=== PATIENT | male | born 1940 | race Caucasian/White ===

== ENCOUNTER 2018-08-04 00:14 | Outpatient (CLI) | payer BC, MEDICARE, SELFPAY ==
[2018-08-04 11:25] LABS: Anion Gap 9.5 mmol/L (3-11); BUN 26 mg/dL (7-18); CO2 31.5 mmol/L (21.0-32.0); CREATININE 1.09 mg/dL (0.70-1.30); Calcium 8.6 mg/dL (8.5-10.1); Chloride 103 mmol/L (98-107); Glucose 148 mg/dL (70-100); Sodium 144 mmol/L (136-145)
[2018-08-06 09:16] LABS: PSA, Screening <0.1 ng/ml (0-6.5)
== END 2018-08-04 00:34 ==
PROVIDERS: PCP Family Medicine; Visit Provider Family Medicine
DX: I27.20 Pulmonary hypertension, unspecified (principal); Z12.5 Encounter for screening for malignant neoplasm of prostate
CPT/HCPCS: 36415; 80048; 84153

== ENCOUNTER 2018-12-03 08:25 | Outpatient (CLI) | payer BC, MEDICARE, SELFPAY | END 2018-12-03 08:45 | PROVIDERS: PCP Family Medicine; Visit Provider Internal Medicine Interventional Cardiology | DX: I48.91 Unspecified atrial fibrillation (principal); I25.10 Atherosclerotic heart disease of native coronary artery without angina pectoris; I27.20 Pulmonary hypertension, unspecified; R06.02 Shortness of breath | CPT/HCPCS: 93005; 93010 ==

== ENCOUNTER 2019-05-01 00:55 | Outpatient (CLI) | payer MEDICARE, BC, SELFPAY ==
--- NOTE | 2019-05-01 10:30 | MERGE_ITS ---
*[facility]* *[facility]* [address] [place] [address] Date of study: 05/01/2019 Transthoracic Echocardiography M-mode, complete 2D, complete spectral Doppler, and color Doppler *STUDY CONCLUSIONS* Impressions: The patient was in atrial fibrillation throughout study. This rhythm can interfere with accurate global and segmental wall motion analysis. Summary: 1. Left ventricle: The cavity size was normal. Wall thickness was increased increased in a pattern of mild to moderate LVH. Systolic function was normal. The estimated ejection fraction was 60-65%. Wall motion was normal; there were no regional wall motion abnormalities. 2. Aortic valve: Trileaflet; severely calcified leaflets. There was moderate to severe stenosis. There was mild regurgitation. Peak velocity (S): 3m/sec. Mean gradient (S): 23.5mm Hg. Valve area (VTI): 1.1cm^2. Peak velocity ratio of LVOT to aortic valve: 0.26. 3. Aortic root: The aortic root was mildly dilated. 3.8 cm. 4. Ascending aorta: The ascending aorta was mildly to moderately dilated. 4.2 cm. 5. Left atrium: The atrium was moderately dilated. 6. Right ventricle: The cavity size was dilated. Wall thickness was normal. Systolic function was normal. 7. Right atrium: The atrium was moderately dilated. 8. Pulmonary arteries: Pulmonary systolic pressure was severely increased, in the range of 60mm Hg to 70mm Hg. *PATIENT PRESENTATION* Height: 175.3cm (69in ) S/D Pressure: 126 / 77 Weight: 104.3kg (229.5lb ) BSA: 2.29m^2 Test start time: 10:40 AM. Test stop time: 11:40 AM. CONSULTING Refugio Ward MD ORDERING Refugio Ward MD REFERRING Refugio Ward MD PERFORMING Unknown PERFORMING [facility] RT Tiffani Panchal)(CT), [facility] *PROCEDURE DATA* Procedure information: This study was interpreted by [facility]. Pertinent images and digital data are archived for permanent storage and are available for subsequent review. Comparison was made to the study of 08/07/2017. Study status: Routine. Transthoracic echocardiography. M-mode, complete 2D, complete spectral Doppler, and color Doppler. A Transthoracic Echocardiogram was performed. Scanning was performed from the parasternal, apical, subcostal, and suprasternal notch acoustic windows. Images were obtained using an [id number] cardiac ultrasound machine. Image quality was good. Study completion: The patient tolerated the procedure well. There were no complications. History: PMH: SOb, , Pulmonary HTN i35.0, i27.20, r06.02. *CARDIAC ANATOMY* Left ventricle: The cavity size was normal. Wall thickness was increased increased in a pattern of mild to moderate LVH. Systolic function was normal. The estimated ejection fraction was 60-65%. Wall motion was normal; there were no regional wall motion abnormalities. The study was not technically sufficient to allow evaluation of LV diastolic dysfunction due to atrial fibrillation. Aortic valve: Trileaflet; severely calcified leaflets. Valve mobility was restricted. Doppler: There was moderate to severe stenosis. There was mild regurgitation. VTI ratio of LVOT to aortic valve: 0.24. Valve area (VTI): 1.1cm^2. Indexed valve area (VTI): 0.5cm^2/m^2. Peak velocity ratio of LVOT to aortic valve: 0.26. Valve area (Vmax): 1.2cm^2. Indexed valve area (Vmax): 0.5cm^2/m^2. Mean velocity ratio of LVOT to aortic valve: 0.26. Valve area (Vmean): 1.2cm^2. Indexed valve area (Vmean): 0.5cm^2/m^2. Mean gradient (S): 23.5mm Hg. Peak gradient (S): 36.5mm Hg. Aorta: Aortic root: The aortic root was mildly dilated. 3.8 cm. Ascending aorta: The ascending aorta was mildly to moderately dilated. 4.2 cm. Mitral valve: Structurally normal valve. Mobility was not restricted. Doppler: Transvalvular velocity was within the normal range. There was no evidence for stenosis. There was trivial regurgitation. Valve area by pressure half-time: 5.5cm^2. Indexed valve area by pressure half-time: 2.4cm^2/m^2. Peak gradient (D): 7.6mm Hg. Left atrium: The atrium was moderately dilated. Right ventricle: The cavity size was dilated. Wall thickness was normal. Systolic function was normal. Pulmonic valve: Structurally normal valve. Doppler: Transvalvular velocity was within the normal range. There was no evidence for stenosis. There was trivial regurgitation. Peak gradient (S): 20.7mm Hg. Tricuspid valve: Structurally normal valve. Doppler: Transvalvular velocity was within the normal range. There was no evidence for stenosis. There was mild regurgitation. Pulmonary artery: The main pulmonary artery was mildly dilated. Pulmonary systolic pressure was severely increased, in the range of 60mm Hg to 70mm Hg. Right atrium: The atrium was moderately dilated. Pericardium: There was no pericardial effusion. Systemic veins: Inferior vena cava: Well visualized. The vessel was patent and normal in size. The respirophasic diameter changes were blunted (less than 50%). Baseline ECG: Atrial fibrillation. Measurements Left ventricle Value 08/07/2017 Reference LV ID, ED, PLAX 5.2 cm 5.3 3.5 - 6.0 LV ID, ES, PLAX 3.4 cm 3.7 2.1 - 4.0 LV PW thickness, ED, PLAX 1.3 cm 1.4 LV end-diastolic volume, 109 ml 82 1-p A2C LV ejection fraction, 1-p 59 % 42 A2C LV end-diastolic volume, 114 ml 112 1-p A4C LV ejection fraction, 1-p 67 % 45 A4C LV e', lateral 0.086 m/sec LV E/e', lateral 16 LV e', medial 0.076 m/sec LV E/e', medial 18 LV e', average 0.081 m/sec LV E/e', average 17 Ventricular septum Value 08/07/2017 Reference IVS thickness, ED, PLAX 1.4 cm 1.3 LVOT Value 08/07/2017 Reference LVOT ID, A-P 2.4 cm 2.4 LVOT area 4.6 cm^2 4.4 LVOT peak velocity, S 0.79 m/sec 0.91 LVOT mean velocity, S 0.61 m/sec LVOT VTI, S 16.6 cm 21.8 LVOT peak gradient, S 2.5 mm Hg LVOT mean gradient, S 1.6 mm Hg 1.9 Stroke volume (SV), LVOT 77 ml DP Stroke index (SV/bsa), 34 ml/m^2 LVOT DP Aortic valve Value 08/07/2017 Reference Aortic valve peak 3 m/sec 3.2 velocity, S Aortic valve mean 2.3 m/sec 0 velocity, S Aortic valve VTI, S 68.0 cm Aortic mean gradient, S 23.5 mm Hg 24.1 Aortic peak gradient, S 36.5 mm Hg 41 VTI ratio, LVOT/AV 0.24 0.3 Aortic valve area, VTI 1.1 cm^2 1.4 Velocity ratio, peak, 0.26 0.28 LVOT/AV Aortic valve area, peak 1.2 cm^2 1.2 velocity Velocity ratio, mean, 0.26 LVOT/AV Aortic valve area, mean 1.2 cm^2 velocity Aortic valve area/bsa, 0.5 cm^2/m^2 mean velocity Aorta Value 08/07/2017 Reference Aortic root ID, ED 3.8 cm 3.8 Ascending aorta ID, A-P, S 4.2 cm 4.2 RVOT Value 08/07/2017 Reference RVOT VTI, S 16.8 cm 19.4 Left atrium Value 08/07/2017 Reference LA ID, A-P, ES 5.4 cm LA ID/bsa, A-P (H) 2.4 cm/m^2 <=2.2 LA volume/bsa, ES, 1-p A4C 34 ml/m^2 56 LA volume, ES, 2-p 93 ml LA volume/bsa, ES, 2-p 41 ml/m^2 LA/aortic root ratio 1.41 Mitral valve Value 08/07/2017 Reference Mitral E-wave peak 1.38 m/sec 1.35 velocity Mitral A-wave peak 0.24 m/sec velocity Mitral deceleration time (L) 137 ms 185 150 - 230 Mitral pressure half-time 40 ms 54 Mitral peak gradient, D 7.6 mm Hg 7.3 Mitral E/A ratio, peak 5.72 Mitral valve area, PHT, DP 5.5 cm^2 4.1 Tricuspid valve Value 08/07/2017 Reference Tricuspid regurg peak 3.9 m/sec 4.1 velocity Tricuspid peak RV-RA 60 mm Hg 68.5 gradient Right atrium Value 08/07/2017 Reference RA area, ES, A4C (H) 29.7 cm^2 26.5 8.3 - 19.5 Pulmonic valve Value 08/07/2017 Reference Pulmonic peak gradient, S 20.7 mm Hg 22.5 Pulmonic regurg velocity, 2.27 m/sec 2.37 ED Pulmonic regurg gradient, 21 mm Hg 23 ED Legend: (L) and (H) sameera values outside specified reference range. I have personally reviewed the images and have reviewed and edited the reported findings. Electronically signed by Rich Vickers 05/01/2019 12:57
== END 2019-05-01 01:15 ==
PROVIDERS: PCP Nurse Practitioner; Visit Provider Internal Medicine Interventional Cardiology
DX: R06.02 Shortness of breath (principal); I48.91 Unspecified atrial fibrillation; I35.2 Nonrheumatic aortic (valve) stenosis with insufficiency; I27.20 Pulmonary hypertension, unspecified; I51.7 Cardiomegaly
CPT/HCPCS: 93306

== ENCOUNTER 2019-05-07 08:44 | Outpatient (CLI) | payer MEDICARE, BC, SELFPAY ==
[2019-05-07 09:12] LABS: Abs Immature Grans 0.03 k/cumm (0.0-0.09); Absolute Basophil Count 0.01 k/cumm (0.0-0.2); Absolute Eosinophil Count 0.16 k/cumm (0.0-0.7); Absolute Lymphocyte Count 1.21 k/cumm (1.2-3.4); Absolute Monocyte Count 1.25 k/cumm (0.11-0.7); Absolute Neutrophil Count 7.09 k/cumm (1.2-6.7); Basophils % 0.1; Eosinophils % 1.6; HCT 41.3 % (40.0-50.0); HGB 13.1 g/dL (13.5-17.5); Immature Grans % 0.3; Lymphocytes % 12.4; Mean Corp. HGB Concentration 31.7 g/dL (32.0-36.0); Mean Corpuscular Hemoglobin 30.8 pg (27.0-33.0); Mean Corpuscular Volume 97.2 fL (80-95); Mean Platelet Volume 9.8 fL (8.0-11.0); Monocytes % 12.8; Neutrophils % 72.8; Platelet Count 126 x1000/uL (130-400); RBC 4.25 m/cumm (4.50-6.00); White Blood Cell Count 9.75 k/cumm (4.4-10.8)
[2019-05-07 10:50] LABS: ALT 45 U/L (12-78); AST 27 U/L (15-37); Albumin 3.5 g/dL (3.4-5.0); Alkaline Phosphatase 79 U/L (46-116); Anion Gap 5.7 mmol/L (3-11); BUN 17 mg/dL (7-18); Bilirubin, Total 1.4 mg/dL (0.2-1.0); CO2 34.3 mmol/L (21.0-32.0); CREATININE 0.95 mg/dL (0.70-1.30); Calculated LDL 56 mg/dL; Chloride 101 mmol/L (98-107); Cholesterol 116 mg/dL (50-200); HDL Cholesterol 45 mg/dL (40-60); Potassium 3.8 mmol/L (3.5-5.1); Sodium 141 mmol/L (136-145); Triglyceride 76 mg/dL (30-150)
[2019-05-07 11:10] LABS: Bilirubin, Direct 0.34 mg/dL (0.00-0.20); NT-proBNP 1899 pg/mL
== END 2019-05-07 09:04 ==
PROVIDERS: PCP Nurse Practitioner; Visit Provider Internal Medicine Interventional Cardiology
DX: I27.20 Pulmonary hypertension, unspecified (principal); I35.0 Nonrheumatic aortic (valve) stenosis; R06.02 Shortness of breath; I48.91 Unspecified atrial fibrillation; I25.10 Atherosclerotic heart disease of native coronary artery without angina pectoris; D69.6 Thrombocytopenia, unspecified
CPT/HCPCS: 36415; 80051; 80061; 80076; 83721; 84520; 85027; 82565; 83880; 85025

== ENCOUNTER → 2019-05-13 12:52 | Outpatient (BNVA) | payer MEDICARE, BC, SELFPAY | PROVIDERS: PCP Nurse Practitioner; Visit Provider Internal Medicine Interventional Cardiology | DX: I27.20 Pulmonary hypertension, unspecified (principal); J44.9 Chronic obstructive pulmonary disease, unspecified; Z87.891 Personal history of nicotine dependence; G47.33 Obstructive sleep apnea (adult) (pediatric); Z99.89 Dependence on other enabling machines and devices; I50.810 Right heart failure, unspecified; I51.9 Heart disease, unspecified | CPT/HCPCS: 99213 ==

== ENCOUNTER 2019-05-13 13:30 | Outpatient (CLI) | payer MEDICARE, BC, SELFPAY | END 2019-05-13 13:50 | PROVIDERS: PCP Nurse Practitioner; Visit Provider Internal Medicine Interventional Cardiology | DX: I48.91 Unspecified atrial fibrillation (principal); I27.20 Pulmonary hypertension, unspecified; R60.0 Localized edema; J44.9 Chronic obstructive pulmonary disease, unspecified; Z87.891 Personal history of nicotine dependence; G47.33 Obstructive sleep apnea (adult) (pediatric); Z99.89 Dependence on other enabling machines and devices; I50.810 Right heart failure, unspecified; I51.9 Heart disease, unspecified | CPT/HCPCS: 93005; 93010; 99213 ==

== ENCOUNTER 2019-05-15 01:33 | Outpatient (RCR) | payer MEDICARE, BC, SELFPAY ==
[2019-05-02] MEDS: Adalimumab 40 MG/0.8 ML SYRINGE SC (11:30)
[2019-05-15] MEDS: Adalimumab 40 MG/0.8 ML SYRINGE SC (11:37)
== END 2019-05-25 23:59 | disposition home or self-care (01) ==
LOC: INF 01:33
PROVIDERS: PCP Nurse Practitioner; Visit Provider Internal Medicine
DX: M06.9 Rheumatoid arthritis, unspecified (principal)
CPT/HCPCS: 96372

== ENCOUNTER 2019-07-10 16:59 | Outpatient (REF) | payer MEDICARE, BC, SELFPAY ==
[2019-07-12 09:39] LABS: PSA, Screening <0.1 ng/ml (0-6.5)
== END 2019-07-10 17:19 ==
LOC: LBO 16:59
PROVIDERS: PCP Nurse Practitioner; Referring Provider Nurse Practitioner; Visit Provider Nurse Practitioner
DX: Z85.46 Personal history of malignant neoplasm of prostate (principal)
CPT/HCPCS: 84153

== ENCOUNTER 2020-04-13 07:19 | Outpatient (CLI) | payer MEDICARE, BC, SELFPAY ==
[2020-04-15 17:28] LABS: COVID-19 RT-PCR Result NEGATIVE (Negative)
== END 2020-04-13 07:39 ==
PROVIDERS: PCP Nurse Practitioner; Visit Provider Family Medicine
DX: R06.00 Dyspnea, unspecified (principal); R06.89 Other abnormalities of breathing
CPT/HCPCS: U0003

== ENCOUNTER 2020-04-16 02:16 | Outpatient (CLI) | payer MEDICARE, BC, SELFPAY ==
[2020-04-16] MEDS: Inhaler, Assist Device 1 EACH MC (14:26)
[2020-04-16] MEDS: Albuterol HFA 18 GM 200 PUFF INH IH (14:26)
--- NOTE | 2020-04-20 15:33 | W.PFT ---
Date of service: 04/16/20 Time of Service: 01:15 Pulmonary Function Test Result Interpretation Spirometry: Spirometry shows severe obstructive airways disease with some but not significant bronchodilator response Lung Volumes: Lung volumes show severe restriction Diffusion Capacity: Diffusion capacity very severely reduced which is normal when corrected to alveolar volume Airway Pressure: Airways resistance normal Impression Combination of severe obstructive airways disease with some but not significant bronchodilator response and severe restrictive pattern. This results in very severe diffusion defect clinical correlation recommended when the study was compared to previous ones from 08/30/2005 and 04/04/2017 the patient had an initial decline in FVC but has been fairly stable from 2017, FEV1 has had similar pattern. Total lung capacity initially improved but then had a substantial decline of 1710 cc from 2017 most of that decline was due to decline in residual volume and measures air trapping. clinical correlation recommended Clinical Correlation therefore is recommended.
== END 2020-04-16 02:36 ==
PROVIDERS: PCP Nurse Practitioner; Visit Provider Internal Medicine Interventional Cardiology
DX: R06.00 Dyspnea, unspecified (principal)
CPT/HCPCS: 94060; 94726; 94729

== ENCOUNTER 2020-04-30 01:19 | Outpatient (CLI) | payer MEDICARE, BC, SELFPAY ==
--- NOTE | 2020-04-30 | DI.US_ITS ---
APPROVED REPORT EXAM: Comprehensive 2D, Doppler, and color-flow Echocardiogram Patient Location: Out-Patient Event Services Manager: Suzy Hall RDCS (AE) Indications: Dyspnea Other Information Study Quality: Good Conclusion Left Ventricle : The left ventricle is normal size. The left ventricular systolic function is normal. The left ventricular ejection fraction is within the normal range. Mild concentric left ventricular hypertrophy. There are regional wall motion abnormalities as described below. The diastolic function is abnormal. LVEF is 48%. Right Ventricle : Right ventricle is mildly dilated. Right ventricular systolic function is mildly re duced. The RVSP is 78.2 mmHg. Atria : Left atrium is borderline dilated. Right atrium is borderline dilated. Aortic Valve : Aortic valve is calcified. Aortic valve is probably trileaflet. Severe aortic valve sc lerosis. Moderate aortic stenosis. Peak aortic valve gradient is 35.2mmHg. Highest mean aortic valve gradient is 20.6mmHg. Calculated KAMILA by the continuity equation is 1.35cm2. Mild aortic regurgitation . Mitral Valve : The mitral valve is normal in structure. No evidence of mitral valve stenosis. Mild mi tral regurgitation. Great Vessels : The aortic root is normal in size. Ascending aorta is not well visualized. Aortic arc h is not well visualized. The IVC collapses <50% with inspiration. Compared to study from 05/01/2019, aortic valve function is about the same but ejection fraction is now mildly reduced with regional wall motion abnormalities. Wall motion Left Ventricle The left ventricle is normal size. The left ventricular systolic function is normal. The left ventric ular ejection fraction is within the normal range. Mild concentric left ventricular hypertrophy. Ther e are regional wall motion abnormalities as described below. The diastolic function is abnormal. Ther e is no ventricular septal defect visualized. LVEF is 48%. Right Ventricle Right ventricle is mildly dilated. Right ventricular systolic function is mildly reduced. The RVSP is 78.2 mmHg. Atria Left atrium is borderline dilated. Right atrium is borderline dilated. The interatrial septum is inta ct with no evidence for an atrial septal defect. Aortic Valve Aortic valve is calcified. Aortic valve is probably trileaflet. Severe aortic valve sclerosis. Modera te aortic stenosis. Peak aortic valve gradient is 35.2mmHg. Highest mean aortic valve gradient is 20. 6mmHg. Calculated KAMILA by the continuity equation is 1.35cm2. Mild aortic regurgitation. Mitral Valve The mitral valve is normal in structure. No evidence of mitral valve stenosis. Mild mitral regurgitat ion. Tricuspid Valve The tricuspid valve is normal in structure. There is no tricuspid valve stenosis. Mild tricuspid regu rgitation. Pulmonic Valve The pulmonary valve is normal in structure. There is no pulmonic valvular stenosis. Mild pulmonic reg urgitation. Great Vessels The aortic root is normal in size. Ascending aorta is not well visualized. Aortic arch is not well vi sualized. The IVC collapses <50% with inspiration. Pericardium There is no pericardial effusion. 2D Dimensions IVSD d PLAX 1.20 cm M: 0.6-1.2 LV Vol A2C d MOD 125.9 mL LVPW d PLAX 1.22 cm M: 0.6 - 1.2 LV Vol A4C d MOD 95.3 mL LVID d PLAX 5.24 cm M: 4.2 - 5.8 LA vol/ BSA A2C s A-L 30.9 mL/m2 LVDs 3.65 cm M: 2.5 - 4.0 LA vol/ BSA A4C s A-L 30.1 mL/m2 Ao Root d 3.49 cm M: 3.1 - 3.7 LA Vol/ BSA Biplane s A-L 31.2 mL/m2 RA Area A4C 21.82 cm2 LA Area A4C s MOD 22.64 cm2 RA Vol/ BSA A4C s A-L 28.4 mL/m2 LA Area A2C s MOD 22.39 cm2 LV EF Teichholz 56.7 % LV EF A4C MOD 47.8 % LVEF (Akbar's) 49.07 % M: 52 - 72 LV EF A2C MOD 48.0 % LV Volume 82.58 mL M: 62 - 150 LV EF Biplane MOD 49.1 % LV Volume Index 37.03 mL/m2 M: 34 - 74 SV 55.97 mL LV Vol Biplane MOD 114.1 mL SV Index 25.07 mL/m2 FS 29.90 % M-Mode TAPSE 1.36 cm (M/F) >1.7 LV Diastology MV E' medial 0.071 (>0.07 m/s) MV E Vmax 1.39 (0.4-1.3 m/s) LV E/e MED 19.65 (<14) MV E' lateral 0.084 (>0.1 m/s) LV E/e LAT 16.60 (<14) MV E/E' medial 19.66 MV E/E' lateral 16.60 Aortic Valve LVOT Area 4.36 cm2 AoV Area Vmax 1.35 cm2 LVOT Vmax 0.92 m/s AoV Area/ BSA (Vmax) 0.61 cm2/m2 LVOT Mean Deandre. 0.62 m/s KAMILA Mean Deandre. 1.24 cm2 LVOT Peak Grad 3.4 mmHg KAMILA Mean Deandre. Index 0.55 cm2/m2 LVOT Mean Grad 1.8 mmHg AR DT 2047 msec LVOT VTI 0.218 m AR PHT 594 msec LVOT Diam s 2.35 cm AoV Vmax 2.97 m/s Velocity Ratio 0.30 AoV Mean Deandre. 2.17 m/s AoV Peak Grad 35.2 mmHg LVOT SV 94.81 mL AoV Mean Grad 20.6 mmHg AoV VTI 0.645 m AoV Area VTI 1.47 cm2 AoV Area/ BSA (VTI) 0.66 cm/m2 Mitral Valve MV DT 167 (160-240 msec) MV PHT 48 msec MV Area PHT 4.54 cm2 Pulmonary Valve PV Vmax 1.11 (0.5-1.5 m/s) RVOT Peak Gr. 2.76 mmHg PV Peak Grad 4.9 mmHg RVOT Mean Gr. 1.25 mmHg PV Mean Grad 2.3 mmHg RVOT VTI 0.151 m PV VTI 0.224 m RVOT Vmax 0.83 m/s Tricuspid Valve TR Peak Grad 70.1 mmHg TR Vmax 4.19 m/s RA Pressure 8.00 mmHg RVSP (TR) 78.2 mmHg
== END 2020-04-30 01:39 ==
PROVIDERS: PCP Nurse Practitioner; Visit Provider Internal Medicine Cardiovascular Disease
DX: R06.00 Dyspnea, unspecified (principal); I08.3 Combined rheumatic disorders of mitral, aortic and tricuspid valves
CPT/HCPCS: 93306

== ENCOUNTER 2020-05-28 01:21 | Outpatient (CLI) | payer MEDICARE, BC, SELFPAY ==
--- NOTE | 2020-05-28 14:58 | DI.CT_ITS ---
EXAM: CT CHEST WO CLINICAL HISTORY: CHRONIC OBSTRUCTIVE LUNG DISEASE, J44.9. TECHNIQUE: Imaging protocol: Axial computed tomography images were obtained and coronal and sagittal reformatted images were created and reviewed. COMPARISON: CT CHEST FOR PULMONARY EMBOLUS from 02/17/2017 FINDINGS: The study is limited by patient motion artifact. Tracheobronchial tree: Patent where visualized. Mediastinum and Denia: Mildly enlarged lymph nodes are seen in the mediastinum. No significant adenop athy is appreciated. Pulmonary parenchyma: There are areas of air trapping in the lungs. Linear areas of consolidation ar e seen in the right middle and right lower lobes. No pulmonary nodules are appreciated. Pleura: No effusion or pneumothorax. Stable pleural calcifications are seen in the right hemithorax. This may reflect prior asbestos exposure, infection or inflammation. Heart: The heart is enlarged. Coronary artery calcifications are present. No pericardial effusion. Aorta: Thoracic aorta non-dilated. Atherosclerosis. Upper abdomen: Unremarkable. Lymph nodes: Within normal limits. Bones:Degenerative changes. Sternotomy. Soft tissues: Unremarkable. IMPRESSION: 1. Study limited by significant patient motion artifact. 2. Linear areas of consolidation in the right middle and right lower lobes. This may represent atele ctasis, scarring or pneumonia. 3. Stable pleural calcifications in the right hemithorax. RADIATION DOSE DELIVERED: Total DLP Total DLP DATA REPOSITORY: All CT scans at this facility are submitted to the National Radiology Data Registry (NRDR) Dose Index Registry (DIR) with the [employer] (A[employer]). RADIATION OPTIMIZATION: All CT scans at this facility use at least one of these dose optimization te chniques: automated exposure control; mA and/or kV adjustment per patient size (includes targeted exa ms where dose is matched to clinical indication); or iterative reconstruction.
== END 2020-05-28 01:41 ==
PROVIDERS: PCP Nurse Practitioner; Visit Provider Internal Medicine
DX: J44.9 Chronic obstructive pulmonary disease, unspecified (principal)
CPT/HCPCS: 71250

== ENCOUNTER 2020-07-02 01:28 | Outpatient (CLI) | payer MEDICARE, BC, SELFPAY ==
[2020-07-02 07:40] LABS: Abs Immature Grans 0.02 10^3/uL (0.0-0.06); Absolute Basophil Count 0.02 10^3/uL (0.0-0.2); Absolute Lymphocyte Count 1.23 10^3/uL (1.2-3.4); Absolute Monocyte Count 1.01 10^3/uL (0.1-0.8); Absolute Neutrophil Count 4.39 10^3/uL (1.2-6.7); Basophils % 0.3; Eosinophils % 2.9; HGB 12.6 g/dL (13.5-17.5); Immature Grans % 0.3; Lymphocytes % 17.9; MCH 31.4 pg (27.0-33.0); MCHC 31.5 % (32.0-36.0); MCV 99.8 fL (80-95); MPV 10.2 fL (8.0-11.0); Monocytes % 14.7; Neutrophils % 63.9; Nucleated RBC 0 %; Platelet Count 115 10^3/uL (130-400); RBC 4.01 10^6/uL (4.36-5.78); RDW 13.7 % (11.8-14.1); RDW-SD 50.1 fL; WBC 6.87 10^3/uL (4.4-10.8)
[2020-07-02 08:36] LABS: Anion Gap 5.3 mmol/L (3-11); BUN 19 mg/dL (7-18); CO2 37.7 mmol/L (21.0-32.0); Calcium 8.9 mg/dL (8.5-10.1); Chloride 101 mmol/L (98-107); Glucose 165 mg/dL (74-106); NT-proBNP 2391 pg/mL (<300); Potassium 3.7 mmol/L (3.5-5.1); Sodium 144 mmol/L (136-145)
== END 2020-07-02 01:48 ==
PROVIDERS: PCP Nurse Practitioner; Visit Provider Internal Medicine Interventional Cardiology
DX: R06.00 Dyspnea, unspecified (principal)
CPT/HCPCS: 36415; 80048; 83880; 85025

== ENCOUNTER 2020-08-26 22:16 | Outpatient (REF) | payer MEDICARE, BC, SELFPAY ==
[2020-08-26 20:47] LABS: ALT 30 U/L (16-63); AST 38 U/L (15-37); Albumin 3.5 g/dL (3.4-5.0); Alkaline Phosphatase 105 U/L (46-116); Anion Gap 4.2 mmol/L (3-11); BUN 23 mg/dL (7-18); CO2 34.8 mmol/L (21.0-32.0); CREATININE 1.17 mg/dL (0.70-1.30); Calcium 8.8 mg/dL (8.5-10.1); Chloride 104 mmol/L (98-107); Estimated GFR 59.83 (mL/min/1.73m2); Glucose 236 mg/dL (74-106); Potassium 4.1 mmol/L (3.5-5.1); Sodium 143 mmol/L (136-145); Total Protein 7.5 g/dL (6.4-8.2)
[2020-08-26 20:54] LABS: Bilirubin, Total 1.3 mg/dL (0.2-1.0)
== END 2020-08-26 22:36 ==
LOC: LBN 22:16
PROVIDERS: PCP Nurse Practitioner; Visit Provider Nurse Practitioner
DX: I87.312 Chronic venous hypertension (idiopathic) with ulcer of left lower extremity (principal); I27.20 Pulmonary hypertension, unspecified; G47.33 Obstructive sleep apnea (adult) (pediatric); L97.929 Non-pressure chronic ulcer of unspecified part of left lower leg with unspecified severity; M06.9 Rheumatoid arthritis, unspecified
CPT/HCPCS: 80053

== ENCOUNTER 2021-07-27 02:22 | Outpatient (CLI) | payer OTHER, SELFPAY ==
[2021-07-27 12:56] LABS: Hemoglobin A1C 8.1 % (<5.7)
[2021-07-27 13:21] LABS: ALT 32 U/L (16-63); AST 23 U/L (15-37); Albumin 3.5 g/dL (3.4-5.0); Alkaline Phosphatase 118 U/L (46-116); Anion Gap 3.4 mmol/L (3-11); BUN 40 mg/dL (7-18); Bilirubin, Total 1.4 mg/dL (0.2-1.0); CO2 37.6 mmol/L (21.0-32.0); CREATININE 1.4 mg/dL (0.70-1.30); Calcium 8.7 mg/dL (8.5-10.1); Calculated LDL 54 mg/dL (<100); Chloride 100 mmol/L (98-107); Cholesterol 112 mg/dL (<200); Estimated GFR 48.52 (mL/min/1.73m2); Glucose 269 mg/dL (74-106); HDL Cholesterol 44 mg/dL (40-60); Potassium 4.1 mmol/L (3.5-5.1); Sodium 141 mmol/L (136-145); Total Protein 7.4 g/dL (6.4-8.2); Triglyceride 71 mg/dL (<150)
[2021-07-27 22:00] LABS: PSA, Screening <0.1 ng/mL (0.0-6.5)
== END 2021-07-27 02:23 | disposition home or self-care (01) ==
PROVIDERS: PCP Nurse Practitioner; Visit Provider Nurse Practitioner
DX: E78.5 Hyperlipidemia, unspecified; I10 Essential (primary) hypertension; E66.9 Obesity, unspecified; E11.9 Type 2 diabetes mellitus without complications; Z12.5 Encounter for screening for malignant neoplasm of prostate
CPT/HCPCS: 36415; 80053; 80061; 84153; 83036

== ENCOUNTER 2021-10-30 14:19 | Emergency (ER) | payer OTHER, SELFPAY ==
[2021-10-30 14:27] VITALS: BP 122/69; PULSE 86; RESP 22; TEMP 36.6; O2SAT 92
--- NOTE | 2021-10-30 15:04 | ED.GENADUL_ITS ---
Discharge Plan Disposition Patient Disposition: HOME Condition: Stable Discharge Details Clinical Impression: Acute anterior epistaxis, History of renal insufficiency Primary Care Provider: Khushi Payne ED Provider: Cristina Ventura Home Meds and New Rx's Prescriptions: Continued cholecalciferol (vitamin D3) 1,000 unit capsule 1,000 unit PO DAILY RF: 0 levalbuterol tartrate [Xopenex HFA] 45 mcg/actuation HFA aerosol inhaler 2 inh IH Q6H PRN (Reason: shortness of breath) Qty: 15 RF: 12 Anoro Ellipta 1 EACH blister with device 1 ea Inhalation DAILY RF: 0 acetaminophen [Tylenol Extra Strength] 500 MG tablet 500 mg PO BID RF: 0 Humira Pen 40 mg/0.8 mL pen injector kit 40 mg subcut every 2 weeks Qty: 2 RF: 1 (DME) Oxygen Tank See Rx Instructions .ROUTE .MEDSUPPLY Qty: 1 RF: 0 pantoprazole 40 mg tablet,delayed release (DR/EC) 40 mg PO DAILY Qty: 90 RF: 2 atorvastatin 40 mg tablet 40 mg PO DAILY 90 Days Qty: 90 RF: 3 potassium chloride 10 mEq capsule, extended release 20 meq PO as directed Qty: 270 RF: 3 torsemide 20 mg tablet 40 mg PO BID Qty: 180 RF: 3 prednisone 5 mg tablet 5 mg PO DAILY PRN (Reason: RA) Qty: 60 RF: 3 lisinopril 20 mg tablet 20 mg PO BID Qty: 180 RF: 3 metoprolol succinate 100 mg tablet extended release 24 hr 100 mg PO BID Qty: 180 RF: 3 nitroglycerin [Nitrostat] 0.4 mg tablet, sublingual 0.4 mg Sublingual ONCE PRN (Reason: chest pain) Qty: 25 RF: 6 Eliquis 5 mg tablet 5 mg PO BID Qty: 60 RF: 12 doxazosin [Cardura] 2 mg tablet 2 mg PO DAILY Qty: 90 RF: 3 ascorbic acid (vitamin C) 1,000 MG tablet 1,000 mg PO DAILY RF: 0 vitamin B complex [B Complete] 1 EACH tablet 1 tab PO DAILY RF: 0 Fish Oil 1 EACH capsule 1 ea PO QAM RF: 0 Discharge Instructions Additional Instructions: Please follow-up with ear nose and throat doctor Return to the emergency room tomorrow evening to have this packing removed, if you feel comfortable you may try pulling the packing on your own, all the packing very slowly If your nose starts to bleed again you may spray 2 sprays of phenylephrine and placed a nasal clamp, if it starts within 20 minutes you do not need to return to the emergency room, I do recommend close outpatient follow-up with your primary care physician Do not place anything in your nostril for the next 48 hours You may use the nasal mask for oxygen Talk to your doctor about humidified oxygen for home Call your nostril twice daily with Vaselines sleep with Humidifier in the room Please follow-up with ear nose and throat doctor in the outpatient setting for evaluation of your recurrent nosebleeds Referrals: Addison Hogan MD [ [facility]YSICIAN] - Khushi Payne NP [Primary Care Provider] - Discharge Data Discharge Date/Time-TO BE ENTERED AT DEPARTURE: 10/30/21 16:30 Medical Decision Making Patient tolerated rated the procedure without incident He will need to return tomorrow to have this packing removed He may return to the emergency room or they are able to remove the packing at home as they feel comfortable As he will only have this in place for 24 hours I feel comfortable sending patient home without antibiotics at this time He is hemodynamically stable, his platelets are not grossly changed from prior Hemoglobin and hematocrit are markedly decreased but still do not indicate need for transfusion As I do not have prior labs aside from CBC from 2019, I will recheck CBC tomorrow when patient presents for removal of packing Patient discharged home in stable condition, hemodynamically stable in the care of his daughter in stable condition Medical Records Medical records reviewed: Yes I reviewed the patient's medical records. Lab Data Lab results reviewed: Yes I reviewed the patient's lab results. HPI General Mode of arrival: wheelchair . Date/Time Provider Initiated Documentation: 10/30/21 14:20 . Limitations to Documentation: physical limitation . Information obtained by: patient . HPI Narrative: This 81-year-old gentleman with history of hypercapnia, hematuria, thrombocytopenia, coronary artery disease, chronically anticoagulated on Eliquis with recurrent epistaxis presents with epistaxis since 6:00 this morning. Denies any weakness or dizziness. States he has had more frequent nosebleeds this week. Denies any fever or chills. Denies any chest pain or shortness of breath. Denies any trauma to the affected area. States normally with pressure they resolve. States this episode was more persistent, which is why he presents. Chronically oxygen dependent, 4 L. Related Data Home Medications Medication Instructions Recorded Confirmed ascorbic acid (vitamin C) 1,000 mg PO DAILY 09/21/13 10/31/21 vitamin B complex [B Complete] 1 tab PO DAILY 09/21/13 10/31/21 Fish Oil 1 ea PO QAM 04/11/14 10/31/21 Anoro Ellipta 1 ea INHALATION DAILY 04/11/17 10/31/21 acetaminophen [Tylenol Extra 500 mg PO BID tab 06/09/17 10/31/21 Strength] cholecalciferol (vitamin D3) 25 1,000 unit PO DAILY 01/07/19 10/31/21 mcg (1,000 unit) capsule adalimumab 40 mg/0.8 mL 40 mg SUBCUT every 2 weeks #2 03/16/20 10/31/21 subcutaneous pen kit device levalbuterol tartrate 45 2 inh IH Q6H PRN #15 g 04/28/21 10/31/21 mcg/actuation aerosol inhaler Oxygen #1 ea 04/29/21 10/31/21 pantoprazole 40 mg tablet,delayed 40 mg PO DAILY #90 tab 05/11/21 10/31/21 release atorvastatin 40 mg tablet 40 mg PO DAILY 90 Days #90 tab 07/08/21 10/31/21 potassium chloride 10 mEq 20 meq PO as directed #270 tab-cap 08/17/21 10/31/21 capsule,extended release torsemide 20 mg tablet 40 mg PO BID #180 tab 08/17/21 10/31/21 prednisone 5 mg tablet 5 mg PO DAILY PRN #60 tab 09/01/21 10/31/21 apixaban 5 mg tablet 5 mg PO BID #60 tab 10/14/21 10/31/21 doxazosin 2 mg tablet 2 mg PO DAILY #90 tab 10/14/21 10/31/21 lisinopril 20 mg tablet 20 mg PO BID #180 tab 10/14/21 10/31/21 metoprolol succinate 100 mg 100 mg PO BID #180 tab 10/14/21 10/31/21 tablet,extended release 24 hr nitroglycerin 0.4 mg sublingual 0.4 mg SUBLINGUAL ONCE PRN #25 tab 10/14/21 10/31/21 tablet Previous Rx's Medication Instructions Recorded adalimumab 40 mg/0.8 mL 40 mg SUBCUT every 2 weeks #2 03/16/20 subcutaneous pen kit device levalbuterol tartrate 45 2 inh IH Q6H PRN #15 g 04/28/21 mcg/actuation aerosol inhaler pantoprazole 40 mg tablet,delayed 40 mg PO DAILY #90 tab 05/11/21 release atorvastatin 40 mg tablet 40 mg PO DAILY 90 Days #90 tab 07/08/21 potassium chloride 10 mEq 20 meq PO as directed #270 tab-cap 08/17/21 capsule,extended release torsemide 20 mg tablet 40 mg PO BID #180 tab 08/17/21 prednisone 5 mg tablet 5 mg PO DAILY PRN #60 tab 09/01/21 apixaban 5 mg tablet 5 mg PO BID #60 tab 10/14/21 doxazosin 2 mg tablet 2 mg PO DAILY #90 tab 10/14/21 lisinopril 20 mg tablet 20 mg PO BID #180 tab 10/14/21 metoprolol succinate 100 mg 100 mg PO BID #180 tab 10/14/21 tablet,extended release 24 hr nitroglycerin 0.4 mg sublingual 0.4 mg SUBLINGUAL ONCE PRN #25 tab 10/14/21 tablet Allergies Allergy/AdvReac Type Severity Reaction Status Date / Time methotrexate [Methotrexate] Allergy Intermediate Verified 10/31/21 16:09 metolazone Allergy Mild Verified 10/31/21 16:09 propoxyphene Allergy Mild Verified 10/31/21 16:09 General Stated Complaint: Epistaxis MARISSA: 3 Review of Systems All systems reviewed & are unremarkable except as noted in HPI and below PFSH All Active Problems (Updated 10/31/21 @ 17:43 by YUSEF Vigil) Acute anterior epistaxis (Acute) History of renal insufficiency (Acute) Epistaxis (Acute) Anemia (Chronic) Neoplasm of prostate (Acute) Abdominal pain (Acute) Stasis edema with ulcer of left lower extremity (Acute) Aortic stenosis, moderate (Chronic 2014) Dr. Ward probably kajta Mod[facility] Hypercapnia (Acute) Hematuria (Acute) x2 02/2020 .. Asymptomatic, no repeat .. Monitoring for now, ik. Encounter for Medicare annual wellness exam (Acute) Abdominal pain (Acute 09/24/13) Occult blood in stools (Acute 09/23/13) Venous stasis (Acute 10/04/11) Severe obstructive sleep apnea (Chronic 04/11/17) with very significant hypoxemia. Uncler whether it is a pulmonary or cardiac etiology.(sleep study f/u note 04/11/17). Bipap w/ 3 L 02 Rheumatoid arthritis (Chronic 09/25/1968) S/P R WRIST FUSION 69; enbrel 02/27, Humira 2017 Barbie Fowler MD Pulmonary hypertension (Chronic) incr PA pressure on ECHO 08/2016; SEVERE by cath 09/04/17: 77/24. 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 goal 215 Hypoxemia (Chronic 02/10/17) with new dyspnea! Hypertension (Chronic) Hyperlipidemia (Chronic 10/04/11) low HDL, LDL goal 70 Heart valve insufficiency (Chronic 07/28/15) Moderate AI, mild MR on ECHO 07/27/15; murmurs; Cardiology [facility] 08/2015, check yrly; Mod ; Mod AI & MR 08/2016; NO EVIDENCE OF SIGNIFICANT ON CATH 08/2017 Edema leg (Chronic 02/24/17) Dysmetabolic syndrome X (Chronic 10/04/11) Chronic ischemic heart disease, unspecified (Chronic 12/24/89) S/P CABG ; 99; angina; Stress ECHO neg ischemia 2007 but insufficient rate; small inf hypokinesis, EF 65% [facility] [place] [place]; EF still 65% 08/2016 Chronic anticoagulation (Chronic 10/14/16) Apixaban begun 08/2016 for new A Fib Celiac disease (Chronic 04/11/14) Pos bx on EGD, pos TTG IgA Ab ([facility]); Rx gluten free diet Atrial fibrillation, new onset (Chronic 08/30/16) Noted at colonoscopy 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) 10/31/17 Dr Fowler ([facility]) Medical History (Updated 10/31/21 @ 17:43 by YUSEF Vigil) Acute rheumatoid arthritis COPD (chronic obstructive pulmonary disease) Obstructive sleep apnea syndrome in adult Repeated falls Thrombocytopathia Surgical History excision, metatarsal (06/19/15) Dr Reynolds, 4th metatarsal head S/P CABG (coronary artery bypass graft) (10/14/04) S/P CABG x 2 (~1998) S/P CABG x 3 (~1989) S/P hernia surgery (09/24/92) S/P prostatectomy (06/24/97) S/P total hip arthroplasty (06/27/08) Iron def anemia following surg 07/16/08 Status post fusion of wrist (05/25/1969) right Family History (Updated 04/29/21 @ 08:47 by Luna Amin) Father , heart issues at age 75. Heart disease Brother FHx: lung cancer Alcohol abuse 2 brothers at age 55 and 65 d/t alcohol abuse. Emphysema, unspecified Sister Diabetes Social History (Updated 04/29/21 @ 08:55 by Luna Amin) Smoking/Tobacco Use Status: Former Tobacco Use tobacco type: cigarettes Quit Date: 09/25/55 Smoking risk assessment performed?: Yes Alcohol Intake: never Drug use: Never Substance use type: does not use Household members: spouse Housing: house Communication Needs: None current occupation: Retired Pets and animals: Yes (1 dog) Pets and animals: dog(s) Current gender identity: male What type of physical activity do you participate in: walking Duration: < 15 minutes/day Frequency: daily Seatbelt use: always Drive intox or ride w/intox distribution driver: No Working smoke detector in home: Yes Fire extinguisher in home: Yes Carbon monox detector in home: Yes Do you feel safe at home: Yes Do you feel safe in your relationship?: Yes Exam Const General: cooperative, comfortable and no acute distress Other: Chronically ill-appearing HENMT Other: Macerated nasal septum, oozing noted, clot Eyes Pupils: PERRL Chest Chest: normal inspection of the chest Resp Effort & Inspection: normal respiratory effort Auscultation: clear to auscultation bilaterally Cardio Rate: regular rate Rhythm: regular rhythm Neuro General: patient alert and patient oriented x3 Other: no pallor Course Vital Signs Vital signs: Vital Signs Temperature 36.6 C 10/30/21 14:27 Pulse 86 10/30/21 14:27 Respiratory Rate 22 10/30/21 14:27 Blood Pressure 122/69 10/30/21 14:27 Pulse Oximetry 92 10/30/21 14:27 Temperature 36.6 C 10/30/21 14:27 Temperature Source Skin 10/30/21 14:27 Pulse 86 10/30/21 14:27 Respiratory Rate 22 10/30/21 14:27 Respiratory Effort Non-Labored 10/30/21 14:38 Blood Pressure 122/69 10/30/21 14:27 Blood Pressure Position Supine 10/30/21 14:27 Pulse Oximetry 92 10/30/21 14:27 Oxygen Delivery Method Nasal Cannula 10/30/21 14:27 Oxygen Flow Rate 4 10/30/21 14:27 Pain Level 0 10/30/21 14:27 Procedures Epistaxis Control Time Out Performed: Yes Nostril: left Nose Prepped With: phenylephrine and other Direct Inspection: yes Clots Removed by: suction Device Inserted: nasal tampon and other Patient Tolerated Procedure: well
[2021-10-30] MEDS: Phenylephrine SPRAY 1% 15 ML BTL NS (15:15)
[2021-10-30] MEDS: Tranexamic Acid 1,000 MG/10 ML VIAL 500 MG NS (15:15)
[2021-10-30 15:20] LABS: Abs Immature Grans 0.01 10^3/uL (0.0-0.06); Absolute Basophil Count 0.02 10^3/uL (0.0-0.2); Absolute Eosinophil Count 0.09 10^3/uL (0.0-0.7); Absolute Lymphocyte Count 1.16 10^3/uL (1.2-3.4); Absolute Monocyte Count 0.76 10^3/uL (0.1-0.8); Absolute Neutrophil Count 4.45 10^3/uL (1.2-6.7); Basophils % 0.3; Eosinophils % 1.4; HCT 29.6 % (40.0-50.0); HGB 8.4 g/dL (13.5-17.5); Immature Grans % 0.2; Lymphocytes % 17.9; MCH 27.2 pg (27.0-33.0); MCHC 28.4 % (32.0-36.0); MCV 95.8 fL (80-95); MPV 10.6 fL (8.0-11.0); Monocytes % 11.7; Neutrophils % 68.5; Nucleated RBC 0 %; Platelet Count 128 10^3/uL (130-400); RBC 3.09 10^6/uL (4.36-5.78); RDW 17.5 % (11.8-14.1); RDW-SD 60.1 fL; WBC 6.49 10^3/uL (4.4-10.8)
[2021-10-30 15:28] LABS: Anion Gap 6.4 mmol/L (3-11); BUN 27 mg/dL (7-18); CO2 33.6 mmol/L (21.0-32.0); CREATININE 1.7 mg/dL (0.70-1.30); Chloride 100 mmol/L (98-107); Estimated GFR 38.78 (mL/min/1.73m2); Glucose 250 mg/dL (74-106); Potassium 4.2 mmol/L (3.5-5.1); Sodium 140 mmol/L (136-145)
[2021-10-30 15:36] LABS: Diff Comment RBC Morph Reviewed
[2021-10-30 15:39] LABS: RBC Morphology Normal
== END 2021-10-30 16:30 | disposition home or self-care (01) ==
PROVIDERS: Emergency Provider Physician Assistant; PCP Nurse Practitioner
DX: R04.0 Epistaxis (principal); N28.9 Disorder of kidney and ureter, unspecified
CPT/HCPCS: 30901; 36415; 80048; 99283; 85025

== ENCOUNTER 2021-10-31 15:55 | Emergency (ER) | payer OTHER, SELFPAY ==
[2021-10-31 16:03] VITALS: BP 150/78; PULSE 65; RESP 18; TEMP 36.6; O2SAT 100
[2021-10-31 16:37] LABS: Abs Immature Grans 0.01 10^3/uL (0.0-0.06); Absolute Basophil Count 0.02 10^3/uL (0.0-0.2); Absolute Eosinophil Count 0.08 10^3/uL (0.0-0.7); Absolute Lymphocyte Count 1.13 10^3/uL (1.2-3.4); Absolute Monocyte Count 0.71 10^3/uL (0.1-0.8); Absolute Neutrophil Count 4.39 10^3/uL (1.2-6.7); Basophils % 0.3; Eosinophils % 1.3; HGB 7.8 g/dL (13.5-17.5); Immature Grans % 0.2; Lymphocytes % 17.8; MCH 27.7 pg (27.0-33.0); MCHC 28.9 % (32.0-36.0); MCV 95.7 fL (80-95); MPV 9.9 fL (8.0-11.0); Monocytes % 11.2; Neutrophils % 69.2; Nucleated RBC 0 %; Platelet Count 128 10^3/uL (130-400); RBC 2.82 10^6/uL (4.36-5.78); RDW 17.4 % (11.8-14.1); RDW-SD 60.8 fL; WBC 6.34 10^3/uL (4.4-10.8)
[2021-10-31] MEDS: Cellulose,Oxidized 2X3 PKT 1 EACH MC (16:40)
[2021-10-31 17:13] LABS: Diff Comment RBC Morph Reviewed
--- NOTE | 2021-10-31 17:39 | NUR.NOTE ---
Referral faxed to [facility] for follow up Mon or of this week for anemia. Lag requisition for 11/02/21 given to patient, and copy to lab for CBC w/diff, ferritin, and iron &TIBC. This was also noted on the referral. Justa Segura Nursing Note:
--- NOTE | 2021-10-31 17:50 | W.ED.GENAD ---
Discharge Plan Disposition Patient Disposition: HOME Condition: Stable Discharge Details Clinical Impression: Epistaxis, Anemia Primary Care Provider: Khushi Payne ED Provider: Cristina Ventura Home Meds and New Rx's Prescriptions: Continued cholecalciferol (vitamin D3) 1,000 unit capsule 1,000 unit PO DAILY RF: 0 levalbuterol tartrate [Xopenex HFA] 45 mcg/actuation HFA aerosol inhaler 2 inh IH Q6H PRN (Reason: shortness of breath) Qty: 15 RF: 12 Anoro Ellipta 1 EACH blister with device 1 ea Inhalation DAILY RF: 0 acetaminophen [Tylenol Extra Strength] 500 MG tablet 500 mg PO BID RF: 0 Humira Pen 40 mg/0.8 mL pen injector kit 40 mg subcut every 2 weeks Qty: 2 RF: 1 (DME) Oxygen Tank See Rx Instructions .ROUTE .MEDSUPPLY Qty: 1 RF: 0 pantoprazole 40 mg tablet,delayed release (DR/EC) 40 mg PO DAILY Qty: 90 RF: 2 atorvastatin 40 mg tablet 40 mg PO DAILY 90 Days Qty: 90 RF: 3 potassium chloride 10 mEq capsule, extended release 20 meq PO as directed Qty: 270 RF: 3 torsemide 20 mg tablet 40 mg PO BID Qty: 180 RF: 3 prednisone 5 mg tablet 5 mg PO DAILY PRN (Reason: RA) Qty: 60 RF: 3 lisinopril 20 mg tablet 20 mg PO BID Qty: 180 RF: 3 metoprolol succinate 100 mg tablet extended release 24 hr 100 mg PO BID Qty: 180 RF: 3 nitroglycerin [Nitrostat] 0.4 mg tablet, sublingual 0.4 mg Sublingual ONCE PRN (Reason: chest pain) Qty: 25 RF: 6 Eliquis 5 mg tablet 5 mg PO BID Qty: 60 RF: 12 doxazosin [Cardura] 2 mg tablet 2 mg PO DAILY Qty: 90 RF: 3 ascorbic acid (vitamin C) 1,000 MG tablet 1,000 mg PO DAILY RF: 0 vitamin B complex [B Complete] 1 EACH tablet 1 tab PO DAILY RF: 0 Fish Oil 1 EACH capsule 1 ea PO QAM RF: 0 Discharge Instructions Instructions: Nosebleed (ED), Anemia (ED) Additional Instructions: return for cbc to lab in 48 hours (blood work) recheck with pcp on monday do not attempt to remove surgicel in place humidified oxygen and humidifier in room coast nostrils with vaseline twice daily call ent tomorrow * dr hogan return earlier with bleeding uncontrolled with clamp for 20 minutes, weakness, dizziness, or with any new or worsening complaints Referrals: Addison Hogan MD [ [facility] STAFF PHYSICIAN] - Khushi Payne NP [Primary Care Provider] - Discharge Data Discharge Date/Time-TO BE ENTERED AT DEPARTURE: 10/31/21 17:59 Medical Decision Making Patient appears chronically ill but at baseline, his vitals are stable, he is overall hemodynamically stable, given the persistent oozing, I did place Surgicel to the septum, he has no active bleeding at time of reassessment, he was evaluated on 3 occasions throughout this encounter with no active bleeding Guaiac performed to exclude GI bleed, this was negative Ordered repeat CBC in 48 hours with TIBC, ferritin, and iron, will have follow-up arranged for PCP recheck within the next 48 hours and ENT recheck Patient discharged home ambulatory with steady gait Discussed with daughter who feels comfortable with discharge and will manage patient outpatient Patient stable for discharge home at this time, he will have close outpatient reassessment Return precautions discussed and patient and daughter expressed understanding Medical Records Medical records reviewed: Yes I reviewed the patient's medical records. Lab Data Lab results reviewed: Yes I reviewed the patient's lab results. HPI General Mode of arrival: ambulatory. Date/Time Provider Initiated Documentation: 10/31/21 16:02. Limitations to Documentation: no limitations. Information obtained by: patient. HPI Narrative: This 81-year-old gentleman presents for repeat CBC and anterior packing removal. Patient denies any complaints. He states he has not had bleeding since last evening and has been able to use his oxygen at home. He denies any weakness or dizziness. He denies any blood in stool. He did not take his Eliquis last evening but did take his dose this morning. He otherwise feels well. Denies any additional complaints at this time. Related Data Home Medications Medication Instructions Recorded Confirmed ascorbic acid (vitamin C) 1,000 mg PO DAILY 09/21/13 10/31/21 vitamin B complex [B Complete] 1 tab PO DAILY 09/21/13 10/31/21 Fish Oil 1 ea PO QAM 04/11/14 10/31/21 Anoro Ellipta 1 ea INHALATION DAILY 04/11/17 10/31/21 acetaminophen [Tylenol Extra 500 mg PO BID tab 06/09/17 10/31/21 Strength] cholecalciferol (vitamin D3) 25 1,000 unit PO DAILY 01/07/19 10/31/21 mcg (1,000 unit) capsule adalimumab 40 mg/0.8 mL 40 mg SUBCUT every 2 weeks #2 03/16/20 10/31/21 subcutaneous pen kit device levalbuterol tartrate 45 2 inh IH Q6H PRN #15 g 04/28/21 10/31/21 mcg/actuation aerosol inhaler Oxygen #1 ea 04/29/21 10/31/21 pantoprazole 40 mg tablet,delayed 40 mg PO DAILY #90 tab 05/11/21 10/31/21 release atorvastatin 40 mg tablet 40 mg PO DAILY 90 Days #90 tab 07/08/21 10/31/21 potassium chloride 10 mEq 20 meq PO as directed #270 tab-cap 08/17/21 10/31/21 capsule,extended release torsemide 20 mg tablet 40 mg PO BID #180 tab 08/17/21 10/31/21 prednisone 5 mg tablet 5 mg PO DAILY PRN #60 tab 09/01/21 10/31/21 apixaban 5 mg tablet 5 mg PO BID #60 tab 10/14/21 10/31/21 doxazosin 2 mg tablet 2 mg PO DAILY #90 tab 10/14/21 10/31/21 lisinopril 20 mg tablet 20 mg PO BID #180 tab 10/14/21 10/31/21 metoprolol succinate 100 mg 100 mg PO BID #180 tab 10/14/21 10/31/21 tablet,extended release 24 hr nitroglycerin 0.4 mg sublingual 0.4 mg SUBLINGUAL ONCE PRN #25 tab 10/14/21 10/31/21 tablet Previous Rx's Medication Instructions Recorded adalimumab 40 mg/0.8 mL 40 mg SUBCUT every 2 weeks #2 03/16/20 subcutaneous pen kit device levalbuterol tartrate 45 2 inh IH Q6H PRN #15 g 04/28/21 mcg/actuation aerosol inhaler pantoprazole 40 mg tablet,delayed 40 mg PO DAILY #90 tab 05/11/21 release atorvastatin 40 mg tablet 40 mg PO DAILY 90 Days #90 tab 07/08/21 potassium chloride 10 mEq 20 meq PO as directed #270 tab-cap 08/17/21 capsule,extended release torsemide 20 mg tablet 40 mg PO BID #180 tab 08/17/21 prednisone 5 mg tablet 5 mg PO DAILY PRN #60 tab 09/01/21 apixaban 5 mg tablet 5 mg PO BID #60 tab 10/14/21 doxazosin 2 mg tablet 2 mg PO DAILY #90 tab 10/14/21 lisinopril 20 mg tablet 20 mg PO BID #180 tab 10/14/21 metoprolol succinate 100 mg 100 mg PO BID #180 tab 10/14/21 tablet,extended release 24 hr nitroglycerin 0.4 mg sublingual 0.4 mg SUBLINGUAL ONCE PRN #25 tab 10/14/21 tablet Allergies Allergy/AdvReac Type Severity Reaction Status Date / Time methotrexate [Methotrexate] Allergy Intermediate Verified 10/31/21 16:09 metolazone Allergy Mild Verified 10/31/21 16:09 propoxyphene Allergy Mild Verified 10/31/21 16:09 General Stated Complaint: Recheck MARISSA: 4 Review of Systems All systems reviewed & are unremarkable except as noted in HPI and below PFSH All Active Problems (Updated 10/31/21 @ 17:43 by YUSEF Vigil) Acute anterior epistaxis (Acute) History of renal insufficiency (Acute) Epistaxis (Acute) Anemia (Chronic) Neoplasm of prostate (Acute) Abdominal pain (Acute) Stasis edema with ulcer of left lower extremity (Acute) Aortic stenosis, moderate (Chronic 2014) [facility]. Hypercapnia (Acute) Hematuria (Acute) x2 02/2020 .. Asymptomatic, no repeat .. Monitoring for now, ik. Encounter for Medicare annual wellness exam (Acute) Abdominal pain (Acute 09/24/13) Occult blood in stools (Acute 09/23/13) Venous stasis (Acute 10/04/11) Severe obstructive sleep apnea (Chronic 04/11/17) with very significant hypoxemia. Uncler whether it is a pulmonary or cardiac etiology.(sleep study f/u note 04/11/17). Bipap w/ 3 L 02 Rheumatoid arthritis (Chronic 09/25/1968) S/P R WRIST FUSION 69; enbrel 02/27, Humira 2018 Barbie Fowler MD Pulmonary hypertension (Chronic) incr PA pressure on ECHO 08/2016; SEVERE by cath 09/04/17: 77/24. 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 goal 215 Hypoxemia (Chronic 02/10/17) with new dyspnea! Hypertension (Chronic) Hyperlipidemia (Chronic 10/04/11) low HDL, LDL goal 70 Heart valve insufficiency (Chronic 07/28/15) Moderate AI, mild MR on ECHO 07/27/15; murmurs; Cardiology [facility] 08/2015, check yrly; Mod ; Mod AI & MR 08/2016; NO EVIDENCE OF SIGNIFICANT ON CATH 08/2017 Edema leg (Chronic 02/24/17) Dysmetabolic syndrome X (Chronic 10/04/11) Chronic ischemic heart disease, unspecified (Chronic 12/24/89) S/P CABG ; 99; angina; Stress ECHO neg ischemia 2007 but insufficient rate; small inf hypokinesis, EF 65% [facility] EF still 65% 08/2016 Chronic anticoagulation (Chronic 10/14/16) Apixaban begun 08/2016 for new A Fib Celiac disease (Chronic 04/11/14) Pos bx on EGD, pos TTG IgA Ab [place] Rx gluten free diet Atrial fibrillation, new onset (Chronic 08/30/16) Noted at colonoscopy 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) 10/31/17 Dr Fowler ([facility]) Medical History (Updated 10/31/21 @ 17:43 by YUSEF Vigil) Acute rheumatoid arthritis COPD (chronic obstructive pulmonary disease) Obstructive sleep apnea syndrome in adult Repeated falls Thrombocytopathia Surgical History excision, metatarsal (06/19/15) Dr Reynolds, 4th metatarsal head S/P CABG (coronary artery bypass graft) (10/14/04) S/P CABG x 2 (~1998) S/P CABG x 3 (~1989) S/P hernia surgery (09/24/92) S/P prostatectomy (06/24/97) S/P total hip arthroplasty (06/27/08) Iron def anemia following surg 07/16/08 Status post fusion of wrist (05/25/1969) right Family History (Updated 04/29/21 @ 08:47 by Luna Amin) Father , heart issues at age 75. Heart disease Brother FHx: lung cancer Alcohol abuse 2 brothers at age 55 and 65 d/t alcohol abuse. Emphysema, unspecified Sister Diabetes Social History (Updated 04/29/21 @ 08:55 by Luna Amin) Smoking/Tobacco Use Status: Former Tobacco Use tobacco type: cigarettes Quit Date: 09/25/55 Smoking risk assessment performed?: Yes Alcohol Intake: never Drug use: Never Substance use type: does not use Household members: spouse Housing: house Communication Needs: None current occupation: Retired Pets and animals: Yes (1 dog) Pets and animals: dog(s) Current gender identity: male What type of physical activity do you participate in: walking Duration: < 15 minutes/day Frequency: daily Seatbelt use: always Drive intox or ride w/intox 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: No Working smoke detector in home: Yes Fire extinguisher in home: Yes Carbon monox detector in home: Yes Do you feel safe at home: Yes Do you feel safe in your relationship?: Yes Exam Const Other: Chronically ill-appearing, oxygen dependent, alert and oriented [facility] Other: Left nare with anterior packing in place, when removed, scant oozing noted, septal source on left suspected Eyes Pupils: PERRL Resp Effort & Inspection: normal respiratory effort Auscultation: clear to auscultation bilaterally Cardio Rate: regular rate GI Other: Nontender abdominal exam Other: Hemoccult negative brown stool Skin General skin exam: no rashes or lesions noted Neuro General: patient alert and patient oriented x3 Course Vital Signs Vital signs: Vital Signs Temperature 36.6 C 10/31/21 16:03 Pulse 65 10/31/21 16:03 Respiratory Rate 18 10/31/21 16:03 Blood Pressure 150/78 H 10/31/21 16:03 Pulse Oximetry 100 10/31/21 16:03 Temperature 36.6 C 10/31/21 16:03 Temperature Source Temporal Artery Scan 10/31/21 16:03 Pulse 65 10/31/21 16:03 Respiratory Rate 18 10/31/21 16:03 Respiratory Effort Non-Labored 10/31/21 16:07 Blood Pressure 150/78 H 10/31/21 16:03 Blood Pressure Position Sitting 10/31/21 16:03 Pulse Oximetry 100 10/31/21 16:03 Oxygen Delivery Method Room Air 10/31/21 16:03 Oxygen Flow Rate 0 10/31/21 16:03 Pain Level 0 10/31/21 16:03 Lab/Test Results Lab/Test Results: Laboratory Tests Range/Units 10/31/21 16:25 WBC (4.4-10.8) 10^3/uL 6.34 RBC (4.36-5.78) 10^6/uL 2.82 L Hgb (13.5-17.5) g/dL 7.8 L Hct (40.0-50.0) % 27.0 L MCV (80-95) fL 95.7 H MCH (27.0-33.0) pg 27.7 MCHC (32.0-36.0) % 28.9 L RDW (11.8-14.1) % 17.4 H Plt Count (130-400) 10^3/uL 128 L MPV (8.0-11.0) fL 9.9 Immature Gran % 0.2 Neutrophils % 69.2 Lymphocytes % 17.8 Monocytes % 11.2 Eosinophils % 1.3 Basophils % 0.3 Nucleated RBC % % 0 Absolute Neutrophils (1.2-6.7) 10^3/uL 4.39 Absolute Lymphocytes (1.2-3.4) 10^3/uL 1.13 L Absolute Monocytes (0.1-0.8) 10^3/uL 0.71 Absolute Eosinophils (0.0-0.7) 10^3/uL 0.08 Absolute Basophils (0.0-0.2) 10^3/uL 0.02
[2021-10-31 17:57] VITALS: BP 116/74; PULSE 85; RESP 16; TEMP 36.8; O2SAT 92
== END 2021-10-31 17:59 | disposition home or self-care (01) ==
PROVIDERS: Emergency Provider Physician Assistant; PCP Nurse Practitioner
DX: R04.0 Epistaxis (principal); D64.9 Anemia, unspecified
CPT/HCPCS: 36415; 99283; 85025

== ENCOUNTER 2021-11-02 01:55 | Outpatient (CLI) | payer OTHER, SELFPAY ==
[2021-11-02 11:23] LABS: Abs Immature Grans 0.01 10^3/uL (0.0-0.06); Absolute Basophil Count 0.01 10^3/uL (0.0-0.2); Absolute Eosinophil Count 0.09 10^3/uL (0.0-0.7); Absolute Lymphocyte Count 1.14 10^3/uL (1.2-3.4); Absolute Monocyte Count 0.64 10^3/uL (0.1-0.8); Absolute Neutrophil Count 3.54 10^3/uL (1.2-6.7); Basophils % 0.2; Eosinophils % 1.7; HCT 26.9 % (40.0-50.0); HGB 7.6 g/dL (13.5-17.5); Immature Grans % 0.2; MCH 26.8 pg (27.0-33.0); MCHC 28.3 % (32.0-36.0); MCV 94.7 fL (80-95); MPV 9.7 fL (8.0-11.0); Monocytes % 11.8; Neutrophils % 65.1; Nucleated RBC 0 %; Platelet Count 125 10^3/uL (130-400); RBC 2.84 10^6/uL (4.36-5.78); RDW 18.1 % (11.8-14.1); RDW-SD 62.7 fL; WBC 5.43 10^3/uL (4.4-10.8)
[2021-11-02 11:28] LABS: ESR 33 mm/hr (0-20)
[2021-11-02 11:46] LABS: Ferritin 93 ng/mL (26-388)
[2021-11-02 12:20] LABS: Iron 75 ug/dL (65-175); Total Iron Binding Capacity 313 ug/dL (250-450)
[2021-11-02 12:22] LABS: ALT 20 U/L (16-63); AST 21 U/L (15-37); Albumin 3.5 g/dL (3.4-5.0); Alkaline Phosphatase 82 U/L (46-116); Anion Gap 3.4 mmol/L (3-11); BUN 29 mg/dL (7-18); Bilirubin, Total 0.9 mg/dL (0.2-1.0); C-Reactive Protein 0.89 mg/dL (0.0-0.3); CO2 35.6 mmol/L (21.0-32.0); CREATININE 1.7 mg/dL (0.70-1.30); Calcium 9.1 mg/dL (8.5-10.1); Chloride 101 mmol/L (98-107); Estimated GFR 38.78 (mL/min/1.73m2); Glucose 199 mg/dL (74-106); Potassium 4.4 mmol/L (3.5-5.1); Sodium 140 mmol/L (136-145); Total Protein 7.2 g/dL (6.4-8.2)
[2021-11-02 14:57] LABS: Reticulocyte 2.5 % (0.5-2.4)
== END 2021-11-02 01:56 | disposition home or self-care (01) ==
LOC: LBO 01:56
PROVIDERS: Internal Medicine; PCP Nurse Practitioner; Visit Provider Physician Assistant
DX: D64.9 Anemia, unspecified (principal); Z51.81 Encounter for therapeutic drug level monitoring
CPT/HCPCS: 36415; 80053; 85652; 82728; 83540; 83550; 85025; 85045; 86140

== ENCOUNTER 2021-11-04 12:10 | Outpatient (REF) | payer OTHER, SELFPAY ==
[2021-11-04 14:56] LABS: HCT 27.7 % (40.0-50.0); MCH 27.4 pg (27.0-33.0); MCHC 28.9 % (32.0-36.0); MCV 94.9 fL (80-95); MPV 10.6 fL (8.0-11.0); Platelet Count 143 10^3/uL (130-400); RBC 2.92 10^6/uL (4.36-5.78); RDW-SD 61.9 fL; WBC 6.08 10^3/uL (4.4-10.8)
== END 2021-11-04 12:11 | disposition home or self-care (01) ==
LOC: LBN 12:10
PROVIDERS: PCP Nurse Practitioner; Visit Provider Nurse Practitioner
DX: D64.9 Anemia, unspecified (principal)
CPT/HCPCS: 85027

== ENCOUNTER 2021-11-11 13:40 | Outpatient (REF) | payer OTHER, SELFPAY ==
[2021-11-11 14:53] LABS: HCT 25.8 % (40.0-50.0); HGB 7.5 g/dL (13.5-17.5); MCH 27.7 pg (27.0-33.0); MCHC 29.1 % (32.0-36.0); MCV 95.2 fL (80-95); MPV 10.3 fL (8.0-11.0); Platelet Count 129 10^3/uL (130-400); RBC 2.71 10^6/uL (4.36-5.78); RDW 17.2 % (11.8-14.1); RDW-SD 59.3 fL; WBC 5.03 10^3/uL (4.4-10.8)
== END 2021-11-11 13:41 | disposition home or self-care (01) ==
LOC: LBN 13:40
PROVIDERS: PCP Nurse Practitioner; Visit Provider Nurse Practitioner
DX: D64.9 Anemia, unspecified (principal)
CPT/HCPCS: 85027

== ENCOUNTER 2021-11-18 01:28 | Outpatient (CLI) | payer OTHER, SELFPAY ==
[2021-11-18 13:24] LABS: Abs Immature Grans 0.02 10^3/uL (0.0-0.06); Absolute Basophil Count 0.02 10^3/uL (0.0-0.2); Absolute Eosinophil Count 0.12 10^3/uL (0.0-0.7); Absolute Lymphocyte Count 0.86 10^3/uL (1.2-3.4); Absolute Neutrophil Count 4.41 10^3/uL (1.2-6.7); Basophils % 0.3; Eosinophils % 1.9; HCT 27.8 % (40.0-50.0); Immature Grans % 0.3; Lymphocytes % 13.8; MCH 27.5 pg (27.0-33.0); MCHC 28.8 % (32.0-36.0); MCV 95.5 fL (80-95); MPV 9.6 fL (8.0-11.0); Monocytes % 12.8; Neutrophils % 70.9; Nucleated RBC 0 %; Platelet Count 138 10^3/uL (130-400); RBC 2.91 10^6/uL (4.36-5.78); RDW 17.1 % (11.8-14.1); RDW-SD 59.4 fL; WBC 6.23 10^3/uL (4.4-10.8)
== END 2021-11-18 01:29 | disposition home or self-care (01) ==
LOC: LBO 01:28
PROVIDERS: PCP Nurse Practitioner; Visit Provider Nurse Practitioner
DX: D64.9 Anemia, unspecified (principal)
CPT/HCPCS: 36415; 85025

== ENCOUNTER 2021-12-03 04:09 | Outpatient (CLI) | payer OTHER, SELFPAY ==
[2021-12-03 14:27] LABS: Abs Immature Grans 0.02 10^3/uL (0.0-0.06); Absolute Basophil Count 0.02 10^3/uL (0.0-0.2); Absolute Lymphocyte Count 0.99 10^3/uL (1.2-3.4); Absolute Monocyte Count 0.77 10^3/uL (0.1-0.8); Absolute Neutrophil Count 3.97 10^3/uL (1.2-6.7); Basophils % 0.3; Eosinophils % 3.4; HCT 28.5 % (40.0-50.0); HGB 8.3 g/dL (13.5-17.5); Immature Grans % 0.3; Lymphocytes % 16.6; MCH 28.5 pg (27.0-33.0); MCHC 29.1 % (32.0-36.0); MCV 97.9 fL (80-95); MPV 9.5 fL (8.0-11.0); Monocytes % 12.9; Neutrophils % 66.5; Nucleated RBC 0 %; Platelet Count 126 10^3/uL (130-400); RBC 2.91 10^6/uL (4.36-5.78); RDW 18.4 % (11.8-14.1); RDW-SD 65.7 fL; WBC 5.97 10^3/uL (4.4-10.8)
== END 2021-12-03 04:10 | disposition home or self-care (01) ==
LOC: LBO 04:09
PROVIDERS: PCP Nurse Practitioner; Visit Provider Nurse Practitioner
DX: D64.9 Anemia, unspecified (principal)
CPT/HCPCS: 36415; 85025

== ENCOUNTER 2021-12-15 15:04 | Outpatient (REF) | payer OTHER, SELFPAY | END 2021-12-15 15:05 | disposition home or self-care (01) | LOC: LBN 15:04 | PROVIDERS: PCP Nurse Practitioner; Visit Provider Nurse Practitioner | DX: R31.9 Hematuria, unspecified (principal) | CPT/HCPCS: 87086 ==

== ENCOUNTER 2022-01-24 02:02 | Outpatient (CLI) | payer OTHER, SELFPAY ==
[2022-01-24 15:24] LABS: Abs Immature Grans 0.02 10^3/uL (0.0-0.06); Absolute Basophil Count 0.02 10^3/uL (0.0-0.2); Absolute Eosinophil Count 0.11 10^3/uL (0.0-0.7); Absolute Lymphocyte Count 0.83 10^3/uL (1.2-3.4); Basophils % 0.4; Eosinophils % 2.1; HCT 31.3 % (40.0-50.0); HGB 9.2 g/dL (13.5-17.5); Immature Grans % 0.4; MCH 29.4 pg (27.0-33.0); MCHC 29.4 % (32.0-36.0); MCV 100 fL (80-95); MPV 9.8 fL (8.0-11.0); Monocytes % 9.7; Neutrophils % 71.4; Platelet Count 108 10^3/uL (130-400); RBC 3.13 10^6/uL (4.36-5.78); WBC 5.18 10^3/uL (4.4-10.8)
[2022-01-24 17:24] LABS: Total Iron Binding Capacity 308 ug/dL (250-450)
[2022-01-24 18:12] LABS: ALT 21 U/L (16-63); AST 19 U/L (15-37); Albumin 3.5 g/dL (3.4-5.0); Alkaline Phosphatase 102 U/L (46-116); BUN 29 mg/dL (7-18); Bilirubin, Total 1.1 mg/dL (0.2-1.0); CO2 35.4 mmol/L (21.0-32.0); CREATININE 1.4 mg/dL (0.70-1.30); Chloride 97 mmol/L (98-107); Estimated GFR 48.52 (mL/min/1.73m2); Ferritin 114 ng/mL (26-388); Glucose 207 mg/dL (74-106); Total Protein 7.3 g/dL (6.4-8.2); Vitamin B12 650 pg/mL (193-986)
[2022-01-24 18:18] LABS: Anion Gap 9.6 mmol/L (3-11); Potassium 4.2 mmol/L (3.5-5.1); Sodium 142 mmol/L (136-145)
== END 2022-01-24 02:03 | disposition home or self-care (01) ==
LOC: LBO 02:03
PROVIDERS: PCP Nurse Practitioner; Visit Provider Nurse Practitioner
DX: D64.9 Anemia, unspecified (principal); N18.32 Chronic kidney disease, stage 3b; J45.909 Unspecified asthma, uncomplicated; K90.0 Celiac disease
CPT/HCPCS: 36415; 80053; 82607; 82728; 83550; 85025

== ENCOUNTER 2022-03-18 09:40 | Emergency (ER) | payer OTHER, SELFPAY ==
[2022-03-18 09:45] VITALS: BP 122/77; PULSE 85; RESP 18; TEMP 36.7; O2SAT 97
--- NOTE | 2022-03-18 09:45 | DI.RAD_ITS ---
Exam(s) XR KNEE LT 3V AP,LAT,ESTELITA EXAM: XR KNEE LT 3V AP,LAT,ESTELITA CLINICAL HISTORY: swelling/pain. TECHNIQUE: 2D digital imaging was performed of the left knee. Three images were obtained. AP, late ral and PA tunnel views were obtained. COMPARISON: No previous for comparison. FINDINGS: BONES: No acute fracture is present. No bony destructive lesion is seen. JOINTS: The knee is normally aligned. No joint effusion is seen. SOFT TISSUE: Surgical clips are seen in the soft tissues of the leg. IMPRESSION: No acute abnormality. DATA REPOSITORY: RADIATION DOSE DELIVERED:
--- NOTE | 2022-03-18 09:45 | DI.US_ITS ---
Exam(s) US LOWER EXTREMITY VENOUS LT EXAM: US LOWER EXTREMITY VENOUS LT CLINICAL HISTORY: knee pain and swelling TECHNIQUE: Left lower extremity venous ultrasound performed using grayscale, color-flow, and spectra l Doppler analysis. COMPARISON: No exams were available for comparison FINDINGS: The left common femoral, femoral and popliteal veins demonstrate normal compressibility, augmentation , and color Doppler. The posterior tibial veins are patent. The contralateral common femoral vein is patent. IMPRESSION: 1. No DVT. 2. Results of this exam have been verbally communicated with provider. DATA REPOSITORY:
--- OUTSIDE RECORDS SUMMARY | 2022-03-18 09:48 | XMS_ITS | Clinical Summary ---
:1940 Author Organization [facility] [place] [address] Care Team Providers Name Role Phone Khushi Payne APRN Primary Care Provider Allergies Active Allergy Reactions Severity Noted Date Comments Methotrexate 03/21/2014 Lung impairment Metolazone High CIS - kidney fa ilure, CIS - kidney failure Medications Medication Sig Dispensed Refills Start Date End Date Status metoprolol succinate 0 06/02/2010 Active (TOPROL XL) 100 mg XL tablet lisinopril 0 06/02/2010 Active (PRINIVIL) 20 mg tablet furosemide (LASIX) 20mg, PO, Twice 0 06/02/2010 Active 40 mg tablet daily nitroGLYcerin 0 06/02/2010 Activ e (NITROSTAT) 0.4 mg SL tablet b complex vitamins 0 06/02/2010 Active tablet doxazosin (CARDURA) 0 06/02/2010 Active 2 mg tablet atorvastatin Take 40 mg by mouth 0 Active (LIPITOR) 40 mg daily. tablet DOCOSAHEXANOIC Take 1,000 mg by 0 Active ACID/EPA (FISH OIL mouth daily. ORAL) ascorbate calcium Take 500 mg by mouth 0 Active (VITAMIN C ORAL) daily. ergocalciferol, Take 1,000 Units by 0 Active vitamin D2, (VITAMIN mouth daily. D ORAL) ANORO ELLIPTA INHALE ONE PUFF BY 4 01/29/2018 Active 62.5-25 MOUTH EVERY DAY mcg/actuation Disk with Device potassium chloride 2 times daily. 0 02/13/2018 Active (MICRO-K) 10 mEq Capsule, Sustained Release adalimumab Inject 40 mg 3 kit 11 08/11/2021 Activ e (Humira,CF, Pen) 40 subcutaneously every mg/0.4 mL Pen 14 days. Injector Kit Eliquis 2.5 mg Take 2.5 mg by mouth 0 12/15/2021 Active Tablet 2 times daily. predniSONE TAKE 1 TABLET BY 0 01/20/2022 A ctive (Deltasone) 5 mg MOUTH DAILY Tablet NEEDED FOR RA Active Problems Problem Noted Date Atrial fibrillation 04/18/2017 Pulmonary hyperinflation 04/18/2017 CAD (coronary artery disease) 04/18/2017 Overview: CABG in 1989 and 1998. Aortic stenosis 04/18/2017 Sleep apnea 04/18/2017 Medication monitoring encounter 04/21/2015 Celiac disease 04/08/2014 Abdominal pain 03/21/2014 Rheumatoid arthritis(714.0) 04/16/2013 Osteoarthritis 04/16/2013 CIS - osteoarthritis CIS - rheumatoid arthritis Encounters Date Type Specialty Care Team Description 02/08/2022 TH Visit Rheumatology Lori Cannon, Medicatio n monitoring encounter; (TeleHealth) Rheumatoid arth ritis with rheumatoid factor, unspecified 02/08/2022 Specialty Pharmacy Pharm[facility] (Adalimu mab (Humira) Pen 40mg/0.4mL) from Last 3 Months Immunizations Name Administration Dates Next Due Influenza Vaccine w/Preservative, Split 06/25/2014 Pneumococcal Polyvalent 23 06/25/2014 Social History Tobacco Use Types Packs/Day Years Used Date Never Smoker Smokeless Tobacco: Never Used Alcohol Use Standard Drinks/Week Comments No 0 (1 standard drink = 0.6 oz pure alcoho l) Sex Assigned at Date Recorded Not on file Last Filed Vital Signs Vital Sign Reading Time Taken Comments Blood Pressure 137/51 04/25/2018 1:24 PM EDT Pulse 74 04/25/2018 1:24 PM EDT Temperature 36.9 ??C (98.5 ??F) 01/12/2018 9:22 AM EDT Respiratory Rate 18 02/20/2018 12:40 PM EDT Oxygen Saturation 98% 04/25/2018 1:24 PM on 2L of O2 via NC EDT Inhaled Oxygen - - Concentration Weight 104.3 kg (230 lb) 04/25/2018 1:24 PM EDT Height 175.3 cm (5' 9) 04/25/2018 1:24 PM EDT Body Mass Index 33.97 04/25/2018 1:24 PM EDT Plan of Treatment Health Maintenance Due Date Last Done Comments Covid-19 Vaccine (#1) 02/27/1945 Tdap adult 1959 Tetanus vaccine 1959 Zoster vaccine (1 of 2) 1989 Advance Directive 1994 Pneumoccocal Vaccine: 65+ (2 - PCV) 06/25/2015 06/25/2014 Colonoscopy 05/16/2016 05/16/2013 (Outside per patient (enter details in comments)) Influenza (Flu) vaccine (1 of 1 - 05/26/2021 06/25/2014 Influenza standard series) Goals Goal Patient Goal Associated Recent Patient-Stated? Author Type Problems Progress DH Home Medication Patient No Mendez blunt, Compliance and Facing Luciano A, Understanding Action Plan [facility] Note: Formatting of this note might be d ifferent from the original. Reduce progression of OA and reduce RA s ymptoms/hand pain Insurance Payer Benefit Plan / Subscriber ID Effective Dates Phone Addre ss Type Group [employer] [id number] 2021-Elodia [phone] [address] MANAG[address] MANAGED [address] [place], [place] MED[place]ICARE O [id number] Advance Directives Latest Code Status on File Code Status Date Activated Date Inactivated Comments Full Code 09/04/2017 2:48 PM 09/04/2017 9:00 PM Does patient have capacity to make decision: Yes Care Teams Radio Journalist Relationship Specialty Start Date End Date Khushi Payne APRN PCP - General Internal Medicine 05/22/19 [address] [place], [place] [id number]
--- OUTSIDE RECORDS SUMMARY | 2022-03-18 09:48 | XMS_ITS | Encounter Summary ---
:1940 Author Organization [facility] [place] [address] Care Team Providers Name Role Phone KerrySholae Jay YOUNG Primary Care Provider Reason for Visit Reason Comments Specialty Pharmacy Review Adalimumab (Humira) Pen 40mg /0.4mL Encounter Details Date Type Department Care Team Description 02/08/2022 Specialty Pharmacy Pharmacy [facility] A Review (A dalimumab Drive (Humira) Pen [place], [place] 40mg/0.4mL) [id number] Social History Tobacco Use Types Packs/Day Years Used Date Never Smoker Smokeless Tobacco: Never Used Alcohol Use Standard Drinks/Week Comments No 0 (1 standard drink = 0.6 oz pure alcoho l) Sex Assigned at Date Recorded Not on file documented as of this encounter Progress Notes Analy Cassidy - 02/08/2022 11:59 PM EDT The - Specialty Pharmacy has completed a benefits investigation for Jose Yadav to review theireligibility to fill at [facility]. Per patient's medication list they are prescribed Adalimumab (Humira) and the medication is not able to be filled at the - Specialty Pharmacy. 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 documented in this encounter Plan of Treatment Not on filedocumented as of this encounter Goals Goal Patient Goal Associated Recent Patient-Stated? Author Type Problems Progress DH Home Medication Patient No Mendez blunt, Compliance and Facing Luciano A, Understanding Action Plan [facility] Note: Formatting of this note might be d ifferent from the original. Reduce progression of OA and reduce RA s ymptoms/hand pain documented as of this encounter Visit Diagnoses Not on filedocumented in this encounter Care Teams Mental Health Unit Lead Psychologist Relationship Specialty Start Date End Date Khushi Payne, HAND WELT BUTTER PCP - General Internal Medicine 05/22/[address] [place] [address] documented as of this encounter
--- OUTSIDE RECORDS SUMMARY | 2022-03-18 09:48 | XMS_ITS | Encounter Summary ---
:1940 Author Organization [facility] [place] [address] Care Team Providers Name Role Phone Wilner Lemus DO Primary Care Provider Encounter Details Date Type Department Care Team Description 03/06/2019 Notes Only Care Management [place] [address] Social History Tobacco Use Types Packs/Day Years Used Date Never Smoker Smokeless Tobacco: Never Used Alcohol Use Standard Drinks/Week Comments No 0 (1 standard drink = 0.6 oz pure alcoho l) Sex Assigned at Date Recorded Not on file documented as of this encounter Progress Notes [place] - 03/06/2019 3:19 PM EDT I sent the application for [employer] to the patient for him to complete, sign, and return to me with proof of income. I will follow through with the application once everything is returned to me. documented in this encounter Plan of Treatment Not on filedocumented as of this encounter Goals Goal Patient Goal Associated Recent Patient-Stated? Author Type Problems Progress DH Home Medication Patient No Mendez blunt, Compliance and Facing Luciano A, Understanding Action Plan [facility] Note: Formatting of this note might be d ifferent from the original. Reduce progression of OA and reduce RA s ymptoms/hand pain documented as of this encounter Visit Diagnoses Not on filedocumented in this encounter Care Teams Fit Model Relationship Specialty Start Date End Date Wilner Lemus DO PCP - General Family Medicine 02/20/18 05/21/[address] [place] [address] documented as of this encounter
--- OUTSIDE RECORDS SUMMARY | 2022-03-18 09:48 | XMS_ITS | Encounter Summary ---
:1940 Author Organization [facility] Address [address] [place] [address] Care Team Providers Name Role Phone Unknown, Provider Primary Care Provider Encounter Details Date Type Department Care Team Description 04/13/2020 Lab Requisition [facility] Outr Resulting Lab, Pathology & Laboratory Provider [facility] [address] [place] [address] Social History Tobacco Use Types Packs/Day Years Used Date Never Assessed Sex Assigned at Date Recorded Not on file documented as of this encounter Plan of Treatment Not on filedocumented as of this encounter Procedures Procedure Name Priority Date/Time Associated Comments Diagnosis DO NOT ORDER Today 04/13/2020 9:08 EDT Results for this STANDALONE - BROAD procedure are in COVID TEST the results section. COVID-19 TESTING Routine 04/13/2020 9:08 EDT Resu lts for this procedure are i n the results section. documented in this encounter Results DO NOT ORDER STANDALONE - BROAD COVID TEST (04/13/2020 9:08 EDT) COVID-19 rt-PCR NEGATIVE Negative [facility] Result Comment: LABORATORY 2019-novel Coronavirus (2019 -nCoV) not detected by the qRT-PCR assay. Consider testing for other respiratory viruses or re-collecting for 2019-nCoV testing. Note: Optimum timing for peak viral levels du ring infections caused by -nCoV have not been determined. Collection of multiple specimens from the same patient may be necessary to detect the virus. Limitations Positive results are indicat sergio of active infection with SARS-CoV-2 but do not rule out bacterial infection or co-infection with other viruses. The agent detected may not be the definite cause of diseas e. In addition, detection of viral RNA may not indicate the presence of infectious virus or that SARS-CoV-2 is the causative agent for clinical symptoms. Negative results do not prec lude SARS-CoV-2 infection and should not be used as the sole basis for patient management decisions. Negative results must be combined with clinical observations, patient his tory, and epidemiological in formation. False negative results may also occur if amplification inhibitors are present in the specimen or if inadequate numbers of organisms are present in the specimen. Op timum specimen types and leola ing for peak viral levels during infections caused by SARS-CoV-2 have not been fully determined. Collection of multiple specimens (types and time points) from the same patient may be necessary to detect the virus. The test was validated for u se with upper respiratory specimens obtained via nasopharyngeal or oropharyngeal swabs in VTM, UTM, M4, M5, M6, saline, and MTM media. The performance of this test has not be en established for other spe cimens. Specimens collected using other FDA recommended Specimen Collection Materials listed in the FDA COVID-19 [employer] communication (December 19, 2019) are pr ocessed with the caveat that they were not all validated for use with this test and the result must be interpreted in this context. Furthermore, a false negative results may occur if a specimen is improperly collected, transported or handled. If the virus mutates in the RT-PCR target region, SARS-CoV-2 may not be detected or may be detected less predictably. Inhibitors or other types of interference may produce a false negative result. An interference study evaluating the effect of common cold medications was not performed. This test is not FDA-cleared but its performance characteristics were established by our CLIA-certified, CAP-accredited, high complexity laboratory in accordance with CLIA regulations, College of [employer] an [employer]ologists (CAP) guidel benson (Dec 12, 2019), and FDA guidance (Nov 23, 2019). This test is only for use un nataly the Food and Drug Administration's Emergency Use Authorization. Specimen Swab - Entire nasopharynx (body structur e) Performing Organization Address City/State/ZIP Code Phon e Number [facility] [place], [place] COVID-19 TESTING (04/13/2020 9:08 EDT) COVID-19 rt-PCR NEGATIVE Negative [facility] Result Comment: LABORATORY 2019-novel Coronavirus (2019 -nCoV) not detected by the qRT-PCR assay. Consider testing for other respiratory viruses or re-collecting for 2019-nCoV testing. Note: Optimum timing for peak viral levels du ring infections caused by 20 19-nCoV have not been determined. Collection of multiple specimens from the same patient may be necessary to detect the virus. Limitations Positive results are indicat sergio of active infection with SARS-CoV-2 but do not rule out bacterial infection or co-infection with other viruses. The agent detected may not be the definite cause of diseas e. In addition, detection of viral RNA may not indicate the presence of infectious virus or that SARS-CoV-2 is the causative agent for clinical symptoms. Negative results do not prec lude SARS-CoV-2 infection and should not be used as the sole basis for patient management decisions. Negative results must be combined with clinical observations, patient his tory, and epidemiological in formation. False negative results may also occur if amplification inhibitors are present in the specimen or if inadequate numbers of organisms are present in the specimen. Op timum specimen types and leola ing for peak viral levels during infections caused by SARS-CoV-2 have not been fully determined. Collection of multiple specimens (types and time points) from the same patient may be necessary to detect the virus. The test was validated for u se with upper respiratory specimens obtained via nasopharyngeal or oropharyngeal swabs in VTM, UTM, M4, M5, M6, saline, and MTM media. The performance of this test has not be en established for other spe cimens. Specimens collected using other FDA recommended Specimen Collection Materials listed in the FDA COVID-19 [employer] communication (December 19, 2019) are pr ocessed with the caveat that they were not all validated for use with this test and the result must be interpreted in this context. Furthermore, a false negative results may occur if a specimen is improperly collected, transported or handled. If the virus mutates in the RT-PCR target region, SARS-CoV-2 may not be detected or may be detected less predictably. Inhibitors or other types of interference may produce a false negative result. An interference study evaluating the effect of common cold medications was not performed. This test is not FDA-cleared but its performance characteristics were established by our CLIA-certified, CAP-accredited, high complexity laboratory in accordance with CLIA regulations, College of [employer] an Pathologists (CAP) guidel benson (Dec 12, 2019), and FDA guidance (Nov 23, 2019). This test is only for use un nataly the Food and Drug Administration's Emergency Use Authorization. Performing Lab [facility] LABORATORY SERVICES Specimen Swab Performing Organization Address City/State/[facility] Code Phon e Number [facility] [address] [place] [address] SERVICES [facility] [place], [place] documented in this encounter Visit Diagnoses Not on filedocumented in this encounter Care Teams Social Media Content Specialist Relationship Specialty Start Date End Date Unknown, Provider, PCP - General 11/23/09 documented as of this encounter
--- OUTSIDE RECORDS SUMMARY | 2022-03-18 09:48 | XMS_ITS | Encounter Summary ---
:1940 Author Organization [facility] [place] [address] Care Team Providers Name Role Phone Wilner Lemus DO Primary Care Provider Reason for Visit Reason Onset Date Comments Follow-up 03/18/2019 Encounter Details Date Type Department Care Team Description 03/18/2019 Telephone Rheumatology at [facility] [place] [phone] Social History Tobacco Use Types Packs/Day Years Used Date Never Smoker Smokeless Tobacco: Never Used Alcohol Use Standard Drinks/Week Comments No 0 (1 standard drink = 0.6 oz pure alcoho l) Sex Assigned at Date Recorded Not on file documented as of this encounter Miscellaneous Notes Telephone Encounter - Andrae Krishna RN - 03/18/2019 2:16 PM EDT Spoke with Daughter Karlie in regards to Humira paperwork. She is completing and will bring in on this week. documented in this encounter Plan of Treatment Not on filedocumented as of this encounter Goals Goal Patient Goal Associated Recent Patient-Stated? Author Type Problems Progress DH Home Medication Patient No Mendez blunt, Compliance and Facing Luciano A, Understanding Action Plan [facility] Note: Formatting of this note might be d ifferent from the original. Reduce progression of OA and reduce RA s ymptoms/hand pain documented as of this encounter Visit Diagnoses Not on filedocumented in this encounter Care Teams Accounting Assistant Relationship Specialty Start Date End Date Wilner Lemus DO PCP - General Family Medicine 02/20/18 05/21/[address] [place] [address] documented as of this encounter
--- OUTSIDE RECORDS SUMMARY | 2022-03-18 09:48 | XMS_ITS | Encounter Summary ---
:1940 Author Organization [facility] [place] [address] Care Team Providers Name Role Phone Wilner Lemus DO Primary Care Provider Reason for Visit Reason Comments Medication Refill Encounter Details Date Type Department Care Team Description 03/06/2019 Refill Rheumatology at [facility] Zulema Trevizo MD [facility] [place] [address] Rheumatology Dept [phone] [place], [place] [address] (Wo rk) Social History Tobacco Use Types Packs/Day Years [...] and Facing Luciano A, Understanding Action Plan [facility] Note: Formatting of this note might be d ifferent from the original. Reduce progression of OA and reduce RA s ymptoms/hand pain documented as of this encounter Visit Diagnoses Not on filedocumented in this encounter Care Teams System Engineer Relationship Specialty Start Date End Date Wilner Lemus DO PCP - General Family Medicine 02/20/18 05/21/19 [address] [place], [place] [id number] documented as of this encounter
--- OUTSIDE RECORDS SUMMARY | 2022-03-18 09:48 | XMS_ITS | Encounter Summary ---
:1940 Author Organization [place] [address] Care Team Providers Name Role Phone Wilner Lemus DO Primary Care Provider Reason for Visit Reason Onset Date Comments Medication Refill 03/08/2019 Encounter Details Date Type Department Care Team Description 03/08/[address] [facility] Andrae Krishna, [place] [address] Social History Tobacco Use Types Packs/Day Years Used Date Never Smoker Smokeless Tobacco: Never Used Alcohol Use Standard Drinks/Week Comments No 0 (1 standard drink = 0.6 oz pure alcoho l) Sex Assigned at Date Recorded Not on file documented as of this encounter Miscellaneous Notes Telephone Encounter - Andrae Krishna RN - 03/12/2019 10:55 AM EDT I spoke with Misty today and she reports that they will lose Insurance at the end of the month and new insurance will not cover Humira. I have offered to put in Rx for 3 month supply and to send her an application to fill out for [facility]. Misty would like Justus to receive the Citrate Free version of Humira. Will cue up for Dr. Cannon. Telephone Encounter - Andrae Krishna RN - 03/08/2019 1:12 PM EDT Spouse Misty calls to jenny some questions about Humira. RTC and left message asking her to RTC to nurse. documented in this encounter Plan of Treatment Not on filedocumented as of this encounter Goals Goal Patient Goal Associated Recent Patient-Stated? Author Type Problems Progress DH Home Medication Patient No Mendez n, Compliance and Facing Luciano A, Understanding Action Plan [facility] Note: Formatting of this note might be d ifferent from the original. Reduce progression of OA and reduce RA s ymptoms/hand pain documented as of this encounter Visit Diagnoses Not on filedocumented in this encounter Care Teams Truck Car And Bus Cleaner Relationship Specialty Start Date End Date Wilner Lemus, PCP - General Family Medicine 02/20/18 05/21/[address] [place] [address] documented as of this encounter
--- OUTSIDE RECORDS SUMMARY | 2022-03-18 09:48 | XMS_ITS | Encounter Summary ---
:1940 Author Organization [facility] [address] Care Team Providers Name Role Phone Khushi Payne Jay YOUNG Primary Care Provider Reason for Visit Reason Comments Medication Management Encounter Details Date Type Department Care Team Description 10/05/2021 Specialty Pharmacy Pharmacy at [facility] Bartolome Bass [facility] [place] [phone] Social History Tobacco Use Types Packs/Day Years Used Date Never Smoker Smokeless Tobacco: Never Used Alcohol Use Standard Drinks/Week Comments No 0 (1 standard drink = 0.6 oz pure alcoho l) Sex Assigned at Date Recorded Not on file documented as of this encounter Progress Notes Selin Bass RPH - 10/05/2021 12:13 PM EST [facility], Room Service Supervisor Assistance Approval Approval Dates: 09/25/2021 to 09/24/2022 Medication: Humira Room Service Supervisor: [employer] Patient Notified of Approval: Yes-company sends out approval letters to patient Additional Notes: approval letter in media For any questions relating to this appeal please reach out directly to your section's specialty pharmacist. Selin Bass RPH 10/05/21 12:13 PM documented in this encounter Plan of Treatment Not on filedocumented as of this encounter Goals Goal Patient Goal Associated Recent Patient-Stated? Author Type Problems Progress DH Home Medication Patient No Mendez blunt, Compliance and Facing Luciano A, Understanding Action Plan [facility] Note: Formatting of this note might be d ifferent from the original. Reduce progression of OA and reduce RA s ymptoms/hand pain documented as of this encounter Visit Diagnoses Not on filedocumented in this encounter Care Teams Employment Instructional Associate Relationship Specialty Start Date End Date Khushi Payne, TRIPLE DRUM OPERATOR PCP - General Internal Medicine 05/22/[address] [place] [address] documented as of this encounter
--- OUTSIDE RECORDS SUMMARY | 2022-03-18 09:48 | XMS_ITS | Encounter Summary ---
:1940 Author Organization [facility] [place] [address] Care Team Providers Name Role Phone Wilner Lemus DO Primary Care Provider Reason for Visit Reason Onset Date Comments Prior Authorization 03/20/2019 Humira CF Encounter Details Date Type Department Care Team Description 03/20/2019 Telephone Pharmacy at [facility] Henrik Lagos Prior Authorization [facility] (Humira C [place]) [place] [address] Social History Tobacco Use Types Packs/Day Years Used Date Never Smoker Smokeless Tobacco: Never Used Alcohol Use Standard Drinks/Week Comments No 0 (1 standard drink = 0.6 oz pure alcoho l) Sex Assigned at Date Recorded Not on file documented as of this encounter Miscellaneous Notes Telephone Encounter - Henrik Lagos CPHT - 03/20/2019 9:25 AM EDT [facility], Prior Authorization Approval Medication Name: Humira CF FILLABLE AT [facility]? yes APPROVAL DATES: 04/07/2018-05/07/2019 SPECIFIC INS REQUIREMENT: Max 30 Day Supply CASE/REFERENCE # [id number] APPROVAL NOTIFICATION RECEIVED VIA: Telephone COPAY: COPAY ASSISTANCE NEEDED?: NOTES: May Fill At [facility] documented in this encounter Plan of Treatment Not on filedocumented as of this encounter Goals Goal Patient Goal Associated Recent Patient-Stated? Author Type Problems Progress DH Home Medication Patient No Mendez blunt, Compliance and Facing Luciano A, Understanding Action Plan [facility] Note: Formatting of this note might be d ifferent from the original. Reduce progression of OA and reduce RA s ymptoms/hand pain documented as of this encounter Visit Diagnoses Not on filedocumented in this encounter Care Teams Infant Teacher Relationship Specialty Start Date End Date Wilner Lemus, PCP - General Family Medicine 02/20/18 05/21/[address] [place] [address] documented as of this encounter
--- OUTSIDE RECORDS SUMMARY | 2022-03-18 09:48 | XMS_ITS | Encounter Summary ---
:1940 Author Organization [facility] Address [facility] [place] [address] Care Team Providers Name Role Phone KerrySholae Jay YOUNG Primary Care Provider Reason for Visit Reason Comments Specialty Pharmacy Review adalimumab (Humira) Encounter Details Date Type Department Care Team Description 08/11/2021 Specialty Pharmacy Pharmacy at [facility] Analy [facility] Review (a [address]imumab Drive (Humira)) [place] [id number] Social History Tobacco Use Types Packs/Day Years Used Date Never Smoker Smokeless Tobacco: Never Used Alcohol Use Standard Drinks/Week Comments No 0 (1 standard drink = 0.6 oz pure alcoho l) Sex Assigned at Date Recorded Not on file documented as of this encounter Progress Notes Analy Cassidy - 08/11/2021 11:59 PM EST The - Specialty Pharmacy has completed a benefits investigation for Jose Yadav to review theireligibility to fill at [facility]. Per patient's medication list they are prescribed adalimumab (Humira) and the medication is able to be filled at the [facility]; however, due to the high co-pay at retail the patient is applying for production honing machine operator's assistance. documented in this encounter Plan of Treatment Not on filedocumented as of this encounter Goals Goal Patient Goal Associated Recent Patient-Stated? Author Type Problems Progress DH Home Medication Patient No Mendez blunt, Compliance and Facing Luciano A, Understanding Action Plan [facility] Note: Formatting of this note might be d ifferent from the original. Reduce progression of OA and reduce RA s ymptoms/hand pain documented as of this encounter Visit Diagnoses Not on filedocumented in this encounter Care Teams Station Helper Relationship Specialty Start Date End Date Khushi Payne, BRAKE DRUM LATHE OPERATOR PCP - General Internal Medicine 05/22/[address] [place] [address] documented as of this encounter
--- OUTSIDE RECORDS SUMMARY | 2022-03-18 09:48 | XMS_ITS | Encounter Summary ---
:1940 Author Organization [facility] Address [address] [place] [address] Care Team Providers Name Role Phone KerrySholae Jay YOUNG Primary Care Provider Encounter Details Date Type Department Care Team Description 05/22/2019 Office Visit [place]ology [place] [facility] [place] Lori Cannon Rheumatoid arthritis involvi ng multiple sites, unspecified rheumatoid factor presence; [facility] MD Hoang Medication monitoring encounter; Drive [facility] Osteoarthritis of multiple j [place]ints, [place] [address] CENTER [phone] [place] [address] Social History Tobacco Use Types Packs/Day Years Used Date Never Smoker Smokeless Tobacco: Never Used Alcohol Use Standard Drinks/Week Comments No 0 (1 standard drink = 0.6 oz pure alcoho l) Sex Assigned at Date Recorded Not on file documented as of this encounter Progress Notes Lori Cannon MD - 05/22/2019 10:30 AM EDT Jose Yadav is a 79 year old man who returns to the rheumatology clinic for evaluation of RA andOA. Doing well. He has transient morning stiffness. Humira CF is working great. He has a sore on his right leg. Back pain got better. He has a sore on his leg. Takes prednisone once in ahle. He stopped HCQa while ago whnehe developed cataracts. No other rashes. Bowels are doing ok and he is avoiding gluten. He has blsters and it looks like one burst. No fevers. Thickened skin. Past: Woke up with severe back pain one week ago. No injury or change in activity. Upper lumbar-lower thoracic and worse when standing and walking, but relatively constant. At his last visit in 12/2017 he was switched off of Enbrel and started on Humira. Got more relief from prednisone. He is using lidoderm patches topically and two of those helps. This improves the pain, but has not resolved it. Has not been using much heat. Otherwise joint pain is under control and < 30 minutes of morning stiffness. Continues on gluten free diet. Weight has been stable. No fevers. No urinary or fecal incontinence or retention. On O2 for chronic lung disease. Past: Has 15-20 minutes of morning stiffness. No rashes, annual eye exams. Callous on L forefoot covered with mole skin. No signs of infection or other breakdown. No infections, SOB, CP, urinary complaints or oral ulcers or [place]. Last year he was diagnosed with celiac disease. Now on a gluten free. Presented with severe pain, weight loss, was very ill. Now doing well. Dx;d by Kisha Perrin.. Feels very fortunate to being doing well and the medications are keeping him in remission. Past: No new problems. Some pain and stiffness in the am lasting about 1/2 hour. Very active during the day. No infections. No difficulty tolerating the enbrel or plaquenil. L wrist is helped by splinting. He has no swollen joints. No problems with energy or sleep. Is planning for eye exam. Up to dateon vaccines, received shingles vaccine last winter at PCP's office. SOCIAL HISTORY/HABITS No tobacco or etoh. 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 Lives in [facility], with his Misty of > 55 years Daughter and Son also live locally 7 grand children FAMILY HISTORY Sister has RA- worse disease course PMH: [place] and CABG x 2 THR Prostate cancer surgery 1996 Severe lung reaction from MTX Physical Examination: There were no vitals taken for this visit. General-Alert and pleasant, NAD, walks slowly, but able to walk, on o2 HEENT-No conjunctivitis, or mucosal ulcers. 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 Fusedright wrist. No active synovitis. LE not examined Skin-1cm scab on right lower levy with surrounding erythema, but not swollen or warm--looks more chronic change than cellulitis myD-H RAPID-3 Responses 01/12/2018 RAPID-3 Function 5.66 RAPID-3 Pain 9 RADIP-3 Global 2.5 RAPID-3 Total Scores 17.16 (High) myD-H RAPID-3 Responses 03/21/2016 01/12/2018 05/22/2019 RAPID-3 Function 1.33 5.66 1 RAPID-3 Pain 5 9 7 RADIP-3 Global 6.5 2.5 8 RAPID-3 Total Scores 12.83 (High) 17.16 (High) 16 (High) Impression: Rheumatoid arthritis with chronic deformity well controlled. RAPID 3 is driven by breathing. He deals with chronic pain issues but they overall do not affect his function. Recommendations: #Continue Humira #Continue to apply bacitracin or Neosporin to scab to keep it soft while it is healing watch for signs of infection and told him or if needed documented in this encounter Plan of Treatment Not on filedocumented as of this encounter Goals Goal Patient Goal Associated Recent Patient-Stated? Author Type Problems Progress DH Home Medication Patient No Mendez blunt, Compliance and Facing Luciano A, Understanding Action Plan [facility] Note: Formatting of this note might be d ifferent from the original. Reduce progression of OA and reduce RA s ymptoms/hand pain documented as of this encounter Visit Diagnoses Diagnosis Rheumatoid arthritis involving multiple sites, unspecified rheumatoid factor presence Medication monitoring encounter Encounter for therapeutic drug monitorin g Osteoarthritis of multiple joints, unspe cified osteoarthritis type documented in this encounter Care Teams Dropper Tank Storage Relationship Specialty Start Date End Date Khushi Payne APRN PCP - General Internal Medicine 05/22/[address] [place] [address] documented as of this encounter
--- OUTSIDE RECORDS SUMMARY | 2022-03-18 09:48 | XMS_ITS | Clinical Summary ---
:[address] [facility] Address [address] [place] [address] Care Team Providers Name Role Phone Unknown, Provider Primary Care Provider Social History Tobacco Use Types Packs/Day Years Used Date Never Assessed Sex Assigned at Date Recorded Not on file Plan of Treatment Health Maintenance Due Date Last Done Comments COVID-19 Vaccine (1) 1952 Fall Risk Screening 02/27/2004 Care Teams Warehouse Assistant Relationship Specialty Start Date End Date Unknown, Provider, PCP - General 11/23/09
--- OUTSIDE RECORDS SUMMARY | 2022-03-18 09:48 | XMS_ITS | Encounter Summary ---
:1940 Author Organization [facility] Address [facility] [place] [address] Care Team Providers Name Role Phone Khushi Payne APRN Primary Care Provider Encounter Details Date Type Department Care Team Description 06/08/2021 Refill Rheumatology at [facility] Lori Cannon MD [facility] [place] [address] RHEUMATOLOGY DEPT. [phone] [place], [place] [address] (Wo rk) Social History Tobacco Use Types [...] Associated Recent Patient-Stated? Author Type Problems Progress Home Medication Patient No Mendez blunt, Compliance and Facing Luciano A, Understanding Action Plan [facility] Note: Formatting of this note might be d ifferent from the original. Reduce progression of OA and reduce RA s ymptoms/hand pain documented as of this encounter Visit Diagnoses Not on filedocumented in this encounter Care Teams Signal Apprentice Relationship Specialty Start Date End Date Khushi Payne APRN PCP - General Internal Medicine 05/22/19 [address] [place] [address] documented as of this encounter
--- OUTSIDE RECORDS SUMMARY | 2022-03-18 09:48 | XMS_ITS | Encounter Summary ---
:1940 Author Organization [facility] Address [address] [place] [address] Care Team Providers Name Role Phone Unknown, Provider Primary Care Provider Encounter Details Date Type Department Care Team Description 08/19/2020 Lab Requisition [facility] Outr Resulting Lab, Pathology & Laboratory Provider [facility] [address], [place] [id number] Social History Tobacco Use Types Packs/Day Years Used Date Never Assessed Sex Assigned at Date Recorded Not on file documented as of this encounter Plan of Treatment Not on filedocumented as of this encounter Procedures Procedure Name Priority Date/Time Associated Comments Diagnosis PSA TOTAL, After X-Ray 08/03/2020 8:46 Results for this DIAGNOSTIC EST procedure are i n the results section. documented in this encounter Results PSA TOTAL, DIAGNOSTIC (08/03/2020 8:46 EST) Pathologist Sig nature PSA <0.1 0.0 - 6.5 ng/mL [facility] Specimen Blood - Venous blood (substance) Narrative [facility] - 09/08/2020 10:55 EST NOTE: Serum PSA concentration should not be in terpreted as absolute evidence for the presence or absence of malignant disease. Assayed on Siemens ADVIA Centaur XPT usi ng chemiluminescent technology.??Values obtained by using different assay methods cannot be used interchangeably. Performing Organization Address City/State/ZIP Code Phon e Number [facility] [address] [place] [address] SERVICES documented in this encounter Visit Diagnoses Not on filedocumented in this encounter Care Teams Slunk Skin Curer Relationship Specialty Start Date End Date Unknown, Provider, PCP - General 11/23/09 documented as of this encounter
--- OUTSIDE RECORDS SUMMARY | 2022-03-18 09:48 | XMS_ITS | Encounter Summary ---
:1940 Author Organization [facility] [place] [place] [address] Care Team Providers Name Role Phone Wilner Lemus DO Primary Care Provider Reason for Visit Reason Onset Date Comments Other 05/07/2019 Encounter Details Date Type Department Care Team Description 05/07/2019 Telephone Rheumatology at [facility] Donato Choe, [place] [address] Social History Tobacco Use Types Packs/Day Years Used Date Never Smoker Smokeless Tobacco: Never Used Alcohol Use Standard Drinks/Week Comments No 0 (1 standard drink = 0.6 oz pure alcoho l) Sex Assigned at Date Recorded Not on file documented as of this encounter Miscellaneous Notes Telephone Encounter - Donato Choe, RN - 05/07/2019 2:51 PM EDT Misty calls. Asks about appointment. Updated on when fuv time. Also asks about Humira. States need providers signature. Assistance program requires signature. [phone]. . Called [employer], was routed to voice mail box. Left with call back number provided. documented in this encounter Plan of Treatment Not on filedocumented as of this encounter Goals Goal Patient Goal Associated Recent Patient-Stated? Author Type Problems Progress Home Medication Patient No Mendez blunt, Compliance and Facing Luciano A, Understanding Action Plan [facility] Note: Formatting of this note might be d ifferent from the original. Reduce progression of OA and reduce RA s ymptoms/hand pain documented as of this encounter Visit Diagnoses Not on filedocumented in this encounter Care Teams Furnace Operator And Tender Relationship Specialty Start Date End Date Wilner Lemus DO PCP - General Family Medicine 02/20/18 05/21/[address] [place] [address] documented as of this encounter
--- OUTSIDE RECORDS SUMMARY | 2022-03-18 09:48 | XMS_ITS | Encounter Summary ---
:1940 Author Organization [facility] [place] [address] Care Team Providers Name Role Phone Khushi Payne APRN Primary Care Provider Reason for Referral Physical Therapy (Routine) - Closed Specialty Diagnoses / Procedures Referred By Contact Refer red To Contact Diagnoses Medication monitoring encounter Rheumatoid arthritis with rheumatoid factor, unspecified Repeated falls Lori Cannon MD Unknown [facility] D R [place] [address] Referral ID Status Reason Start Date Expiration Date Visits V isits Requested Authorized [id number] Closed Evaluate and 08/11/2021 02/07/2022 1 1 Treat Non PCP Encounter Details Date Type Department Care Team Description 08/11/2021 TH Visit [place] [facility] [place]ori Cannon Medication monitoring encoun ter; (TeleHealth) [facility] MD Hoang Rheumatoid arthritis with rheumatoid fac tor, unspecified; [address] [place] [address] CENTER [phone] RHEUMATOLOGY DEPT. [place], [place] [address] Social History Tobacco Use Types Packs/Day Years Used Date Never Smoker Smokeless Tobacco: Never Used Alcohol Use Standard Drinks/Week Comments No 0 (1 standard drink = 0.6 oz pure alcoho l) Sex Assigned at Date Recorded Not on file documented as of this encounter Progress Notes Lori Cannon MD - 08/11/2021 10:30 AM EST Jose Yadav is a 79 year old man who returns to the rheumatology clinic by video for evaluation of RA and OA. Cc: falls HPI: He has some aching--particularly in the morning, in arms. He also has some LE pain, and he hasbeen having a lot of falls. Unclear reasons. No dizziness. Last fall going up to the stairs--fallen 5-6 times. He falls forward. He has 4 stairs to get on the porch and then another to get into the house. He uses a cane in the house. PT has not evaluated his gait. His ankle is swollen--he has had operations. He can make full fist first thing in the morning. Shoulders and elbows ache and he needs to get out Of chair. He only goes out rarely--sometimes (seldom for groceries). They do not go out with COVID. He has been vaccinated. His biggest concern is running out of Humira as he gets it to the company and making sure that the co-pay is covered as it $7000 a month and this would not be reasonable has been doing quite well and Humira CF. No injection site reactions no infections he is on oxygen for COPD. Doing well. He has transient morning stiffness. Humira CF is working great. He has a sore on his right leg. Back pain got better. He has a sore on his leg. Takes prednisone [facility] in [facility]. He stopped HCQa while ago whnehe developed [...] SOCIAL HISTORY/HABITS No tobacco or etoh. 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 General-Alert and pleasant, NAD, he is using oxygen by nasal cannula is alert and pleasant and some of the history is also given from his today myD-H RAPID-3 Responses 05/22/2019 RAPID-3 Function 1 RAPID-3 Pain 7 RADIP-3 Global 8 RAPID-3 Total Scores 16 (High) myD-H RAPID-3 Responses 03/21/2016 01/12/2018 05/22/2019 RAPID-3 Function 1.33 5.66 1 RAPID-3 Pain 5 9 7 RADIP-3 Global 6.5 2.5 8 RAPID-3 Total Scores 12.83 (High) 17.16 (High) 16 (High) Impression: Rheumatoid arthritis with chronic deformity well controlled. RAPID 3 is driven by breathing. He deals with chronic pain issues but they overall do not affect his function. He does well on Humira SC at 40 mg every 2 weeks, but is having some difficulty with falls--which is a new problem. Since that his legs are heavy and is having some difficulty with tripping tripping upstairs and then falling forward he is not exactly sure why he is falling he also has difficulty rising from a chair as his legs feel weak. Recommendations: # Continue Humira CF 40mg every two weeks #Falls F please send order for physical therapy visit and is a little unclear to me whether he is can be able to do this outside his home, and I would have to ask his PCP to help with VNA and hopefullythe physical therapist will at least be able to do a home safety eval they do not report any loose area rugs that could be causing trip hazards and this evaluation is by video so pretty limited in terms of what we can accomplish for further evaluation of falls. # follow up in 6 months Orders Placed This Encounter Procedures ??? CBC (with Diff) ??? Comprehensive metabolic panel (non-fasting) ??? Sedimentation rate ??? CRP, acute inflammation ??? Referral to Physical Therapy documented in this encounter Plan of Treatment Scheduled Orders Name Type Priority Associated Diagnoses Order S chedule CBC (with Diff) Lab Routine Medication monitoring Exp ected: 08/11/2021 encounter (Approximate), Expires: 2021 Comprehensive metabolic Lab Routine Medication monito ring Expected: 08/11/2021, panel (non-fasting) encounter Expires: 08/12/2022 Sedimentation rate Lab Routine Medication monitoring Expected: 08/11/2021, encounter Expires: 2021 CRP, acute inflammation Lab Routine Medication monito ring Expected: 08/11/2021, encounter Expires: 2021 Scheduled Referrals Name Type Priority Associated Diagnoses Order S chedule Referral to Outpatient Referral Routine Medication Ordered: Physical Therapy monitoring enco unter 08/11/2021 Rheumatoid arthritis with rheumatoid factor, unspecif ied Repeated falls documented as of this encounter Goals Goal Patient Goal Associated Recent Patient-Stated? Author Type Problems Progress DH Home Medication Patient No Mendez blunt, Compliance and Facing Luciano A, Understanding Action Plan [facility] Note: Formatting of this note might be d ifferent from the original. Reduce progression of OA and reduce RA s ymptoms/hand pain documented as of this encounter Visit Diagnoses Diagnosis Medication monitoring encounter Encounter for therapeutic drug monitorin g Rheumatoid arthritis with rheumatoid fac tor, unspecified Repeated falls Other symptoms involving nervous and mus culoskeletal systems documented in this encounter Care Teams Ground Worker Relationship Specialty Start Date End Date Khushi Payne APRN PCP - General Internal Medicine 05/22/[address] [place] [address] documented as of this encounter
--- OUTSIDE RECORDS SUMMARY | 2022-03-18 09:48 | XMS_ITS | Encounter Summary ---
:1940 Author Organization [facility] [address] Care Team Providers Name Role Phone Wilner Lemus DO Primary Care Provider Encounter Details Date Type Department Care Team Description 04/23/2019 Telephone [place] [facility] [place] Andrae Krishna, [place] [address] Social History Tobacco Use Types Packs/Day Years Used Date Never Smoker Smokeless Tobacco: Never Used Alcohol Use Standard Drinks/Week Comments No 0 (1 standard drink = 0.6 oz pure alcoho l) Sex Assigned at Date Recorded Not on file documented as of this encounter Miscellaneous Notes Telephone Encounter - Andrae Krishna RN - 04/23/2019 3:21 PM EDT Misty calls multiple times in regards to form for Humira. RTC and left message earlier today and I left another message letting them know that the Form was faxed earlier today at their request. documented in this encounter Plan of Treatment Not on filedocumented as of this encounter Goals Goal Patient Goal Associated Recent Patient-Stated? Author Type Problems Progress DH Home Medication Patient No Mendez blunt, Compliance and Facing Luciano A, Understanding Action Plan [facility] Note: Formatting of this note might be d ifferent from the original. Reduce progression of OA and reduce RA s ymptoms/hand pain documented as of this encounter Visit Diagnoses Not on filedocumented in this encounter Care Teams Produce Shipper Relationship Specialty Start Date End Date Wilner Lemus DO PCP - General Family Medicine 02/20/18 05/21/[address] [place] [address] documented as of this encounter
--- OUTSIDE RECORDS SUMMARY | 2022-03-18 09:48 | XMS_ITS | Encounter Summary ---
:1940 Author Organization [facility] [address] Care Team Providers Name Role Phone KerryKhushi APRN Primary Care Provider Reason for Visit Reason Onset Date Comments Medication Refill 05/25/2021 Encounter Details Date Type Department Care Team Description 05/25/2021 Refill Rheumatology at [facility] Lori Cannon [place] [facility] [address] RHEUMATOLOGY DEPT. [phone] [place], [place] [address] (Wo rk) Social History Tobacco Use Types Packs/Day Years Used Date Never Smoker Smokeless Tobacco: Never Used Alcohol Use Standard Drinks/Week Comments No 0 (1 standard drink = 0.6 oz pure alcoho l) Sex Assigned at Date Recorded Not on file documented as of this encounter Miscellaneous Notes Telephone Encounter - Zenobia Keating LPN - 05/25/2021 9:30 AM EDT Requested Prescriptions Pending Prescriptions Disp Refills ??? adalimumab (Humira,CF, Pen) 40 mg/0.4 mL Pen Injector Kit 3 kit 3 Sig: Inject 40 mg subcutaneously every 14 days. Last office visit: 05/22/2019, no future appt's scheduled Last refill: 03/19/2016 documented in this encounter Plan of Treatment [...] on filedocumented in this encounter Care Teams Napkin Band Wrapper Relationship Specialty Start Date End Date Khushi Payne, HANNAH PCP - General Internal Medicine 05/22/[address] [place] [address] documented as of this encounter
--- OUTSIDE RECORDS SUMMARY | 2022-03-18 09:48 | XMS_ITS | Encounter Summary ---
:1940 Author Organization [facility] [place] [address] Care Team Providers Name Role Phone Wilner Lemus DO Primary Care Provider Reason for Visit Reason Onset Date Comments Medication Refill 03/21/2019 Encounter Details Date Type Department Care Team Description 03/21/2019 Refill [place] [facility] Andrae Krishna, [place] [address] Social History Tobacco Use Types Packs/Day [...] and Facing Luciano A, Understanding Action Plan [facility] Note: Formatting of this note might be d ifferent from the original. Reduce progression of OA and reduce RA s ymptoms/hand pain documented as of this encounter Visit Diagnoses Not on filedocumented in this encounter Care Teams Coal Loader Relationship Specialty Start Date End Date Wilner Lemus DO PCP - General Family Medicine 02/20/18 05/21/19 [address] [place] [address] documented as of this encounter
--- OUTSIDE RECORDS SUMMARY | 2022-03-18 09:48 | XMS_ITS | Encounter Summary ---
:1940 Author Organization [facility] [place] [address] Care Team Providers Name Role Phone KerryKhushi APRN Primary Care Provider Encounter Details Date Type Department Care Team Description 05/27/2021 Notes Only Care Management [place] [address] Social History Tobacco Use Types Packs/Day Years Used Date Never Smoker Smokeless Tobacco: Never Used Alcohol Use Standard Drinks/Week Comments No 0 (1 standard drink = 0.6 oz pure alcoho l) Sex Assigned at Date Recorded Not on file documented as of this encounter Progress Notes Alistair Espinosa - 05/27/2021 10:51 AM EDT Monika from [facility] called on behalf of the patient, requesting a [facility] patient assistance application be emailed to her [email or web address] documented in this encounter Plan of Treatment Not on filedocumented as of this encounter Goals Goal Patient Goal Associated Recent Patient-Stated? Author Type Problems Progress DH Home Medication Patient No Mendez lbunt, Compliance and Facing Luciano A, Understanding Action Plan [facility] Note: Formatting of this note might be d ifferent from the original. Reduce progression of OA and reduce RA s ymptoms/hand pain documented as of this encounter Visit Diagnoses Not on filedocumented in this encounter Care Teams High School Industrial Arts Teacher Relationship Specialty Start Date End Date Khushi Payne APRN PCP - General Internal Medicine 05/22/[email or web address] [place] [address] documented as of this encounter
--- OUTSIDE RECORDS SUMMARY | 2022-03-18 09:48 | XMS_ITS | Encounter Summary ---
:1940 Author Organization [facility] Address [facility] [place] [address] Care Team Providers Name Role Phone Wilner Lemus DO Primary Care Provider Encounter Details Date Type Department Care Team Description 03/19/2019 Refill Rheumatology at [facility] Lori Cannon MD [facility] ([facility] [address] [place] [address] RHEUMATOLOGY DEPT. [phone] [place], [place] [address] (Wo rk) Social History Tobacco [...] and Facing Luciano A, Understanding Action Plan [facility] Note: Formatting of this note might be d ifferent from the original. Reduce progression of OA and reduce RA s ymptoms/hand pain documented as of this encounter Visit Diagnoses Not on filedocumented in this encounter Care Teams Organic Lab Worker Relationship Specialty Start Date End Date Wilner Lemus DO PCP - General Family Medicine 02/20/18 05/21/[address] [place] [address] documented as of this encounter
--- OUTSIDE RECORDS SUMMARY | 2022-03-18 09:48 | XMS_ITS | Encounter Summary ---
:1940 Author Organization [facility] Address [address] [place] [address] Care Team Providers Name Role Phone Unavailable Primary Care Provider Unavailable Encounter Details Date Type Department Care Team Description 11/19/2009 Results Only [facility] Samson Alarcon MD Laboratory Services - [address] [place] [address] [place] [address] [place] [address] [phone] Social History Tobacco Use Types Packs/Day Years Used Date Never Assessed Sex Assigned at Date Recorded Not on file documented as of this encounter Plan of Treatment Not on filedocumented as of this encounter Procedures Procedure Name Priority Date/Time Associated Diagnosis Comme [facility] SURGICAL PATHOLOGY Routine 11/19/2009 0:00 EST Re sults for this procedure are i n the results section. documented in this encounter Results SURGICAL PATHOLOGY (11/19/2009 0:00 EST) Pathology Report: SURGICAL PATHOLOGY REPORT ? DAVID GLORIA Reports generated via HouseFix interface contain original data; ? LAB however they are lacking the format of the original report. ? Caution should be taken when reading/interpreting unformatted reports. ? Name: ? VANNESSA YADAV E ? Accession #: ? [id number] ? : ? 1940 (Age: 69) ??M ? Collec t Date: ? 11/19/2009 ? Location: ? [facility] ? R eceive Date: ? 11/20/2009 ? Provider: LUCHO ALARCON MD ? Copy to: KEITH Ortega D ? Final Pathologic Diagnosis: ? A. ?Colon, righ t, biopsies: ? 1. ?Fragments o f tubular adenoma(s). ? B. ?Colon, ernandez sverse, 90 cm, biopsies: ? 1. ?Fragments o f tubular adenoma(s). ? Document reviewed and electr onically signed by: ? Davidson Cosby MD ? Report ??Date: 11/23/2009 12 :16 ? By the signature above, the attending physician certifies that he/she has ? personally conducted a gross and/or microscopic examination of the described ? specimens and rendered or co nfirmed the above diagnosis. ? Specimen(s) Received: ? A. ?Rt colon ? B. ? Transverse colon (9 0 cm) ? Clinical History: ? Hx polyps ? Gross Description: ? Received in [facility] solution labelled Vannessa Yadav and biopsy right colon are eleven pink-hill i rregular fragments of tissue that range from 0.1 x ?? 0.1 x 0.1 cm to 0.6 x 0.3 x 0.2 cm. ??Submitted in toto as (A1) through (A4). ? Received in [facility] solut ion labelled Vannessa Yadav and transverse colon ?? 90 cm biopsy are two pink-t an, polypoid soft tissues, each 0.6 x 0.3 x 0.3 cm, and four pink-hill irregular tissue fragments that range from 0.2 x 0.2 x 0.1 cm to 0.3 x 0.3 x 0.2 cm. ??The resection margin of all of the polypoid tissues is ?? inked black and both of thes e tissues are bisected. ??One bisected polypoid ? tissue is submitted as (B1), the second as (B2), and the remaining tissue ? fragments are submitted as ( B3) and (B4). ??(Bridgett Kevin)/ida ? End of Report ? Specimen Performing Organization Address City/State/ZIP Code Phon e Number [facility] [address] [place] [address] SERVICES [facility] [address] [place] [address] documented in this encounter Visit Diagnoses Not on filedocumented in this encounter
--- OUTSIDE RECORDS SUMMARY | 2022-03-18 09:48 | XMS_ITS | Encounter Summary ---
:1940 Author Organization [facility] Address [address] [place] [address] Care Team Providers Name Role Phone Unknown, Provider Primary Care Provider Encounter Details Date Type Department Care Team Description 09/10/2002 Results Only [facility] - Joaquim Alarcon MD [employer] [address] [facility] [address] [place], [place] [address] [place] [address] [phone] Social History Tobacco Use Types Packs/Day Years Used Date Never Assessed Sex Assigned at Date Recorded Not on file documented as of this encounter Plan of Treatment Not on filedocumented as of this encounter Procedures Procedure Name Priority Date/Time Associated Diagnosis Comme [facility] SURGICAL PATHOLOGY Routine 09/10/2002 0:00 EST Re sults for this procedure are i n the results section. documented in this encounter Results SURGICAL PATHOLOGY (09/10/2002 0:00 EST) Pathology Report: SURGICAL PATHOLOGY REPORT DAVID DICKEY Reports generated via electronic interface contain sujata ginal data; LAB however they are lacking the format of the original re port. Caution should be taken when reading/interpreting unfo rmatted reports. Name: ? VANNESSA YADAV ? Accession #: ? [id number] ? : ? 1940 (Age: 62) ??M ? Collect Date: ? 09/10/2002 ? Location: ? [facility] ? Receive Date: ? 002 ? Provider: JOAQUIM ALARCON MD Copy to: KEITH BAUM MD ? Final Pathologic Diagnosis: A. ?Colon, hepatic flexure, polyp, colono scopic biopsy: 1. ?Fragments of benign colonic mucosa. 2. ?No adenomatous or hyperplastic epithe lium seen. B. ?Colon, ascending, polyp, colonoscopic biopsy: 1. ?Fragments of tubular adenoma, no high grade dysplasia. 2. ?One fragment of hyperplastic polyp. C. ?Colon, transverse, polyp, colonoscopi c biopsy: 1. ?Tubular adenoma. 2. ?No high grade dysplasia. Document reviewed and electronically signed by: JACKI BURKS MD Report ??Date: 09/13/2002 14:41 By the signature above, the attending physician certif ies that he/she has personally conducted a gross and/or microscopic examin ation of the described specimens and rendered or confirmed the above diagnosi s. Specimen(s) Received: A. ?Polyp hepatic flex (#1) B. ?Ascending colon polyp (#2) C. ?Transverse colon polyp (#3) Clinical History: ? Colon polyps Gross Description: ? Received in [facility] fixative labelled Aike n and polyp hepatic flexure are three hill-pink friable soft tissue fragments ranging from 0.2 x 0.2 x 0.2 cm to 0.3 x 0.3 x 0.2 cm. ??The specimen is enti rely submitted as (A). Received in [facility] fixative labelled [place] and ascending colon polyp are six hill-pink irregular s oft tissue fragments ranging from 0.2 x 0.2 x 0.2 cm to 0.5 x 0.2 x 0.2 cm. ??The specimen is entirel y submitted as (B1) and (B2). Received in [facility] fixative linnea d [place] and transverse colon polyp is a hill-pink 0.5 x 0.4 x 0. 3 cm soft tissue fragment. ??The specimen is entirely submitted as (C). ??(Anne Park)/ida End of Report Specimen Performing Organization Address City/State/ZIP Code Phon e Number [facility] [address] [place] [address] SERVICES [facility] [address] [place] [address] documented in this encounter Visit Diagnoses Not on filedocumented in this encounter Care Teams Physician Relationship Specialty Start Date End Date Unknown, Provider, PCP - General 11/23/09 documented as of this encounter
--- OUTSIDE RECORDS SUMMARY | 2022-03-18 09:48 | XMS_ITS | Encounter Summary ---
:1940 Author Organization [facility] Address [address] [place] [address] Care Team Providers Name Role Phone Unknown, Provider Primary Care Provider Encounter Details Date Type Department Care Team Description 07/27/2021 Lab Requisition [facility] Outr Resulting Lab, Pathology & Laboratory Provider [facility] [address] [place] [address] Social History Tobacco Use Types Packs/Day Years Used Date Never Assessed Sex Assigned at Date Recorded Not on file documented as of this encounter Plan of Treatment Not on filedocumented as of this encounter Procedures Procedure Name Priority Date/Time Associated Comments Diagnosis PSA TOTAL, Routine 07/27/2021 12:29 Results for this DIAGNOSTIC EDT procedure are i n the results section. documented in this encounter Results PSA TOTAL, DIAGNOSTIC (07/27/2021 12:29 EDT) Pathologist Sig nature PSA <0.1 0.0 - 6.5 ng/mL [facility] Specimen Blood - Venous blood (substance) Narrative [facility] - 07/27/2021 21:55 EDT NOTE: Serum PSA concentration should not be in terpreted as absolute evidence for the presence or absence of malignant disease. Assayed on Siemens ADVIA Centaur XPT usi ng chemiluminescent technology.??Values obtained by using different assay methods cannot be used interchangeably. Performing Organization Address City/State/ZIP Code Phon e Number [facility] [address] [place] [address] SERVICES documented in this encounter Visit Diagnoses Not on filedocumented in this encounter Care Teams Pre K Special Education Teacher Relationship Specialty Start Date End Date Unknown, Provider, PCP - General 11/23/09 documented as of this encounter
--- OUTSIDE RECORDS SUMMARY | 2022-03-18 09:48 | XMS_ITS | Encounter Summary ---
:1940 Author Organization [place] [address] Care Team Providers Name Role Phone KerrySholae Jay YOUNG Primary Care Provider Reason for Visit Reason Onset Date Comments Follow-up 12/08/2021 Encounter Details Date Type Department Care Team Description 12/08/2021 Telephone Rheumatology at [facility] [place] [address] Social History Tobacco Use Types Packs/Day Years Used Date Never Smoker Smokeless Tobacco: Never Used Alcohol Use Standard Drinks/Week Comments No 0 (1 standard drink = 0.6 oz pure alcoho l) Sex Assigned at Date Recorded Not on file documented as of this encounter Miscellaneous Notes Telephone Encounter - Andrae Krishna RN - 12/14/2021 4:44 PM EDT Lori Cannon MD sent to Andrae Krishna RN Caller: Unspecified (6 days ago, ??9:34 AM) Message cut and pasted into letter and sent ?? Telephone Encounter - Andrae Krishna RN - 12/14/2021 12:54 PM EDT This patient has not called back after 6 days and has not read [facility] message. May need a letter sent. Will notify provider. Telephone Encounter - Andrae Krishna RN - 12/08/2021 9:34 AM EDT Can you please check in with him? Thank you. ----- Message ----- From: Lori Cannon MD Sent: 11/13/2021 To: Jose Yadav Subject: Unread Message Notification ? Hi Mr. Yadav, I got some labs that were ordered by your outside provider, and I just wanted to review them. You are significantly anemic with a hemoglobin of 7.6 and your iron levels are normal. Your other cell counts are within normal limits except for your platelets which are also slightly low. Your kidney function is a little bit decreased as well your liver is fine and you have some inflammation on here we increased. If you are not already discussing the kidney and the anemia with your primary care, I would recommend that you follow-up with them promptly regarding that. Started have information about whether that is happening or not and so I wanted to contact you directly. Please let me know and we can make sure we caddo back with your other providers if needed. All my best, Lori Called and LM for Jose to RTC to nurse. documented in this encounter Plan of Treatment Not on filedocumented as of this encounter Goals Goal Patient Goal Associated Recent Patient-Stated? Author Type Problems Progress DH Home Medication Patient No Mendez blutn, Compliance and Facing Luciano A, Understanding Action Plan [facility] Note: Formatting of this note might be d ifferent from the original. Reduce progression of OA and reduce RA s ymptoms/hand pain documented as of this encounter Visit Diagnoses Not on filedocumented in this encounter Care Teams School Custodian Relationship Specialty Start Date End Date Khushi Payne APRN PCP - General Internal Medicine 05/22/19 [address] [place] [address] documented as of this encounter
--- OUTSIDE RECORDS SUMMARY | 2022-03-18 09:48 | XMS_ITS | Encounter Summary ---
:1940 Author Organization [facility] [place] [address] [place] [address] Care Team Providers Name Role Phone Alexsandra Payneyce Jay YOUNG Primary Care Provider Reason for Visit Reason Onset Date Comments Other 05/18/2021 Encounter Details Date Type Department Care Team Description 05/18/2021 Telephone Rheumatology at [facility] William Briones, [place] [address] Social History Tobacco Use Types Packs/Day Years Used Date Never Smoker Smokeless Tobacco: Never Used Alcohol Use Standard Drinks/Week Comments No 0 (1 standard drink = 0.6 oz pure alcoho l) Sex Assigned at Date Recorded Not on file documented as of this encounter Miscellaneous Notes Telephone Encounter - William Briones RN - 05/18/2021 3:06 PM EDT RTC to Cate Diaz at Jose's PCP office. She was asking about FU appointments here at [facility], and refilling the Humira. I let her know that he has not been seen here in 2 years, and would need to schedule an appointment for any provider here to refill the Humira. His reports to the PCP's office that they don't want to make the long drive down to , but her office can't fill the Humira, she states they will have to change medications if they don't want to continue being seen here at [facility]. documented in this encounter Plan of Treatment [...] on filedocumented in this encounter Care Teams Vaccinator Relationship Specialty Start Date End Date Khushi Payne APRN PCP - General Internal Medicine 05/22/[address] [place] [address] documented as of this encounter
--- OUTSIDE RECORDS SUMMARY | 2022-03-18 09:48 | XMS_ITS | Encounter Summary ---
:1940 Author Organization [facility] [place] [address] [place] [address] Care Team Providers Name Role Phone Wilner Lemus DO Primary Care Provider Reason for Visit Reason Onset Date Comments Other 03/14/2019 Encounter Details Date Type Department Care Team Description 03/14/2019 Telephone Rheumatology at [facility] [place] [address] Social History Tobacco Use Types Packs/Day Years Used Date Never Smoker Smokeless Tobacco: Never Used Alcohol Use Standard Drinks/Week Comments No 0 (1 standard drink = 0.6 oz pure alcoho l) Sex Assigned at Date Recorded Not on file documented as of this encounter Miscellaneous Notes Telephone Encounter - Donato Choe RN - 03/15/2019 11:06 AM EDT Spoke with Misty CF patient. Amenable to CF version Humira. Pharmacy updated. Telephone Encounter - Donato Choe RN - 03/14/2019 1:00 PM EDT Judith glez [facility] in [place] calls. States insurance ends at end of February. Request for 12 week supply (3 pack). Request for Non-CF version. Called patient to clarify request as previous request was for CF version. Patient unavailable, message left with call back number provided. documented in this encounter Plan of Treatment Not on filedocumented as of this encounter Goals Goal Patient Goal Associated Recent Patient-Stated? Author Type Problems Progress DH Home Medication Patient No Mendez blunt, Compliance and Facing Luciano A, Understanding Action Plan [facility] Note: Formatting of this note might be d ifferent from the original. Reduce progression of OA and reduce RA s ymptoms/hand pain documented as of this encounter Visit Diagnoses Not on filedocumented in this encounter Care Teams Change Release Manager Relationship Specialty Start Date End Date Wilner Lemus DO PCP - General Family Medicine 02/20/18 05/21/[address] [place] [address] documented as of this encounter
--- OUTSIDE RECORDS SUMMARY | 2022-03-18 09:49 | XMS_ITS | Encounter Summary ---
:1940 Author Organization [facility] [place] [address] Care Team Providers Name Role Phone Wilner Chamberlain MD Primary Care Provider [phone] Reason for Visit Reason Onset Date Comments Prior Authorization 05/26/2017 Encounter Details Date Type Department Care Team Description 05/26/2017 Telephone Rheumatology at [facility] Mari [place] [address] Social History Tobacco Use Types Packs/Day Years Used Date Never Smoker Smokeless Tobacco: Never Used Alcohol Use Standard Drinks/Week Comments No 0 (1 standard drink = 0.6 oz pure alcoho l) Sex Assigned at Date Recorded Not on file documented as of this encounter Miscellaneous Notes Telephone Encounter - Mari Nicole - 06/06/2017 11:04 AM EDT LEFT VM ABOUT APPROVAL Telephone Encounter - Mari Nicole - 05/26/2017 4:09 PM EDT Medication Prior Authorization JOYCE Medication name/dose/directions: ENBREL SURECLICK 50MG - ONCE WEEKLY Rationale for request: RA Health plan: [employer] (CMM) Authorizing commercial sales representative name: BLANE Faxed to health plan on: 05/26/17 Health plan decision: APPROVED Quantity approved: Authorization number: [id number] Start date: 04/26/17 End date:05/26/18 documented in this encounter Plan of Treatment Not on filedocumented as of this encounter Visit Diagnoses Not on filedocumented in this encounter Care Teams Aircraft Engineer Relationship Specialty Start Date End Date Wilner Chamberlain MD PCP - General 08/17/10 01/10/[address] [place] [address] documented as of this encounter
--- OUTSIDE RECORDS SUMMARY | 2022-03-18 09:49 | XMS_ITS | Encounter Summary ---
:1940 Author Organization [facility] [place] [address] Care Team Providers Name Role Phone Wilner Lemus DO Primary Care Provider Reason for Visit Reason Comments Medication Management Encounter Details Date Type Department Care Team Description 02/20/2018 Specialty Pharmacy Pharmacy at [facility] [place] [id number] Social History Tobacco Use Types Packs/Day Years Used Date Never Smoker Smokeless Tobacco: Never Used Alcohol Use Standard Drinks/Week Comments No 0 (1 standard drink = 0.6 oz pure alcoho l) Sex Assigned at Date Recorded Not on file documented as of this encounter Progress Notes Luciano Guido RPH - 02/20/2018 9:54 AM EDT Clinical Management Plan: Discontinuation from Specialty Pharmacy Services Specialty Pharmacy Consultation; Luciano Guido [facility] (CMM) Jose Yadav [address] [facility] [address] [address] Telephone Information: Work Phone Not on file. Mobile Not on file. Which medication: Enbrel Reason for discontinuation: Transferred prescription due to patient preference Luciano Guido RPH 02/20/18 9:54 AM documented in this encounter Plan of Treatment Not on filedocumented as of this encounter Goals Goal Patient Goal Associated Recent Patient-Stated? Author Type Problems Progress DH Home Medication Patient No eMndez blunt, Compliance and Facing Luciano A, Understanding Action Plan [facility] Note: Formatting of this note might be d ifferent from the original. Reduce progression of OA and reduce RA s ymptoms/hand pain documented as of this encounter Visit Diagnoses Not on filedocumented in this encounter Care Teams Dining Room Captain Relationship Specialty Start Date End Date Wilner Lemus DO PCP - General Family Medicine 02/20/18 05/21/[address] [place] [address] documented as of this encounter
--- OUTSIDE RECORDS SUMMARY | 2022-03-18 09:49 | XMS_ITS | Encounter Summary ---
:1940 Author Organization [facility] [place] [address] Care Team Providers Name Role Phone Wilner Chamberlain MD Primary Care Provider [phone] Reason for Visit Reason Onset Date Comments Prior Authorization 06/02/2015 ENBREL-APPROVED Encounter Details Date Type Department Care Team Description 06/02/2015 Telephone Rheumatology at [facility] Jono Yanes Prior Authorization [facility] (ENBREL-A PPROVED) [place] [address] Social History Tobacco Use Types Packs/Day Years Used Date Never Smoker Smokeless Tobacco: Never Used Alcohol Use Standard Drinks/Week Comments No 0 (1 standard drink = 0.6 oz pure alcoho l) Sex Assigned at Date Recorded Not on file documented as of this encounter Miscellaneous Notes Telephone Encounter - Jono Grimaldo - 06/02/2015 10:17 AM EDT Medication Prior Authorization Rheumatology Medication name/dose/directions: ENBREL 50 MG INJECT SQ Q ONCE WEEKLY Rationale for request: RA Health plan: [employer] ID#[id number] Authorizing traffic workforce representative name: CYN Faxed to health plan on: CALLED ON 06/02/15 Health plan decision: Approved Quantity approved: 01/20 Authorization number: [id number] Start date: 06/02/15 End date: 06/01/16 Patient notified? NO Pharmacy notified? NO documented in this encounter Plan of Treatment Not on filedocumented as of this encounter Visit Diagnoses Not on filedocumented in this encounter Care Teams Loom Starter Relationship Specialty Start Date End Date Wilner Chamberlain MD PCP - General 08/17/10 01/10/[address] [place] [address] documented as of this encounter
--- OUTSIDE RECORDS SUMMARY | 2022-03-18 09:49 | XMS_ITS | Encounter Summary ---
:1940 Author Organization [facility] [place] [address] Care Team Providers Name Role Phone Wilner Lemus DO Primary Care Provider Reason for Visit Reason Onset Date Comments Financial Concerns 03/06/2019 Encounter Details Date Type Department Care Team Description 03/06/2019 Telephone Rheumatology at [facility] Anay [place] [address] Social History Tobacco Use Types Packs/Day Years Used Date Never Smoker Smokeless Tobacco: Never Used Alcohol Use Standard Drinks/Week Comments No 0 (1 standard drink = 0.6 oz pure alcoho l) Sex Assigned at Date Recorded Not on file documented as of this encounter Miscellaneous Notes Telephone Encounter - Anay De Anda RN - 03/08/2019 9:42 AM EDT Progress Notes [place] (Charge Account Clerk) ? Care Management ? 03/06/2019 ??3:19 PM ? Signed I sent the application for Clarice to the patient for him to complete, sign, and return to me with proof of income. I will follow through with the application once everything is returned to me Telephone Encounter - Anay De Anda RN - 03/06/2019 12:16 PM EDT Pamela (patient's emergency contact) reached out to ask about a co-pay card for Opal Oneil. She asks if other financial assistance is available as well. I will send this to our specialty pharmacy as well as [facility] and ask for input. I will be available to call Pamela back as well if needed. documented in this encounter Plan of Treatment Not on filedocumented as of this encounter Goals Goal Patient Goal Associated Recent Patient-Stated? Author Type Problems Progress DH Home Medication Patient No Mendez n, Compliance and Facing Luciano A, Understanding Action Plan [facility] Note: Formatting of this note might be d ifferent from the original. Reduce progression of OA and reduce RA s ymptoms/hand pain documented as of this encounter Visit Diagnoses Not on filedocumented in this encounter Care Teams Facilities Maintenance Manager Relationship Specialty Start Date End Date Wilner Lemus DO PCP - General Family Medicine 02/20/18 05/21/[address] [place] [address] documented as of this encounter
--- OUTSIDE RECORDS SUMMARY | 2022-03-18 09:49 | XMS_ITS | Encounter Summary ---
:1940 Author Organization [facility] [place] [address] Care Team Providers Name Role Phone Wilner Chamberlain MD Primary Care Provider [phone] Reason for Visit Reason Onset Date Comments Cassius 07/11/2017 Encounter Details Date Type Department Care Team Description 07/11/2017 Telephone [place] [facility] [place] [address] Social History Tobacco Use Types Packs/Day Years Used Date Never Smoker Smokeless Tobacco: Never Used Alcohol Use Standard Drinks/Week Comments No 0 (1 standard drink = 0.6 oz pure alcoho l) Sex Assigned at Date Recorded Not on file documented as of this encounter Miscellaneous Notes Telephone Encounter - Andrae Krishna RN - 07/14/2017 11:15 AM EDT Mirian Duque, HANNAH sent to Anrdae Krishna RN ? Caller: Unspecified (3 days ago, ??3:27 PM) ? He can restart the Enbrel now. ??He can take 5 mg of pred daily for a few days to see if that helps. I sent it to his local pharmacy. Neena I spoke with Misty and she will have Jose restart Enbrel and will try the Prednisone for a few days. She will let me know how Jose is doing next week. Telephone Encounter - Andrae Krishna RN - 07/14/2017 10:22 AM EDT I spoke with Misty and she reports both Shoulders are bothering Jose now. He has been off Enbrel for 3 weeks due to Shingles that are now crusted over, but have a red background. Misty states Jose recently saw PCP and states no signs of infection. Misty is wondering if Jsoe could have a steroid for pain in his shoulders. Denies any swelling or redness, Denies any fevers. How long does he need to wait to restart Enbrel? Telephone Encounter - Andrae Krishna RN - 07/11/2017 4:10 PM EDT Call received from Spouse Misty wanting to let us know that Jose has Shingles and he stopped Enbrel, but now he is having severe pain in his shoulder and arm. RTC and left message for Misty or Jose to call back to discuss further. documented in this encounter Plan of Treatment Not on filedocumented as of this encounter Visit Diagnoses Not on filedocumented in this encounter Care Teams Valve Lapper Relationship Specialty Start Date End Date Wilner Chamberlain MD PCP - General 08/17/10 01/10/[address] [place] [address] documented as of this encounter
--- OUTSIDE RECORDS SUMMARY | 2022-03-18 09:49 | XMS_ITS | Encounter Summary ---
:1940 Author Organization [facility] [place] [address] Care Team Providers Name Role Phone None Primary Care Provider Unavailable Encounter Details Date Type Department Care Team Description 01/19/2018 Tele[place] [facility] [place]que, [facility] [place] [address] [facility] [phone] [place], [place] [address] (Wo rk) Social History Tobacco Use Types Packs/Day Years Used Date Never Smoker Smokeless Tobacco: Never Used Alcohol Use Standard Drinks/Week Comments No 0 (1 standard drink = 0.6 oz pure alcoho l) Sex Assigned at Date Recorded Not on file documented as of this encounter Miscellaneous Notes Telephone Encounter - Mirian Duque APRN - 01/19/2018 9:20 AM EDT Discussed options with . She will go over them with Jose and let me know how he wants to proceed. He is responding to prednisone. MIRIAN DUQUE APRN Telephone Encounter - Mirian Duque APRN - 01/19/2018 9:16 AM EDT ----- Message from Lori Cannon MD sent at 01/17/2018 7:44 AM EDT ----- Only if you think I need to. Your plan sounds reasonable to me. Thanks for taking care of him. ----- Message ----- From: Mirian Duque APRN Sent: 01/17/2018 7:36 AM To: Lori Cannon MD Do you want to see him? Neena ----- Message ----- From: Lori Cannon MD Sent: 01/17/2018 7:32 AM To: HANNAH Arriaga, I have not seen him in almost 3 years, if having cardiac issues I would opt for Xeljanz. Lori ----- Message ----- From: Mirian Duque APRN Sent: 01/15/2018 9:17 AM To: MD Lori Reece, He is no longer responding to Enbrel. He has significant cardio-pulmonary issues most significant isPAH. His EF is preserved. Do you have a preference between Humira vs Xeljanz (as long as no diverticulitis) as his next biologic? Thanks. Neena documented in this encounter Plan of Treatment Not on filedocumented as of this encounter Visit Diagnoses Not on filedocumented in this encounter Care Teams Adult School Counselor Relationship Specialty Start Date End Date None PCP - General 01/11/18 02/19/18 None documented as of this encounter
--- OUTSIDE RECORDS SUMMARY | 2022-03-18 09:49 | XMS_ITS | Encounter Summary ---
:1940 Author Organization [facility] [place] [address] Care Team Providers Name Role Phone Wilner Lemus DO Primary Care Provider Reason for Visit Reason Onset Date Comments Labs Only 04/30/2018 Encounter Details Date Type Department Care Team Description 04/30/2018 Telephone Rheumatology at [facility] [place] Donato [place] [address] Social History Tobacco Use Types Packs/Day Years Used Date Never Smoker Smokeless Tobacco: Never Used Alcohol Use Standard Drinks/Week Comments No 0 (1 standard drink = 0.6 oz pure alcoho l) Sex Assigned at Date Recorded Not on file documented as of this encounter Miscellaneous Notes Telephone Encounter - Donato Choe RN - 05/01/2018 8:07 AM EDT Images from the original note were not included. Lori Cannon MD Gavalakis, Rory A, RN ? Caller: Unspecified (Yesterday, ??1:54 PM) ? I sent them a message on 04/26 and ok to relay message attached to the imaging. Hope he is doing ok? ??Is his pain control any better? Call placed to patent. Message left via . Call back number provided if any questions. Telephone Encounter - Donato Choe, RN - 04/30/2018 4:13 PM EDT Misty calls on behalf of patient, request results for labs/xrays. documented in this encounter Plan of Treatment Not on filedocumented as of this encounter Goals Goal Patient Goal Associated Recent Patient-Stated? Author Type Problems Progress DH Home Medication Patient No Mendez blunt, Compliance and Facing Luciano A, Understanding Action Plan [facility] Note: Formatting of this note might be d ifferent from the original. Reduce progression of OA and reduce RA s ymptoms/hand pain documented as of this encounter Visit Diagnoses Not on filedocumented in this encounter Care Teams Software Program Manager Relationship Specialty Start Date End Date Wilner Lemus DO PCP - General Family Medicine 02/20/18 05/21/[address] [place] [address] documented as of this encounter
--- OUTSIDE RECORDS SUMMARY | 2022-03-18 09:49 | XMS_ITS | Encounter Summary ---
:1940 Author Organization [facility] [address] Care Team Providers Name Role Phone Wilner Chamberlain MD Primary Care Provider [phone] Encounter Details Date Type Department Care Team Description 07/20/2016 Telephone [place]ology [place] [facility] [place] [facility] [place] [address] Social History Tobacco Use Types Packs/Day Years Used Date Never Smoker Smokeless Tobacco: Never Used Alcohol Use Standard Drinks/Week Comments No 0 (1 standard drink = 0.6 oz pure alcoho l) Sex Assigned at Date Recorded Not on file documented as of this encounter Miscellaneous Notes Telephone Encounter - Kaylyn Hurt - 07/20/2016 9:35 AM EDT Called patient to see if they are interested in any further follow up in Gastroenterology. No answer; message left with our number to call back ([phone]). According to our records we have attempted to reach them to schedule follow up, but have not received a call back yet. Will notify PCP. Kaylyn Hurt Sr. Clinical Clay Worker Gastroenterology and Hepatology CC: Wilner Chamberlain MD documented in this encounter Plan of Treatment Not on filedocumented as of this encounter Visit Diagnoses Not on filedocumented in this encounter Care Teams Cryogenics Engineer Relationship Specialty Start Date End Date Wilner Chamberlain MD PCP - General 08/17/10 01/10/[address] [place] [address] documented as of this encounter
--- OUTSIDE RECORDS SUMMARY | 2022-03-18 09:49 | XMS_ITS | Encounter Summary ---
:1940 Author Organization [facility] [place] [address] Care Team Providers Name Role Phone Wilner Lemus DO Primary Care Provider Encounter Details Date Type Department Care Team Description 04/25/2018 Hospital Encounter XRay at [facility] [place] Lori Cannon Back pain, unspecified back location, unspecified back pain laterality, unspecified chronicity; [address] [facility] [address] Hoang MD Rheumatoid arthritis involving both hand s with positive rheumatoid factor [facility] [id number] CENTER [phone] [place] [address] Social History Tobacco Use Types Packs/Day Years Used Date Never Smoker Smokeless Tobacco: Never Used Alcohol Use Standard Drinks/Week Comments No 0 (1 standard drink = 0.6 oz pure alcoho l) Sex Assigned at Date Recorded Not on file documented as of this encounter Medications at Time of Discharge Medication Sig Dispensed Refills Start Date End Date potassium chloride 2 times daily. 0 02/13/2018 (MICRO-K) 10 mEq Capsule, Sustained Release ANORO ELLIPTA 62.5-25 INHALE ONE PUFF BY 4 2017 mcg/actuation Disk with MOUTH EVERY DAY Device ascorbate calcium Take 500 mg by mouth 0 (VITAMIN C ORAL) daily. ergocalciferol, vitamin Take 1,000 Units by 0 D2, (VITAMIN D ORAL) mouth daily. DOCOSAHEXANOIC ACID/EPA Take 1,000 mg by 0 (FISH OIL ORAL) mouth daily. atorvastatin (LIPITOR) 40 Take 40 mg by mouth 0 mg tablet daily. metoprolol succinate 0 06/02/2010 (TOPROL XL) 100 mg XL tablet lisinopril (PRINIVIL) 20 0 06/02/2010 mg tablet furosemide (LASIX) 40 mg 20mg, PO, Twice daily 0 06/02/2010 tablet nitroGLYcerin (NITROSTAT) 0 06/02/2010 0.4 mg SL tablet b complex vitamins tablet 0 06/02/2010 doxazosin (CARDURA) 2 mg 0 06/02/2010 tablet Adalimumab 40 mg/0.8 mL Inject 0.8 mLs 1 kit 6 01/13/20 18 05/02/2018 Pen Injector Kit subcutaneously every 14 days. predniSONE (DELTASONE) 5 One tab daily in the 30 tablet 3 0 01/12/2018 05/22/2019 mg Tablet am with food PRN for joint pain and swelling. hydroxychloroquine Take 1 tablet by 60 tablet 5 12/18/2017 05/22/2019 (PLAQUENIL) 200 mg Tablet mouth daily. ELIQUIS 5 mg Tablet take 1 tablet by 0 04/05/2017 02/08/2022 mouth twice a day TO PREVENT CLOTS WITH ATRIAL FIBRILLATION polyethylene glycol Take 17 g by mouth 14 each 11 07/20/20 15 05/22/2019 (MIRALAX) 17 gram Powder daily. in Packet FERROUS FUMARATE (IRON Take 65 mg by mouth 0 05/22/2019 ORAL) daily. documented as of this encounter Plan of Treatment Not on filedocumented as of this encounter Goals Goal Patient Goal Associated Recent Patient-Stated? Author Type Problems Progress DH Home Medication Patient No Mendez blunt, Compliance and Facing Luciano A, Understanding Action Plan [facility] Note: Formatting of this note might be d ifferent from the original. Reduce progression of OA and reduce RA s ymptoms/hand pain documented as of this encounter Procedures Procedure Name Priority Date/Time Associated Diagnosis Comme nts XR LUMBAR SPINE 2 Routine 04/25/2018 3:09 PM Back pain, Resu lts for this OR 3 VIEWS EDT unspecified back procedure a re in location, the results unspecified back section. 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 No spondylolisthesis. Multilevel degenerative disc disease at L2/L3, L3/L4, and L5/S1, worse at the concave side of the spinal curvature. De generative facet arthropathy at L4/L5 and L5/S1. Subjectively decreased minera lization of the bones. Narrative 04/25/2018 3:18 PM EDT EXAMINATION: XR LUMBAR SPINE 2 OR 3 VIEWS (GENERIC) CLINICAL HISTORY: Upper lumbar back pain of sudden onset with point tenderness TECHNIQUE: Frontal and lateral radiographs of the l umbar spine were obtained COMPARISON: None FINDINGS: A marker was placed by the technologist to denote the site of focal concern, at the L4/L5 level of the spine. There is dextroscoliosis of the lumbar s pine with its apex at L2. Scoliosis somewhat limits assessment of the L1 and L2 vertebral body heights, but no gross loss of vertebral body height is seen. N o spondylolisthesis is identified. There is degenerative disc disease characteriz ed by decreased intervertebral disc space height at L2/L3, L3/L4, and L5/S1, worse at the concave side of the spinal curvature. There is degenerative facet a rthropathy at L4/L5 and L5/S1. Subjectively, there is diffuse demineral ization of the bones. Partly imaged is a right total hip arthr oplasty. There are bilateral pelvic surgical clips. Atherosclerotic arterial wall calcification is seen. Procedure Note Roxanna Morrell MD - 04/25/2018Formatting o f this note might be different from the original. EXAMINATION: XR LUMBAR SPINE 2 OR 3 VIEW S (GENERIC) CLINICAL HISTORY: Upper lumbar back pain of sudden onset with point tenderness TECHNIQUE: Frontal and lateral radiographs of the l umbar spine were obtained COMPARISON: None FINDINGS: A marker was placed by the technologist to denote the site of focal concern, at the L4/L5 level of the spine. There is dextroscoliosis of the lumbar s pine with its apex at L2. Scoliosis somewhat limits assessment of the L1 and L2 vertebral body heights, but no gross loss of vertebral body height is seen. N o spondylolisthesis is identified. There is degenerative disc disease characteriz ed by decreased intervertebral disc space height at L2/L3, L3/L4, and L5/S1, worse at the concave side of the spinal curvature. There is degenerative facet a rthropathy at L4/L5 and L5/S1. Subjectively, there is diffuse demineral ization of the bones. Partly imaged is a right total hip arthr oplasty. There are bilateral pelvic surgical clips. Atherosclerotic arterial wall calcification is seen. IMPRESSION Scoliosis somewhat limits assessment of the L1 and L2 vertebral body heights, but no gross loss of vertebral body heig ht is seen. No spondylolisthesis. Multilevel degenerative disc disease at L2/L3, L3/L4, and L5/S1, worse at the concave side of the spinal curvature. De generative facet arthropathy at L4/L5 and L5/S1. Subjectively decreased minera lization of the bones. Lori Cannon MD IMG DX ORDERABLES documented in this encounter Visit Diagnoses Diagnosis Back pain, unspecified back location, un specified back pain laterality, unspecified chronicity Rheumatoid arthritis involving both hand s with positive rheumatoid factor documented in this encounter Care Teams Radiology Manager Relationship Specialty Start Date End Date Wilner Lemus DO PCP - General Family Medicine 02/20/18 05/21/[address] [address] documented as of this encounter
--- OUTSIDE RECORDS SUMMARY | 2022-03-18 09:49 | XMS_ITS | Encounter Summary ---
:1940 Author Organization [facility] [place] [address] Care Team Providers Name Role Phone Wilner Lemus DO Primary Care Provider Reason for Visit Reason Comments Referral Consultation (Routine) - Closed Specialty Diagnoses / Procedures Referred By Contact Refer red To Contact Pulmonology Diagnoses Pulmonary Hypertension Refugio Ward MD [facility] Procedures Evaluate and Treat [address] [place], [place] [id number] [place] [phone] Fax: Referral ID Status Reason Start Date Expiration Date Visits V isits Requested Authorized [id number] Closed Consult, 12/07/2017 12/07/2018 1 1 [facility] Encounter Details Date Type Department Care Team Description 02/20/2018 Office Visit Pulmonology at [facility] Gurdeep Barragan MD [facility] [place] [address] Pulmonary hypertension [facility] Willard Hernandez MD [facility] [place] [address] [place] [phone] Social History Tobacco Use Types Packs/Day Years Used Date Never Smoker Smokeless Tobacco: Never Used Alcohol Use Standard Drinks/Week Comments No 0 (1 standard drink = 0.6 oz pure alcoho l) Sex Assigned at Date Recorded Not on file documented as of this encounter Last Filed Vital Signs Vital Sign Reading Time Taken Comments Blood Pressure 127/64 02/20/2018 12:40 PM EDT Pulse 77 02/20/2018 12:40 PM EDT Temperature - - Respiratory Rate 18 02/20/2018 12:40 PM EDT Oxygen Saturation 94% 02/20/2018 12:40 PM EDT Inhaled Oxygen Concentration - - Weight 112 kg (247 lb) 02/20/2018 12:40 PM EDT Height 175.3 cm (5' 9) 02/20/2018 12:40 PM EDT Body Mass Index 36.48 02/20/2018 12:40 PM EDT documented in this encounter Progress Notes Willard Hernandez MD - 02/20/2018 1:00 PM EDT Images from the original note were not included. INITIAL OUTPATIENT CONSULTATION NOTE SECTION OF PULMONARY/CRITICAL CARE MEDICINE PATIENT NAME: Jose Yadav : 1940 MEDICAL RECORD: [id number] DATE OF SERVICE: 02/19/2018 REFERRING PHYSICIAN: None PRIMARY CARE PHYSICIAN: None Reason for Consultation: Pulmonary hypertension History of Present Illness: Mr. Jose Yadav is a 77 y.o. 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 Mr. Yadav was at his baseline until one year ago when worsening dyspnea prompted referral to Dr. Jackson, a home economist consumer service in [facility] whom he had seen 12 years previously for MTX-related ILD. Dr. Lazar noted that the patient had developed worsening respiratory symptoms in the setting of a new diagnosis of atrial fibrillation last November while prepping for colonoscopy. He was referred for sleep evaluation and found to have severe CHARLIE with severe and prolonged nocturnal hypoxemiarequiring increased pressure support on his BiPAP and 2 L of oxygen bled in. He was also noted to have exertional hypoxemia and was started on home oxygen. Further evaluation with CT chest was negativefor PE and despite some mosaic attenuation his interstitial lung disease was felt to be in remission. He was noted to have obstruction on pulmonary function testing and was started on anoro. Concurrently, his user experience researcher Dr. Wadr was evaluating him for increased right heart pressures and worsening aortic stenosis. This prompted a right heart catheterization this past August 2017 which demonstrated severe pulmonary hypertension. The patient has been referred to [facility] for further evaluation of his severe pulmonary hypertension. Mr. Yadav has been using his BiPAP regularly. He was diagnosed with CHARLIE 13 years ago and had been using CPAP until last summer when he was changed to BiPAP with oxygen bled in. He denies syncope, chestpain, cough, wheezing, fevers, chills, nausea, vomiting. His notes that he was able to mow the lawn prior to the onset of his dyspnea roughly one year ago. Both Mr. Yadav and his feel that after he was started on oxygen and his symptoms improved significantly. They note that his main limiting symptom has been joint pain secondary to rheumatoid arthritis in that breathing has not significantly limited his functionality. The patient himself feels that he could go back to activities such as vacuuming the floors and mowing the lawn however he has not tried since being started on oxygen. He denies significant leg swelling, PND, orthopnea. He was recently switched from Enbrel to Humira for better control for his rheumatoid arthritis. She has had some mild benefit after being started on Anoro. Review of Systems: A 12 point ROS was negative aside from as listed in the HPI. Past Medical/Surgical History: Past Medical History: Diagnosis Date ??? CAD (coronary artery disease) ??? Celiac disease ??? Dysmetabolic syndrome ??? H/O prostate cancer Treated with RT and s/p prostatectomy. ??? Rheumatoid arthritis ??? Sleep apnea uses CPAP Past Surgical History: Procedure Laterality Date ??? CORONARY ARTERY BYPASS GRAFT ??? PRO UPPER GI ENDOSCOPY, BIOPSY 04/02/2014 UPPER GASTROINTESTINAL ENDOSCOPY,WITH BIOPSY SINGLE OR MULTIPLE performed by Maldonado Dowling MD at [facility] ENDOSCOPY ??? PRO UPPER GI ENDOSCOPY, BIOPSY N/A 04/07/2015 EGD WITH BIOPSY performed by Maldonado Dowling MD at [facility] ENDOSCOPY ??? PROSTATECTOMY ??? TOTAL HIP ARTHROPLASTY Right ??? WRIST FUSION Right Medications: Prior to Admission medications Medication Sig Start Date End Date Taking? Authorizing Provider potassium chloride (K-DUR/KLOR-CON) 10 mEq Tablet Sustained Release 20 mg by mouth every morning, 10mg by mouth every evening. PROVIDER, HISTORICAL ascorbate calcium (VITAMIN C ORAL) Take 500 mg by mouth daily. PROVIDER, HISTORICAL ergocalciferol, vitamin D2, (VITAMIN D ORAL) Take 1,000 Units by mouth daily. PROVIDER, HISTORICAL Adalimumab 40 mg/0.8 mL Pen Injector Kit Inject 0.8 mLs subcutaneously every 14 days. 01/12/18 Mirian Duque APRN predniSONE (DELTASONE) 5 mg Tablet One tab daily in the am with food PRN for joint pain and swelling. 01/12/18 Mirian Duque APRN hydroxychloroquine (PLAQUENIL) 200 mg Tablet Take 1 tablet by mouth daily. 12/18/17 Mirian Duque APRN ELIQUIS 5 mg Tablet take 1 tablet by mouth twice a day TO PREVENT CLOTS WITH ATRIAL FIBRILLATION 04/05/17 PROVIDER, HISTORICAL polyethylene glycol (MIRALAX) 17 gram Powder in Packet Take 17 g by mouth daily. 07/20/15 Kisha Perrin APRN DOCOSAHEXANOIC ACID/EPA (FISH OIL ORAL) Take 1,000 mg by mouth daily. PROVIDER, HISTORICAL atorvastatin (LIPITOR) 40 mg tablet Take 40 mg by mouth daily. PROVIDER, HISTORICAL FERROUS FUMARATE (IRON ORAL) Take 65 mg by mouth daily. PROVIDER, HISTORICAL metoprolol succinate (TOPROL XL) 100 mg XL tablet 06/02/10 lisinopril (PRINIVIL) 20 mg tablet 06/02/10 furosemide (LASIX) 40 mg tablet 20mg, PO, Twice daily Patient taking differently: 80 mg by mouth every morning, 40 mg by mouth every evening. 06/02/10 nitroGLYcerin (NITROSTAT) 0.4 mg SL tablet 06/02/10 b complex vitamins tablet 06/02/10 doxazosin (CARDURA) 2 mg tablet 06/02/10 Allergies: Allergies Allergen Reactions ??? Metolazone CIS - kidney failure, CIS - kidney failure ??? Methotrexate Lung impairment Family History: Two brothers with emphysema, both smokers Parents were in good health Children in good health No family history of pulmonary HTN Social History: Social History Substance Use Topics ??? Smoking status: Never Smoker ??? Smokeless tobacco: Never Used ??? Alcohol use No Smoked for 2 years roughly 4-5 cigarettes per day Has a P[place]ese at home, no birds, no exposures to hay or farming equipment. 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 Denies asbestos exposure. His job involved grinding metal however he was not exposed to silicates or sandblasting. Denies drug use Objective: BP 127/64 Pulse 77 Resp 18 Ht 175.3 cm (5' 9) Wt 112 kg (247 lb) SpO2 94% BMI 36.48 kg/m2 General: This is a 77 y.o. male, NAD, AOx3. HEENT: Moist mm Neck: Supple, trachea midline. JVD present several centimeters above clavicle. Lymphatics: No lymphadenopathy. Cardiovascular: Irregularly irregular rhythm, normal rate, 3/6 systolic ejection murmer best heard over the R parasternal border, second intercostal space Respiratory: Mild rales heard at bases, otherwise no adventitious LS GI: soft, nt, nd, +bs Musculoskeletal: Normal bulk and tone, 5/5. Extremities: There is trace to 1+ pitting edema in bilateral lower extremities with skin changes consistent with chronic venous stasis. Integument: No rash. Neurologic: Sensory and motor function appear normal. Psychologic: Normal mood and affect. Labs: Lab Results Component Value Date WBC 6.8 04/17/2017 RBC 4.15 (L) 04/17/2017 HGB 13.2 (L) 04/17/2017 HCT 36.0 (L) 09/04/2017 HCT 41.1 04/17/2017 MCV 99.0 (H) 04/17/2017 MCH 31.8 04/17/2017 MCHC 32.1 04/17/2017 PLATELET 109 (L) 04/17/2017 RDWCV 13.2 04/17/2017 PFTS: Date FVC FEV1 FEV1/FVC DLCO TLC RV BD Response? 04/04/17 52% 48% 0.67 46% 79% 135% Yes 02/20/18 56% 51% 0.65 61% Not done Imaging: (Images personally reviewed) LHC/RHC 09/04/17: PA mean 48 PCWP: 27 CO: 5.84 CI: 2.67 SVR: 1,288 PVR: 288 Conclusions: * Three vessel coronary artery disease (LAD, LCX and RCA) * Patent left internal mammary artery graft to the LAD * Patent radial artery graft to the OM1 * Obstructive disease of the saphenous vein graft to the RPDA * No evidence of significant aortic stenosis * Severe pulmonary hypertension * Elevated pulmonary capillary wedge pressure TTE 05/02/17: -moderate LVH with EF of 50%, no regional WMA -Intraventricular septal flattening -moderate to severe ao stenosis -mild MR -LA severely dilated -RV cavity size and wall thickness normal, systolic function reduced -RA is severely dilated -mild-moderate TR -PASP severely increased CTA 02/17/17: -No PE -bilateral mosaic attenuation pattern -linear atelectasis Assessment: Jose Yadav is a 77 y.o. 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 His right heart catheterization demonstrated severe pulmonary hypertension with an elevated wedge pressure and a slightly elevated pulmonary vascular resistance. I think his pulmonary hypertension is multifactorial both pre- and post-capillary secondary to heart disease including atrial fibrillation, aortic stenosis and ischemic cardiomyopathy given the severe dilatation of his left atrium, reduced ejection fraction and elevated pulmonary capillary wedge pressure on right heart catheterization. In addition, and perhaps the greater contributor to his pulmonary hypertension is his severe nocturnal hypoxemia and severe obstructive sleep apnea which was recently optimized this past summer by increasing his BiPAP settings and bleeding in oxygen at night. I agree with Dr. Cash's assessment that the patient's history of interstitial lung disease does not appear to be a major contributor at this moment. His CT scan was negative for PEs thereby ruling out CTEPH and demonstrated what I feel suzanne mosaic attenuation which is a nonspecific finding and can be seen in severe pulmonary hypertension. As per as the patient's pulmonary function testing, he demonstrates a borderline obstructive ventilatory defect however it corrects significantly with bronchodilators and his flow volume loop demonstrates a mild obstructive pattern. While his FEV1 and FVC are similarly reduced his TLC was essentially normal. His DLCO is reduced which can be seen in pulmonary hypertension however or corrects when accounting for alveolar volume. Given his significant reversibility I agree with Dr. Jackson that anoro is a reasonable inhaler selection particularly since it is giving him some symptomatic relief. I believe the mainstays in the management of his pulmonary hypertension from a pulmonary perspective her to optimize the treatment of his sleep apnea and hypoxemia as well as optimizing his volume status with diuretics. I will defer to cardiology as to the treatment of his cardiac issues which I believe are also playing a role in his pulmonary hypertension. Recommendations: Severe pre- and post-capillary pulmonary hypertension: ?? Recommend optimization of patient's outpatient diuretic regimen ?? Recommend referral to pulmonary hypertension clinic in the cardiology department if there are further questions particularly from the cardiology perspective about his pulmonary hypertension ?? Recommend continuing anoro and continued follow up with Dr. Jackson, the patient's Asbestos Siding Mechanic ?? Recommend continued optimization of the patient's severe sleep apnea and nocturnal hypoxemia ?? Defer to cardiology for the treatment of the patient's atrial fibrillation aortic stenosis and cardiomyopathy This case and above stated plan will be discussed with Dr. Mcmullen. Further addendums to follow. Willard Hernandez MD. PGY4 Pulmonary/Critical Care Fellow Pager: [phone] Mendez Mcmullen MD - 02/20/2018 1:00 PM EDT Patient interviewed and examined; data and radiographic studies reviewed. My findings agree with those outlined by Dr. Hernandez, whose note reflects our jointly formulated plan of care. Mr. Yadav has severe pulmonary hypertension, but only a mildly increased pulmonary vascular resistance. His most recent echocardiogram shows significant valvular disease along with a severely dilated left atrium. I think most of his pulmonary hypertension can be attributed to his left-sided heart disease. 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 I think the focus should be on treating his underlying conditions, as is currently being done. I don't think he's an a ppropriate candidate for specific therapy (e.g. endothelin receptor antagonist, phosphodiesterase inhibitor, etc.) for pulmonary hypertension. documented in this encounter Plan of Treatment Not on filedocumented as of this encounter Goals Goal Patient Goal Associated Recent Patient-Stated? Author Type Problems Progress DH Home Medication Patient No Mendez blunt, Compliance and Facing Luciano A, Understanding Action Plan [facility] Note: Formatting of this note might be d ifferent from the original. Reduce progression of OA and reduce RA s ymptoms/hand pain documented as of this encounter Visit Diagnoses Diagnosis Pulmonary hypertension Other chronic pulmonary heart diseases documented in this encounter Care Teams Industrial Machine System Technician Relationship Specialty Start Date End Date Wilner Lemus DO PCP - General Family Medicine 02/20/18 05/21/[address] [place] [address] documented as of this encounter
--- OUTSIDE RECORDS SUMMARY | 2022-03-18 09:49 | XMS_ITS | Encounter Summary ---
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; [facility] [place] [address] CENTER [phone] [place], [place] [address] Social History Tobacco Use Types [...] Pulse 74 04/25/2018 1:24 PM EDT Temperature - - Respiratory Rate - - Oxygen Saturation 98% 04/25/2018 1:24 PM on 2L of O2 via NC EDT Inhaled Oxygen Concentration - - Weight 104.3 kg (230 lb) 04/25/2018 1:24 PM EDT Height 175.3 cm (5' 9) 04/25/2018 1:24 PM EDT Body Mass Index 33.97 04/25/2018 1:24 PM EDT documented in this encounter Progress Notes Lori Cannon MD - 04/25/2018 1:30 PM EDT Jose Yadav is a 78 year old man who returns to the rheumatology clinic for evaluation of RA andOA. The most recent visit to the clinic was 4 months ago and he was being followed by Neena Duque. He is seen with his today. Cc: sudden onset of back pain HPI: Woke up with severe back pain one week ago. No injury or change in activity. Upper lumbar-lowerthoracic and worse when standing and walking, but [...] SOCIAL HISTORY/HABITS No tobacco or etoh. 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 Lives in [facility], with his Misty of > 48 years Daughter and Son also live locally 7 grand children FAMILY HISTORY Sister has RA- worse disease course PMH: UT and CABG x 2 THR Prostate cancer surgery 1996 Severe lung reaction from MTX Physical Examination: BP 137/51 Pulse 74 Ht 175.3 cm (5' 9) Wt 104.3 kg (230 lb) SpO2 98% Comment: on 2L of O2 via NC BMI 33.97 kg/m2 General-Alert and pleasant, NAD, some discomfort with movement and positioning, able to climb onto exam table, on O2 HEENT-No conjunctivitis, or mucosal ulcers. Neck-no LAD, nontender Lungs CTAB Heart: RRR 3/6 systeolic murmur Abd: active bs Spine: slight kyphosis and flat lordosis with midline tenderness at upper lumbar spine. No paraspinus tenderness and no sciatic tenderness. No radiation over pelvic brim. 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 Fusedright wrist. Hips with decreased ROM Crepitant knees. Bunions. No active synovitis. Skin-No rash. myD-H RAPID-3 Responses 01/12/2018 RAPID-3 Function 5.66 RAPID-3 Pain 9 RADIP-3 Global 2.5 RAPID-3 Total Scores 17.16 (High) Impression: Rheumatoid arthritis with chronic deformity well controlled. Feels Enbrel is helping (RAPID 3 above is from prior to start of Humira), acute back today without red flag features but still concern for vertebral compression fractures and will check xray. Recommendations: #Continue Humira and Plaquenil # annual eye exam # x ray of lumbar spine to look for compression fractures # safety monitoring labs--eval for infection and blood counts. SPEP for new onset localized back pain Orders Placed This Encounter Procedures ??? XR Lumbar Spine 2 Or 3 Views (Generic) ??? CRP, acute inflammation ??? CBC (with Diff) ??? Sedimentation rate ??? Comprehensive metabolic panel (non-fasting) ??? Hemogram ??? Differential, Automated ??? Scan, Peripheral Blood documented in this encounter Plan of Treatment Not on filedocumented as of this encounter Goals Goal Patient Goal Associated Recent Patient-Stated? Author Type Problems Progress DH Home Medication Patient No Mendez blunt, Compliance and Facing Luciano A, Understanding Action Plan [facility] Note: Formatting of this note might be d ifferent from the original. Reduce progression of OA and reduce RA s ymptoms/hand pain documented as of this encounter Procedures Procedure Name Priority Date/Time Associated Comments Diagnosis CRP, ACUTE Routine 04/25/2018 2:42 PM Rheumatoid Results f or this INFLAMMATION EDT arthritis involving procedur e are in both hands with the results positive rheumatoid section. factor Medication monitoring encounter SCAN, PERIPHERAL BLOOD Routine 04/25/2018 2:42 PM Results for this EDT procedure are i n the results section. HEMOGRAM Routine 04/25/2018 2:42 PM Rheumatoid Results f or this EDT arthritis involving procedur e are in both hands with the results positive rheumatoid section. factor Medication monitoring encounter DIFFERENTIAL, Routine 04/25/2018 2:42 PM Rheumatoid Results for this AUTOMATED EDT arthritis involving procedur e are in both hands with the results positive rheumatoid section. factor Medication monitoring encounter SEDIMENTATION RATE Routine 04/25/2018 2:42 PM Rheumatoid Res ults for this EDT arthritis involving procedur e are in both hands with the results positive rheumatoid section. factor Medication monitoring encounter CBC (WITH DIFF) Routine 04/25/2018 2:42 PM Rheumatoid EDT arthritis involving both hands with positive rheumatoid factor Medication monitoring encounter COMPREHENSIVE Routine 04/25/2018 2:42 PM Rheumatoid Results for this METABOLIC PANEL EDT arthritis involving senia varela are in (NON-FASTING) both hands with the results positive rheumatoid section. factor Medication monitoring encounter documented in this encounter Results XR Lumbar [...] bones. Lori Cannon MD IMG DX ORDERABLES Scan, Peripheral Blood (04/25/2018 2:42 PM EDT) [facility] Method Time Signature Plat Estimate Decreased [facility] RBC Morphology Abnormal [facility] Ovalocytes 1-5 /HPF [facility] Specimen Anatomical Collection Method Collection Time Receive d Time (Source) Location / / Volume Laterality Blood specimen 04/25/2018 2:42 PM 018 3:11 (specimen) EDT PM EDT Resulting Agency Comment Spec In Lab Lori Cannon MD HEMATOLOGY ORDERABLES Performing Organization Address City/State/ZIP Code Phon e Number [place] [id number] (ABNORMAL) Differential, Automated (04/25/2018 2:42 PM EDT) [facility] Method Time Signature Neutrophils % 69.0 % [facility] Neutr Abs (ANC) 6.23 (H) 1.70 - [facility] 6.10 [facility] x10(3)/[facility] LABORATORY Lymphocytes % 17.5 % [facility] Lymphocytes Abs 1.6 0.9 - 3.2 [facility] x10(3)/[facility] LABORATORY Monocytes % 11.7 % [facility] Monocyte Abs 1.1 (H) 0.3 - 0.9 [facility] x10(3)/[facility] LABORATORY Eosinophils % 0.9 % [facility] Eosinophils Abs 0.1 0.0 - 0.4 [facility] x10(3)/[facility] LABORATORY Basophils % 0.3 % [facility] Basophils Abs 0.0 0.0 - 0.1 [facility] LAB[facility]ATORY Immature Gran % 0.60 % [facility] Comment: Immature granulocytes(IG's)percentage an d absolute count will include metamyelocytes, myelocytes, and promyelo cytes. Blood smears from CBCs yielding IG's will be scanned manually for concor daniram. If this scan disagrees with the automated IG or if promyelocytes are not ed, a manual differential will be performed. [place] Gran Abs 0.05 (H) 0.00 - 0.04 x10(3)/[facility] LABORATORY Specimen Anatomical Collection Method Collection Time Receive d Time (Source) Location / / Volume Laterality Blood specimen 04/25/2018 2:42 PM 018 3:11 (specimen) EDT PM EDT Resulting Agency Comment Spec In Lab Lori Cannon MD HEMATOLOGY ORDERABLES Performing Organization Address City/State/[place] [address] (ABNORMAL) Hemogram (04/25/2018 2:42 PM EDT) Analysis Performed At Patho logist Time Signature WBC 9.0 4.0 - 9.5 [facility] x10(3)/[facility] LABORATORY RBC 4.49 (L) 4.58 - [facility] 5.54 [facility] x10(6)/[facility] LABORATORY Hemoglobin 14.5 13.7 - [facility] 16[facility] gm/dL [facility] Hematocrit 43.2 40.5 - [facility] 48.5 % [facility] MCV 96.2 (H) 82.9 - [facility] 93.1 [facility] LABORATORY MCH 32.3 (H) 27.5 - [facility] 32.1 pg [facility] MCHC 33.6 32.0 - [facility] 35.7 gm/dL [facility] Platelets 123 (L) 145 - 357 [facility] x10(3)/[facility] LABORATORY RDWSD 45.2 (H) 36.0 - [facility] 45.0 [facility] LABORATORY RDWCV 12.8 11.4 - [facility] 13.8 % [facility] MPV 9.8 7.6 - 12.9 [facility] LABORATORY nRBC % Auto 0.0 % [facility] nRBC Abs Auto 0.000 0.000 - [facility] 0.000 [facility] x10(3)/[facility] LABORATORY Specimen Anatomical Collection Method Collection Time Receive d Time (Source) Location / / Volume Laterality Blood specimen 04/25/2018 2:42 PM 018 3:11 (specimen) EDT PM EDT Resulting Agency Comment Spec In Lab Lori Cannon MD HEMATOLOGY ORDERABLES Performing Organization Address City/State/[place] [address] (ABNORMAL) Comprehensive metabolic panel (non-fasting) (04/25/2018 2:42 PM EDT) P athologist Signature Glucose Lvl 108 65 - 199 [facility] mg/dL [facility] Comment: Diabetes: >=200 mg/dL plus symp toms BUN 21 (H) 10 - 20 mg/dL [facility] Creatinine 0.80 0.80 - 1.50 mg/dL [facility] Sodium 141 135 - 145 mmol/L [facility] Potassium 4.1 3.5 - 5.0 mmol/L [facility] Comment: Please note: ??Patients with WBC >100,00 0 may have falsely elevated Potassium levels. ??For accurate Potassium quantif ication in these patients send serum separator tube (gold top) for subsequent determinations. ??Contact the Clinical Chemistry Laboratory if there are any qu estions. Chloride 98 98 - 107 mmol/L [facility] CO2 32 (H) 22 - 31 mmol/L [facility] Anion Gap 11 5 - 15 mmol/L [facility] Calcium 10.1 8.5 - 10.5 mg/dL [facility] Total Protein 7.3 6.1 - 8.0 gm/dL [facility] Albumin 4.4 3.2 - 5.2 gm/dL [facility] AST 19 0 - 39 unit/L [facility] ALT 31 0 - 55 unit/L [facility] Alk Phos 72 40 - 120 unit/L [facility] Total Bilirubin 1.2 0.2 - 1.3 mg/dL [facility] Estimated GFR 85 >=60 mL/min/1.73 m?? [facility] Comment: The eGFR was calculated using the CKD-EP I equation. As with all creatinine based estimates of kidney function, eGFR values calculated with the CKD-EPI equation are not accurate in patients wi th acute kidney failure, extremes of body mass or the acutely ill. [email or web address] eGFR 98 >=60 mL/min/1.73 m?? [facility] Comment: The eGFR was calculated using the CKD-EP I equation. As with all creatinine based estimates of kidney function, eGFR values calculated with the CKD-EPI equation are not accurate in patients wi th acute kidney failure, extremes of body mass or the acutely ill. [email or web address] Specimen Anatomical Collection Method Collection Time Receive d Time (Source) Location / / Volume Laterality Blood specimen 04/25/2018 2:42 PM 018 3:11 (specimen) EDT PM EDT Resulting Agency Comment Spec In Lab Lori Cannon MD CHEMISTRY ORDERABLES Performing Organization Address City/[facility]/[place] [address] Sedimentation rate (04/25/2018 2:42 PM EDT) P athologist Signature Sed Rate 10 0 - 15 [facility] mm/hr [facility] Specimen Anatomical Collection Method Collection Time Receive d Time (Source) Location / / Volume Laterality Blood specimen 04/25/2018 2:42 PM 018 3:11 (specimen) EDT PM EDT Resulting Agency Comment Spec In Lab Lori Cannon MD HEMATOLOGY ORDERABLES Performing Organization Address City/[facility] [place] [address] CRP, acute inflammation (04/25/2018 2:42 PM EDT) P athologist Signature CRP 0.9 <=4.9 mg/L [facility] Specimen Anatomical Collection Method Collection Time Receive d Time (Source) Location / / Volume Laterality Blood specimen 04/25/2018 2:42 PM 018 3:11 (specimen) EDT PM EDT Resulting Agency Comment Spec In Lab Lori Cannon MD CHEMISTRY ORDERABLES Performing Organization Address City/State/[place] [address] documented in this encounter Visit Diagnoses Diagnosis Back pain, unspecified back location, un specified back pain laterality, unspecified chronicity Rheumatoid arthritis involving both hand s with positive rheumatoid factor Medication monitoring encounter Encounter for therapeutic drug monitorin g Back pain, unspecified back location, un specified back pain laterality, unspecified chronicity Rheumatoid arthritis involving both hand s with positive rheumatoid factor documented in this encounter Care Teams Associate Professor Of Biostatistics Relationship Specialty Start Date End Date Wilner Lemus DO PCP - General Family Medicine 02/20/18 05/21/[address] [place] [address] documented as of this encounter
--- OUTSIDE RECORDS SUMMARY | 2022-03-18 09:49 | XMS_ITS | Encounter Summary ---
:1940 Author Organization [facility] [place] [address] Care Team Providers Name Role Phone Wilner Chamberlain MD Primary Care Provider [phone] Reason for Visit Reason Onset Date Comments Other 05/26/2017 Encounter Details Date Type Department Care Team Description 05/26/2017 Telephone Rheumatology at [facility] Andrae Krish[place], [place] [address] Social History Tobacco Use Types Packs/Day Years Used Date Never Smoker Smokeless Tobacco: Never Used Alcohol Use Standard Drinks/Week Comments No 0 (1 standard drink = 0.6 oz pure alcoho l) Sex Assigned at Date Recorded Not on file documented as of this encounter Miscellaneous Notes Telephone Encounter - Andrae Krishna RN - 05/30/2017 8:36 AM EDT See if he has tried tylenol, if not have him try this and let us know how it goes. Thanks. Neena Left above message for Jose, asked him to call back if he has tried Tylenol. Telephone Encounter - Andrea Krishna RN - 05/26/2017 9:10 AM EDT Call received from Spouse Misty stating that Jose is having increased Hip pain with the decrease in Plaquenil. RTC and left message for Misty or Jose to RTC to nurse. I spoke with Misty this afternoon and she states that Right Hip has been bothering him since yesterday. She thinks this is related to Plaquenil being stopped. She states that Jose stopped due to potential heart problem. I have advised local ice/heat to Hip and I will consult with Neena but will likely not be able to getback to her until Monday. She is ok with this. documented in this encounter Plan of Treatment Not on filedocumented as of this encounter Visit Diagnoses Not on filedocumented in this encounter Care Teams Deputy Sheriff Bailiff Relationship Specialty Start Date End Date Wilner Chamberlain MD PCP - General 08/17/10 01/10/18 [address] [place] [address] documented as of this encounter
--- OUTSIDE RECORDS SUMMARY | 2022-03-18 09:49 | XMS_ITS | Encounter Summary ---
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 [phone] [place], [place] [address] (Wo rk) Social History Tobacco Use Types Packs/Day Years Used Date Never Smoker Smokeless Tobacco: Never Used Alcohol Use Standard Drinks/Week Comments No 0 (1 standard drink = 0.6 oz pure alcoho l) Sex Assigned at Date Recorded Not on file documented as of this encounter Discharge Instructions Discharge InstructionsKisha Brambila RN - 09/04/2017 5:55 PM EST Activity If you are discharged the same day as your procedure, do not drive yourself home. Arrange to have another person drive. You may walk around when you get home, but keep your activity at a minimum until the morning. Do not bend over, strain, or lift heavy objects for 24 hours after the procedure. Do not participatein active sports for 48 hours. You may engage in sexual activity after 48 hours. These restrictions will not apply if the catheter was placed in a blood vessel in your arm. Catheter Insertion Area Care Take the band-aid off the catheter insertion area the morning following the procedure. You may take a shower if you wish. Wash the area with soap and water. Look for signs of infection over the next several days. A little spot of blood at the catheter insertion area is not unusual. A bruise or small lump under the skin is normal; they generally disappear in 3-4 days. For the first several days at home if you cough or sneeze, hold your groin to help prevent bleeding. Expect some mild tenderness over the area where the catheter was inserted. You will notice this after the local anesthetic (numbing medicine) wears off. This should improve during the 24-48 hours afterthe procedure. Take tylenol if needed. Contact your doctor if the discomfort worsens. Problems to Watch For If there is bright red blood flowing from the catheter insertion area: *stop what you are doing and lie down *Hold pressure steadily on the area for 15 minutes *Call for Help *If the bleeding does not stop in 15 minutes call 911 for an ambulance. If there is swelling with black and blue color at the catheter insertion area, there may be bleeding inside. Contact the doctor if there is any increase in size. Look at the insertion site for the first few days at home. Signs of infection are: *redness *Swelling *Yellow, white, green or brown foul smelling drainage. *increased soreness If you think there is an infection, take your temperature. Then call your doctor. The limb on the side where you had your catheterization should look and feel normal in its color, sensation, and temperature. If your leg becomes cool, pale, blue or changing color with numbness and tingling, contact your doctor. If you feel faint or dizzy, lie down with your feet elevated. Have someone call the doctor. If you are alert, drink fluids. How to Deal with Chest pain If you had only the cardiac catheterization, treat any angina or chest discomfort as instructed. Stop what you are doing, and sit or lie down. If prescribed, take nitroglycerin under your tongue. If the angina isn't relieved, take another nitroglycerine in 5 minutes. After another 5 minutes, a third ni troglycerine may be taken. If the angina isn't improved you should call for an ambulance to bring you to the nearest hospital emergency room. If your angina is more frequent or more sever than before, contact your doctor. We usually would not expect to have angina after an angioplasty. If you do get angina, treat it as you did before but also contact your doctor. Return to Work The doctor will usually have told you when to return to work. If you do not perform heavy physical labor, most people can return to work in a few days. Diet Follow your previous diet unless otherwise instructed. Cardiac Risk Factors If you have coronary artery disease, it is important that you help control it by reducing your cardiac risk factors. If you smoke, we urge you to stop now. If you think this is going to be a problem, let us know so that we may help you. We have dieticians who can help you learn about low fat, low cholesterol diet. Cardiac rehabilitation programs can help you set up a regular exercise program. Work with your doctor if you have high blood pressure or sugar diabetes to keep these under control. Medications ____Take your usual medications ____Medication changes: If you are taking medicines prescribed by your doctor, do not take any rcoz-mxx-hdzthwy medicines orherbal preparations without first discussing this with your doctor or pharmacist. There is the possibility of side effect and interactions when these are combined. Follow up Care Who to Call with Questions or Problems If there are any questions or problems that you think might be related to your cardiac cath or angioplasty, contact the transfer and pumphouse operator content director by calling [facility] at . POST ANESTHESIA INSTRUCTIONS Go home, rest, use caution on stairs. Change positions slowly. Do not smoke if you are alone. Diet light to regular as tolerated today. If nausea occurs start with clear liquids and progress slowly. No driving, operating machinery, alcoholic beverages and no important decisions for 24 hours. Monitor IV site for signs and symptoms of infection: increasing redness, swelling, foul drainage, ifoccurs contact M.D. Patients who have had endotrachial tubes (this tube, used by anesthesia department, is passed down your throat after you are asleep, to ensure safe air passage during your operation). A sore throat is normal due to the tube. Cold liquids or soothing lozenges will help ease the discomfort. The generalized muscle aches are due to the medication given to you just before the tube is inserted. As the medication wears off, you may develop muscle soreness, which usually goes away in 12-24 hours. documented in this encounter Medications at Time of Discharge Medication Sig Dispensed Refills Start Date End Date DOCOSAHEXANOIC ACID/EPA Take 1,000 mg by 0 (FISH OIL ORAL) mouth daily. atorvastatin (LIPITOR) 40 Take 40 mg by mouth 0 mg tablet daily. metoprolol succinate 0 06/02/2010 (TOPROL XL) 100 mg XL tablet lisinopril (PRINIVIL) 20 0 06/02/2010 mg tablet furosemide (LASIX) 40 mg 20mg, PO, Twice 0 2009 tablet daily nitroGLYcerin (NITROSTAT) 0 06/02/2010 0.4 mg SL tablet b complex vitamins tablet 0 06/02/2010 doxazosin (CARDURA) 2 mg 0 06/02/2010 tablet hydroxychloroquine Take 1 tablet by 60 tablet 11 05/10/2017 12/18/2017 (PLAQUENIL) 200 mg Tablet mouth daily. etanercept (ENBREL Inject 50 mg 12 Syringe 3 04/20/201710/26 SURECLICK) Pen Injector subcutaneously once a week. ELIQUIS 5 mg Tablet take 1 tablet by 0 04/05/2017 02/08/2022 mouth twice a day TO PREVENT CLOTS WITH ATRIAL FIBRILLATION polyethylene glycol Take 17 g by mouth 14 each 11 07/20/20 15 05/22/2019 (MIRALAX) 17 gram Powder daily. in Packet lubiprostone (AMITIZA) 24 Take 1 capsule by 60 capsule 11 01/12/2018 mcg CapsuleIndications: mouth 2 times daily Constipation (with meals). FERROUS FUMARATE (IRON Take 65 mg by mouth 0 05/22/2019 ORAL) daily. Cholecalciferol, Vitamin Take by mouth. 0 01/12/2018 D3, (VITAMIN D-3) 2,000 unit Cap ascorbic acid (VITAMIN C) 0 06/02/2010 01/12/2018 1,000 mg tablet potassium chloride SA 20meq, PO, Once 0 0 01/12/2018 (K-DUR;KLOR-CON) 20 mEq daily tablet documented as of this encounter Progress Notes Kisha Brambila RN - 09/04/2017 6:56 PM EST Patient discharge to home. IV removed, site benign. My assessment remains unchanged from my previousassessment. RN Discussed pain management with patient, pain tolerable. Patient ambulated prior to discharge. patient with no s/s of bleeding/hematoma at discharge. Patient has all belongings and supplies needed. Patient received After Visit Summary. This was reviewed with patient and family, patient verbalizes understanding of AVS. All questions answered. Patient encouraged to call with questions or concerns. Patient discharged to home with family. 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 Preliminary findings: Patent GOVEA to LAD Patent radial to OM Occluded SVG to RCA Occluded [place] RCA 55% distal LAD lesion beyond GOVEA touchdown 50% distal LCx lesion No intervention performed. RHC shows severe pulmonary HTN The patient tolerated the procedures smoothly and was transferred from the cardiac catheterization lab to the next level of care in condition. No evident early complications. Full report to follow. Real Lees MD documented in this encounter H&P Notes Zita Mcnamara Crystal - 09/04/2017 7:43 AM EST Images from the original note were not included. Patient Name: Jose Yadav Patient Age: 77 y.o. Birthdate: 1940 Admit date: 09/04/2017 Attending Physician: Real Lees MD Complete Adult Pre-Procedural H&P MR#: [id number] HPI: Jose Yadav is a 77 y.o. male with past medical history significant for atrial fibrillation (on apixaban), pHTN (thought to be 2/2 restrictive lung disease/rheumatoid arthritis pulmonary RV mildly dilated and hypokinetic PA Systolic pressure 80-907), moderate (DOI 0.3, valve area 1.4, gradient 24, 2+ AI, CAD (s/p inferior CT 1988 s/p tPA, CABG x 3 1989 OGVEA to LAD, SVG to RCA, SVG to D1 with redo CABG 1998 radial artery-OM, SVG to PDA), CHARLIE and thromobocytopenia of unclear etiology. He is referred for coronary angiography and right and left heart cath. His last TTE was 04/2017 as above and showed EF 60-65%. He last took his apixaban on Monday. He has otherwise been in his normal state of health. He does complain of shortness of breath but doesn't feel it's been worse lately. No recent chest pain. Physical Exam: Most Recent Vitals: 09/04/17 1240 BP: 131/66 Pulse: 117 Resp: 14 Temp: 36.5 ??C (97.7 ??F) SpO2: 97% NAD CV: RRR, S1 S2 physiologic, crescendo-decrescendo murmur heard best at RUSB, JVP elevated to jawline Pulm: CTAB, no w/r/r Abd: soft, NT, ND, +BS Vasc: 2+ bilat femoral pulses w/o bruits, 1+ bilat DP pulses Extr: wwp, mild pitting edema Labs 08/29/2017 Platelets 119 Hemoglobin 13.1 Wbc 7.4 Creatinine 0.87 Potassium 4.2 ASA: 3: Patient with severe systemic disease Mallampati: III: only the base of the uvula can be seen Assessment and Plan: 77 y.o. male is here for cardiac catheterization. - proceed as planned - consent signed - FULL code Sedation Plan: moderate (conscious sedation) documented in this encounter Plan of Treatment Not on filedocumented as of this encounter Procedures Procedure Name Priority Date/Time Associated Diagnosis Comme nts CARDIAC CATHETERIZATION Routine 09/04/2017 4:34 R esults for this PM EST procedure are i n the results section. POINT OF CARE BLOOD GAS Routine 09/04/2017 3:28 R esults for this HISTORICAL PM EST procedure are i n the results section. EKG 12-LEAD Routine 09/04/2017 12:46 Pulmonary Results for this PM EST hypertension procedure are i n the results section. documented in this encounter Results CARDIAC CATHETERIZATION (09/04/2017 4:34 PM EST) Specimen (Source) Anatomical Location Collection Method / Collectio n Time Received Time / Laterality Volume Narrative CARDIOMAC SYSTEM - 09/04/2017 5:18 PM ES T ?[facility] ? Cardiac Cathete rization/Intervention Report ? Patient Name: Jose Yadav. ? Procedure Date: 09/04/2017 ? A #: [id number] ? Primary Physician: Nabeel, Real T ? Case #: [id number] ? File Name: [id number] ? Catheterization Order Number: [id number] ? [facility] ? Final Report [place], [place] ? Patient Name: ? Jose blunt ?ID#: ?[id number] ? : ?1940 ? Procedure Date: ? Nick 11, 20 17 ?Case #: ? [id number] ? Room: ? 6 ? Case Physician: ? Real Lees M.D. ?Start: ?15:18 ?Fellow: ? Zita pierre, D.O. ?Admission: ??09/04/2017 ? Referring ? Refugio richter M.D. ? Physicians: ?Wilner Chamberlain M.D. ? Procedures: ?* Coronary Angiography ?* Left Heart Catheterization ?* Bypass Graft Study ?* Right Heart Catheterization ?* Oximetry ?* Arterial Blood Gases ? History ?Jose Yadav is a 77 year ol d man. He has a prior history of coronary ?artery disease. The patient is status post a remote myocardial ?infarction. He had a total of t wo prior coronary bypass operations. The ?patient has a history of dyspne a with NYHA functional class III and ?congestive heart failure during this admission. He has a history of ?atrial fibrillation/atrial flut ter. The patient has aortic stenosis. He ?has a history of chronic obstru ctive pulmonary disease. The patient also ?has a history of an abnormal EK G and an abnormal echocardiogram. Prior to ?the initiation of this procedur e, the patient was designated as ASA Class ?III. ? Patient Status at Catheterization: ?The patient presented with: sta ble angina (w/i 42 days). [place] ?Cardiovascular Society angina c lass was I. This patient was on beta ?blockers prior to the procedure . No stress or imaging studies were ?performed prior to this procedu re ? Technique: ?A 6Fr sheath was inserted in th e right femoral artery utilizing the ?Seldinger technique. A 6Fr quinn th was inserted in the right median ?antecubital vein utilizing the Seldinger technique. The left coronary ?artery was injected utilizing a 6Fr JL 4 catheter. A 6Fr JR 4 catheter ?was used to inject the right co ronary artery. The bypass graft was ?injected utilizing a 6Fr RCB ca theter. Left ventricle was performed with ?a 6Fr Double lumen pigtail cath eter. A 6Fr HORACIO catheter was used to ?inject the left internal mammar y. 2,000 units of heparin were ?administered. A total of 150cc of Omnipaque were opened, 115cc of ?Omnipaque were administered and 35cc of Omnipaque were wasted. Radiation: ?Fluoro time was 17.2 minutes, d ose area product was 140,683 mGYcm2 and ?air kerma was 1,346 mGY. ?The patient received the follow ing medications prior to and during the ?procedure: Unfractionated Hepar in (any). ? Hemodynamics: ?Right Heart Pressures ? Hemodynamics: ? Syst D iast ? EDP ?a ?v ? m ?RA ? 7 ? 10 ? 8 ?RV 79 ?7 ?PA 77 ?24 ?48 ?PCW ?32 ?40 ?27 ? Hemodynamic Profile: ?Profile 1 ?CO ? 5.84 ?CI ? 2.67 ?TSR ? 1,397 ?SVR ? 1,288 ?TPR ?658 ?PVR ?288 ?Techniq ue ?Estimated Vandana ?Left Heart Pressures ? Resting: ? Syst D iast ? EDP ?a ?v ? m ?Ao 145 ?? 72 ?102 ?LV 157 ? 11 ? Stenotic Valve Data: ?Aortic Valve ?Peak Gradient - 11 ?Mean Gradient - 29 ?Area - 1.67 sq. cm ? Oximetry: ?Location ? % Sat ?Location ?%Sat ?Main Pulmonary Artery ??63.0 ?RFA ? 91.0 ? Coronary Angiography: ?Dominance: Right ?Left Main ? There was mild diffuse d isease of the entire vessel segment of the ? left main artery. ?Left Anterior Descending ? There was mild diffuse d isease of the entire vessel segment of the ? left anterior descending artery (LAD). ??The proximal segment of the ? LAD had a single discret e total occlusion. ??Distal flow was via a ? bypass graft. ??There al so was a 55% long segmental stenosis of the ? distal segment of the LA D. ?Left Circumflex ? There was mild diffuse d isease of the entire vessel segment of the ? left circumflex artery ( LCX). ??The proximal segment of the LCX had a ? single discrete 50% sten osis. ??There also was a 55% single discrete ? stenosis of the distal s egment of the LCX. ? There was a single discr ete total occlusion of the proximal segment ? of the first obtuse dre inal branch (OM1) of the LCX. ??Distal flow ? was via a bypass graft. ?Right Coronary Artery ? There was mild diffuse d isease of the entire vessel segment of the ? right coronary artery (R CA). ??The proximal segment of the RCA had a ? single discrete total oc clusion. ??Distal flow was via collaterals ? from the LAD. ? Bypass Grafts: ?There was a total of three bypa ss grafts evaluated during this procedure. ?1. ?? Left internal mammary art jeni graft to the LAD ? There was a left interna l mammary artery graft with a single ? anastomosis to the left anterior descending artery (LAD). ? There was no evidence of obstruction in this graft. Distal flow was ? normal. ?2. ?? Radial artery graft to th e OM1 ? There was a radial arter y graft with a single anastomosis to the ? first obtuse marginal br anch (OM1) of the LCX. ? There was no evidence of obstruction in this graft. Distal flow was ? normal. ?3. ?? Saphenous vein graft to emelia moore RPDA ? There was a saphenous ve in graft with a single anastomosis to the ? right posterior descendi ng branch (RPDA) of the RCA. ? There was a single discr ete total occlusion of the ostial portion of ? the segment of this kimberly t between the origin of this graft and the ? RPDA. ? Indication for Selected Procedures: ?Right Heart catheterization was initiated for Aortic valve disorders. ? Vascular Access: ?Vascular Access Angiogram: ? A selective angiogram at the right femoral artery revealed mild ? diffuse disease. ?Vascular Access Management: ? Manual Compression of th e right median antecubital vein access site ? was performed. ? A Perclose was deployed at the right femoral artery access site. ? This device was successf ul. ? Point of Care Testing: ?ABG: ? Arterial Blood gasses we re performed using the I-Stat analyzer at ? 15:28: pH: 7.38, pCO2: 4 9.9, pO2: 64.0, sPO2: 91%, HCO3: 29 on FIO2: ? 2L via n/c. ?I-Stat: ? I-Stat was performed usi ng the I-Stat analyzer at 15:28: Na+: 141, ? K+: 3.6, iCa++: 1.24, Hc t: 36%, Hb: 12.2. ? 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 Complications/Events: ?The patient had no complication s during these procedures. ? Comments: ?Severe pulmonary hypertension. ??Moderate CAD. ??Consider stress testing to ?evaluate the LAD and Lcx lesion . ?The attending physician was presen t for the entire procedure. ?Dr. Real Lees M.D. was pres ent during the moderate sedation ?intraservice time as documented by the sedation nurse. ??Case time = 00:59. ?Dr. Real Lees M.D. performe d the coronary angiography, left heart ?catheterization, bypass graft stud y, right heart catheterization, oximetry ?and ABG. ? Real Lees M.D. ? Electronically Signed by: Real richter M.D. ? Report Finalized: 09/04/2017 ??17:14 ? Procedure Note Real Lees MD - 09/04/2017Formatt ing of this note might be different from the original. [facility] Cardiac Catheterization/Intervention Re port Patient Name: Jose Yadav Procedure Date: 09/04/2017 A #: [id number] Primary Physician: Real Lees Case #: [id number] File Name: [id number] Catheterization Order Number: [id number] [facility] Final Report [place], [place] Patient Name: Jose Yadav ID#: [id number] : 1940 Procedure Date: September 04, 2017 Case # : [id number] Room: 6 Case Physician: Real Lees M.D. art: 15:18 Fellow: Colin Baptiste on: 09/04/2017 Referring Refugio Ward M.D. Physicians: Wilner Chamberlain M.D. Procedures: * Coronary Angiography * Left Heart Catheterization * Bypass Graft Study * Right Heart Catheterization * Oximetry * Arterial Blood Gases History Jose Yadav is a 77 year old man. H humble has a prior history of coronary artery disease. The patient is status p ost a remote myocardial infarction. He had a total of two prior coronary bypass operations. The patient has a history of dyspnea with N YHA functional class III and congestive heart failure during this ad mission. He has a history of atrial fibrillation/atrial flutter. The patient has aortic stenosis. He has a history of chronic obstructive pu lmonary disease. The patient also has a history of an abnormal EKG and an abnormal echocardiogram. Prior to the initiation of this procedure, the p atient was designated as ASA Class III. Patient Status at Catheterization: The patient presented with: stable maegan na (w/i 42 days). [place] Cardiovascular Society angina class was I. This patient was on beta blockers prior to the procedure. No str ess or imaging studies were performed prior to this procedure Technique: A 6Fr sheath was inserted in the right femoral artery utilizing the Seldinger technique. A 6Fr sheath was i nserted in the right median antecubital vein utilizing the Seldinge r technique. The left coronary artery was injected utilizing a 6Fr JL 4 catheter. A 6Fr JR 4 catheter was used to inject the right coronary a rtery. The bypass graft was injected utilizing a 6Fr RCB catheter. Left ventricle was performed with a 6Fr Double lumen pigtail catheter. A 6Fr HORACIO catheter was used to inject the left internal mammary. 2,000 units of heparin were administered. A total of 150cc of Omnip aque were opened, 115cc of Omnipaque were administered and 35cc of Omnipaque were wasted. Radiation: Fluoro time was 17.2 minutes, dose area product was 140,683 mGYcm2 and air kerma was 1,346 mGY. The patient received the following medi cations prior to and during the procedure: Unfractionated Heparin (any) . Hemodynamics: Right Heart Pressures Hemodynamics: Syst Diast EDP a v m RA 7 10 8 RV 79 7 PA 77 24 48 PCW 32 40 27 Hemodynamic Profile: Profile 1 CO 5.84 CI 2.67 TSR 1,397 SVR 1,288 TPR 658 PVR 288 Technique Estimated Vandana Left Heart Pressures Resting: Syst Diast EDP a v m Ao 145 72 102 LV 157 11 Stenotic Valve Data: Aortic Valve Peak Gradient - 11 Mean Gradient - 29 Area - 1.67 sq. cm Oximetry: Location %Sat Location %Sat Main Pulmonary Artery 63.0 RFA 91.0 Coronary Angiography: Dominance: Right Left Main There was mild diffuse disease of the e ntire vessel segment of the left main artery. Left Anterior Descending There was mild diffuse disease of the e ntire vessel segment of the left anterior descending artery (LAD). The proximal segment of the LAD had a single discrete total occlusi on. Distal flow was via a bypass graft. There also was a 55% long segmental stenosis of the distal segment of the LAD. Left Circumflex There was mild diffuse disease of the e ntire vessel segment of the left circumflex artery (LCX). The proxi mal segment of the LCX had a single discrete 50% stenosis. There als o was a 55% single discrete stenosis of the distal segment of the L CX. There was a single discrete total occlu haily of the proximal segment of the first obtuse marginal branch (OM 1) of the LCX. Distal flow was via a bypass graft. Right Coronary Artery There was mild diffuse disease of the e ntire vessel segment of the right coronary artery (RCA). The proxim al segment of the RCA had a single discrete total occlusion. Distal flow was via collaterals from the LAD. Bypass Grafts: There was a total of three bypass graft s evaluated during this procedure. 1. Left internal mammary artery graft t o the LAD There was a left internal mammary arter y graft with a single anastomosis to the left anterior descen ding artery (LAD). There was no evidence of obstruction in this graft. Distal flow was normal. 2. Radial artery graft to the OM1 There was a radial artery graft with a single anastomosis to the first obtuse marginal branch (OM1) of t he LCX. There was no evidence of obstruction in this graft. Distal flow was normal. 3. Saphenous vein graft to the RPDA There was a saphenous vein graft with a single anastomosis to the right posterior descending branch (RPDA ) of the RCA. There was a single discrete total occlu haily of the ostial portion of the segment of this graft between the o rigin of this graft and the RPDA. Indication for Selected Procedures: Right Heart catheterization was initiat ed for Aortic valve disorders. Vascular Access: Vascular Access Angiogram: A selective angiogram at the right femo ral artery revealed mild diffuse disease. Vascular Access Management: Manual Compression of the right median antecubital vein access site was performed. A Perclose was deployed at the right fe moral artery access site. This device was successful. Point of Care Testing: ABG: Arterial Blood gasses were performed us ing the I-Stat analyzer at 15:28: pH: 7.38, pCO2: 49.9, pO2: 64.0, sPO2: 91%, HCO3: 29 on FIO2: 2L via n/c. I-Stat: I-Stat was performed using the I-Stat a nalyzer at 15:28: Na+: 141, K+: 3.6, iCa++: 1.24, Hct: 36%, Hb: 12. 2. 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 Comments: Severe pulmonary hypertension. Moderate CAD. Consider stress testing to evaluate the LAD and Lcx lesion. The attending physician was present for the entire procedure. Dr. Real Lees M.D. was present d uring the moderate sedation intraservice time as documented by the sedation nurse. Case time = 00:59. Dr. Real Lees M.D. performed the coronary angiography, left heart catheterization, bypass graft study, ri t heart catheterization, oximetry and ABG. Real Lees M.D. Electronically Signed by: Real richter M.D. Report Finalized: 09/04/2017 17:14 Real Lees MD CARDIAC CATH ORDERABLES Performing Organization Address City/State/ZIP Code Phon e Number CARDIOMAC SYSTEM (ABNORMAL) Point of Care Blood Gas Historical (09/04/2017 3:28 PM EST) [facility] gist Method Time Signature POC pH 7.38 7.35 - [facility] 7.45 [facility] POC PCO2 50 (H) 35 - 45 [facility] mmHg [facility] POC PO2 64 (L) 85 - 104 [facility] mmHg [facility] POC Base Excess 5.0 (H) -3.[facility]/L [facility] POC HCO3 29.7 (H) 20.0 - [facility] 26.0 [facility] mmol/[facility] POC Sodium 141 135 - 145 [facility] mmol/L [facility] POC Potassium 3.6 3.5 - 5.0 [facility] mmol/L [facility] POC Ionized Ca 1.24 1.15 - [facility] 1.33 [facility] mmol/[facility] POC Hematocrit 36.0 (L) 40.0 - [facility] 51.0 % [facility] POC Calc Hgb 12.2 (L) 13.7 - [facility] 17.5 gm/dL [facility] Comment: The calculation of hemoglobin f rom hematocrit assumes a normal MCHC. POC Bgas Loc CC LAB [facility] Specimen Anatomical Collection Method Collection Time Receive d Time (Source) Location / / Volume Laterality Blood specimen 09/04/2017 3:28 PM 017 8:49 (specimen) EST AM EST Real Lees MD CHEMISTRY ORDERABLES Performing Organization Address City/[facility]/ZIP [place] [address] EKG 12 Lead (09/04/2017 12:46 PM EST) Component Value Ref Range Test Analysis Performed Pathologis t Method Time At Signature Ventricular rate 75 BPM MUSE SYSTEM Atrial Rate 82 BPM MUSE SYSTEM QRS Duration 102 ms MUSE SYSTEM Q-T Interval 438 ms MUSE SYSTEM QTC Calculated 489 ms MUSE SYSTEM (Bezet) Calculated R [place] 60 degrees MUSE SYSTEM Calculated T [place] 57 degrees MUSE SYSTEM INTERPRETATION Atrial fibrillation with pre mature ventricular or aberrantly conducted complexes MUSE SYSTEM Abnormal ECG When compared with ECG of 30-JUN-2008 16:16, Atrial fibrillation has replaced Sinus rhythm Confirmed by MD NICOLAS, JAIR ([id number]) on 09/04/2017 7:57:39 PM Specimen Anatomical Collection Method Collection Time Receive d Time (Source) Location / / Volume Laterality 09/04/2017 12:46 09/04/2017 7:57 PM EST PM EST Real Lees MD ECG ORDERABLES Performing Organization Address City/[facility]/ZIP Code Phon e Number MUSE SYSTEM documented in this encounter Visit Diagnoses Not on filedocumented in this encounter Administered Medications Inactive Administered Medications - up to 3 most recent administrations Medication Order MAR Action Action Date Dose Rate Site fentaNYL 50 mcg/mL multi-dose Given 09/04/2017 4:23 PM EST 25 mc g injection ONCE PRN, Starting on Mon09/04/17 at 1515, Until Mon09/04/17 at 1649, Intra-Operative (Intra-Procedure), Routine Given 09/04/2017 3:15 PM EST 25 mcg heparin (porcine) injection Given 09/04/2017 3:37 PM EST 2,000 Units ONCE PRN, Starting on Mon09/04/17 at 1537, Until Mon09/04/17 at 1625, Cath (Intra-Procedure), Routine lidocaine (XYLOCAINE) 10 mg/mL (1 %) inj ection 3 mg 3 mg (0.3 mL), Subcutaneous, ONCE PRN, 1 dose, Starting on Mon09/04/17 at 1233, Until Mon09/04/17 at 1929, with discomfort with PIV i nsertion, Cath (Day of Procedure), Routine midazolam (PF) (VERSED) 1 mg/mL multi-dose Given 09/04/2017 3:15 PM EST 1 mg injection ONCE PRN, Starting on Mon09/04/17 at 1515, Until Mon09/04/17 at 1625, Cath (Intra-Procedure), Routine sodium chloride 0.9 % flush 5 mL 5 mL, Intravenous, EVERY 12 HOURS, First dose on Mon11/05/16 at 1300, Until Discontinued, Cath (Day of Procedure), Routine sodium chloride 0.9 % flush 5-20 mL 5-20 mL, Intravenous, EVERY 1 MIN PRN, S tarting on Mon09/04/17 at 1233, Until Mon09/04/17 at 1929, flush, Flush pertains to all indwelling lines. Flush per protocol found in the job aid using the link prov ided on this medication record., Cath (Day of Procedure), Routine sodium chloride 0.9% infusion Continued Bag 09/04/2017 4:55 PM 100 mL/hr 100 mL/hr 100 mL/hr, Intravenous, EST CONTINUOUS, Starting on Mon09/04/17 at 1715, Until Mon09/04/17 at 2100, Recovery (Recovery-Hospital Unit) documented in this encounter Active and Recently Administered Medications Times are shown in EST. Scheduled Medication Order 09/02/2017 09/03/2017 09/04/2017 sodium chloride 0.9 % flush 5 mL 1300 (Due) 5 mL, Intravenous, EVERY 12 HOURS, First dose on Mon09/04/17 at 1300, Until Discontinued, Cath (Day of Procedure), Routine Continuous Medication Order 09/02/2017 09/03/2017 09/04/2017 sodium chloride 0.9% infusion 16 55 (Continued Bag - Provider: Laura Guido RN) 100 mL/hr, at 100 mL/hr, Intravenous, CO NTINUOUS, Starting Mon09/04/17 at 1715, Until Mon09/04/17 at 2100, Recovery (Recovery-Hospital Unit) PRN Medication Order 09/02/2017 09/03/2017 09/04/2017 atropine injection 1 mg 1 mg, Intravenous, EVERY 5 MIN PRN, 2 do ses, Starting Mon09/04/17 at 1649, Until Mon09/04/17 at 1929, Other, vasovagal episode, Call interventional MD., Cath (Recovery-Hospital Unit), Routine fentaNYL (PF) 50 mcg/mL 2mL syringe 25 mcg, Intravenous, EVERY 30 MIN PRN, 4 doses, Starting Mon09/04/17 at 1649, Until Mon09/04/17 at 1929, Pain, sheath removal, May repeat once while in Cath Recovery Unit, Cath (Recovery-Hospital Unit), Routine fentaNYL 50 mcg/mL multi-dose injection (CANCELED) 151 (Given - Provider: Mauricio Schneider)1623 (Given - Provider: Mauricio Schneider) ONCE PRN, Starting Mon09/04/17 at 1515, Until Mon09/04/17 at 1649, Intra- Operative (Intra-Procedure), Routine heparin (porcine) injection (CANCELED) 153 (Given - Provider: Mauricio Schneider) ONCE PRN, Starting Mon09/04/17 at 1537, Until Mon09/04/17 at 1625, Cath (Intra-Procedure), Routine lidocaine (XYLOCAINE) 10 mg/mL (1 %) injection 3 mg 3 mg (0.3 mL), Subcutaneous, ONCE PRN, 1 dose, Starting Mon09/04/17 at 1233, Until Mon09/04/17 at 1929, with discomfort with PIV insertion, Cath (Day of Procedure), Routine midazolam (PF) (VERSED) 1 mg/mL injection 1 mg 1 mg, Intravenous, EVERY 1 HOUR PRN, 2 d oses, Starting Mon09/04/17 at 1649, Until Mon09/04/17 at 1929, Sleep, For sheath removal, May repeat once while in Cath Recovery Unit., Cath (Recovery-Hospital Unit), Routine midazolam (PF) (VERSED) 1 mg/mL multi-dose injection (CANCELED) 151 (Given - Provider: Mauricio Schneider) ONCE PRN, Starting Mon09/04/17 at 1515, Until Mon09/04/17 at 1625, Cath (Intra-Procedure), Routine sodium chloride 0.9 % flush 5-20 mL 5-20 mL, Intravenous, EVERY 1 MIN PRN, S tarting Mon09/04/17 at 1233, Until Mon09/04/17 at 1929, flush, Flush pertains to all indwelling lines. Flush per protocol found in the job aid using the link pr ovided on this medication record., Cath (Day of Procedure), Rout ine documented in this encounter Care Teams Glue Mixer Relationship Specialty Start Date End Date Wilner Chamberlain MD PCP - General 08/17/10 01/10/[address] [place] [address] documented as of this encounter
--- OUTSIDE RECORDS SUMMARY | 2022-03-18 09:49 | XMS_ITS | Encounter Summary ---
:1940 Author Organization [facility] [place] [address] Care Team Providers Name Role Phone Wilner Lemus DO Primary Care Provider Reason for Visit Reason Onset Date Comments Prior Authorization 05/07/2018 Humira Encounter Details Date Type Department Care Team Description 05/07/2018 Telephone Rheumatology at [facility] Andrae Krishna, Prior Authorization [facility] Abdoulaye hernandez RN (Clarice) [place] [address] Social History Tobacco Use Types Packs/Day Years Used Date Never Smoker Smokeless Tobacco: Never Used Alcohol Use Standard Drinks/Week Comments No 0 (1 standard drink = 0.6 oz pure alcoho l) Sex Assigned at Date Recorded Not on file documented as of this encounter Miscellaneous Notes Telephone Encounter - Andrae Krishna RN - 05/07/2018 12:00 PM EDT Call received from [facility] asking for a phone PA to be done for Humira today for Jose as he is due for shot today. Please call [phone] documented in this encounter Plan of Treatment Not on filedocumented as of this encounter Goals Goal Patient Goal Associated Recent Patient-Stated? Author Type Problems Progress DH Home Medication Patient No Mendez n, Compliance and Facing Luciano A, Understanding Action Plan [facility] Note: Formatting of this note might be d ifferent from the original. Reduce progression of OA and reduce RA s ymptoms/hand pain documented as of this encounter Visit Diagnoses Not on filedocumented in this encounter Care Teams Wind Energy Engineer Relationship Specialty Start Date End Date Wilner Lemus DO PCP - General Family Medicine 02/20/18 05/21/[address] [place] [address] documented as of this encounter
--- OUTSIDE RECORDS SUMMARY | 2022-03-18 09:49 | XMS_ITS | Encounter Summary ---
:1940 Author Organization [facility] [place] [address] Care Team Providers Name Role Phone Wilner Chamberlain MD Primary Care Provider [phone] Reason for Visit Reason Onset Date Comments Other 06/11/2015 Enbrel Encounter Details Date Type Department Care Team Description 06/11/2015 Telephone Rheumatology at [facility] Felisa Johns, Other (Enbrel) [facility] [place] [address] Social History Tobacco Use Types Packs/Day Years Used Date Never Smoker Smokeless Tobacco: Never Used Alcohol Use Standard Drinks/Week Comments No 0 (1 standard drink = 0.6 oz pure alcoho l) Sex Assigned at Date Recorded Not on file documented as of this encounter Miscellaneous Notes Telephone Encounter - Felisa Johns RN - 06/11/2015 1:[address] Graham is calling because he is working Jose up for foot surgery. He would like to know what to do with his Enbrel. Told him he should have Jose hold the Enbrel one week before and one week after the surgery, if complications and an infection occurs the Enbrel should be held until clear of infection. Dr. Graham verbalized understanding of instructions. documented in this encounter Plan of Treatment Not on filedocumented as of this encounter Visit Diagnoses Not on filedocumented in this encounter Care Teams Scaler Relationship Specialty Start Date End Date Wilner Chamberlain MD PCP - General 08/17/10 01/10/[address] [place] [address] documented as of this encounter
--- OUTSIDE RECORDS SUMMARY | 2022-03-18 09:49 | XMS_ITS | Encounter Summary ---
:1940 Author Organization [place] [address] Care Team Providers Name Role Phone Wilner Chamberlain MD Primary Care Provider [phone] Reason for Visit Reason Onset Date Comments Prior Authorization 06/07/2016 Encounter Details Date Type Department Care Team Description 06/07/2016 Telephone Rheumatology at [facility] Fifi Contreras [place] [address] Social History Tobacco Use Types Packs/Day Years Used Date Never Smoker Smokeless Tobacco: Never Used Alcohol Use Standard Drinks/Week Comments No 0 (1 standard drink = 0.6 oz pure alcoho l) Sex Assigned at Date Recorded Not on file documented as of this encounter Miscellaneous Notes Telephone Encounter - Fifi Contreras - 06/07/2016 9:16 AM EDT PA for Enbrel is approved as written from 06/07/16 - 06/07/17. . documented in this encounter Plan of Treatment Not on filedocumented as of this encounter Visit Diagnoses Not on filedocumented in this encounter Care Teams Principal Electrical Engineer Relationship Specialty Start Date End Date Wilner Chamberlain MD PCP - General 08/17/10 01/10/18 [address] [place] [address] documented as of this encounter
--- OUTSIDE RECORDS SUMMARY | 2022-03-18 09:49 | XMS_ITS | Encounter Summary ---
:1940 Author Organization [facility] [place] [address] Care Team Providers Name Role Phone Khushi Payne APRN Primary Care Provider Reason for Visit Reason Onset Date Comments Medication Refill 03/15/2017 Encounter Details Date Type Department Care Team Description 03/15/2017 Refill Rheumatology at [facility] Mirian Duque APRN [facility] [place] [address] [address] [place] [address] [phone] (Wo rk) Social History Tobacco Use Types Packs/Day Years Used Date Never Smoker Smokeless Tobacco: Never Used Alcohol Use Standard Drinks/Week Comments No 0 (1 standard drink = 0.6 oz pure alcoho l) Sex Assigned at Date Recorded Not on file documented as of this encounter Miscellaneous Notes Telephone Encounter - Mirian Duque APRN - 03/15/2017 10:20 AM EDT Needs a f/u apptLinh Chaudhary documented in this encounter Plan of Treatment Not on filedocumented as of this encounter Visit Diagnoses Not on filedocumented in this encounter Care Teams Teller Coordinator Relationship Specialty Start Date End Date Khushi Payne APRN PCP - General Internal Medicine 05/22/[address] [place] [address] documented as of this encounter
--- OUTSIDE RECORDS SUMMARY | 2022-03-18 09:49 | XMS_ITS | Encounter Summary ---
:1940 Author Organization [facility] [address] Care Team Providers Name Role Phone Wilner Chamberlain MD Primary Care Provider [phone] Encounter Details Date Type Department Care Team Description 04/17/2017 Office Visit Rheumatology at [facility] Mirian Duque Rheumatoid arthritis, involv ing unspecified site, unspecified rheumatoid factor presence; [facility] A, PROFESSOR OF LANGUAGES Medication monitoring encounter; Drive [facility] Osteoarthritis of multiple j oints, [place] [address] [place] [address] [phone] Social History Tobacco Use Types Packs/Day Years Used Date Never Smoker Smokeless Tobacco: Never Used Alcohol Use Standard Drinks/Week Comments No 0 (1 standard drink = 0.6 oz pure alcoho l) Sex Assigned at Date Recorded Not on file documented as of this encounter Last Filed Vital Signs Vital Sign Reading Time Taken Comments Blood Pressure 152/91 04/17/2017 11:12 AM white coat s ydrome EDT Pulse 86 04/17/2017 11:12 AM EDT Temperature - - Respiratory Rate 18 04/17/2017 11:12 AM EDT Oxygen Saturation 97% 04/17/2017 11:12 AM EDT Inhaled Oxygen Concentration - - Weight 104.3 kg (230 lb) 04/17/2017 11:12 AM EDT Height 175.3 cm (5' 9) 04/17/2017 11:12 AM EDT Body Mass Index 33.97 04/17/2017 11:12 AM EDT documented in this encounter Progress Notes Mirian Duque Jay, PROFESSOR OF LANGUAGES - 04/17/2017 11:30 AM EDT Rheumatology Outpatient Follow-up Visit Pt of Dr. Kassandra MCDONOUGH Last OV February 2016 CC: Jose Yadav is a 77 year old man who returns for a f/u for RA, seropositive, erosive and nodular. He also has OA. He is here with his . HPI: Remains on Enbrel and Plaquenil. Tolerating meds well. No injection site reactions. No infections orantibiotic use. Joints are OK, R shoulder is sore. During a c-scope in Aug was found to have a-fib. Is on a BB and is anticoagulated. Also diagnosed with sleep apnea. Was also getting SOB during the day and is now wearing O2 during the day. May ? Heart failure, ECHO in Aug EF 60-65%. In January CXR was OK. Chest CT significant for pulmonary adenopathy, may need PET scan. PFTs: severe obstructive airway dz, wth bronchodilator response and severe restrictive lung disease resulting in diffusion defect. Is responding to inhaler. For repeat ECHO in early April. Has pulmonary HTN. Takes Lasix for peripheral edema, this is controlled fairly well.Will not wear support hose. Noted to have thrombocytopenia, to see hematology in [place]. DEXA February 2015: Hip T score -1.2, in 2006 was -1.4 LS T score -0.1, in 2006 was -0.5 Current Outpatient Prescriptions: ??? ELIQUIS 5 mg Tablet, take 1 tablet by mouth twice a day TO PREVENT CLOTS WITH ATRIAL FIBRILLATION, Disp: , Rfl: 0 ??? etanercept (ENBREL SURECLICK) Pen Injector, Inject 50 mg subcutaneously once a week., Disp: 4 Syringe, Rfl: 1 ??? hydroxychloroquine (PLAQUENIL) 200 mg Tablet, Take 1 tablet by mouth 2 times daily., Disp: 60 tablet, Rfl: 11 ??? polyethylene glycol (MIRALAX) 17 gram Powder in Packet, Take 17 g by mouth daily., Disp: 14 each, Rfl: 11 ??? lubiprostone (AMITIZA) 24 mcg Capsule, Take 1 capsule by mouth 2 times daily (with meals)., Disp: 60 capsule, Rfl: 11 ??? DOCOSAHEXANOIC ACID/EPA (FISH OIL ORAL), Take 1,200 mg by mouth daily., Disp: , Rfl: ??? atorvastatin (LIPITOR) 40 mg tablet, Take 40 mg by mouth daily. , Disp: , Rfl: ??? aspirin 81 mg tablet, Take 81 mg by mouth daily. , Disp: , Rfl: ??? FERROUS FUMARATE (IRON ORAL), Take 325 mg by mouth every other day. , Disp: , Rfl: ??? Cholecalciferol, Vitamin D3, (VITAMIN D-3) 2,000 unit Cap, Take by mouth. , Disp: , Rfl: ??? metoprolol succinate (TOPROL XL) 100 mg XL tablet, , Disp: , Rfl: ??? lisinopril (PRINIVIL) 20 mg tablet, , Disp: , Rfl: ??? furosemide (LASIX) 40 mg tablet, 20mg, PO, Twice daily, Disp: , Rfl: ??? ascorbic acid (VITAMIN C) 1,000 mg tablet, , Disp: , Rfl: ??? b complex vitamins tablet, , Disp: , Rfl: ??? doxazosin (CARDURA) 2 mg tablet, , Disp: , Rfl: ??? potassium chloride SA (K-DUR;KLOR-CON) 20 mEq tablet, 20meq, PO, Once daily, Disp: , Rfl: ??? nitroGLYcerin (NITROSTAT) 0.4 mg SL tablet, , Disp: , Rfl: ??? ZINC SULFATE (ZINC-220 ORAL), , Disp: , Rfl: SOCIAL HISTORY/HABITS No tobacco or etoh. 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 Lives in [facility], with his Misty Daughter and Son also live locally + grand children FAMILY HISTORY Sister has RA- worse disease course PMH: [place] and CABG x 2 THR Prostate cancer surgery 1996 Severe lung reaction from MTX ROS: No [place] No vision change No oral ulcers No CP, see HPI No abdominal pain or GI complaints including nausea, vomiting, diarrhea or constipation. Has celiac. No urinary complaints No rashes No n/t/w No fevers, chills No infections No unintentional weight loss Physical Examination: BP (!) 152/91 Comment: white coat sydrome Pulse 86 Resp 18 Ht 175.3 cm (5' 9) Wt (!) 104.3 kg (230 lb) SpO2 97% BMI 33.97 kg/m2 General:Well developed well nourished male who is alert and in no apparent distress at rest. WearingNC O2. HEENT:No conjunctivitis, or mucosal ulcers. Neck:Supple. 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 Fused right wrist. L wrist WNL. No active synovitis. Elbows, shoulders, knees and ankles without swelling or tenderness. Unable to abduct R shoulder above 90 degrees. Neg MTP squeeze. + hammer toes and bunions. Non antalgic gait Skin-No rash. Neuro: sensory grossly intact Impression and Plan: Rheumatoid arthritis with chronic deformity well controlled. Has also has OA. No changes today. Not clear that he has worsening CHF, CXR and ECHO were stable. To have repeat ECHO May 02, will fax results here. Continue Enbrel and Plaquenil Annual eye exam this summer Labs today Flu vaccine this fall F/U in 6 months or sooner if needed MIRIAN DUQUE APRN documented in this encounter Miscellaneous Notes Addendum Note - Simi Washington - 04/17/2017 12:36 PM EDT Addended by: SIMI WASHINGTON on: 04/17/2017 12:36 PM Modules accepted: Orders documented in this encounter Plan of Treatment Not on filedocumented as of this encounter Procedures Procedure Name Priority Date/Time Associated Comments Diagnosis HEMOGRAM Routine 04/17/2017 12:53 Rheumatoid Results for this PM EDT arthritis, procedure are i n involving the results unspecified site, section. unspecified rheumatoid factor presence Medication monitoring encounter DIFFERENTIAL, Routine 04/17/2017 12:53 Rheumatoid Results fo r this AUTOMATED PM EDT arthritis, procedure are i n involving the results unspecified site, section. unspecified rheumatoid factor presence Medication monitoring encounter CBC (WITH DIFF) Routine 04/17/2017 12:53 Rheumatoid PM EDT arthritis, involving unspecified site, unspecified rheumatoid factor presence Medication monitoring encounter COMPREHENSIVE Routine 04/17/2017 12:53 Medication Results fo r this METABOLIC PANEL PM EDT monitoring procedure ar e in (NON-FASTING) encounter the results section. documented in this encounter Results (ABNORMAL) Differential, Automated (04/17/2017 12:53 PM EDT) [facility] Method Time Signature Neutrophils % 59.7 % [facility] Neutr Abs (ANC) 4.05 1.70 - [facility] 6.10 [facility] x10(3)/[facility] LABORATORY Lymphocytes % 20.2 % [facility] Lymphocytes Abs 1.4 0.9 - 3.2 [facility] x10(3)/[facility] LABORATORY Monocytes % 14.7 % [facility] Monocyte Abs 1.0 (H) 0.3 - 0.9 [facility] x10(3)/[facility] LABORATORY Eosinophils % 4.6 % [facility] Eosinophils Abs 0.3 0.0 - 0.4 [facility] x10(3)/[facility] LABORATORY Basophils % 0.7 % [facility] Basophils Abs 0.0 0.0 - 0.1 [facility] x10(3)/[facility] LABORATORY Immature Gran % 0.10 % [facility] Comment: Immature granulocytes(IG's)percentage an d absolute count will include metamyelocytes, myelocytes, and promyelo cytes. Blood smears from CBCs yielding IG's will be scanned manually for concor dance. If this scan disagrees with the automated IG or if promyelocytes are not ed, a manual differential will be performed. [place] Gran Abs 0.01 0.00 - 0.04 x10(3)/[facility] Specimen Anatomical Collection Method Collection Time Receive d Time (Source) Location / / Volume Laterality Blood specimen 04/17/2017 12:53 7 1:01 (specimen) PM EDT PM EDT Resulting Agency Comment Spec In Lab Mirian Duque APRN HEMATOLOGY ORDERABLES Performing Organization Address City/State/[place] [address] (ABNORMAL) Hemogram (04/17/2017 12:53 PM EDT) Analysis Performed At Patho logist Time Signature WBC 6.8 4.0 - 9.5 [facility] x10(3)/[facility] LABORATORY RBC 4.15 (L) 4.58 - [facility] [place] 5.54 [facility] x10(6)/[facility] LABORATORY Hemoglobin 13.2 (L) 13.7 - [facility] 16.5 gm/dL [facility] Hematocrit 41.1 40[facility] [facility] 48.5 % [facility] MCV 99.0 (H) 82.9 - [facility] 93.1 [facility] LABORATORY MCH 31.8 27.[address] - [facility] 32.1 pg [facility] MCHC 32.1 32.0 - [facility] 35.7 gm/dL [facility] Platelets 109 (L) 145 - 357 [facility] x10(3)/[facility] LABORATORY RDWSD 48.7 (H) 36.[address] - [facility] 45.0 [facility] LABORATORY RDWCV 13.2 11.4 - [facility] 13.8 % [facility] MPV 9.9 7.6 - 12.9 [facility] LABORATORY nRBC % Auto 0.0 % [facility] nRBC Abs Auto 0.000 0.000 - [facility] 0.000 [facility] x10(3)/[facility] LABORATORY Specimen Anatomical Collection Method Collection Time Receive d Time (Source) Location / / Volume Laterality Blood specimen 04/17/2017 12:53 201 7 1:01 (specimen) PM EDT PM EDT Resulting Agency Comment Spec In Lab Mirian Duque APRN HEMATOLOGY ORDERABLES Performing Organization Address City/State/[place] [address] (ABNORMAL) Comprehensive metabolic panel (non-fasting) (04/17/2017 12:53 PM EDT) P athologist Signature Glucose Lvl 126 65 - 199 [facility] mg/dL [facility] Comment: Diabetes: >=200 mg/dL plus symp toms BUN 16 10 - 20 mg/dL [facility] Creatinine 0.79 (L) 0.80 - 1.50 mg/dL [facility] Comment: Please note that the pediatric reference intervals supplied above were not validated at [facility]. Results from pediatri c patients should be interpreted in conjunction to the patient's age, height and muscle mass. Sodium 141 135 - 145 mmol/L [facility] Potassium 3.9 3.5 - 5.0 mmol/L [facility] Comment: Please note: ??Patients with WBC >100,00 0 may have falsely elevated Potassium levels. ??For accurate Potassium quantif ication in these patients send serum separator tube (gold top) for subsequent determinations. ??Contact the Clinical Chemistry Laboratory if there are any qu estions. Chloride 99 98 - 107 mmol/L [facility] CO2 32 (H) 22 - 31 mmol/L [facility] Anion Gap 10 5 - 15 mmol/L [facility] Calcium 9.3 8.5 - 10.5 mg/dL [facility] Total Protein 7.5 6.1 - 8.0 gm/dL [facility] Albumin 4.2 3.2 - 5.2 gm/dL [facility] AST 26 0 - 39 unit/L [facility] ALT 30 0 - 55 unit/L [facility] Alk Phos 126 (H) 40 - 120 unit/L [facility] Total Bilirubin 1.0 0.2 - 1.3 mg/dL [facility] Estimated GFR >60 >=60 [facility] Comment: This estimated GFR (eGFR) value was calc ulated using the MDRD equation which has been validated on patients between t he ages of 18 and 70. The MDRD should not be used to assess kidney function in patients < 18 years of age or in patients with extremes of body mass, or in patients with acute kidney failure. This value should be multiplied by 1.2 f or patients. For further information please copy and past e the following links into your internet browser. http://Boundary/DHnkdep [email or web address]/DHMCnkf Specimen Anatomical Collection Method Collection Time Receive d Time (Source) Location / / Volume Laterality Blood specimen 04/17/2017 12:53 7 1:01 (specimen) PM EDT PM EDT Resulting Agency Comment Spec In Lab Mirian Duque APRN CHEMISTRY ORDERABLES Performing Organization Address City/State/ZIP [place] [address] documented in this encounter Visit Diagnoses Diagnosis Rheumatoid arthritis, involving unspecif ied site, unspecified rheumatoid factor presence Medication monitoring encounter Encounter for therapeutic drug monitorin g Osteoarthritis of multiple joints, unspe cified osteoarthritis type documented in this encounter Care Teams Senior Housekeeper Relationship Specialty Start Date End Date Wilner Chamberlain MD PCP - General 08/17/10 01/10/[address] [place] [address] documented as of this encounter
--- OUTSIDE RECORDS SUMMARY | 2022-03-18 09:49 | XMS_ITS | Encounter Summary ---
:1940 Author Organization [facility] [place] [address] Care Team Providers Name Role Phone Wilner Lemus DO Primary Care Provider Reason for Visit Reason Onset Date Comments Questions 04/19/2018 Encounter Details Date Type Department Care Team Description 04/19/2018 Telephone Rheumatology at [facility] [place] [address] Social History Tobacco Use Types Packs/Day Years Used Date Never Smoker Smokeless Tobacco: Never Used Alcohol Use Standard Drinks/Week Comments No 0 (1 standard drink = 0.6 oz pure alcoho l) Sex Assigned at Date Recorded Not on file documented as of this encounter Miscellaneous Notes Telephone Encounter - Donato Choe RN - 04/23/2018 9:06 AM EDT Images from the original note were not included. Lori Cannon MD Gavalakis, Rory A RN Cc: [facility] Corporate Staff Accountant; Lori Cannon MD ? Caller: Unspecified (5 days ago, ??2:52 PM) ? We can work to get him seen next week. Spoke with Misty cf patient. Clarice this week. Still with back pain. Patient awaiting appointment. Telephone Encounter - Donato Choe RN - 04/20/2018 3:47 PM EDT Patient spouse calls on behalf of patient d/t increasing back pain. Patient taking Prednisone 5 mg per day, has been taking since Monday. Does not seem to be enough, states was better when taking two. Having significant back pain. Without prednisone, it would appear Humira (q14d) is not helping per Misty, has been taking for about two months. Previously on Enbrel (stopped d/t pain in arm, not providing adequate relief). Takes Tylenol as well. Hydroxychloroquinine. No fever or chills. No lightheadedness or dizziness. No site reactions reported. No new swelling. Pain in arms has subsided. However, this has been replaced by pain in low back, has been present all ofthis week and part of last week, started when taking 7.5 mg. Misty calls on behalf of patient to notify clinic patient has had increased to back since decreasingto 7.5 then 5 mg Prednisone. She also asks if he should be seen sooner in clinic or what other long-term options are available. Telephone Encounter - Donato Choe RN - 04/19/2018 9:55 AM EDT Spouse calls on behalf of patient, states had medication question. Call placed to patient, unavailable, message left with call back number provided. documented in this encounter Plan of Treatment Not on filedocumented as of this encounter Goals Goal Patient Goal Associated Recent Patient-Stated? Author Type Problems Progress DH Home Medication Patient No Mendez blunt, Compliance and Facing Luciano A, Understanding Action Plan [facility] Note: Formatting of this note might be d ifferent from the original. Reduce progression of OA and reduce RA s ymptoms/hand pain documented as of this encounter Visit Diagnoses Not on filedocumented in this encounter Care Teams Scaler Packer Relationship Specialty Start Date End Date Wilner Lemus DO PCP - General Family Medicine 02/20/18 05/21/[address] [place] [address] documented as of this encounter
--- OUTSIDE RECORDS SUMMARY | 2022-03-18 09:49 | XMS_ITS | Encounter Summary ---
:1940 Author Organization [facility] [place] [address] Care Team Providers Name Role Phone Wilner Chamberlain MD Primary Care Provider [phone] Encounter Details Date Type Department Care Team Description 05/10/2017 Telephone Rheumatology at [facility] Mirian Duque, [facility] [place] [address] [facility] [phone] [place], [place] [address] (Wo rk) Social History Tobacco Use Types Packs/Day Years Used Date Never Smoker Smokeless Tobacco: Never Used Alcohol Use Standard Drinks/Week Comments No 0 (1 standard drink = 0.6 oz pure alcoho l) Sex Assigned at Date Recorded Not on file documented as of this encounter Miscellaneous Notes Telephone Encounter - Mirian Duque APRN - 05/10/2017 8:37 AM EDT Received outside ECHO report. April 2017 ECHO: LVEF 50%, normal size, moderate LVH. RV normal size. Aortic valve mod to severe stenosis. LA severely dilated, RA severely dilated. PA pressure 60-70 mmHg. A-fib. As compared to Aug 2016 ECHO both the LA and RA are more dilated. LVEF decreased from 60-65%. AV stenosis is worse. PA pressure up a bit. Very hard to say if Enbrel and plaquenil are contributing to his worsening LV function given his severe sleep apnea, severe obstructive lung dz, CAD, , AF and pulmonary HTN. Will reduce plaquenil to 200 mg per day. If he does OK on this dose in 3 weeks can stop the Plaquenil. Will keep Enbrel for now. will let me know if he is hospitalized for CHF. He will have another ECHO in Jun. MIRIAN DUQUE APRN documented in this encounter Plan of Treatment Not on filedocumented as of this encounter Visit Diagnoses Not on filedocumented in this encounter Care Teams Process Improvement Consultant Relationship Specialty Start Date End Date Wilner Chamberlain MD PCP - General 08/17/10 01/10/[address] [place] [address] documented as of this encounter
--- OUTSIDE RECORDS SUMMARY | 2022-03-18 09:49 | XMS_ITS | Encounter Summary ---
:1940 Author Organization [facility] [place] [address] Care Team Providers Name Role Phone Wilner Chamberlain MD Primary Care Provider [phone] Reason for Visit Reason Onset Date Comments Results 03/22/2016 Encounter Details Date Type Department Care Team Description 03/22/2016 Telephone [place]ology at [facility] Mirian Duque, Results [facility] [place] [address] [facility] [phone] [place], [place] [address] (Wo rk) Social History Tobacco Use Types Packs/Day Years Used Date Never Smoker Smokeless Tobacco: Never Used Alcohol Use Standard Drinks/Week Comments No 0 (1 standard drink = 0.6 oz pure alcoho l) Sex Assigned at Date Recorded Not on file documented as of this encounter Miscellaneous Notes Telephone Encounter - Mirian Duque APRN - 03/22/2016 8:33 AM EDT Left VM message re labs. Results forwarded to PCP. MIRIAN DUQUE APRN documented in this encounter Plan of Treatment Not on filedocumented as of this encounter Visit Diagnoses Not on filedocumented in this encounter Care Teams Member Of [employer] Relationship Specialty Start Date End Date Wilner Chamberlain MD PCP - General 08/17/10 01/10/[address] [place] [address] documented as of this encounter
--- OUTSIDE RECORDS SUMMARY | 2022-03-18 09:49 | XMS_ITS | Encounter Summary ---
:1940 Author Organization [facility] [place] [address] Care Team Providers Name Role Phone Wilner Lemus DO Primary Care Provider Encounter Details Date Type Department Care Team Description 03/14/2018 Telephone Rheumatology at [facility] [place] [address] Social History Tobacco Use Types Packs/Day Years Used Date Never Smoker Smokeless Tobacco: Never Used Alcohol Use Standard Drinks/Week Comments No 0 (1 standard drink = 0.6 oz pure alcoho l) Sex Assigned at Date Recorded Not on file documented as of this encounter Miscellaneous Notes Telephone Encounter - Gena Davis - 03/14/2018 1:25 PM EDT Misty called to schedule an appt for her Jose () to be seen. Made an appt for June which she isn't happy with. When they saw Octavia last she had switched his medicine and it is not working. He is in a lot of pain documented in this encounter Plan of Treatment Not on filedocumented as of this encounter Goals Goal Patient Goal Associated Recent Patient-Stated? Author Type Problems Progress Home Medication Patient No Mendez n, Compliance and Facing Luciano A, Understanding Action Plan [facility] Note: Formatting of this note might be d ifferent from the original. Reduce progression of OA and reduce RA s ymptoms/hand pain documented as of this encounter Visit Diagnoses Not on filedocumented in this encounter Care Teams Food Service Order Clerk Relationship Specialty Start Date End Date Wilner Lemus DO PCP - General Family Medicine 02/20/18 05/21/[address] [address] documented as of this encounter
--- OUTSIDE RECORDS SUMMARY | 2022-03-18 09:49 | XMS_ITS | Encounter Summary ---
:1940 Author Organization [facility] [address] Care Team Providers Name Role Phone Wilner Chamberlain MD Primary Care Provider [phone] Encounter Details Date Type Department Care Team Description 04/21/2015 [place] [facility] [place] Lori Cannon, Rheumatoid arthritis; [facility] Abdoulaye hernandez MD Medication [place] [address] [facility] [phone] RHEUMATOLOGY [place], [place] [address] Social History Tobacco Use Types Packs/Day Years Used Date Never Smoker Smokeless Tobacco: Never Used Alcohol Use Standard Drinks/Week Comments No 0 (1 standard drink = 0.6 oz pure alcoho l) Sex Assigned at Date Recorded Not on file documented as of this encounter Last Filed Vital Signs Vital Sign Reading Time Taken Comments Blood Pressure 113/61 04/21/2015 10:38 AM EDT Pulse 49 04/21/2015 10:38 AM EDT Temperature 36.7 ??C (98 ??F) 04/21/2015 10:38 AM EDT Respiratory Rate - - Oxygen Saturation 96% 04/21/2015 10:38 AM EDT Inhaled Oxygen Concentration - - Weight 103 kg (227 lb) 04/21/2015 10:38 AM EDT Height 175.3 cm (5' 9) 04/21/2015 10:38 AM EDT Body Mass Index 33.52 04/21/2015 10:38 AM EDT documented in this encounter Patient Instructions Patient InstructionsLori Cannon MD - 04/21/2015 11:12 AM EDT # Blood count, liver functions and renal function (BUN and creatinine) and CRP or ESR once a year # annual eye exam # try zappos for shoes documented in this encounter Progress Notes Lori Cannon MD - 04/21/2015 10:54 AM EDT Jose Yadav is a 75 year old man who returns to the rheumatology clinic for evaluation of RA andOA. The most recent visit to the clinic was 6 months ago. He is seen with his today. Cc: callous HPI: Has 15-20 minutes of morning stiffness. No [...] Is planning for eye exam. Up to date on vaccines, received shingles vaccine last winter at PCP's office. SOCIAL HISTORY/HABITS No tobacco or etoh. 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 Lives in [place], with his Misty of 48 years Daughter and Son also live locally 7 grand children FAMILY HISTORY Sister has RA- worse disease course PMH: [place] and CABG x 2 THR Prostate cancer surgery 1996 Severe lung reaction from MTX ROS: No [place] No vision change, red painful or swollen eyes No oral ulcers or thrush No SOB No CP or palpitations No abdominal pain or GI complaints including nausea, vomiting, diarrhea or constipation No urinary complaints No rashes or bruising No focal or global weakness No fevers, chills, sweats or adenopathy No infections No unintentional weight loss or excessive fatigue Mood is stable Physical Examination: BP 113/61 mmHg Pulse 49 Temp(Src) 36.7 ??C (98 ??F) (Oral) Ht 175.3 cm (5' 9) Wt 102.967 kg(227 lb) BMI 33.51 kg/m2 SpO2 96% General-Well developed well nourished male who is alert and in no apparent distress at rest. HEENT-No conjunctivitis, or mucosal ulcers. Neck-Supple. 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 Fusedright wrist. Hips with decreased ROM Crepitant knees. Bunions. No active synovitis. MTP squeeze due to bunions, L foot has a moleskin dressing over area of callous. + hammer toes. NM- Patient is alert and oriented. Skin-No rash. Eye appointment annually. [facility] (prior) Pt global 2.5 Phys global 0.5 T/s 0 = 3 = low activity Impression: Rheumatoid arthritis with chronic deformity well controlled. S/P right hip replacement and with new Left foot callous. Tolerating medications with disease clinically in remission. Discussednecessity of adequate foot care today. Recommendations: #Continue Enbrel and Plaquenil # annual eye exam (current pending) # labs as per Dr. Chamberlain, asked to include annual CBC and crp, LFTs and BMP- please fax to [phone] # agrree with pdoatry follow up-consider custom shoes # f/u in one year documented in this encounter Plan of Treatment Not on filedocumented as of this encounter Visit Diagnoses Diagnosis Rheumatoid arthritis Medication monitoring encounter Encounter for therapeutic drug monitorin g documented in this encounter Care Teams Exit Booth Agent Relationship Specialty Start Date End Date Wilner Chamberlain MD PCP - General 08/17/10 01/10/[address] [place] [address] documented as of this encounter
--- OUTSIDE RECORDS SUMMARY | 2022-03-18 09:49 | XMS_ITS | Encounter Summary ---
:1940 Author Organization [facility] [place] [address] Care Team Providers Name Role Phone Wilner Chamberlain MD Primary Care Provider [phone] Reason for Visit Reason Onset Date Comments Medication Refill 11/13/2017 Encounter Details Date Type Department Care Team Description 11/13/2017 [place] [facility]ian Duque, FREELANCE INTERPRETER/TRANSLATOR [facility] [place] [address] [place] [address] [place] [address] [phone] (Wo rk) Social History Tobacco Use Types [...] on filedocumented in this encounter Care Teams Skylights Assembler Relationship Specialty Start Date End Date Wilner Chamberlain MD PCP - General 08/17/10 01/10/18 [address] [place], [place] [id number] documented as of this encounter
--- OUTSIDE RECORDS SUMMARY | 2022-03-18 09:49 | XMS_ITS | Encounter Summary ---
:1940 Author Organization [facility] [place] [address] Care Team Providers Name Role Phone None Primary Care Provider Unavailable Encounter Details Date Type Department Care Team Description 01/12/2018 Office Visit [place] [facility] Mirian Duque Rheumatoid arthritis, involv ing unspecified site, unspecified rheumatoid factor presence; [facility] AHANNAH Medication monitoring encounter; Drive [facility] Osteoarthritis of multiple j oints, [place] [address] [place] [address] [phone] Social History Tobacco Use Types Packs/Day Years Used Date Never Smoker Smokeless Tobacco: Never Used Alcohol Use Standard Drinks/Week Comments No 0 (1 standard drink = 0.6 oz pure alcoho l) Sex Assigned at Date Recorded Not on file documented as of this encounter Last Filed Vital Signs Vital Sign Reading Time Taken Comments Blood Pressure 130/60 01/12/2018 9:22 AM EDT Pulse 104 01/12/2018 9:22 AM EDT Temperature 36.9 ??C (98.5 ??F) 01/12/2018 9:22 AM EDT Respiratory Rate - - Oxygen Saturation 96% 01/12/2018 9:22 AM EDT Inhaled Oxygen Concentration - - Weight 99.8 kg (220 lb) 01/12/2018 9:22 AM EDT Height 175.3 cm (5' 9) 01/12/2018 9:22 AM EDT Body Mass Index 32.49 01/12/2018 9:22 AM EDT documented in this encounter Progress Notes Mirian Duque, TRANSFORMER BUILDER - 01/12/2018 9:30 AM EDT Rheumatology Outpatient Follow-up Visit Pt of Dr. Kassandra MCDONOUGH Last OV March 2017, has had to cancel appt since this visit CC: Jose Yadav is a 77 year old man who returns for a f/u for RA, seropositive, erosive and nodular. He also has OA. He is here with his . HPI: Remains on Enbrel and plaquenil. We tried to stop the plaquenil and his joint were worse so it was restarted. Tolerating meds well. No injection site reactions. No recent infections or antibiotic use. Did have shingles back in Jun. No resp infections this winter. Joints are more active his L wrist started to bother him in AUG but he couldn't come in until now. It's swollen, sore and Am stiffness lasts for hours. R shoulder continues to be very sore. Had an x-ray locally and has severe OA in the joint. During a c-scope in Aug 2016 was found to have a-fib. Is on a BB and is anticoagulated. Also has sleep apnea. Continues with NC O2. Most recent ECHO was in Jul 2017 and was stable per . Cardiac cath from Aug- >Comments: Severepulmonary hypertension. Moderate CAD. Consider stress testing to evaluate the LAD and Lcx lesion. Local cards is monitoring. No recent hospitalization for CHF Chest CT significant for pulmonary adenopathy, may need PET scan. PFTs: severe obstructive airway dz, wth bronchodilator response and severe restrictive lung disease resulting in diffusion defect. Is responding to inhaler. Takes Lasix for peripheral edema, this is controlled fairly well. Will not wearsupport hose. Noted to have thrombocytopenia, sees hematology in [place]. Plt ct was 119 in August. PCP monitors bone health. DEXA February 2015: Hip T score -1.2, in 2006 was -1.4 LS T score -0.1, in 2006 was -0.5 Current Outpatient Prescriptions: ??? potassium chloride (K-DUR/KLOR-CON) 10 mEq Tablet Sustained Release, 20 mg by mouth every morning, 10 mg by mouth every evening., Disp: , Rfl: ??? ascorbate calcium (VITAMIN C ORAL), Take 500 mg by mouth daily., Disp: , Rfl: ??? ergocalciferol, vitamin D2, (VITAMIN D ORAL), Take 1,000 Units by mouth daily., Disp: , Rfl: ??? hydroxychloroquine (PLAQUENIL) 200 mg Tablet, Take 1 tablet by mouth daily., Disp: 60 tablet, Rfl: 5 ??? etanercept (ENBREL SURECLICK) Pen Injector, Inject 50 mg subcutaneously once a week., Disp: 12 Pen, Rfl: 1 ??? ELIQUIS 5 mg Tablet, take 1 tablet by mouth twice a day TO PREVENT CLOTS WITH ATRIAL FIBRILLATION, Disp: , Rfl: 0 ??? polyethylene glycol (MIRALAX) 17 gram Powder in Packet, Take 17 g by mouth daily., Disp: 14 each, Rfl: 11 ??? DOCOSAHEXANOIC ACID/EPA (FISH OIL ORAL), Take 1,000 mg by mouth daily., Disp: , Rfl: ??? atorvastatin (LIPITOR) 40 mg tablet, Take 40 mg by mouth daily. , Disp: , Rfl: ??? FERROUS FUMARATE (IRON ORAL), Take 65 mg by mouth daily., Disp: , Rfl: ??? metoprolol succinate (TOPROL XL) 100 mg XL tablet, , Disp: , Rfl: ??? lisinopril (PRINIVIL) 20 mg tablet, , Disp: , Rfl: ??? furosemide (LASIX) 40 mg tablet, 20mg, PO, Twice daily (Patient taking differently: 80 mg by mouth every morning, 40 mg by mouth every evening.), Disp: , Rfl: ??? nitroGLYcerin (NITROSTAT) 0.4 mg SL tablet, , Disp: , Rfl: ??? b complex vitamins tablet, , Disp: , Rfl: ??? doxazosin (CARDURA) 2 mg tablet, , Disp: , Rfl: SOCIAL HISTORY/HABITS No tobacco or etoh. 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 Lives in [facility] [place], with his Misty Daughter and Son also live locally + grand children FAMILY HISTORY Sister has RA- worse disease course PMH: [place] and CABG x 2 THR Prostate cancer surgery 1996 Severe lung reaction from MTX ROS: No CP, see HPI No worsening SOB or cough. See HPI No abdominal pain or GI complaints including nausea, vomiting, diarrhea or constipation. Has celiac. No rashes No fevers, chills No unintentional weight loss except when he was on low dose pred ??? Physical Examination: BP 130/60 (BP Location (NBP): Left arm, Patient Position: Sitting, BP Cuff Sizes: Adult (25-34 cm)) Pulse (!) 104 Temp 36.9 ??C (98.5 ??F) (Oral) Ht 175.3 cm (5' 9) Wt 99.8 kg (220 lb) SpO2 96% BMI 32.49 kg/m2 General:Well developed well nourished male who is alert and in no apparent distress at rest. WearingNC O2. HEENT:No conjunctivitis, or mucosal ulcers. Neck:Supple. 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 Fused right wrist. L wrist is tender and swollen. Elbows, shoulders, knees and ankles without swelling or tenderness. Unable to abduct R shoulder above 90 degrees. Neg MTP squeeze. + hammer toes and bunions. + antalgic gait Skin-No rash. Neuro: sensory grossly intact Impression and Plan: Rheumatoid arthritis with chronic deformity active on Enbrel and plaquenil. He would like to try Humira. R/B/A discussed and written info provided. He and his agree to proceed. Will call with worsening cardiac status. Stop Enbrel and add Humira 40 mg SQ every other week. OK to use a bridge of 5 mg pred/day PRN stop if he has wt loss (unsure of this connection) Continue Plaquenil Annual eye exam this summer Labs were stable in Dec OA, severe in R shoulder, offered PT and injection and they will think about both. F/U in 3 months or sooner if needed MIRIAN DUQUE APRN documented in this encounter Plan of Treatment Not on filedocumented as of this encounter Visit Diagnoses Diagnosis Rheumatoid arthritis, involving unspecif ied site, unspecified rheumatoid factor presence Medication monitoring encounter Encounter for therapeutic drug monitorin g Osteoarthritis of multiple joints, unspe cified osteoarthritis type documented in this encounter Care Teams Sales Consulting Director Relationship Specialty Start Date End Date None PCP - General 01/11/18 02/19/18 None documented as of this encounter
--- OUTSIDE RECORDS SUMMARY | 2022-03-18 09:49 | XMS_ITS | Encounter Summary ---
:1940 Author Organization [facility] [place] [address] Care Team Providers Name Role Phone Wilner Lemus DO Primary Care Provider Encounter Details Date Type Department Care Team Description 02/20/2018 Hospital Encounter [place] [facility] [place] [address] Social History Tobacco Use Types Packs/Day [...] doxazosin (CARDURA) 2 mg 0 06/02/2010 tablet potassium chloride 20 mg by mouth every 0 04/25/2018 (K-DUR/KLOR-CON) 10 mEq morning, 10 mg by Tablet Sustained Release mouth every evening. Adalimumab 40 mg/0.8 mL Inject 0.8 mLs [...] ORAL) daily. documented as of this encounter Procedure Notes Gurinder Celaya MD - 02/20/2018 11:59 PM EDTAssociated Order(s): PULMONARY FUNCTION TEST A. SPIROMETRY Reveals (Pre Bronchodilator based on FEV1 %predicted) a moderately sever (59- 50%) reduction in FEV1,a moderate (59-50%) reduction in the FVC and a normal FEV1/FVC ratio. B. DIFFUSING CAPACITY: The adjusted diffusing capacity(DLCO) for hemoglobin is mildly reduced (>60%-LLN) Causes of reduced DLCO include loss of effective surface area for gas exchange, decreased pulmonary capillary blood volume, anemia or carboxyhemoglobinemia. C. PULSE OXIMETRY: Resting oxyhemoglobin saturation is mildly reduced.94% Resting oximetry was assessed while the patient was breathing room air. Oxyhemoglobin saturation during ambulation was reduced. Ambulatory oximetry was assessed while the patient was breathing room air. The lowest saturation was86%. The flow rate necessary to achieve adequate oxyhemoglobin saturation was 3 liters per minute. D . 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 The reduction in the FVC is much greater than that in the FEV1/FVC ratio. DLCO is mildly reduced. Lung volume testing may provide clarification. Resting pulse oximetry on room air was mildly reduced. Significant oxyhemoglobin desaturation on ambulation. Recommend supplemental oxygen at a flow rate of 3 LPM by nasal cannula. documented in this encounter Plan of Treatment Not on filedocumented as of this encounter Goals Goal Patient Goal Associated Recent Patient-Stated? Author Type Problems Progress DH Home Medication Patient No Mendez n, Compliance and Facing Luciano A, Understanding Action Plan [facility] Note: Formatting of this note might be d ifferent from the original. Reduce progression of OA and reduce RA s ymptoms/hand pain documented as of this encounter Procedures Procedure Name Priority Date/Time Associated Diagnosis Comme nts PULMONARY FUNCTION Routine 02/21/2018 2:38 PM Pulmonary Res ults for this TEST EDT hypertension procedure are i n the results section. documented in this encounter Results Pulmonary Function Testing (02/21/2018 2:38 PM EDT) Narrative Gurinder Celaya MD - 02/21/2018 2:38 PM EDT Gurinder Celaya MD ? 02/21/2018 ??2:38 PM A. SPIROMETRY Reveals (Pre Bronchodilator based on FEV 1 %predicted) a moderately sever (59-50%) reduction in F EV1, a moderate (59-50%) reduction in the FVC and a normal FEV1/F VC ratio. B. DIFFUSING CAPACITY: The adjusted diffusing capacity(DLCO) fo r hemoglobin is mildly reduced (>60%-LLN) Causes of reduced DLCO include loss of e ffective surface area for gas exchange, decreased pulmonary capill rajesh blood volume, anemia or carboxyhemoglobinemia. C. PULSE OXIMETRY: Resting oxyhemoglobin saturation is mild ly reduced.94% Resting oximetry was assessed while the patient was breathing room air. Oxyhemoglobin saturation during ambulati on was reduced. Ambulatory oximetry was assessed while t he patient was breathing room air. ??The lowest saturation was 86 %. The flow rate necessary to achieve adequate oxyhemoglobin satura tion was 3 liters per minute. D . FINAL IMPRESSION: A combined obstructive/restrictive venti latory dysfunction may be present. The reduction in the FVC is muc h greater than that in the FEV1/FVC ratio. DLCO is mildly reduc ed. Lung volume testing may provide clarific ation. Resting pulse oximetry on room air was m ildly reduced. Significant oxyhemoglobin desaturation o n ambulation. ??Recommend supplemental oxygen at a flow rate of 3 LPM by nasal cannula. Gurdeep Schumacher MD PFT ORDERABLES documented in this encounter Visit Diagnoses Diagnosis Pulmonary hypertension Other chronic pulmonary heart diseases documented in this encounter Care Teams Insurance Analyst Relationship Specialty Start Date End Date Wilner Lemus DO PCP - General Family Medicine 02/20/18 05/21/[address] [address] documented as of this encounter
--- OUTSIDE RECORDS SUMMARY | 2022-03-18 09:49 | XMS_ITS | Encounter Summary ---
:1940 Author Organization [facility] [place] [address] Care Team Providers Name Role Phone None Primary Care Provider Unavailable Encounter Details Date Type Department Care Team Description 01/12/[address] Notes [address] at [facility] [place] [address] Social History Tobacco Use Types Packs/Day Years Used Date Never Smoker Smokeless Tobacco: Never Used Alcohol Use Standard Drinks/Week Comments No 0 (1 standard drink = 0.6 oz pure alcoho l) Sex Assigned at Date Recorded Not on file documented as of this encounter Progress Notes Shankar Real - 01/12/2018 3:[address] [facility] Pharm[facility] Prior Authorization Medication: Humira RX Insurance: [facility] [place] Insurance Phone #: [phone] Insurance Fax #: Sent via Cover My Meds ID #: [id number] Spoke With: YUSEF Reference #: [id number] Date PA Sent: 01/12/2018 Approval Date: 12/13/2017 - 04/12/2018 Pharmacy: [facility] Notes: The Humira PA has been sent and approved through the insurance, with a $0 copay. We will reach out to the patient and arrange for delivery if necessary. documented in this encounter Plan of Treatment Not on filedocumented as of this encounter Visit Diagnoses Not on filedocumented in this encounter Care Teams Gymnastics Coach Or Instructor Relationship Specialty Start Date End Date None PCP - General 01/11/18 02/19/18 None documented as of this encounter
--- OUTSIDE RECORDS SUMMARY | 2022-03-18 09:49 | XMS_ITS | Encounter Summary ---
:1940 Author Organization [facility] [place] [address] Care Team Providers Name Role Phone Wilner Chamberlain MD Primary Care Provider [phone] Reason for Visit Reason Onset Date Comments Medication Refill 04/20/2017 Encounter Details Date Type Department Care Team Description 04/20/2017 Refill Rheumatology at [facility] [place] Mirian Duque, [facility] [place] [address] [place] [address] [place] [address] [phone] (Wo rk) Social History Tobacco Use Types [...] on filedocumented in this encounter Care Teams Senior Accountant Relationship Specialty Start Date End Date Wilner Chamberlain MD PCP - General 08/17/10 01/10/18 [address] [place], [place] [id number] documented as of this encounter
--- OUTSIDE RECORDS SUMMARY | 2022-03-18 09:49 | XMS_ITS | Encounter Summary ---
:1939 Author Organization [facility] [place] [address] Care Team Providers Name Role Phone Wilner Lemus DO Primary Care Provider Reason for Visit Reason Onset Date Comments Prior Authorization 05/07/2018 Encounter Details Date Type Department Care Team Description 05/07/2018 Telephone Rheumatology at [facility] [place] [address] Social History Tobacco Use Types Packs/Day Years Used Date Never Smoker Smokeless Tobacco: Never Used Alcohol Use Standard Drinks/Week Comments No 0 (1 standard drink = 0.6 oz pure alcoho l) Sex Assigned at Date Recorded Not on file documented as of this encounter Miscellaneous Notes Telephone Encounter - Mari Nicole - 05/07/2018 12:32 PM EDT Medication Prior Authorization [facility] Medication name/dose/directions: HUMIRA 40MG/0.8ML - EVERY 14 DAYS Rationale for request: RA Health plan: [employer] (PHONE) Authorizing sales representative rural power name: BLANE Faxed to health plan on: 05/07/18 Health plan decision: APPROVED Quantity approved: Authorization number: [id number] Start date: 04/04/18 End date: 05/07/19 documented in this encounter Plan of Treatment Not on filedocumented as of this encounter Goals Goal Patient Goal Associated Recent Patient-Stated? Author Type Problems Progress DH Home Medication Patient No Mendez blunt, Compliance and Facing Luciano A, Understanding Action Plan [facility] Note: Formatting of this note might be d ifferent from the original. Reduce progression of OA and reduce RA s ymptoms/hand pain documented as of this encounter Visit Diagnoses Not on filedocumented in this encounter Care Teams Library Technician Relationship Specialty Start Date End Date Wilner Lemus, PCP - General Family Medicine 02/20/18 05/21/[address] [place] [address] documented as of this encounter
--- OUTSIDE RECORDS SUMMARY | 2022-03-18 09:49 | XMS_ITS | Encounter Summary ---
:1940 [place] [address] Care Team Providers Name Role Phone Wilner Chamberlain MD Primary Care Provider [phone] Reason for Visit Reason Onset Date Comments Medication Refill 05/20/2015 Encounter Details Date Type Department Care Team Description 05/20/2015 Refill Gastroenterology at [facility] [place] Hermilo Aranda APRN [facility] [place] [address] [place] [address] [place] [address] [phone] (Wo rk) Social History Tobacco Use Types Packs/Day Years Used Date Never Smoker Smokeless Tobacco: Never Used Alcohol Use Standard Drinks/Week Comments No 0 (1 standard drink = 0.6 oz pure alcoho l) Sex Assigned at Date Recorded Not on file documented as of this encounter Miscellaneous Notes Telephone Encounter - Dudley Vick RN - 05/21/2015 9:48 AM EDT From: Jose Lyndon Vicenta To: Hermilo Aranda APRN Sent: 05/20/2015 8:48 PM EDT Subject: Medication Renewal Request Original authorizing provider: HANNAH BATES Lyndon Vicenta would like a refill of the following medications: lubiprostone (AMITIZA) 24 mcg capsule [HERMILO ARANDA APRN] Preferred pharmacy: [address] Comment: documented in this encounter Plan of Treatment Not on filedocumented as of this encounter Visit Diagnoses Diagnosis Constipation Unspecified constipation documented in this encounter Care Teams Lab Technologist Relationship Specialty Start Date End Date Wilner Chamberlain MD PCP - General 08/17/10 01/10/[address] [place] [address] documented as of this encounter
--- OUTSIDE RECORDS SUMMARY | 2022-03-18 09:49 | XMS_ITS | Encounter Summary ---
:1940 Author Organization [facility] [place] [address] Care Team Providers Name Role Phone Wilner Chamberlain MD Primary Care Provider Reason for Visit Auth/Cert Specialty Diagnoses / Procedures Referred By Contact Refer red To Contact Diagnoses PH SOB Procedures CARDIAC CATHETERIZATION Referral ID Status Reason Start Date Expiration Date Visits Requ ested Visits Authorized [id number] 1 1 Encounter Details Date Type Department Care Team Description 09/04/2017 Hospital Encounter Same Day Program at Real Lees MD hypertension [facility] [address] [place] [phone] Social History Tobacco Use Types Packs/Day Years Used Date Never Smoker Smokeless Tobacco: Never Used Alcohol Use Standard Drinks/Week Comments No 0 (1 standard drink = 0.6 oz pure alcoho l) Sex Assigned at Date Recorded Not on file documented as of this encounter Last Filed Vital Signs Vital Sign Reading Time Taken Comments Blood Pressure 131/68 09/04/2017 6:15 PM EST Pulse 83 09/04/2017 5:15 PM EST Temperature 36.4 ??C (97.5 ??F) 09/04/2017 5:22 PM EST Respiratory Rate 16 09/04/2017 5:22 PM EST Oxygen Saturation 94% 09/04/2017 6:15 PM EST Inhaled Oxygen Concentration - - Weight - - Height - - Body Mass Index - - documented in this encounter Discharge Instructions Discharge InstructionsKisha Brambila [...] by your doctor, do not take any zzdp-dsv-wrajqne medicines orherbal preparations without first discussing this with your doctor or pharmacist. There is the possibility of side effect and interactions when these are combined. Follow up Care Who to Call with Questions or Problems If there are any questions or problems that you think might be related to your cardiac cath or angioplasty, contact the kiln remover debt collection specialist by calling [facility] at . POST ANESTHESIA INSTRUCTIONS Go home, [...] Right and left heart cath Access: right CREAM SEPARATOR OPERATOR, right median antecubital vein, Perclose to artery A time-out was conducted prior to the start of the procedure to verify the correct patient and procedure, procedure location, and all relevant critical information. Preliminary findings: Patent GOVEA to LAD Patent radial to OM Occluded SVG to RCA Occluded red devil RCA 55% distal LAD lesion beyond GOVEA touchdown 50% distal LCx lesion No intervention performed. RHC shows severe pulmonary HTN The patient tolerated the procedures smoothly and was transferred from the cardiac catheterization lab to the next level of care in condition. No evident early complications. Full report to follow. Real Lees MD documented in this encounter H&P Notes Zita Mcnamara - 09/04/2017 7:43 AM EST Images from the original note were not included. Patient Name: Jose Yadav Patient Age: 77 y.o. Birthdate: 1940 Admit date: 09/04/2017 Attending Physician: Real Lees MD Complete Adult Pre-Procedural H&P MR#: [id number] HPI: Jose Yadav is a 77 y.o. male with past medical history significant for atrial fibrillation (on apixaban), pHTN (thought to be 2/2 restrictive lung disease/rheumatoid arthritis pulmonary RV mildly dilated and hypokinetic PA Systolic pressure 80-907), moderate (DOI 0.3, valve area 1.4, gradient 24, 2+ AI, CAD (s/p inferior [place] 1988 s/p tPA, CABG x 3 1989 GOVEA to LAD, SVG to RCA, SVG to [...] SYSTEM - 09/04/2017 5:18 PM ES T ?[facility] ? Cardiac Cathete rization/Intervention Report ? Patient Name: Jose Yadav ? Procedure Date: 09/04/2017 ? A #: [id number] ? Primary Physician: Nabeel, Real T ? Case #: [id number] ? File Name: [id number] ? Catheterization Order Number: [id number] ? [facility] ? Final Report [place], [place] ? Patient Name: ? Jose E. Destinyke n ?ID#: ?[id number] ? : ?1940 ? Procedure Date: ? Nick 11, 20 17 ?Case #: ? [id number] ? Room: ? 6 ? Case Physician: ? Real Lees M.D. ?Start: ?15:18 ?Fellow: ? Zita pierre D.O. ?Admission: ??09/04/2017 ? Referring ? Refugio [...] with: sta ble angina (w/i 42 days). [place] ?[employer] Society angina c lass was I. [...] normal. ?2. ?? Radial artery graft to day kate OM1 ? There was a radial arter [...] heart catheterization, oximetry ?and ABG. ? Real Pham Nabeel, M.D. ? Electronically Signed by: Real Bunn s, M.D. ? Report Finalized: 09/04/2017 ??17:14 ? Procedure Note Real Lees MD - 09/04/2017Formatt ing of this note might be different from the original. [facility] Cardiac Catheterization/Intervention Re port Patient Name: Jose Yadav Procedure Date: 09/04/2017 A #: [id number] Primary Physician: Real Lees Case #: [id number] File Name: [id number] Catheterization Order Number: [id number] [facility] Final Report [place], [place] Patient Name: Jose Yadav ID#: [id number] : 1940 Procedure Date: September 04, [...] Yadav is a 77 year old man. Kendal kate has a prior history of coronary artery [...] with: stable maegan na (w/i 42 days). [place] [employer] angina class was I. This [...] angiography, left heart catheterization, bypass graft study, [facility] heart catheterization, oximetry and ABG. Real Lees M.D. Electronically Signed by: Real richter M.D. Report Finalized: 09/04/2017 17:14 Real Lees MD CARDIAC CATH ORDERABLES Performing Organization Address City/State/ZIP Code Phon e Number CARDIOMAC SYSTEM (ABNORMAL) Point of Care Blood Gas Historical (09/04/2017 3:28 PM EST) [facility] Method Time Signature POC pH 7.38 7.35 - [facility] 7.45 [facility] LABORATORY POC PCO2 50 (H) 35 - 45 [facility] LABORATORY POC PO2 64 (L) 85 - 104 [facility] LABORATORY POC Base Excess 5.0 (H) -3.0 - 3.0 [facility] K mmol/L [facility] LABORATORY POC HCO3 29.7 (H) 20.0 - [facility] 26.0 [facility] mmol/L HOSPITAL LABORATORY POC Sodium 141 135 - 145 [facility] mmol/L [facility] LABORATORY POC Potassium 3.6 3.5 - 5.0 [facility] mmol/L [facility] LABORATORY POC Ionized Ca 1.24 1.15 - [facility] 1.33 [facility] mmol/L [facility] LABORATORY POC Hematocrit 36.0 (L) 40.0 - [facility] 51.0 % [facility] LABORATORY POC Calc Hgb 12.2 (L) 13.7 - [facility] 17.5 gm/dL [facility] LAB[facility]ORY Comment: The calculation of hemoglobin f rom hematocrit assumes a normal MCHC. POC Bgas Loc CC LAB [facility] LABORATORY Specimen Anatomical Collection Method Collection Time Receive d Time (Source) Location / / Volume Laterality Blood specimen 09/04/2017 3:28 PM 017 8:49 (specimen) EST AM EST Real Lees MD CHEMISTRY ORDERABLES Performing Organization Address City/[facility]/ZIP [place] [address] EKG 12 Lead (09/04/2017 12:46 PM EST) Component Value Ref Range Test Analysis Performed Pathologis t Method Time At Signature Ventricular rate 75 BPM MUSE SYSTEM Atrial Rate 82 BPM MUSE SYSTEM QRS Duration 102 ms MUSE SYSTEM Q-T Interval 438 ms MUSE SYSTEM QTC Calculated 489 ms MUSE SYSTEM (Bezet) Calculated R Bronson 60 degrees MUSE SYSTEM Calculated T Bronson 57 degrees MUSE SYSTEM INTERPRETATION Atrial fibrillation with pre mature ventricular or aberrantly conducted complexes MUSE SYSTEM Abnormal ECG When compared with ECG of 30-JUN-2008 16:16, Atrial fibrillation has replaced Sinus rhythm Confirmed by MD VALENZUELA BRUCE ([id number]) on 09/04/2017 7:57:39 PM Specimen Anatomical Collection Method Collection Time Receive d Time (Source) Location / / Volume Laterality 09/04/2017 12:46 09/04/2017 7:57 PM EST PM EST Real Lees MD ECG ORDERABLES Performing Organization Address City/State/ZIP Code Phon e Number MUSE SYSTEM documented in this encounter Visit Diagnoses Diagnosis Pulmonary hypertension Other chronic pulmonary heart diseases documented in this encounter Administered Medications Inactive Administered Medications - up to 3 most recent administrations Medication Order MAR Action Action Date Dose Rate Site lidocaine (XYLOCAINE) 10 mg/mL (1 %) inj ection 3 mg 3 mg (0.3 mL), Subcutaneous, ONCE PRN, 1 dose, Starting on Mon09/04/17 at 1233, Until Mon09/04/17 at 1929, with discomfort with PIV i nsertion, Cath (Day of Procedure), Routine sodium chloride 0.9 % flush 5 mL 5 mL, Intravenous, EVERY 12 HOURS, First dose on Mon 1 11/05/16 at 1300, Until Discontinued, Cath (Day of [...] Routine fentaNYL 50 mcg/mL multi-dose injection (CANCELED) 1515 (Given - Provider: Mauricio Schneider)1623 (Given - [...] ine documented in this encounter Care Teams Warehouse Laborer Relationship Specialty Start Date End Date Wilner Chamberlain MD PCP - General 08/17/10 01/10/[address] [place] [address] documented as of this encounter
--- OUTSIDE RECORDS SUMMARY | 2022-03-18 09:49 | XMS_ITS | Encounter Summary ---
:1940 Author Organization [facility] [place] [address] Care Team Providers Name Role Phone None Primary Care Provider Unavailable Reason for Visit Reason Comments Patient Education Encounter Details Date Type Department Care Team Description 01/22/2018 Specialty Pharmacy Pharmacy at [facility] Luciano [place] [id number] Social History Tobacco Use Types Packs/Day Years Used Date Never Smoker Smokeless Tobacco: Never Used Alcohol Use Standard Drinks/Week Comments No 0 (1 standard drink = 0.6 oz pure alcoho l) Sex Assigned at Date Recorded Not on file documented as of this encounter Progress Notes Luciano Guido RPH - 01/22/2018 3:51 PM EDT Specialty Pharmacy Consultation; Luciano Guido [facility] Comprehensive Medication Management (CMM) Jose Yadav Diagnosis: Rheumatoid arthritis Mr. Jose Yadav is a 77 y.o. (1940) male who was contacted in regard to specialty medication.Spoke with , Misty, regarding ADALIMUMAB. A review of the medication therapy was performed. The medication was Filled as scheduled, and all medication related questions and concerns were addressed.The specialty pharmacy staff will follow up with the patient 5-7 days prior to next refill. Is the patient willing to proceed with the Clinical Assessment? Yes Allergies and Drug intolerance: Allergies Allergen Reactions ??? Metolazone CIS - kidney failure, CIS - kidney failure ??? Methotrexate Lung impairment Medication Reconciliation Discrepancies (compared to [facility] med list) - none Medication Adherence Demonstrates understanding of importance of adherence: yes Informant: patient Reliability of informant: reliable Reasons for non-adherence: no problems identified Adherence tools used: directed education Confirmed plan for next specialty medication refill: delivery by pharmacy Refills needed for supportive medications: not needed Are you experiencing any side effects from your medications? TBD Medication List: Current Outpatient Prescriptions Medication Sig Dispense Refill ??? potassium chloride (K-DUR/KLOR-CON) 10 mEq Tablet Sustained Release 20 mg by mouth every morning, 10 mg by mouth every evening. ??? ascorbate calcium (VITAMIN C ORAL) Take 500 mg by mouth daily. ??? ergocalciferol, vitamin D2, (VITAMIN D ORAL) Take 1,000 Units by mouth daily. ??? Adalimumab 40 mg/0.8 mL Pen Injector Kit Inject 0.8 mLs subcutaneously every 14 days. 1 kit 6 ??? predniSONE (DELTASONE) 5 mg Tablet One tab daily in the am with food PRN for joint pain and swelling. 30 tablet 3 ??? hydroxychloroquine (PLAQUENIL) 200 mg Tablet Take 1 tablet by mouth daily. 60 tablet 5 ??? ELIQUIS 5 mg Tablet take 1 tablet by mouth twice a day TO PREVENT CLOTS WITH ATRIAL FIBRILLATION0 ??? polyethylene glycol (MIRALAX) 17 gram Powder in Packet Take 17 g by mouth daily. 14 each 11 ??? DOCOSAHEXANOIC ACID/EPA (FISH OIL ORAL) Take 1,000 mg by mouth daily. ??? atorvastatin (LIPITOR) 40 mg tablet Take 40 mg by mouth daily. ??? FERROUS FUMARATE (IRON ORAL) Take 65 mg by mouth daily. ??? metoprolol succinate (TOPROL XL) 100 mg XL tablet (Patient taking differently: 200 mg by mouth daily.) ??? lisinopril (PRINIVIL) 20 mg tablet (Patient taking differently: 40 mg by mouth daily.) ??? furosemide (LASIX) 40 mg tablet 20mg, PO, Twice daily (Patient taking differently: 80 mg by mouth every morning, 40 mg by mouth every evening.) ??? nitroGLYcerin (NITROSTAT) 0.4 mg SL tablet ??? b complex vitamins tablet (Patient taking differently: 1 tablet by mouth daily.) ??? doxazosin (CARDURA) 2 mg tablet (Patient taking differently: 2 mg by mouth daily) No current facility-administered medications for this visit. Most Recent Vitals: Ht Readings from Last 1 Encounters: 01/12/18 175.3 cm (5' 9) Wt Readings from Last 3 Encounters: 01/12/18 99.8 kg (220 lb) 04/17/17 (!) 104.3 kg (230 lb) 03/21/16 (!) 104.3 kg (230 lb) Temp Readings from Last 3 Encounters: 01/12/18 36.9 ??C (98.5 ??F) (Oral) 09/04/17 36.4 ??C (97.5 ??F) (Temporal) 03/21/16 36.9 ??C (98.5 ??F) BP Readings from Last 3 Encounters: 01/12/18 130/60 09/04/17 131/68 04/17/17 (!) 152/91 Pulse Readings from Last 3 Encounters: 01/12/18 (!) 104 09/04/17 83 04/17/17 86 Pertinent Lab values: Lab Results Component Value Date NA 141 04/17/2017 K 3.9 04/17/2017 CL 99 04/17/2017 CO2 32 (H) 04/17/2017 BUN 16 04/17/2017 CREATININE 0.79 (L) 04/17/2017 GLUCOSE 126 04/17/2017 CALCIUM 9.3 04/17/2017 Lab Results Component Value Date ALT 30 04/17/2017 AST 26 04/17/2017 ALKPHOS 126 (H) 04/17/2017 BILITOT 1.0 04/17/2017 BILIDIR 0.3 03/21/2016 ALBUMIN 4.2 04/17/2017 PROT 7.5 04/17/2017 Lab Results Component Value Date WBC 6.8 04/17/2017 HGB 13.2 (L) 04/17/2017 HCT 36.0 (L) 09/04/2017 MCV 99.0 (H) 04/17/2017 PLATELET 109 (L) 04/17/2017 No results found for: HA1C Immunization History Administered Date(s) Administered ??? Influenza Vaccine w/Preservative, Split 06/25/2014 ??? Pneumococcal Polyvalent 23 06/25/2014 Assessment and Recommendations: Title Type of Medication Management: chronic disease management, targeted medication review Referred By: provider Recipient: beneficiary Provider: plan sponsor pharmacist Method of Contact: by telephone Cognitive Ability: good Patient Counseling Counseled the patient on the following: doses and administration discussed, safe handling, storage, and disposal discussed, possible adverse effects and management discussed, possible drug and prescription drug interactions discussed, possible drug and OTC drug and food interactions discussed, lab monitoring and follow-up discussed, therapeutic rationale discussed, cost of medications and cost implications discussed, adherence and missed doses discussed, pharmacy contact information discussed, monitoring medication discussed, self-monitoring discussed, vaccination discussed, lifestyle modification education Drug Medication Management Summary Topics discussed: doses and administration discussed, safe handling, storage, and disposal discussed, possible adverse effects and management discussed, possible drug and prescription drug interactions discussed, possible drug and OTC drug and food interactions discussed, lab monitoring and follow-up discussed, therapeutic rationale discussed, cost of medications and cost implications discussed, adherence and missed doses discussed, pharmacy contact information discussed, monitoring medication discussed, self-monitoring discussed, vaccination discussed, lifestyle modification education Time spent: 1-15 min Treatment Outcomes No data found. Reviewed in detail with patient: Dose appropriateness based on recommended standard dosing Current medication list including OTC medications Medication and disease problems Allergies Comorbid conditions Past adverse events if any Special needs of the patient including physical and cognitive limitations Goals of therapy and management strategies Warnings, precautions, and contraindications Side effects Drug-drug and drug-food interactions Administration instructions Handling, storage, and disposal of the medication Relevant lab data Appropriate Therapy: Yes Effective: TBD Educational information or adherence tools provided? Yes F/u needed? Yes Received welcome packet: Yes Informed patient of specialty pharmacy services: Yes Recommendations: Prescription is appropriate as written. A comprehensive medication review was performed with an emphasis on storage/handling/administration and risks/precaution of Humira use. A medication reconciliation was completed, as well as a confirmation of allergies. Patient is experienced with Enbrel and is very comfortable with injections. His , Misty, manages his medications including administration thereof. She is happy to hear of the similarity to Enbrel. Patient has history of prostate cancer, currently in remission per . Denies current neurological disease. He is good with hand- and general hygiene and general infection avoidance. Patient does receive annual flu vaccination with plans to continue this trend. I do not see a recent TB test on file. Patient hopes to be able to wean off of prednisone once Humira is initiated. Current problem areas include hands, wrists and shoulders with minimal range of motion in these joints. Currently responding well to prednisone. The medication will be mailed out tomorrow, 01/23, with suspected arrival the following day. We will reach out to the patient for early side effect and adherence monitoring in about four weeks time. , Misty, had no questions or concerns at the end of our encounter; no recommendations at this time. Pt understands no changes to current drug regimen were made at the appointment and that [facility] is providing recommendations (summary located at top of note) for provider review and follow up. Luciano Guido RPH 01/22/18 3:53 PM documented in this encounter Plan of Treatment Not on filedocumented as of this encounter Goals Goal Patient Goal Associated Recent Patient-Stated? Author Type Problems Progress DH Home Medication Patient No Mendez blunt, Compliance and Facing Luciano Thompson Understanding Action Plan [facility] Note: Formatting of this note might be d ifferent from the original. Reduce progression of OA and reduce RA s ymptoms/hand pain documented as of this encounter Visit Diagnoses Not on filedocumented in this encounter Care Teams Vacuum Bottle Assembler Relationship Specialty Start Date End Date None PCP - General 01/11/18 02/19/18 None documented as of this encounter
--- OUTSIDE RECORDS SUMMARY | 2022-03-18 09:49 | XMS_ITS | Encounter Summary ---
:1940 Author Organization [facility] [place] [address] Care Team Providers Name Role Phone Wilner Lemus DO Primary Care Provider Encounter Details Date Type Department Care Team Description 03/14/2018 Telephone Rheumatology at [facility] [place] [phone] Social History Tobacco Use Types Packs/Day Years Used Date Never Smoker Smokeless Tobacco: Never Used Alcohol Use Standard Drinks/Week Comments No 0 (1 standard drink = 0.6 oz pure alcoho l) Sex Assigned at Date Recorded Not on file documented as of this encounter Miscellaneous Notes Telephone Encounter - Donato Choe RN - 03/16/2018 3:47 PM EDT Patient spouse updated, prescription for Prednisone to pharmacy, expressed understanding regarding instructions. Telephone Encounter - Donato Choe RN - 03/16/2018 8:25 AM EDT Labs faxed over from [facility]. Telephone Encounter - Donato Choe RN - 03/15/2018 8:03 AM EDT Images from the original note were not included. Olivia Albarado, DO Donato Choe RN ? Caller: Unspecified (Yesterday, ??1:44 PM) ? Dr Lam is out of the office for 2 weeks. I don't see he has a cards appt here. ??He can see rosemary today at 1000 or 103o if the slot is open. ??Otherwise we can try a burst a taper of prednsisone, it islikely 5mg was not enough, and would start at 15 mg with taper, but I owuld like labs first-cbc, cmp, esr, crp. Dr Lam will be back on 26 March. Patient unable to come in today. Is able to have labs done at [facility], orders faxed and will await results. Telephone Encounter - Donato Choe RN - 03/14/2018 1:45 PM EDT Misty calls on behalf of patient, has been having increased pain to left hand/wrist. At previous appointment, changed to Humira every 14 days. Has taken 4 doses of Humira. Thought things were ok at first. Pain to left arm has since increased. Takes Tylenol, minimal relief. Continues with Plaquenil, Eliquis, Furosemide. Not currently taking any Prednisone, did take 5 mg on Monday but did not help. Was taking Prednisone 10 mg previously, lost about one pound per day. States labs done at [facility] in December, however, labs noted done in August. Dr. Ward on Monday, cardiology. No fever or chills. No increased sob. On O2 2 liters. BP has been normal. Pain comes in spasms. Wrist swollen, fingers some. No discoloration to hand. Not hot to touch. No redness. Able to make a fist. Has difficulty picking up objects. Has started the last couple of days. No pain elsewhere. Has hadissues with this arm before. Weights have been stable. No GI issues present. Misty requests: 1. An appointment. Would prefer soon, particularly sooner than June. 2. How to proceed with increased pain and management of current pain symptoms. She is amenable to waiting until seen by cardiology on Monday. documented in this encounter Plan of Treatment Not on filedocumented as of this encounter Goals Goal Patient Goal Associated Recent Patient-Stated? Author Type Problems Progress DH Home Medication Patient No Mendez n, Compliance and Facing Luciano A, Understanding Action Plan [facility] Note: Formatting of this note might be d ifferent from the original. Reduce progression of OA and reduce RA s ymptoms/hand pain documented as of this encounter Visit Diagnoses Diagnosis Rheumatoid arthritis involving both hand s with positive rheumatoid factor - Primary documented in this encounter Care Teams Storage Worker Relationship Specialty Start Date End Date Wilner Lemus DO PCP - General Family Medicine 02/20/18 05/21/[address] [place] [address] documented as of this encounter
--- OUTSIDE RECORDS SUMMARY | 2022-03-18 09:49 | XMS_ITS | Encounter Summary ---
:1940 Author Organization [facility] [place] [address] Care Team Providers Name Role Phone None Primary Care Provider Unavailable Encounter Details Date Type Department Care Team Description 01/19/2018 Telephone Rheumatology at [place] [address] Social History Tobacco Use Types Packs/Day Years Used Date Never Smoker Smokeless Tobacco: Never Used Alcohol Use Standard Drinks/Week Comments No 0 (1 standard drink = 0.6 oz pure alcoho l) Sex Assigned at Date Recorded Not on file documented as of this encounter Miscellaneous Notes Telephone Encounter - Brittani Garnett LPN - 01/19/2018 11:43 AM EDT phones to report that Jose has decided to go with the [facility]. I will send this note to ARSH Garg. documented in this encounter Plan of Treatment Not on filedocumented as of this encounter Visit Diagnoses Not on filedocumented in this encounter Care Teams Cardiograph Operator Relationship Specialty Start Date End Date None PCP - General 01/11/18 02/19/18 None documented as of this encounter
--- OUTSIDE RECORDS SUMMARY | 2022-03-18 09:49 | XMS_ITS | Encounter Summary ---
:1940 [place] [address] Care Team Providers Name Role Phone Wilner Chamberlain MD Primary Care Provider [phone] Encounter Details Date Type Department Care Team Description 09/01/2017 Orders Only Tying In Machine Operator Torsten Fischer, Pulmonary hypertension [facility] [place] [address] [place], [place] [phone] (Work) [phone] Social History Tobacco Use Types Packs/Day Years [...] diseases documented in this encounter Care Teams Manufacturing Finance Manager Relationship Specialty Start Date End Date Wilner Chamberlain MD PCP - General 08/17/10 01/10/18 [address] [place] [address] documented as of this encounter
--- OUTSIDE RECORDS SUMMARY | 2022-03-18 09:49 | XMS_ITS | Encounter Summary ---
:1940 Author Organization [place] [address] Care Team Providers Name Role Phone Wilner Lemus DO Primary Care Provider Reason for Visit Reason Onset Date Comments Medication Refill 05/02/2018 Encounter Details Date Type Department Care Team Description 05/02/2018 Refill [place] [facility] Lori Cannon MD [facility] [place] [address] [address] RHEUMATOLOGY DEPT. [phone] [place], [place] [address] (Wo rk) Social History Tobacco [...] Luciano A, Understanding Action Plan [facility] Note: Formatting of this note might be d ifferent from the original. Reduce progression of OA and reduce RA s ymptoms/hand pain documented as of this encounter Visit Diagnoses Not on filedocumented in this encounter Care Teams Assembler Carbon Brushes Relationship Specialty Start Date End Date Wilner Lemus DO PCP - General Family Medicine 02/20/18 05/21/19 [address] [place] [address] documented as of this encounter
--- OUTSIDE RECORDS SUMMARY | 2022-03-18 09:49 | XMS_ITS | Encounter Summary ---
:1940 Author Organization [facility] [place] [address] Care Team Providers Name Role Phone Wilner Chamberlain MD Primary Care Provider [phone] Encounter Details Date Type Department Care Team Description 03/21/2016 Office Visit Rheumatology at [facility] Mirian Duque Rheumatoid arthritis; [facility] HANNAH Thompson Medication [place] [address] [place], [place] [address] (Wo rk) Social History Tobacco Use Types Packs/Day Years Used Date Never Smoker Smokeless Tobacco: Never Used Alcohol Use Standard Drinks/Week Comments No 0 (1 standard drink = 0.6 oz pure alcoho l) Sex Assigned at Date Recorded Not on file documented as of this encounter Last Filed Vital Signs Vital Sign Reading Time Taken Comments Blood Pressure 123/65 03/21/2016 12:41 PM EDT Pulse 85 03/21/2016 12:41 PM EDT Temperature 36.9 ??C (98.5 ??F) 03/21/2016 12:41 PM EDT Respiratory Rate 18 03/21/2016 12:41 PM EDT Oxygen Saturation 93% 03/21/2016 12:41 PM EDT Inhaled Oxygen Concentration - - Weight 104.3 kg (230 lb) 03/21/2016 12:41 PM EDT Height 175.3 cm (5' 9) 03/21/2016 12:41 PM EDT Body Mass Index 33.97 03/21/2016 12:41 PM EDT documented in this encounter Progress Notes Mirian Duque, MEDICAL PATHOLOGIST - 03/21/2016 12:43 PM EDT Rheumatology Outpatient Follow-up Visit Pt of Dr. Kassandra MCDONOUGH Last OV March 2015 CC: Jose Yadav is a 76 year old man who returns for a f/u for RA, seropositive, erosive and nodular He is here with his . HPI: Remains on Enbrel and Plaquenil. Tolerating meds well. No injection site reactions. No infections orantibiotic use. Joints are stable. Is planning for eye exam soon. L 4th toe had a protruding bone that was removed May 2015. Surgical site healed well. Did hold Enbrel during this time and joints started to flare. Up to date on vaccines, received shingles vaccine at PCP's office. No major changes to his health over the last year. Had a recent ECHO and it was OK. DEXA February 2015: Hip T score -1.2, in 2006 was -1.4 LS T score -0.1, in 2006 was -0.5 Current Outpatient Prescriptions: ??? polyethylene glycol (MIRALAX) 17 gram Powder in Packet, Take 17 g by mouth daily., Disp: 14 each, Rfl: 11 ??? lubiprostone (AMITIZA) 24 mcg Capsule, Take 1 capsule by mouth 2 times daily (with meals)., Disp: 60 capsule, Rfl: 11 ??? Etanercept (ENBREL SURECLICK) 50 mg/mL (0.98 mL) Pen Injector, Inject 50 mg subcutaneously once a week., Disp: 4 Syringe, Rfl: 11 ??? hydroxychloroquine (PLAQUENIL) 200 mg tablet, Take 200 mg by mouth 2 times daily., Disp: , Rfl: ??? DOCOSAHEXANOIC ACID/EPA (FISH OIL ORAL), Take [...] PO, Twice daily, Disp: , Rfl: ??? folic acid (FOLVITE) 1 mg tablet, , Disp: , Rfl: ??? ascorbic acid (VITAMIN C) 1,000 mg tablet, , Disp: , Rfl: ??? b complex vitamins tablet, , Disp: , Rfl: ??? ZINC SULFATE (ZINC-220 ORAL), , Disp: , Rfl: ??? doxazosin (CARDURA) 2 mg tablet, , Disp: , Rfl: ??? potassium chloride SA (K-DUR;KLOR-CON) 20 mEq tablet, 20meq, PO, Once daily, Disp: , Rfl: ??? nitroGLYcerin (NITROSTAT) 0.4 mg SL tablet, , Disp: , Rfl: SOCIAL HISTORY/HABITS No tobacco or etoh. 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 Lives in [facility], with his Misty Daughter and Son also live locally + grand children FAMILY HISTORY Sister has RA- worse disease course PMH: [place] and CABG x 2 THR Prostate cancer surgery 1997 Severe lung reaction from MTX ROS: No [place] No vision change No oral ulcers No SOB No CP or palpitations. Had an ECHO 2-3 months ago, EF was OK per . No abdominal pain or GI complaints including nausea, vomiting, diarrhea or constipation. Has celiac. No urinary complaints No rashes No n/t/w No fevers, chills No infections No unintentional weight loss Physical Examination: BP 123/65 Pulse 85 Temp 36.9 ??C (98.5 ??F) Resp 18 Ht 175.3 cm (5' 9) Wt (!) 104.3 kg (230 lb) SpO2 93% BMI 33.97 kg/m2 General:Well developed well nourished male who is alert and in no apparent distress at rest. HEENT:No conjunctivitis, or mucosal ulcers. Neck:Supple. 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 Fused right wrist. R wrist WNL. No active synovitis. Elbows, shoulders, knees and ankles without swelling or tenderness. Neg MTP squeeze. + hammer toes and bunions. Non antalgic gait Skin-No rash. Neuro: sensory grossly intact Impression: Rheumatoid arthritis with chronic deformity well controlled. No changes today. Recommendations: Continue Enbrel and Plaquenil Enbrel co-pay card provided in office today. Enbrel is covered by his 's BCBS policy. Annual eye exam this summer Labs today Flu vaccine this fall F/U in one year MIRIAN DUQUE APRN documented in this encounter Plan of Treatment Not on filedocumented as of this encounter Procedures Procedure Name Priority Date/Time Associated Comments Diagnosis HEMOGRAM Routine 03/21/2016 1:29 PM Rheumatoid Results f or this EDT arthritis procedure are in Medication the results monitoring section. encounter DIFFERENTIAL, Routine 03/21/2016 1:29 PM Rheumatoid Results for this AUTOMATED EDT arthritis procedure are in Medication the results monitoring section. encounter SEDIMENTATION RATE Routine 03/21/2016 1:29 PM Rheumatoid Res ults for this EDT arthritis procedure are i n the results section. CBC (WITH DIFF) Routine 03/21/2016 1:29 PM Rheumatoid EDT arthritis Medication monitoring encounter CRP, CARDIAC RISK (HS Routine 03/21/2016 1:29 PM Rheumatoid Results for this CRP) EDT arthritis procedure are i n the results section. COMPREHENSIVE Routine 03/21/2016 1:29 PM Medication Results for this METABOLIC PANEL EDT monitoring procedure ar e in (NON-FASTING) encounter the results section. documented in this encounter Results (ABNORMAL) Differential, Automated (03/21/2016 1:29 PM EDT) [facility] Method Time Signature Neutrophils % 60.5 % [facility] Neutr Abs (ANC) 5.01 1.50 - [facility] 6.30 [facility] x10(3)/[facility] LABORATORY Lymphocytes % 24.0 % [facility] Lymphocytes Abs 2.0 1.0 - 3.6 [facility] x10(3)/[facility] LABORATORY Monocytes % 13.2 % [facility] Monocyte Abs 1.1 (H) 0.2 - 1.0 [facility] x10(3)/[facility] LABORATORY Eosinophils % 1.7 % [facility] Eosinophils Abs 0.1 0.0 - 0.5 [facility] x10(3)/[facility] LABORATORY Basophils % 0.4 % [facility] Basophils Abs 0.0 0.0 - 0.2 [facility] x10(3)/[facility] LABORATORY Immature Gran % 0.20 % [facility] Comment: Immature granulocytes(IG's)percentage an d absolute count will include metamyelocytes, myelocytes, and promyelo cytes. Blood smears from CBCs yielding IG's will be scanned manually for concor dance. If this scan disagrees with the automated IG or if promyelocytes are not ed, a manual differential will be performed. [place] Gran Abs 0.02 0.00 - 0.05 x10(3)/[facility] MAR Y [facility]ORATORY Specimen Anatomical Collection Method Collection Time Receive d Time (Source) Location / / Volume Laterality Blood specimen 03/21/2016 1:29 PM 016 1:42 (specimen) EDT PM EDT Resulting Agency Comment Spec In Lab Adriana Lion DO HEMATOLOGY ORDERABLES Performing Organization Address City/State/[place] [address] (ABNORMAL) Hemogram (03/21/2016 1:29 PM EDT) P athologist Signature WBC 8.3 4.0 - 10.0 [facility] x10(3)/[facility] LABORATORY RBC 4.30 (L) 4.63 - [facility] 6.08 [facility] x10(6)/[facility] LABORATORY Hemoglobin 13.7 13.7 - [facility] 17.5 gm/dL [facility] Hematocrit 39.9 (L) 40.0 - [facility] 51.0 % [facility] MCV 92.8 (H) 79.0 - [facility].0 [facility] LABORAT[facility] MCH 31.9 25.6 - JUDITH ARMENTA 32.2 pg [facility] MCHC 34.3 32.0 - JUDITH [place] 36.5 gm/dL [facility] Platelets 125 (L) 145 - 370 JUDITH ARMENTA x10(3)/[facility] LABORATORY RDWSD 43.6 35.0 - JUDITH [place] 46.0 [facility] LABORATORY RDWCV 13.1 10.9 - [facility] 14.4 % [facility] MPV 10.1 9.0 - 12.0 [facility] LABORATORY Specimen Anatomical Collection Method Collection Time Receive d Time (Source) Location / / Volume Laterality Blood specimen 03/21/2016 1:29 PM 016 1:42 (specimen) EDT PM EDT Resulting Agency Comment Spec In Lab Adriana Lion DO HEMATOLOGY ORDERABLES Performing Organization Address City/State/[place] [address] High Sensitivity CRP (03/21/2016 1:29 PM EDT) P athologist Signature CRP High Sens 1.4 mg/L [facility] Comment: Interpretations: 1) For accurate cardiac risk assessment, the average of 2 values >2 weeks apart should be obtained (ref 1&2). A value >1 0 mg/L indicates an inflammatory condition, concentrations >10 mg/L shoul d not be used for cardiac risk assessment. ?<1.0 mg/L: low risk ?1.0 - 3.0 mg/L: moderate risk ?>3.0 mg/L: high risk groups for fu ture cardiovascular events 2) The general reference range of appare ntly healthy individuals using this test is <5.0 mg/L (derived from the test package insert) References: 1. Liliana WILLIS et. al. ??AHA/CDC Scientif ic Statement: Markers of Inflammation and Cardiovascular Disease. ??Circulatio n 2003; 107:499-511 2. Tavo PM. ??Clinical applications of C-reactive protein for cardiovascular disease detection and prevention. ??Circ ulation 2003; 107:363-369 Specimen Anatomical Collection Method Collection Time Receive d Time (Source) Location / / Volume Laterality Blood specimen 03/21/2016 1:29 PM 016 1:42 (specimen) EDT PM EDT Resulting Agency Comment Spec In Lab Adriana Lion DO CHEMISTRY ORDERABLES Performing Organization Address City/[facility]/ZIP Code Phon e Number [address] Sedimentation rate (03/21/2016 1:29 PM EDT) athologist Signature Sed Rate 11 0 - 15 [facility] mm/hr [facility] Specimen Anatomical Collection Method Collection Time Receive d Time (Source) Location / / Volume Laterality Blood specimen 03/21/2016 1:29 PM 016 1:42 (specimen) EDT PM EDT Resulting Agency Comment Spec In Lab Adriana Lion DO HEMATOLOGY ORDERABLES Performing Organization Address City/[facility]/[place] [address] (ABNORMAL) Comprehensive metabolic panel (non-fasting) (03/21/2016 1:29 PM EDT) athologist Signature Glucose Lvl 95 65 - 199 [facility] mg/dL [facility] Comment: Diabetes: >=200 mg/dL plus symp toms BUN 19 10 - 20 mg/dL [facility] Creatinine 0.79 (L) 0.80 - 1.50 mg/dL [facility] Comment: Please note that the pediatric reference intervals supplied above were not validated at [facility]. Results from pediatri c patients should be interpreted in conjunction to the patient's age, height and muscle mass. Sodium 142 135 - 145 mmol/L [facility] Potassium 3.9 3.5 - 5.0 mmol/L [facility] Comment: Please note: ??Patients with WBC >100,00 0 may have falsely elevated Potassium levels. ??For accurate Potassium quantif ication in these patients send serum separator tube (gold top) for subsequent determinations. ??Contact the Clinical Chemistry Laboratory if there are any qu estions. Chloride 101 98 - 107 mmol/L [facility] CO2 28 22 - 31 mmol/L [facility] Anion Gap 13 5 - 15 mmol/L [facility] Calcium 8.7 8.5 - 10.5 mg/dL [facility] Total Protein 7.2 6.1 - 8.0 gm/dL [facility] Albumin 4.2 3.2 - 5.2 gm/dL [facility] AST 24 0 - 39 unit/L [facility] ALT 25 0 - 55 unit/L [facility] Alk Phos 56 40 - 120 unit/L [facility] Total Bilirubin 1.1 0.2 - 1.3 mg/dL [facility] Bili, Direct 0.3 0.0 - 0.3 mg/dL [facility] Estimated GFR >60 >=60 [facility] Comment: This estimated GFR (eGFR) [...] the following links into your internet browser. [email or web address] Specimen Anatomical Collection Method Collection Time Receive d Time (Source) Location / / Volume Laterality Blood specimen 03/21/2016 1:29 PM 016 1:42 (specimen) EDT PM EDT Resulting Agency Comment Spec In Lab Adriana Lion DO CHEMISTRY ORDERABLES Performing Organization Address City/State/[place] [address] documented in this encounter Visit Diagnoses Diagnosis Rheumatoid arthritis Medication monitoring encounter Encounter for therapeutic drug monitorin g documented in this encounter Care Teams Septic Tank Setter Relationship Specialty Start Date End Date Wilner Chamberlain MD PCP - General 08/17/10 01/10/[address] [place] [address] documented as of this encounter
--- OUTSIDE RECORDS SUMMARY | 2022-03-18 09:50 | XMS_ITS | Encounter Summary ---
:1940 Author Organization [facility] [place] [address] Care Team Providers Name Role Phone Wilner Chamberlain MD Primary Care Provider [phone] Reason for Visit Reason Comments Rheumatoid Arthritis Encounter Details Date Type Department Care Team Description 09/04/2012 Follow-Up Rheumatology at [facility] Lori Cannon, Rheumatoid arthritis; [facility] [place] [address] [address] [phone] RHEUMATOLOGY [place], [place] [address] Social History Tobacco Use Types Packs/Day Years Used Date Never Smoker Sex Assigned at Date Recorded Not on file documented as of this encounter Last Filed Vital Signs Vital Sign Reading Time Taken Comments Blood Pressure 109/64 09/04/2012 12:46 PM EST Pulse 69 09/04/2012 12:46 PM EST Temperature 36.4 ??C (97.6 ??F) 09/04/2012 12:46 PM EST Respiratory Rate - - Oxygen Saturation 93% 09/04/2012 12:46 PM EST Inhaled Oxygen Concentration - - Weight 106.6 kg (235 lb) 09/04/2012 12:46 PM EST Height 177.8 cm (5' 10) 09/04/2012 12:46 PM EST Body Mass Index 33.72 09/04/2012 12:46 PM EST documented in this encounter Progress Notes Lori Cannon MD - 09/04/2012 12:17 PM EST Jose Yadav is a 72 year old man who returns to the rheumatology clinic for evaluation of RA andOA. The most recent visit to the clinic was 6 months ago. Cc: joints doing ok HPI: Some pain and stiffness in the am lasting about 1/2 hour. Does not do too much shoveling any more. Very active during the day. No infections. No difficulty tolerating the enbrel. L wrist is helpedby splinting. He has no swollen joints. No problems with energy or sleep. He has taken gold in the past SOCIAL HISTORY/HABITS No tobacco or etoh. 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 Lives in [facility], with his Misty of 48 years Daughter and Son also live locally 7 grand children FAMILY HISTORY Sister has RA- worse disease course PMH: SC and CABG x 2 THR Prostate cancer [...] fatigue Mood is stable Physical Examination: BP 109/64 Pulse 69 Temp(Src) 36.4 ??C (97.6 ??F) (Oral) Ht 177.8 cm (5' 10) Wt 106.595 kg (235 lb) BMI 33.72 kg/m2 SpO2 93% General-Well developed well nourished male who is alert and in no apparent distress at rest. HEENT-Normocephalic with no conjunctivitis, or mucosal ulcers. Neck-Supple. 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 Fusedright wrist. Crepitant knees. Bunions. No active synovitis. NM- Patient is alert and oriented. Skin-No rash. Eye appointment annually. Impression: Rheumatoid arthritis with chronic deformity well controlled. S/P right hip replacement. Tolerating medication. Recommendations: #Continue Enbrel and Plaquenil # annual eye exam # labs as below # f/u in 6 months Orders Placed This Encounter Procedures ??? Alanine Aminotransferase ??? Aspartate Aminotransferase ??? BUN ??? Creatinine, serum ??? CBC (with Diff) ??? High Sensitivity CRP ??? Scan, Peripheral Blood ??? Differential, Automated documented in this encounter Plan of Treatment Not on filedocumented as of this encounter Procedures Procedure Name Priority Date/Time Associated Comments Diagnosis SCAN, PERIPHERAL BLOOD Routine 09/04/2012 1:47 Re sults for this PM EST procedure are i n the results section. DIFFERENTIAL, AUTOMATED Routine 09/04/2012 1:47 R esults for this PM EST procedure are i n the results section. CREATININE Routine 09/04/2012 1:47 Rheumatoid Results for this PM EST arthritis procedure are i n the results section. CBC (WITH DIFF) Routine 09/04/2012 1:47 Rheumatoid Results f or this PM EST arthritis procedure are i n the results section. CRP, CARDIAC RISK (HS Routine 09/04/2012 1:47 Rheumatoid Res ults for this CRP) PM EST arthritis procedure are i n the results section. BUN Routine 09/04/2012 1:47 Rheumatoid Results for this PM EST arthritis procedure are i n the results section. ALANINE AMINOTRANSFERASE Routine 09/04/2012 1:47 Rheumatoid Results for this PM EST arthritis procedure are i n the results section. ASPARTATE Routine 09/04/2012 1:47 Rheumatoid Results for this AMINOTRANSFERASE PM EST arthritis procedure a re in the results section. documented in this encounter Results Differential, Automated (09/04/2012 1:47 PM EST) P athologist Signature Neutrophils % 64.2 34.0 - CERNER 71.0 % MILLENNIUM Neutr Abs (ANC) 5.14 1.50 - CERNER 6.30 MILLENNIUM x10(3)/mcL Lymphocytes % 24.7 19.0 - CERNER 53.0 % MILLENNIUM Lymphocytes Abs 2.0 1.0 - 3.6 CERNER x10(3)/mcL MILLENNIUM Monocytes % 8.5 4.0 - 13.0 CERNER % MILLENNIUM Monocyte Abs 0.7 0.2 - 1.0 CERNER x10(3)/mcL MILLENNIUM Eosinophils % 2.0 0.0 - 7.0 CERNER % MILLENNIUM Eosinophils Abs 0.2 0.0 - 0.5 CERNER x10(3)/mcL MILLENNIUM Basophils % 0.3 0.0 - 2.0 CERNER % MILLENNIUM Basophils Abs 0.0 0.0 - 0.2 CERNER x10(3)/mcL MILLENNIUM Immature Gran % 0.30 0.00 - CERNER 0.66 % MILLENNIUM Comment: Immature granulocytes(IG's)percentage an d absolute count will include metamyelocytes, myelocytes, and promyelo cytes. Blood smears from CBCs yielding IG's will be scanned manually for concor dance. If this scan disagrees with the automated IG or if promyelocytes are not ed, a manual differential will be performed. Soco Gran Abs 0.02 0.00 - 0.05 x10(3)/mcL CER NER MILLENNIUM Specimen Anatomical Collection Method Collection Time Receive d Time (Source) Location / / Volume Laterality Blood specimen 09/04/2012 1:47 PM 012 1:57 (specimen) EST PM EST Lori Cannon MD HEMATOLOGY ORDERABLES Performing Organization Address City/[facility]/ZIP Code Phon e Number [address] [facility] Scan, Peripheral Blood (09/04/2012 1:47 PM EST) athologist Signature Plat Estimate Normal [facility] RBC Morphology Normal [facility] Specimen Anatomical Collection Method Collection Time Receive d Time (Source) Location / / Volume Laterality Blood specimen 09/04/2012 1:47 PM 012 1:57 (specimen) EST PM EST Resulting Agency Comment Spec In Lab Lori Cannon MD HEMATOLOGY ORDERABLES Performing Organization Address City/[facility]/ZIP Code Phon e Number [address] [facility] High Sensitivity CRP (09/04/2012 1:47 PM EST) athologist Signature CRP High Sens 0.5 mg/L [facility] Comment: Interpretations: 1) For cardiac risk assessment, two valu es (fasting or nonfasting sample acceptable) taken at least 2 weeks apart , should be averaged to provide a more reliable estimate of marker level. ??Thi s laboratory uses the recommendations from the AHA/CDC Scientific Statement fo r interpretations of future risks of cardiovascular events: ? <1.0 mg/L: low risk 1.0 - 3.0 mg/L: moderate risk >3.0 mg/L: high risk groups for future c ardiovascular events 2) The general reference range of appare ntly healthy individuals using this test is <5.0 mg/L (derived from the test package insert) A few words of caution: For cardiac asse ssment, when a value >10 mg/L is encountered, there should be a search fo r an acute inflammatory condition or infection (in patients with acute inflam mation, the concentration can increase to >500 mg/L). ??The >10 mg/L should be discarded if such a situation exists, since the risk for coronary heart diseas e cannot be provided, and a repeat specimen, taken at least two weeks after resolution of the acute inflammatory condition, may allow for appraisal of co ronary risk information. Please note that significantly decreased CRP values may be obtained from samples taken from patients who have bee n treated with carboxypenicillins. References: 1. Liliana WILLIS et. al. ??AHA/CDC Scientif ic Statement: Markers of Inflammation and Cardiovascular Disease. ??Circulatio n 2003; 107:499-511 Ridker PM. ??Clinical applications of C- reactive protein for cardiovascular disease detection and prevention. ??Circ ulation 2003; 107:363-369 Specimen Anatomical Collection Method Collection Time Receive d Time (Source) Location / / Volume Laterality Blood specimen 09/04/2012 1:47 PM 012 1:57 (specimen) EST PM EST Resulting Agency Comment Spec In Lab Lori Cannon MD CHEMISTRY ORDERABLES Performing Organization Address City/State/[place] [address] [employer] [facility] MILLENNIUM (ABNORMAL) CBC (with Diff) (09/04/2012 1:47 PM EST) athologist Signature WBC 8.0 4.0 - 10.0 CERNER x10(3)/mcL MILLENNIUM RBC 4.62 (L) 4.63 - CERNER 6.08 MILLENNIUM x10(6)/mcL Hemoglobin 14.5 13.7 - CERNER 17.5 gm/dL MILLENNIUM Hematocrit 43.7 40.0 - CERNER 51.0 % MILLENNIUM MCV 94.6 (H) 79.0 - CERNER 92.0 fL MILLENNIUM MCH 31.4 25.6 - CERNER 32.2 pg MILLENNIUM MCHC 33.2 32.0 - CERNER 36.5 gm/dL MILLENNIUM Platelets 143 (L) 145 - 370 CERNER x10(3)/mcL MILLENNIUM RDWSD 44.0 35.0 - CERNER 46.0 fL MILLENNIUM RDWCV 12.8 10.9 - CERNER 14.4 % MILLENNIUM MPV 10.2 9.0 - 12.0 CERNER fL MILLENNIUM Specimen Anatomical Collection Method Collection Time Receive d Time (Source) Location / / Volume Laterality Blood specimen 09/04/2012 1:47 PM 012 1:57 (specimen) EST PM EST Resulting Agency Comment Spec In Lab Lori Cannon MD HEMATOLOGY ORDERABLES Performing Organization Address City/State/[place] [address] CERNER MILLENNIUM Creatinine, serum (09/04/2012 1:47 PM EST) P athologist Signature Creatinine 0.80 0.80 - 1.50 CERNER mg/dL MILLENNIUM Comment: Please note that the pediatric reference intervals supplied above were not validated at [facility]. Results from pediatri c patients should be interpreted in conjunction to the patient's age, height and muscle mass. Estimated GFR >60 >=60 JAZZ Ortega Comment: The National Kidney Disease Education Pr ogram (NKDEP) has recommended all laboratories report estimated GFR (eGFR) along with plasma creatinine measurements to assist you with recognit ion of early kidney disease. Caveats: ??Plasma creatinine should be a t steady-state (unchanged within the past week). For patient s multiply eGFR by 1.2. The MDRD equation was developed using patients be tween the ages of 18 and 70 years. ?? The MDRD equation has not been validated for patients < 18 years of age and should not be used to assess renal function in the pediatric population. ??The MDRD eGFR equation will also overestimate the true GFR of patients above the age of 70. ??This overestimation is variable bu t increases with age. At present, NKDEP does NOT recommend usi ng the MDRD equation for drug dosing purposes and pharmacists should continue to use their current dosing methods. In addition, numerical eGFR values great er than 60 ml/min/1.73 square meters should be treated as > 60, and not an ex act number due to greater inaccuracies at these higher values. Per NKDEP, they classify normal renal function as any GFR >60ml/min/1.73 square meters; chronic kidney disease wh en GFR <60, and renal failure when GFR <15. ??This calculation may not be valid for patients with atypical muscle mass (very lean or obese), acute renal failur e, and in patients with diabetic kidney disease. References: http://nkdep.nih.gov/resources/NKDEP_Sug gestn4Labs_0606_508.pdf http://www.kidney.org/professionals/kls/ pdf/faq_gfr.pdf Jamie K, Lavon NA, Maureen AK, Kedar TS, Cristal AD, Zaire IKE. Relative performance of the MDRD and CKD-EPI equa tions for estimating glomerular filtration rate among patients with vari ed clinical presentations. Clin J Am Soc Nephrol;6:1963-72. Specimen Anatomical Collection Method Collection Time Receive d Time (Source) Location / / Volume Laterality Blood specimen 09/04/2012 1:47 PM 012 1:57 (specimen) EST PM EST Resulting Agency Comment Spec In Lab Lori Cannon MD CHEMISTRY ORDERABLES Performing Organization Address City/State/[place] [address] CERNER MILLENNIUM BUN (09/04/2012 1:47 PM EST) P athologist Signature BUN 16 10 - 20 CERNER mg/dL MILLENNIUM Specimen Anatomical Collection Method Collection Time Receive d Time (Source) Location / / Volume Laterality Blood specimen 09/04/2012 1:47 PM 012 1:57 (specimen) EST PM EST Resulting Agency Comment Spec In Lab Lori Cannon MD CHEMISTRY ORDERABLES Performing Organization Address City/[facility]/[place]IP [place] [address] CERNER MILLENNIUM Aspartate Aminotransferase (09/04/2012 1:47 PM EST) athologist Signature AST 26 0 - 39 CERNER unit/L MILLENNIUM Specimen Anatomical Collection Method Collection Time Receive d Time (Source) Location / / Volume Laterality Blood specimen 09/04/2012 1:47 PM 012 1:57 (specimen) EST PM EST Resulting Agency Comment Spec In Lab Lori Cannon MD CHEMISTRY ORDERABLES Performing Organization Address City/[facility] Phon e Number [address] CERNER MILLENNIUM Alanine Aminotransferase (09/04/2012 1:47 PM EST) athologist Signature ALT 30 0 - 55 CERNER unit/L MILLENNIUM Specimen Anatomical Collection Method Collection Time Receive d Time (Source) Location / / Volume Laterality Blood specimen 09/04/2012 1:47 PM 012 1:57 (specimen) EST PM EST Resulting Agency Comment Spec In Lab Lori Cannon MD CHEMISTRY ORDERABLES Performing Organization Address City/[facility] [place] [address] CERNER MILLENNIUM documented in this encounter Visit Diagnoses Diagnosis Rheumatoid arthritis(714.0) Rheumatoid arthritis Osteoarthritis Osteoarthrosis, unspecified whether gene ralized or localized, unspecified site documented in this encounter Care Teams Charge Lpn Relationship Specialty Start Date End Date Wilner Chamberlain MD PCP - General 08/17/10 01/10/[address] [place] [address] documented as of this encounter
--- OUTSIDE RECORDS SUMMARY | 2022-03-18 09:50 | XMS_ITS | Encounter Summary ---
:1940 Author Organization [facility] [place] [address] Care Team Providers Name Role Phone Wilner Chamberlain MD Primary Care Provider [phone] Encounter Details Date Type Department Care Team Description 04/28/2014 Orders Only Gastroenterology at [facility] Kisha Perrin, Constipation (Primary [facility] Abdoulaye hernandez PSYCHOLOGIST MILITARY PERSONNEL Dx) [place] [address] [facility] [phone] [place] [address] Social History Tobacco Use Types Packs/Day Years Used Date Never Smoker Smokeless Tobacco: Never Used Alcohol Use Standard Drinks/Week Comments No 0 (1 standard drink = 0.6 oz pure alcoho l) Sex Assigned at Date Recorded Not on file documented as of this encounter Plan of Treatment Not on filedocumented as of this encounter Visit Diagnoses Diagnosis Constipation - Primary Unspecified constipation documented in this encounter Care Teams Jack Spinner Relationship Specialty Start Date End Date Wilner Chamberlain MD PCP - General 08/17/10 01/10/18 [address] [facility] [address] documented as of this encounter
--- OUTSIDE RECORDS SUMMARY | 2022-03-18 09:50 | XMS_ITS | Encounter Summary ---
:1940 [place] [address] Care Team Providers Name Role Phone Wilner Chamberlain MD Primary Care Provider [phone] Encounter Details Date Type Department Care Team Description 04/02/2015 Telephone Gastroenterology at [facility] Kisha Perrin [place] [address] [place] [address] [phone] (Wo rk) Social History Tobacco Use Types Packs/Day Years Used Date Never Smoker Smokeless Tobacco: Never Used Alcohol Use Standard Drinks/Week Comments No 0 (1 standard drink = 0.6 oz pure alcoho l) Sex Assigned at Date Recorded Not on file documented as of this encounter Miscellaneous Notes Telephone Encounter - Kisha Perrin APRN - 04/02/2015 4:48 PM EDT Returned Mrs Yadav's phone call regarding Mr Yadav's repeating the EGD with biopsies. Explained the rational behind proceeding with repeat EGD and did my best to answer her questions. Mr Yadav had given verbal consent to speak to his about the EGD. documented in this encounter Plan of Treatment Not on filedocumented as of this encounter Visit Diagnoses Not on filedocumented in this encounter Care Teams House Builder Relationship Specialty Start Date End Date Wilner Chamberlain MD PCP - General 08/17/10 01/10/[address] [place] [address] documented as of this encounter
--- OUTSIDE RECORDS SUMMARY | 2022-03-18 09:50 | XMS_ITS | Encounter Summary ---
:1940 Author Organization [facility] [place] [address] Care Team Providers Name Role Phone Wilner Chamberlain MD Primary Care Provider [phone] Reason for Visit Reason Onset Date Comments Prior Authorization 10/27/2011 Enbrel Encounter Details Date Type Department Care Team Description 10/27/2011 Telephone Rheumatology at [facility] Demar Brandon Prior Authorization [facility] MD Crystal (Enbrel) [place] [address] RHEUMATOLOGY [place], [place] [address] Social History Tobacco Use Types Packs/Day Years Used Date Never Smoker Sex Assigned at Date Recorded Not on file documented as of this encounter Miscellaneous Notes Telephone Encounter - Jono Grimaldo - 10/27/2011 3:32 PM EST Medication Prior Authorization Rheumatology Medication name/dose/directions: ENBREL 50 MG Rationale for request: RA Health plan: /[facility] Authorizing life assurance representative name: APPROVAL FAXED TO OFFICE Faxed to health plan on: 10/26/11 Health plan decision: Approved Quantity approved: Authorization number: Start date: 10/26/11 End date: 10/25/11 Patient notified? yes Pharmacy notified? yes documented in this encounter Plan of Treatment Not on filedocumented as of this encounter Visit Diagnoses Not on filedocumented in this encounter Care Teams Vending Enterprises Supervisor Relationship Specialty Start Date End Date Wilner Chamberlain MD PCP - General 08/17/10 01/10/[address] [place] [address] documented as of this encounter
--- OUTSIDE RECORDS SUMMARY | 2022-03-18 09:50 | XMS_ITS | Encounter Summary ---
:1940 Author Organization [facility] [place] [address] Care Team Providers Name Role Phone Wilner Chamberlain MD Primary Care Provider [phone] Reason for Visit Reason Onset Date Comments Medication Refill 03/27/2013 Encounter Details Date Type Department Care Team Description 03/27/2013 Refill Rheumatology at [facility] Lori Cannon MD [facility] [place] [address] [place] [address] RHEUMATOLOGY DEPT. [phone] [place], [place] [address] (Wo rk) Social History Tobacco Use Types Packs/Day Years Used Date Never Smoker Sex Assigned at Date Recorded Not on file documented as of this encounter Plan of Treatment Not on filedocumented as of this encounter Visit Diagnoses Not on filedocumented in this encounter Care Teams Doughnut Icer Machine Relationship Specialty Start Date End Date Wilner Chamberlain MD PCP - General 08/17/10 01/10/18 [address] [place] [address] documented as of this encounter
--- OUTSIDE RECORDS SUMMARY | 2022-03-18 09:50 | XMS_ITS | Encounter Summary ---
:1940 Author Organization [facility] [place] [address] Care Team Providers Name Role Phone Wilner Chamberlain MD Primary Care Provider [phone] Reason for Visit Reason Onset Date Comments Medication Refill 10/02/2012 Encounter Details Date Type Department Care Team Description 10/02/2012 Refill Rheumatology at [facility] Lori Cannon, Rheumatoid arthritis [facility] Abdoulaye hernandez MD (Primary Dx) [place] [address] [facility] [phone] DR RHEUMATOLOGY [place], [place] [address] (Wo rk) Social History Tobacco Use Types Packs/Day Years Used Date Never Smoker Sex Assigned at Date Recorded Not on file documented as of this encounter Plan of Treatment Not on filedocumented as of this encounter Visit Diagnoses Diagnosis Rheumatoid arthritis(714.0) - Primary Rheumatoid arthritis documented in this encounter Care Teams Financial Planning Adviser Relationship Specialty Start Date End Date Wilner Chamberlain MD PCP - General 08/17/10 01/10/[address] [place] [address] documented as of this encounter
--- OUTSIDE RECORDS SUMMARY | 2022-03-18 09:50 | XMS_ITS | Encounter Summary ---
:1940 Author Organization [facility] [place] [address] Care Team Providers Name Role Phone Wilner Chamberlain MD Primary Care Provider [phone] Encounter Details Date Type Department Care Team Description 04/07/2015 Hospital Encounter Gastroenterology at [facility] [place] [address] [place] [address] [facility] [place], [place] [address] Social History Tobacco Use Types Packs/Day Years Used Date Never Smoker Smokeless Tobacco: Never Used Alcohol Use Standard Drinks/Week Comments No 0 (1 standard drink = 0.6 oz pure alcoho l) Sex Assigned at Date Recorded Not on file documented as of this encounter Last Filed Vital Signs Vital Sign Reading Time Taken Comments Blood Pressure 155/74 04/07/2015 11:19 AM EDT Pulse 74 04/07/2015 11:19 AM EDT Temperature 36.4 ??C (97.5 ??F) 04/07/2015 10:42 AM EDT Respiratory Rate 14 04/07/2015 11:19 AM EDT Oxygen Saturation 94% 04/07/2015 11:19 AM EDT Inhaled Oxygen Concentration - - Weight - - Height - - Body Mass Index - - documented in this encounter Discharge Instructions Discharge InstructionsOlivia Zacarias RN - 04/07/2015 11:21 AM EDT UPPER GI ENDOSCOPY WHAT TO EXPECT AFTER THE PROCEDURE After the test you may feel a little more gassy or bloated than usual, this is normal. ACTIVITY Because of the sedation that you received Your judgement and reaction time are affected ?? Go home and rest quietly for the remainder of the day. You may resume your normal activities tomorrow. ?? Change from one position to the next slowly. You may lose your balance unexpectedly Be careful on stairs, as you may be unsteady on your feet. FOR THE NEXT 24 HRS ?? DO NOT DRIVE OR OPERATE ANY MACHINERY ?? DO NOT DRINK ALCOHOLIC BEVERAGES ?? DO NOT SIGN LEGAL DOCUMENTS ?? If you are a smoker: DO NOT SMOKE WHILE YOU ARE ALONE Diet ?? Start by eating small portions of foods that ordinarily will not upset your stomach. Be gentle with what you choose to start with. ?? Drink plenty of fluids ( unless otherwise told not to) Medications You may have a mild sore throat. Ice chips, popsicles, over the counter throat lozenges or spray may help numb your throat. This procedure should not cause a fever. IV SITE-- slight redness or tenderness is normal, you can use warm compresses if you get concerned.If the tenderness +/or redness increases or foul drainage and a red streak occurs, please contact your PCP immediately. WHEN SHOULD YOU CALL FOR HELP? Call 911 anytime you think that you need emergency care. For example, call if: You passed out (lost consciousness). You cough up blood. You vomit blood or what looks like coffee grounds. You pass maroon or very bloody stools. Call your healthcare provider or seek immediate medical attention if: You have trouble swallowing. You have belly pain. Your stools are black or tarlike or have streaks of blood. You are sick to your stomach or cannot keep fluids down. Watch closely for changes in your health, and be sure to contact your doctor IF Your throat still hurts after a day or two You do not get better as expected. Monday-Monday Clinic [phone] 8a-5p Same Day Endo [phone] 7a-8p Otherwise contact [phone] and ask to speak to the solar/renewable energy sales radiology practitioner assistant Follow-up care is a moses part of your treatment and safety. Be sure to make and go to all appointments, and call your doctor if you are having problems. Instructions have been reviewed and patient expresses understanding Patient InstructionsElroy Dowling MD - 04/07/2015 11:06 AM EDT Please see Recommendations in the Provation procedure report which is documented in the procedural note in [facility]. documented in this encounter Medications at Time [...] doxazosin (CARDURA) 2 mg 0 06/02/2010 tablet ENBREL SURECLICK 50 mg/mL inject 50 milligram 3.92 mL 3 0 03/24/2015 04/21/2015 (0.98 mL) Pen Injector subcutaneously ONCE A WEEK polyethylene glycol Take 17 g by mouth 0 07/20/2015 (MIRALAX) 17 gram Powder daily. in Packet lubiprostone (AMITIZA) 24 Take 1 capsule by 60 capsule 12 12/201305/21/2015 mcg capsuleIndications: mouth 2 times daily Constipation (with meals). hydroxychloroquine Take 200 mg by mouth 0 03/21/2016 (PLAQUENIL) 200 mg tablet 2 times daily. aspirin 81 mg tablet Take 81 mg by mouth 0 09/01/2017 daily. FERROUS FUMARATE (IRON Take 65 mg by mouth 0 05/22/2019 ORAL) daily. Cholecalciferol, Vitamin Take by mouth. 0 01/12/2018 D3, (VITAMIN D-3) 2,000 unit Cap folic acid (FOLVITE) 1 mg 0 06/02/2010 03/21/2016 tablet ascorbic acid (VITAMIN C) 0 06/02/2010 01/12/2018 1,000 mg tablet ZINC SULFATE (ZINC-220 0 06/02/2010 ORAL) potassium chloride SA 20meq, PO, Once 0 0 01/12/2018 (K-DUR;KLOR-CON) 20 mEq daily tablet documented as of this encounter H&P Notes Elroy Dowling MD - 04/07/2015 10:44 AM EDT Gastroenterology and Hepatology Pre-Procedure History and Physical Exam Procedure: EGD: Indication: celiac disease Patient Active Problem List Diagnosis Code ??? 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 CIS - rheumatoid arthritis T999.0 ??? Rheumatoid arthritis 714.0 ??? Osteoarthritis 715.90 ??? Abdominal pain 789.00 ??? Celiac disease 579.0 EXAM: HEENT: Airway examined, oropharynx clear Mallampati Score: I (soft palate, uvula, fauces, tonsillar pillars visible) LUNGS: Clear to auscultation HEART: Regular rate and rhythm, normal S1, S2 ABDOMEN: Normal bowel sounds, soft, non tender, non distended, A/P Proceed with the planned endoscopic procedure. ASA 1 - Normal health patient Sedation Plan: moderate (conscious sedation) Risks and benefits of the procedure explained to the patient. Consent signed. documented in this encounter Plan of Treatment Not on filedocumented as of this encounter Procedures Procedure Name Priority Date/Time Associated Diagnosis Comme nts SURGICAL PATHOLOGY Routine 04/07/2015 11:08 AM Re sults for this REPORT EDT procedure are i n the results section. SPECIMEN TO Routine 04/07/2015 11:08 AM Results for this PATHOLOGY EDT procedure are i n the results section. EGD WITH BIOPSY 04/07/2015 10:53 AM Celiac disease (WRVU 2.49) EDT UPPER GI ENDOSCOPY Routine 04/07/2015 10:30 AM Re sults for this EDT procedure are i n the results section. documented in this encounter Results Surgical Pathology Report (04/07/2015 11:08 AM EDT) Component Value Ref Test Analysis Performed At Patholo gist Range Method Time Signature Surgical [facility] ? [facility] Report ? Provider: ?? ELROY DOWLING ?? Pt. Name: ?? VANNESSA YADAV ? Acc #: ?[id number] ?Pt. MRN: ?[id number] ? Col Date: ?? 5 ? /Sex: ?1940,(75 years),Male ? Rec Date: ?? 04/07/2015 ? LOC: ?4T ? SURGICAL PATHOLOGY ? ---Pathologic Diagnosis--- ? Endoscopic biopsy - Duodenal muco sa with partial villous flattening and ? chronic inflammation. There is no intraep ithelial lymphocytosis. These ? changes are consistent with treated celiac sprue. ? CR-0 ? 04/08/15 ? AAS ? 04/08/15 Verified by: ? Jyoti Rutherford MD ? Pathologist ? (Electronic Si gnature) ? The attending pathologist whose signature appears o n this report has ? reviewed all diagnostic slides and has edited the cyn ss and/or ? microscopic portion of the report in rendering the fi nal pathologic ? diagnosis. ? ---Gross Description--- ? A - Labeled/Fixative: Duodenal biopsies, formalin. ? Quantity/Size: Four, ranging from 0.4-0.7 cm. ? Tissue Description: Soft, hill tissues. ? Sections/Processing: (T1) ??aml ? ---Clinical Information--- ? Specimen Submitted: ? A - Duodenal biopsies ? Clinical History: ? Celiac disease, now on gluten free diet and doing wel l ? Clinical Diagnosis: ? Same Specimen (Source) Anatomical Collection Method Collection Time Re ceived Time Location / / Volume Laterality 04/07/2015 11:08 AM EDT Elroy Dowling MD PATHOLOGY/CYTOLOGY ORDERABLE S Performing Organization Address City/[facility]/ZIP [place] [address] CERNER MILLENNIUM Specimen to Pathology (surgical or derm) (04/07/2015 11:08 AM EDT) Specimen Anatomical Collection Method Collection Time Receive d Time (Source) Location / / Volume Laterality AP Specimen 04/07/2015 11:08 04/07/2015 AM EDT 11:08 AM EDT Narrative CERNER MILLENNIUM - 04/07/2015 11:08 AM EDT Specimen requisition ordered. ??Separate Pathology report to follow Elroy Dowling MD PATHOLOGY/CYTOLOGY ORDERABLE S Performing Organization Address City/[facility]/[place]IP [place] [address] CERNER MILLENNIUM UPPER GI ENDOSCOPY (04/07/2015 10:30 AM EDT) [facility] gist Method Time Signature UPPER GI [facility] ENDOSCOPY Endoscopy Patient Name: Vannessa Yadav ? Procedure Date: 04/07/2015 10:30 AM ? N: [id number] ? Date of : 1940 ? Age: 75 ? Order #: [id number] ? Procedure: ? Upper GI endoscopy Indications: ? Follow-up of celiac disease Providers: ? Melinda Morris , ? RN, , Sea Hargrove MD: ?Wilner Chamberlain MD, Kisha Rawls ? Marychuy, RN SECURITY Medicines: ? Midazolam 3 mg IV, Fentanyl 150 ? micrograms IV, Benzocaine spr ay Complications: ? No immediate complications. Procedure: ? Pre-Anesthesia Assessment: ? - ASA Grade Assessment: I - A normal, ? healthy patient. ? - CV Examination: normal. ? - Mental Status Examination: alert ? and oriented. ? - Respiratory Examination: cl ear to ? auscultation. ? The procedure, indications, b enefits, ? risks and alternatives were e xplained ? to the patient. Specifically ? discussed were potential ? complications including, but not ? limited to, bleeding, perfora tion, ? infection, missing a cancer, and ? adverse medication reactions. The ? Endoscope was introduced thro ugh the ? mouth, and advanced to the se cond ? part of duodenum. The patient ? tolerated the procedure well. The ? upper GI endoscopy was accomp lished ? without difficulty. The patie nt ? tolerated the procedure well. ? Findings: ? The esophagus was normal. ? The stomach was normal. ? The 2nd part of the duodenum was normal. Biopsies for ? histology were taken with a cold forceps for for ? evaluation of celiac disease. ? Impression: ?- Normal esophagus. ? - Normal stomach. ? - Normal 2nd part of the duod enum. ? Biopsied. Recommendation: ?- Await pathology results. ? Elroy Dowling MD 04/07/2015 11:08 AM This report has been signed electronically. Number of Addenda: 0 Note Initiated On: 04/07/2015 10:30 AM Specimen (Source) Anatomical Collection Method Collection Time Re ceived Time Location / / Volume Laterality 04/07/2015 10:30 AM EDT Wilner Chamberlain MD GENERAL SURGICAL ORDERABLES Performing Organization Address City/State/ZIP Code Phon e Number [employer] documented in this encounter Visit Diagnoses Not on filedocumented in this encounter Active and Recently Administered Medications Times are shown in EDT. PRN Medication Order 04/05/2015 04/06/2015 04/07/2015 benzocaine (TOPEX) 20 % oral spray (CANCELED) 1057 (Given - Provider: Aman Schilling, CROW) ONCE PRN, Starting 04/07/15 at 1057, Intra-Operative (Intra-P rocedure) fentaNYL 50 mcg/mL multi-dose injection (CANCELED) 1056 (Given - Provider: Aman Schilling RN)1059 (Given - Provider: Aman Schilling, RN) ONCE PRN, Starting 04/07/15 at 1056, Until 04/07/15 at 1136, Intra- Operative (Intra-Procedure), Routine midazolam (PF) (VERSED) 1 mg/mL multi-dose injection (CANCELED) 1057 (Given - Provider: Aman Schilling, CROW)1059 (Given - Provider: Aman Schilling, RN) ONCE PRN, Starting 04/07/15 at 1057, Until 04/07/15 at 1136, Intra- Operative (Intra-Procedure), Routine documented in this encounter Care Teams Store Sales Manager Relationship Specialty Start Date End Date Wilner Chamberlain MD PCP - General 08/17/10 01/10/[address] [place] [address] documented as of this encounter
--- OUTSIDE RECORDS SUMMARY | 2022-03-18 09:50 | XMS_ITS | Encounter Summary ---
:1940 Author Organization [facility] [address] Care Team Providers Name Role Phone Wilner Chamberlain MD Primary Care Provider Encounter Details Date Type Department Care Team Description 04/07/2015 Surgery [place] [facility] Elroy Dowling, EGD WITH BIOPSY ([facility] Abdoulaye hernandez MD [address]) [place] [address] [facility] [phone] GASTROENTEROLOGY DEPT. [place], [place] [address] Social History Tobacco Use Types [...] WHEN SHOULD YOU CALL FOR HELP? Call [phone] anytime you think that you need emergency [...] not get better as expected. Monday-Monday Clinic [phone] 8a-5p Same Day Endo [phone] 7a-8p Otherwise contact [phone] and ask to speak to the aluminum boat assembly supervisor conciliation court judge Follow-up care is a moses part of [...] Component Value Ref Test Analysis Performed At [facility] gist Range Method Time Signature Surgical [facility] Pathology ? [facility] Report ? Provider: ?? ELROY DOWLING ?? Pt. Name: ?? JACQUELINE VANNESSA Haney ? Acc #: ?[id number] ?Pt. MRN: ?[id number] ? Col Date: ?? 5 ? /Sex: [...] MD PATHOLOGY/CYTOLOGY ORDERABLE S Performing Organization Address City/State/[place] [address] CERNER MILLENNIUM Specimen to [...] MD PATHOLOGY/CYTOLOGY ORDERABLE S Performing Organization Address City/State/[place] [address] CERNER MILLENNIUM UPPER GI ENDOSCOPY (04/07/2015 10:30 AM EDT) [facility] gist Method Time Signature UPPER GI [facility] ENDOSCOPY Endoscopy Patient Name: Vannessa Yadav ? Procedure Date: 04/07/2015 10:30 AM ? N: [id number] ? Date of : 1940 ? Age: 75 ? Order #: [id number] ? Procedure: ? Upper GI endoscopy Indications: ? Follow-up of celiac disease Providers: ? Melinda Morris , ? RN, , Sea Hargrove MD: ?Wilner Chamberlain MD, Kisha Rawls ? Marychuy, REPAIR TECH Medicines: ? Midazolam 3 mg IV, Fentanyl [...] [employer]ATION documented in this encounter Visit Diagnoses Diagnosis Celiac disease documented in this encounter Administered Medications Inactive Administered Medications - up to 3 most recent administrations Medication Order MAR Action Action Date Dose Rate Site benzocaine (TOPEX) 20 % oral Given 04/07/2015 10:57 AM EDT 1 eac h spray ONCE PRN, Starting on Mon04/07/15 at 1057, Until Mon04/07/15 at 1136, Intra-Operative (Intra-Procedure) fentaNYL 50 mcg/mL multi-dose injection Given 04/07/2015 10:59 AM EDT 75 mcg ONCE PRN, Starting on Mon04/07/15 at 1056, Until Mon04/07/15 at 1136, Intra-Operative (Intra-Procedure), Routine Given 04/07/2015 10:56 AM EDT 75 mcg midazolam (PF) (VERSED) 1 mg/mL multi-dose Given 04/07/2015 10:59 AM EDT 1.5 mg injection ONCE PRN, Starting on Mon04/07/15 at 1057, Until Mon04/07/15 at 1136, Intra-Operative (Intra-Procedure), Routine Given 04/07/2015 10:57 AM EDT 1.5 mg documented in this encounter Active and Recently Administered Medications Times are shown in EDT. PRN Medication Order 04/05/2015 04/06/2015 04/07/2015 benzocaine (TOPEX) 20 % oral spray (CANCELED) 1057 (Given - Provider: Aman Schilling RN) ONCE PRN, Starting Mon04/07/15 at 1057, Intra-Operative (Intra-P rocedure) fentaNYL 50 mcg/mL multi-dose injection (CANCELED) 1056 (Given - Provider: Aman Schilling RN)1059 (Given - Provider: Aman Schilling RN) ONCE PRN, Starting Mon04/07/15 at 1056, Until Mon04/07/15 at 1136, Intra- Operative (Intra-Procedure), Routine midazolam (PF) (VERSED) 1 mg/mL multi-dose injection (CANCELED) 1057 (Given - Provider: Aman Schilling, RN)1059 (Given - Provider: Aman Schilling, RN) ONCE PRN, Starting 04/07/15 at 1057, Until 04/07/15 at 1136, Intra- Operative (Intra-Procedure), Routine documented in this encounter Care Teams Calculus Tutor Relationship Specialty Start Date End Date Wilner Chamberlain MD PCP - General 08/17/10 01/10/[address] [place] [address] documented as of this encounter
--- OUTSIDE RECORDS SUMMARY | 2022-03-18 09:50 | XMS_ITS | Encounter Summary ---
:1940 Author Organization [facility] [place] [address] Care Team Providers Name Role Phone Wilner Chamberlain MD Primary Care Provider [phone] Reason for Visit Reason Onset Date Comments Medication Refill 07/04/2013 Encounter Details Date Type Department Care Team Description 07/04/2013 Refill [place] [facility] Aundrea Wren MD [facility] [place] [address] RHEUMATOLOGY [phone] [place], [place] [address] Social History Tobacco Use Types Packs/Day Years Used Date Never Smoker Sex Assigned at Date Recorded Not on file documented as of this encounter Plan of Treatment Not on filedocumented as of this encounter Visit Diagnoses Not on filedocumented in this encounter Care Teams Shrink Pit Operator Relationship Specialty Start Date End Date Wilner Chamberlain MD PCP - General 08/17/10 01/10/18 [address] [place] [address] documented as of this encounter
--- OUTSIDE RECORDS SUMMARY | 2022-03-18 09:50 | XMS_ITS | Encounter Summary ---
:1940 Author Organization [facility] [place] [address] Care Team Providers Name Role Phone Wilner Chamberlain MD Primary Care Provider [phone] Reason for Visit Reason Comments Follow-up Encounter Details Date Type Department Care Team Description 01/07/2015 [place] [facility]isha Perrin, Celiac disease; [facility] Abdoulaye hernandez APRN Rheumatoid arthritis of multiple sites [facility] rheumatoid factor; [place] [address] [facility] Bone pain [phone] [place], [place] [address] Social History Tobacco Use Types Packs/Day Years Used Date Never Smoker Smokeless Tobacco: Never Used Alcohol Use Standard Drinks/Week Comments No 0 (1 standard drink = 0.6 oz pure alcoho l) Sex Assigned at Date Recorded Not on file documented as of this encounter Last Filed Vital Signs Vital Sign Reading Time Taken Comments Blood Pressure 110/42 01/07/2015 12:07 PM EDT Pulse 62 01/07/2015 12:07 PM EDT Temperature - - Respiratory Rate - - Oxygen Saturation - - Inhaled Oxygen Concentration - - Weight 104.6 kg (230 lb 9.6 oz) 01/07/2015 12:07 PM EDT Height 175.3 cm (5' 9) 01/07/2015 12:07 PM EDT Body Mass Index 34.05 01/07/2015 12:07 PM EDT documented in this encounter Patient Instructions Patient InstructionsMoreKisha esteban APRN - 01/07/2015 12:46 PM EDT 1. Lab work today and will call if results are abnormal 2. Continue with gluten free diet 3. Continue to iron supplement every day 4. Upper endoscopy with biopsies 5. Follow up 1 year Kisha Perrin APRN [phone] documented in this encounter Progress Notes Kisha Perrin APRN - 01/07/2015 12:08 PM EDT Subjective: Patient ID: Jose Yadav is a 74 y.o. man who presents for follow up of his gastrointestinal symptoms. GI Problem List: 1. Celiac disease: --EGD 04/02/2014: normal esophagus; normal stomach and abnormal appearing duodenal mucosa with nonspecific pattern. Bx: Duodenal mucosa with partial villous blunting and increased intraepithelial lymphocytes --TTg IgA Ab 03/21/14: 52.2 2. Abdominal pain: --Mesenteric duplex 12/06/2013: limited d/t excessive bowel gas and body habitus. SMV appears generous or distended at 1.3 cm. The portal vein measures 1.9 cm proximally. --US abdomen 11/11/2013: no evidence of liver or gallbladder abnormality or biliary dilatation. --CT A/P 10/02/2013: no bowel abnormality and exam unremarkable aside of small R renal cyst --KUB 09/21/2013: mild small bowel dilatation and a moderate amount of fecal material and gas in thecolon without colonic distention. Multiple loops of small bowel are noted which appear to have a nodular thickened wall in the mid abdomen and left side of the abdomen. --Colonoscopy 05/16/2013: multiple polyps otherwise entire colon was normal. Transverse polyp~tubularadenoma; transverse distal polyp~tubular adenoma; descending polyp~serrated adenoma. HPI Comments: He feels really good and continues to do well. He adheres to gluten free diet and finds it much easier to follow. He reports that gas and bloating remain improved. Denies abdominal pain or cramping. He reports having a formed bowel movement every day. Takes Amitiza 24 mcg BID. Denies melena, hmatochezia, rectal or anal pain. No straining or incomplete evacuation of stool. No nocturnal symptoms. No rashes or new joint pain. Appetite good. Weight stable. Denies heartburn, regurgitation, acid taste, chest pain, ENT concerns, indigestion, dysphagia, odynophagia, nausea, vomiting, early satiety, postprandial fullness, pre or post prandial symptoms, abdominal pain or cramping. Review of Systems Constitutional: Negative. HENT: Negative. Respiratory: Negative. Cardiovascular: Negative. Gastrointestinal: See HPI Endocrine: Negative. Skin: Negative. Allergic/Immunologic: Negative. Neurological: Negative. Hematological: Negative. Psychiatric/Behavioral: Negative. Allergies Allergen Reactions ??? Metolazone CIS - kidney failure, CIS - kidney failure ??? Methotrexate Current Outpatient Prescriptions on File Prior to Visit Medication Sig Dispense Refill ??? Etanercept (ENBREL SURECLICK) 50 mg/mL (0.98 mL) Pen Injector Inject 50 mg subcutaneously once aweek. 4 Syringe 3 ??? lubiprostone (AMITIZA) 24 mcg capsule Take 1 capsule by mouth 2 times daily (with meals). 60 capsule 12 ??? dicyclomine (BENTYL) 10 mg capsule Take 1 capsule by mouth 2 times daily as needed. 90 capsule 6 ??? hydroxychloroquine (PLAQUENIL) 200 mg tablet Take 200 mg by mouth 2 times daily. ??? DOCOSAHEXANOIC ACID/EPA (FISH OIL ORAL) Take 1,200 mg by mouth daily. ??? atorvastatin (LIPITOR) 40 mg tablet Take 40 mg by mouth daily. ??? aspirin 81 mg tablet Take 81 mg by mouth daily. ??? FERROUS FUMARATE (IRON ORAL) Take 325 mg by mouth every other day. ??? Cholecalciferol, Vitamin D3, (VITAMIN D-3) 2,000 unit Cap Take by mouth. ??? metoprolol succinate (TOPROL XL) 100 mg XL tablet ??? lisinopril (PRINIVIL) 20 mg tablet ??? furosemide (LASIX) 40 mg tablet 20mg, PO, Twice daily ??? nitroGLYcerin (NITROSTAT) 0.4 mg SL tablet ??? folic acid (FOLVITE) 1 mg tablet ??? ascorbic acid (VITAMIN C) 1,000 mg tablet ??? b complex vitamins tablet ??? doxazosin (CARDURA) 2 mg tablet ??? potassium chloride SA (K-DUR;KLOR-CON) 20 mEq tablet 20meq, PO, Once daily ??? ZINC SULFATE (ZINC-220 ORAL) No current facility-administered medications on file prior to visit. Past Medical History Diagnosis Date ??? CAD (coronary artery disease) ??? Dysmetabolic syndrome ??? Sleep apnea uses CPAP ??? Rheumatoid arthritis ??? H/O prostate cancer Treated with RT and s/p prostatectomy. ??? Celiac disease Past Surgical History Procedure Laterality Date ??? Coronary artery bypass graft ??? Prostatectomy ??? Total hip arthroplasty Right ??? Wrist fusion Right ??? Upper gi endoscopy, biopsy 04/02/2014 UPPER GASTROINTESTINAL ENDOSCOPY,WITH BIOPSY SINGLE OR MULTIPLE performed by Maldonado Dowling MD at [facility] ENDOSCOPY Vital Signs: BP 10/42; P 62; Wt 230 lbs 9.6 oz; Ht 5'9 Objective: Physical Exam Constitutional: He is oriented to person, place, and time. He appears well- developed and well-nourished. No distress. Eyes: Pupils are equal, round, and reactive to light. Right eye exhibits no discharge. Left eye exhibits no discharge. No scleral icterus. Cardiovascular: Normal rate, regular rhythm and intact distal pulses. Exam reveals no gallop and no friction rub. Murmur (Systolic murmur 3/6.) heard. Pulmonary/Chest: Effort normal and breath sounds normal. No respiratory distress. He has no wheezes.He has no rales. He exhibits no tenderness. Abdominal: Soft. Bowel sounds are normal. He exhibits no distension and no mass. There is no tenderness. There is no rebound and no guarding. No hepatosplenomegaly. No succussion splash. No epigastric bruit. Neurological: He is alert and oriented to person, place, and time. No cranial nerve deficit. Skin: Skin is warm and dry. No rash noted. He is not diaphoretic. No erythema. No pallor. Psychiatric: He has a normal mood and affect. His behavior is normal. Judgment and thought content normal. Vitals reviewed. Assessment and Plan: 1. Celiac disease: continues to feel much better and adhering to gluten free diet. Discussed repeating the EGD with biopsies for celiac surveillance. Will obtain lab work today including TTg IgA Ab. Recommend Dexa scan and he will discuss with Dr Chamberlain about the Dexa done closer to home. I did my best to answer all of her questions. The following plan was formulated. Plan: 1. Lab work today: CBC, ferritin, iron, TIBC, TTg IgA Ab, B12, folate and will call if results are abnormal 2. Gluten free diet 3. Ferrous fumarate 325 mg qod 4. Upper endoscopy with biopsies 5. Amitiza 24 mcg BID 6. Follow up with PCP re: Dexa scan to evaluate for osteoporosis 7. Follow up 12 months Patient understands and is agreeable to the above plan. Written instructions provided. Kisha Perrin APRN Section of Gastroenterology and Hepatology [place] [phone] documented in this encounter Plan of Treatment Scheduled Orders Name Type Priority Associated Diagnoses Order S chedule Tissue Lab Routine Celiac disease Expected: , transglutaminase, IgA s: 01/08/2016 UPPER GI ENDOSCOPY Procedures Routine Celiac disease Ordered : 01/07/2015 documented as of this encounter Procedures Procedure Name Priority Date/Time Associated Diagnosis Comme nts HEMOGRAM Routine 01/07/2015 1:07 PM Celiac disease Results for this EDT procedure are i n the results section. DIFFERENTIAL, Routine 01/07/2015 1:07 PM Celiac disease Result s for this AUTOMATED EDT procedure are i n the results section. IRON AND TIBC Routine 01/07/2015 1:07 PM Celiac disease Result s for this EDT procedure are i n the results section. TISSUE Routine 01/07/2015 1:07 PM Celiac disease Results for this TRANSGLUTAMINASE, EDT procedure are in IGA the results section. VITAMIN D, Routine 01/07/2015 1:07 PM Celiac diseas e Results for this 25-HYDROXY EDT Rheumatoid arthritis procedu re are in of multiple sites the result s without rheumatoid section. factor Bone pain CBC (WITH DIFF) Routine 01/07/2015 1:07 PM Celiac disease EDT IGA Routine 01/07/2015 1:07 PM Celiac disease Results for this EDT procedure are i n the results section. FOLATE, SERUM Routine 01/07/2015 1:07 PM Celiac disease Result s for this EDT procedure are i n the results section. FERRITIN Routine 01/07/2015 1:07 PM Celiac disease Results for this EDT procedure are i n the results section. VITAMIN B12 Routine 01/07/2015 1:07 PM Celiac disease Results for this EDT procedure are i n the results section. documented in this encounter Results (ABNORMAL) Differential, Automated (01/07/2015 1:07 PM EDT) [facility] gist Method Time Signature Neutrophils % 58.8 % CERNER MILLENNIUM Neutr Abs (ANC) 4.72 1.50 - CERNER 6.30 MILLENNIUM x10(3)/mcL Lymphocytes % 24.3 % CERNER MILLENNIUM Lymphocytes Abs 2.0 1.0 - 3.6 CERNER x10(3)/mcL MILLENNIUM Monocytes % 14.6 % CERNER MILLENNIUM Monocyte Abs 1.2 (H) 0.2 - 1.0 CERNER x10(3)/mcL MILLENNIUM Eosinophils % 2.1 % CERNER MILLENNIUM Eosinophils Abs 0.2 0.0 - 0.5 CERNER x10(3)/mcL MILLENNIUM Basophils % 0.1 % CERNER MILLENNIUM Basophils Abs 0.0 0.0 - 0.2 CERNER x10(3)/mcL MILLENNIUM Immature Gran % 0.10 % CERNER MILLENNIUM Comment: Immature granulocytes(IG's)percentage an d absolute count will include metamyelocytes, myelocytes, and promyelo cytes. Blood smears from CBCs yielding IG's will be scanned manually for concchacha daniram. If this scan disagrees with the automated IG or if promyelocytes are not ed, a manual differential will be performed. [place] Gran Abs 0.01 0.00 - 0.05 x10(3)/mcL CER NER MILLENNIUM Specimen Anatomical Collection Method Collection Time Receive d Time (Source) Location / / Volume Laterality Blood specimen 01/07/2015 1:07 PM 015 1:20 (specimen) EDT PM EDT Resulting Agency Comment Spec In Lab Stuart Morgan MD HEMATOLOGY ORDERABLES Performing Organization Address City/State/[place] [address] CERNER MILLENNIUM (ABNORMAL) Hemogram (01/07/2015 1:07 PM EDT) athologist Signature WBC 8.0 4.0 - 10.0 CERNER x10(3)/mcL MILLENNIUM RBC 4.23 (L) 4.63 - CERNER 6.08 MILLENNIUM x10(6)/mcL Hemoglobin 13.3 (L) 13.7 - CERNER 17.5 gm/dL MILLENNIUM Hematocrit 40.0 40.0 - CERNER 51.0 % MILLENNIUM MCV 94.6 (H) 79.0 - CERNER 92.0 fL MILLENNIUM MCH 31.4 25.6 - CERNER 32.2 pg MILLENNIUM MCHC 33.3 32.0 - CERNER 36.5 gm/dL MILLENNIUM Platelets 131 (L) 145 - 370 CERNER x10(3)/mcL MILLENNIUM RDWSD 42.7 35.0 - CERNER 46.0 fL MILLENNIUM RDWCV 12.5 10.9 - CERNER 14.4 % MILLENNIUM MPV 9.8 9.0 - 12.0 CERNER fL MILLENNIUM Specimen Anatomical Collection Method Collection Time Receive d Time (Source) Location / / Volume Laterality Blood specimen 01/07/2015 1:07 PM 015 1:20 (specimen) EDT PM EDT Resulting Agency Comment Spec In Lab Stuart Morgan MD HEMATOLOGY ORDERABLES Performing Organization Address City/State/ZIP Code Phon e Number [address] [facility] Tissue transglutaminase, IgA (01/07/2015 1:07 PM EDT) athologist Signature TTG IgA Ab <4.0 <=3.9 u/ml [facility] Comment: Result Interpretation: Negative: ?<4 U/mL Weak Positive: ??4-10 U/mL Positive: ?>10 U/mL Specimen Anatomical Collection Method Collection Time Receive d Time (Source) Location / / Volume Laterality Blood specimen 01/07/2015 1:07 PM 015 8:08 (specimen) EDT AM EDT Resulting Agency Comment Spec In Lab Stuart Morgan MD IMMUNOLOGY ORDERABLES Performing Organization Address City/[facility]/ZIP Code Phon e Number [address] CERNER MILLENNIUM Folate, serum (01/07/2015 1:07 PM EDT) athologist Signature Folate Lvl >20.0 4.6 - 34.8 CERNER ng/mL MILLENNIUM Specimen Anatomical Collection Method Collection Time Receive d Time (Source) Location / / Volume Laterality Blood specimen 01/07/2015 1:07 PM 015 1:20 (specimen) EDT PM EDT Resulting Agency Comment Spec In Lab Sturat Morgan MD CHEMISTRY ORDERABLES Performing Organization Address City/[facility]/ZIP Code Phon e Number [address] CERNER MILLENNIUM (ABNORMAL) Vitamin B12 (01/07/2015 1:07 PM EDT) Analysis Performed At Patho logist Time Signature Vitamin B-12 1,083 (H) 207 - 974 CERNER pg/mL MILLENNIUM Specimen Anatomical Collection Method Collection Time Receive d Time (Source) Location / / Volume Laterality Blood specimen 01/07/2015 1:07 PM 015 1:20 (specimen) EDT PM EDT Resulting Agency Comment Spec In Lab Stuart Morgan MD CHEMISTRY ORDERABLES Performing Organization Address City/[facility]/[place] [address] CERNER MILLENNIUM VIT D Total Evaluation (01/07/2015 1:07 PM EDT) P athologist Signature 25-OH Vit D 47 30 - 100 CERNER Total ng/mL MILLENNIUM Comment: Deficient <10 ng/mL Insufficient 10 to 29 ng/mL Sufficient 30 to 100 ng/mL Potential Intoxication >100 ng/mL According to the [place] National Osteoporosi s Foundation, Vitamin D concentrations >30 ng/mL are sufficient to protect bone health. ??The National Kidney Foundation has similarly stated that pat ients with Vitamin D concentrations <30ng/mL should be considered to be insu fficient or deficient. http://[employer]/[facility] – TULSAnatlkidneyfoundat ion http://[employer]/[facility] – TULSAVitD The [employer] Vitamin D Immunoassay detec ts both 25-OH Vitamin D2 and 25-OH Vitamin D3, but only a total Vitamin D c oncentration is reported. Specimen Anatomical Collection Method Collection Time Receive d Time (Source) Location / / Volume Laterality Blood specimen 01/07/2015 1:07 PM 015 1:20 (specimen) EDT PM EDT Resulting Agency Comment Spec In Lab Stuart Morgan MD CHEMISTRY ORDERABLES Performing Organization Address City/[facility]/ZIP [facility] Phon e [address] CERNER MILLENNIUM (ABNORMAL) Iron and TIBC (01/07/2015 1:07 PM EDT) Analysis Performed At Patho logist Time Signature Iron 86 45 - 160 CERNER mcg/dL MILLENNIUM TIBC 245 (L) 250 - 450 CERNER mcg/dL MILLENNIUM Iron Saturation 35 20 - 50 % CERNER MILLENNIUM Specimen Anatomical Collection Method Collection Time Receive d Time (Source) Location / / Volume Laterality Blood specimen 01/07/2015 1:07 PM 015 1:20 (specimen) EDT PM EDT Resulting Agency Comment Spec In Lab Stuart Morgan MD CHEMISTRY ORDERABLES Performing Organization Address [facility] Phon e Number [address] CERNER MILLENNIUM Ferritin (01/07/2015 1:07 PM EDT) P athologist Signature Ferritin 152 30 - 400 CERNER ng/mL MILLENNIUM Comment: Pediatric reference ranges not verified at [facility] interpret with caution. Reference ranges for females greater mary n 50 years of age approach values for men, i.e., 30-400 ng/mL. Specimen Anatomical Collection Method Collection Time Receive d Time (Source) Location / / Volume Laterality Blood specimen 01/07/2015 1:07 PM 015 1:20 (specimen) EDT PM EDT Resulting Agency Comment Spec In Lab Stuart Morgan MD CHEMISTRY ORDERABLES Performing Organization Address City/State/[place] [address] CERNER MILLENNIUM IgA (01/07/2015 1:07 PM EDT) P athologist Signature IgA 180 70 - 400 CERNER mg/dL MILLENNIUM Specimen Anatomical Collection Method Collection Time Receive d Time (Source) Location / / Volume Laterality Blood specimen 01/07/2015 1:07 PM 015 1:20 (specimen) EDT PM EDT Resulting Agency Comment Spec In Lab Stuart Morgan MD IMMUNOLOGY ORDERABLES Performing Organization Address City/[facility]/ZIP Code Phon e Number [address] CERNER MILLENNIUM documented in this encounter Visit Diagnoses Diagnosis Celiac disease Rheumatoid arthritis of multiple sites w ithout rheumatoid factor Rheumatoid arthritis Bone pain Disorder of bone and cartilage, unspecif ied documented in this encounter Care Teams Check Embosser Relationship Specialty Start Date End Date Wilner Chamberlain MD PCP - General 08/17/10 01/10/[address] [place] [address] documented as of this encounter
--- OUTSIDE RECORDS SUMMARY | 2022-03-18 09:50 | XMS_ITS | Encounter Summary ---
:1940 Author Organization [place] [address] Care Team Providers Name Role Phone Wilner Chamberlain MD Primary Care Provider [phone] Encounter Details Date Type Department Care Team Description 04/24/2014 Office [place] [facility]in Miles Celiac disease [facility] JENNIFER Christiansen (Primary Dx) [place] [address] [facility] [phone] [place] [address] Social History Tobacco Use Types Packs/Day Years Used Date Never Smoker Smokeless Tobacco: Never Used Alcohol Use Standard Drinks/Week Comments No 0 (1 standard drink = 0.6 oz pure alcoho l) Sex Assigned at Date Recorded Not on file documented as of this encounter Last Filed Vital Signs Vital Sign Reading Time Taken Comments Blood Pressure - - Pulse - - Temperature - - Respiratory Rate - - Oxygen Saturation - - Inhaled Oxygen Concentration - - Weight 132.4 kg (291 lb 12.8 oz) 04/24/2014 12:35 PM EDT Height 175.3 cm (5' 9) 04/24/2014 12:35 PM EDT Body Mass Index 43.09 04/24/2014 12:35 PM EDT documented in this encounter Progress Notes Toyin Miles LD - 04/24/2014 12:48 PM EDT GI Nutrition-Initial Visit Patient Active Problem List Diagnosis Code ??? 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 CIS - rheumatoid arthritis T999.0 ??? Rheumatoid arthritis 714.0 ??? Osteoarthritis 715.90 ??? Abdominal pain 789.00 ??? Celiac disease 579.0 Past Medical History Diagnosis Date ??? CAD (coronary artery disease) ??? Dysmetabolic syndrome ??? Sleep apnea uses CPAP ??? Rheumatoid arthritis ??? H/O prostate cancer Treated with RT and s/p prostatectomy. ??? Celiac disease Results for VANNESSA YADAV ( ) as of 04/24/2014 12:37 Ref. Range 03/21/2014 12:43 TTG IgA Ab Latest Range: <=3.9 u/ml 52.2 (H) magnesium citrate Soln solution; lubiprostone (AMITIZA) 24 mcg capsule; dicyclomine (BENTYL) 10 mg capsule; hydroxychloroquine (PLAQUENIL) 200 mg tablet; Etanercept (ENBREL SURECLICK) 50 mg/mL (0.98 mL) PnIj; DOCOSAHEXANOIC ACID/EPA (FISH OIL ORAL); atorvastatin (LIPITOR) 40 mg tablet; aspirin 81 mg ta blet; FERROUS FUMARATE (IRON ORAL); Cholecalciferol, Vitamin D3, (VITAMIN D-3) 2,000 unit Cap metoprolol succinate (TOPROL XL) 100 mg XL tablet; lisinopril (PRINIVIL) 20 mg tablet; furosemide (LASIX) 40 mg tablet; nitroGLYcerin (NITROSTAT) 0.4 mg SL tablet; folic acid (FOLVITE) 1 mg tablet; ascorbic acid (VITAMIN C) 1,000 mg tablet; b complex vitamins tablet; ZINC SULFATE (ZINC-220 ORAL); doxazosin (CARDURA) 2 mg tablet; potassium chloride SA (K-DUR;KLOR-CON) 20 mEq tablet Weight history: Vitals 04/08/2014 Height (Ukrainian) 5' 9 Height (Metric) 175.3 cm Weight (Ukrainian) 226 lbs Weight (Metric) 102.513 kg BODY MASS INDEX 33.36 kg/m2 Supplements:2 capsules of miralax/day, 4000IU vit D, Vit B complex, Vit C- 1,000IU/day, Fish oil Typical day of eating:Breakfast is cereal-granola with lactaid milk, peaches, sandwich with gluten free bread bologna. May also have a salad with gluten free salad dressing. Great vegetable eater per his . Dinner is meat, potato, vegetable. A/P: Vannessa comes today with his and daughterfor gluten free diet education for newly diagnosedCeliac Disease in February of this year. Today we discussed the following, and I also provided the patient with printed materials: -Defined Celiac Disease and nutrition related complications with non-compliance to a totally gluten free diet. -Outlined gluten containing foods including ingredients, meds, and cross- contamination issues - Necessary vitamin supplementation to include calcium and a daily multivitamin. I aksed him to stoptaking the zinc-not necessary -High protein, satisfying gluten free meals and snacks. -Choices when dining out -Various online resources for gluten free eating. -Vit D on next lab draw and possibly TTG The patient asked excellent questions and will follow up with me prn. I gave him my contact info. documented in this encounter Plan of Treatment Not on filedocumented as of this encounter Visit Diagnoses Diagnosis Celiac disease - Primary documented in this encounter Care Teams Functional Skills Tutor Relationship Specialty Start Date End Date Wilner Chamberlain MD PCP - General 08/17/10 01/10/[address] [place] [address] documented as of this encounter
--- OUTSIDE RECORDS SUMMARY | 2022-03-18 09:50 | XMS_ITS | Encounter Summary ---
:1940 Author Organization [facility] [place] [address] Care Team Providers Name Role Phone Wilner Chamberlain MD Primary Care Provider [phone] Reason for Visit Reason Onset Date Comments Medication Refill 01/09/2012 Encounter Details Date Type Department Care Team Description 01/09/2012 Refill Rheumatology at [facility] Santo Franklin MD [facility] [place] [address] RHEUMATOLOGY DEPT. [phone] [place], [place] [address] (Wo rk) Social History Tobacco Use Types Packs/Day Years Used Date Never Smoker Sex Assigned at Date Recorded Not on file documented as of this encounter Plan of Treatment Not on filedocumented as of this encounter Visit Diagnoses Not on filedocumented in this encounter Care Teams Grab Setter Relationship Specialty Start Date End Date Wilner Chamberlain MD PCP - General 08/17/10 01/10/18 [address] [place] [address] documented as of this encounter
--- OUTSIDE RECORDS SUMMARY | 2022-03-18 09:50 | XMS_ITS | Encounter Summary ---
:1940 Author Organization [facility] Address [facility] [place] [address] Care Team Providers Name Role Phone Wilner Chamberlain MD Primary Care Provider [phone] Encounter Details Date Type Department Care Team Description 07/11/2014 Orders Only Gastroenterology at [facility] Kisha Perrin, Celiac disease [facility] Abdoulaye hernandez APRN (Primary Dx) [place] [address] [facility] [phone] [place] [address] Social History Tobacco Use Types Packs/Day Years Used Date Never Smoker Smokeless Tobacco: Never Used Alcohol Use Standard Drinks/Week Comments No 0 (1 standard drink = 0.6 oz pure alcoho l) Sex Assigned at Date Recorded Not on file documented as of this encounter Plan of Treatment Not on filedocumented as of this encounter Results Tissue transglutaminase, IgA (01/07/2015 1:07 PM EDT) athologist Signature TTG IgA Ab <4.0 <=3.9 u/ml [facility] Comment: Result Interpretation: Negative: ?<4 U/mL Weak Positive: ??4-10 U/mL Positive: ?>10 U/mL Specimen Anatomical Collection Method Collection Time Receive d Time (Source) Location / / Volume Laterality Blood specimen 01/07/2015 1:07 PM 015 8:08 (specimen) EDT AM EDT Resulting Agency Comment Spec In Lab Stuart Morgan MD IMMUNOLOGY ORDERABLES Performing Organization Address City/State/ZIP Code Phon e Number [address] LABORATORY [facility] documented in this encounter Visit Diagnoses Diagnosis Celiac disease - Primary documented in this encounter Care Teams Radiographer Cardiac Catheterization Relationship Specialty Start Date End Date Wilner Chamberlain MD PCP - General 08/17/10 01/10/[address] [place] [address] documented as of this encounter
--- OUTSIDE RECORDS SUMMARY | 2022-03-18 09:50 | XMS_ITS | Encounter Summary ---
:1940 Author Organization [facility] [place] [address] Care Team Providers Name Role Phone Wilner Chamberlain MD Primary Care Provider [phone] Encounter Details Date Type Department Care Team Description 04/07/2014 Telephone Gastroenterology at [facility] [place] [address] Social History Tobacco Use Types Packs/Day Years Used Date Never Smoker Smokeless Tobacco: Never Used Alcohol Use Standard Drinks/Week Comments No 0 (1 standard drink = 0.6 oz pure alcoho l) Sex Assigned at Date Recorded Not on file documented as of this encounter Miscellaneous Notes Telephone Encounter - Millicent Guido - 04/07/2014 11:44 AM EDT Patient calling in to get results of testing and ask questions. documented in this encounter Plan of Treatment Not on filedocumented as of this encounter Visit Diagnoses Not on filedocumented in this encounter Care Teams Sewage Screen Operator Relationship Specialty Start Date End Date Wilner Chamberlain MD PCP - General 08/17/10 01/10/18 [address] [place] [address] documented as of this encounter
--- OUTSIDE RECORDS SUMMARY | 2022-03-18 09:50 | XMS_ITS | Encounter Summary ---
:1940 [place] [address] Care Team Providers Name Role Phone Wilner Chamberlain MD Primary Care Provider [phone] Encounter Details Date Type Department Care Team Description 03/21/2014 Telephone Gastroenterology at [facility] Kisha Perrin APRN [facility] [place] [address] [place] [id number] [phone] (Wo rk) Social History Tobacco Use Types Packs/Day Years Used Date Never Smoker Smokeless Tobacco: Never Used Sex Assigned at Date Recorded Not on file documented as of this encounter Miscellaneous Notes Telephone Encounter - Kisha Perrin APRN - 03/21/2014 8:31 PM EDT Contacted Mr Yadav regarding his KUB~no obstruction but gas and moderate amount of stool noted. Recommend MiraLax 17 grams qhs and can take a dose of MOM tomorrow and repeat Monday as needed. Instructed them to call with an update around Monday or Monday. documented in this encounter Plan of Treatment Not on filedocumented as of this encounter Visit Diagnoses Diagnosis Constipation - Primary Unspecified constipation documented in this encounter Care Teams Job Recruiter Relationship Specialty Start Date End Date Wilner Chamberlain MD PCP - General 08/17/10 01/10/[address] [place] [address] documented as of this encounter
--- OUTSIDE RECORDS SUMMARY | 2022-03-18 09:50 | XMS_ITS | Encounter Summary ---
:1940 Author Organization [facility] [place] [address] Care Team Providers Name Role Phone Wilner Chamberlain MD Primary Care Provider [phone] Reason for Visit Reason Comments GI Problem Encounter Details Date Type Department Care Team Description 03/21/2014 Office Visit Gastroenterology at [facility] Kisha Perrin, Abdominal pain (Primary Dx); [facility] [place] [address] [facility] [phone] [place] [address] Social History Tobacco Use Types Packs/Day Years Used Date Never Smoker Smokeless Tobacco: Never Used Sex Assigned at Date Recorded Not on file documented as of this encounter Last Filed Vital Signs Vital Sign Reading Time Taken Comments Blood Pressure 120/68 03/21/2014 10:53 AM EDT Pulse 58 03/21/2014 10:53 AM EDT Temperature - - Respiratory Rate - - Oxygen Saturation - - Inhaled Oxygen Concentration - - Weight 106.1 kg (234 lb) 03/21/2014 10:53 AM EDT Height 175.3 cm (5' 9) 03/21/2014 10:53 AM EDT Body Mass Index 34.56 03/21/2014 10:53 AM EDT documented in this encounter Patient Instructions Patient InstructionsKisha Perrin, HANNAH - 03/21/2014 11:52 AM EDT 1. MR enterography to evaluate the function of your small bowel 2. Bentyl 10 mg every 12 hours as needed 3. Lab work today and will call if results are abnormal 4. Abdominal x-ray and will later today 5. FODMAP diet and copy provided 6. Continue taking probiotic daily and may take up to 12 weeks before improvement noted 7. Continue to take Phazyme, Beano or Gas-X as needed 8. Recommend eating smaller more frequent 4-5 meals 9. Follow up 2 months Kisha Perrin CLINICAL STAFF RN [phone] documented in this encounter Progress Notes Kisha Perrin APRN - 03/21/2014 10:29 AM EDT Subjective: Patient ID: Jose Yadav is a 74 y.o. man who presents for further evaluation of hisgastrointestinal symptoms at the request of Dr. Chamberlain. HPI Comments: Mr Yadav is a pleasant 74 year old man who presents for consultation of his abdominal pain. He is accompanied by his , Mrs Yadav. He reports that symptoms began this past August 2013. He reports no GI illness, fevers, chills or night sweats. No recent antibiotics, foreign travel, sick contacts or new medications. He reports that abdominal pain began abruptly but no associated with nausea, vomiting or change in bowel habits. nocorrelation with eating or movement. The abdominal pain is located in mid abdomen. The pain occurs intermittently and is not daily. Describes the pain as a stabbing pain. States that the pain is unpredictable and can wake him up at night. Denies gas, bloating or distention. Notes no improvement after defecation, passing flatus or belching. The pain does not double him over. He reports having a bowel movement 2-3 formed bowel movements per day. No diarrhea or constipation. No blood in stool, rectal bleeding, rectal or anal pain. He denies heartburn, regurgitation, acid taste, chest pain, dysphagia, odynophagia or ENT concerns. He reports presenting to local ER on09/21/2013 for evaluation of abdominal pain. Lab work: CBC wnl; urinalysis normal; CMP wnl except for calcium 8.3, glucose 138, Tb 1.06, albumin 3.3. Heme positive stool. KUB: showed mild small bowel dilatation and a moderate amount of fecal material and gas in the colon without colonic distention. Multiple loops of small bowel are noted which appear to have nodular thickened wall in the mid abdomen and left side of the abdomen. CT A/P performed on 09/2013 revealedno abnormality. No food allergies or intolerances. Tried the FODMAP diet but noted no improvement. Finds Beano helpful with some improvement. Taking probiotic and it may Andrea's colon health qd for the past month. Appetite good. He reports losing 10 lbs since August. Recent tests: Mesenteric duplex 12/06/2013: limited d/t excessive bowel gas and body habitus. SMV appears generous or distended at 1.3 cm. The portal vein measures 1.9 cm proximally. US abdomen 11/11/2013: no evidence of liver or gallbladder abnormality or biliary dilatation. CT A/P 10/02/2013: no bowel abnormality and exam unremarkable aside of small R renal cyst KUB 09/21/2013: mild small bowel dilatation and a moderate amount of fecal material and gas in thecolon without colonic distention. Multiple loops of small bowel are noted which appear to have a nodular thickened wall in the mid abdomen and left side of the abdomen. Colonoscopy 05/16/2013: multiple polyps otherwise entire colon was normal. Transverse polyp~tubularadenoma; transverse distal polyp~tubular adenoma; descending polyp~serrated adenoma. Remainder of ROS unremarkable. Review of Systems Constitutional: Negative. HENT: Negative. Respiratory: Negative. Cardiovascular: Negative. H/o CAD, s/p CABG and HTN. Gastrointestinal: See HPI Musculoskeletal: Negative. Skin: Negative. Neurological: Negative. Hematological: Negative. Psychiatric/Behavioral: Negative. Allergies Allergen Reactions ??? Metolazone CIS - kidney failure, CIS - kidney failure ??? Methotrexate Current Outpatient Prescriptions on File Prior to Visit Medication Sig Dispense Refill ??? Etanercept (ENBREL SURECLICK) 50 mg/mL (0.98 mL) PnIj Inject 1 Pen subcutaneously once a week. 4Syringe 11 ??? DOCOSAHEXANOIC ACID/EPA (FISH OIL ORAL) [...] tablet ??? b complex vitamins tablet ??? ZINC SULFATE (ZINC-220 ORAL) ??? doxazosin (CARDURA) 2 mg tablet ??? potassium chloride SA (K-DUR;KLOR-CON) 20 mEq tablet 20meq, PO, Once daily Past Medical History Diagnosis Date ??? CAD (coronary artery disease) ??? Dysmetabolic syndrome ??? Sleep apnea uses CPAP ??? Rheumatoid arthritis ??? H/O prostate cancer Treated with RT and s/p prostatectomy. Past Surgical History Procedure Date ??? Coronary artery bypass graft ??? Prostatectomy ??? Total hip arthroplasty Right ??? Wrist fusion Right History Social History ??? Marital Status: Spouse Name: N/A Number of Children: N/A ??? Years of Education: N/A Occupational History ??? Not on file. Social History Main Topics ??? Smoking status: Never Smoker ??? Smokeless tobacco: Never Used ??? Alcohol Use: Not on file ??? Drug Use: Not on file ??? Sexually Active: Not on file Other Topics Concern ??? Not on file Social History Narrative ??? No narrative on file Fmhx: colon or esophageal cancer; IBD; celiac disease; pancreatic disease. Brother: cirrhosis, alcohol abuse Vital Signs: BP 120/68; P 58; Wt 234 lbs; Ht 5'9 Objective: Physical Exam Vitals reviewed. Constitutional: He is oriented to person, place, and time. He appears well- developed and well-nourished. No distress. HENT: Head: Normocephalic and atraumatic. Mouth/Throat: Oropharynx is clear and moist. No oropharyngeal exudate. Eyes: Conjunctivae normal and EOM are normal. Pupils are equal, round, and reactive to light. Right eye exhibits no discharge. Left eye exhibits no discharge. No scleral icterus. Neck: Normal range of motion. Neck supple. No JVD present. No tracheal deviation present. No thyromegaly present. Cardiovascular: Normal rate, regular rhythm and intact distal pulses. Exam reveals no gallop. Murmur (3/6 systolic murmur. ) heard. Pulmonary/Chest: Effort normal and breath sounds normal. No stridor. No respiratory distress. He hasno wheezes. He has no rales. He exhibits no tenderness. Abdominal: Soft. Bowel sounds are normal. He exhibits no distension and no mass. There is tenderness(RLQ abdominal tenderness on palpation. ). There is no rebound and no guarding. No hepatosplenomegaly. No succussion splash. Genitourinary: Rectal exam deferred. Lymphadenopathy: He has no cervical adenopathy. Neurological: He is alert and oriented to person, place, and time. No cranial nerve deficit. Skin: Skin is warm and dry. No rash noted. He is not diaphoretic. No erythema. No pallor. Psychiatric: He has a normal mood and affect. His behavior is normal. Judgment and thought content normal. Assessment and Plan: Mr Yadav is a pleasant 74 year old man with a history significant for RA, CAD s/p CABG x 2, HTN and CHARLIE~CPAP who presents for consultation of his chronic abdominal pain. The etiology is unclear but question spasms, SIBO or constipation. His symptoms are not suggestive of biliary colic given that sympto ms are constant or chronic mesenteric ischemia given no sitophobia or post prandial pain. Recommend proceeding with lab work today and KUB. Recommend MR enterography to r/o small bowel dysmotility, strictures, narrowing, inflammation, strictures or mass. Will have him retry the FODMAP diet and continue probiotic. He can an anti-spasmodic such as Bentyl and he is amenable to this. Consider EGD. Consider HBT to r/o SIBO. Consider CTA. I did my best to answer all of his uquestions. The following plan was formulated. Plan: 1. MR enterography 2. Bentyl 10 mg BID prn 3. Lab work today: CBC, CMP, TSH, TTg IgA Ab, IgA and will call if results are abnormal 4. KUB and will later today 5. FODMAP diet and copy provided 6. Continue taking probiotic daily andmay take up to 12 weeks before improvement noted 7. Continue to take Phazyme, Beano or Gas-X prn 8. Recommend eating smaller more frequent 4-5 meals 9. Follow up 2 months Patient understands and is agreeable to the above plan. Written instructions provided. I spent a total of 54 minutes face to face with this patient; 30 minutes were spent counseling the patient in the medical problems described above. Thank you for the referral, Kisha Perrin APRN Section of Gastroenterology [place] [address] documented in this encounter Plan of Treatment Not on filedocumented as of this encounter Procedures Procedure Name Priority Date/Time Associated Comments Diagnosis XR ABDOMEN FLAT AND Routine 03/21/2014 2:48 PM Abdominal pain Results for this UPRIGHT EDT procedure are i n the results section. HEMOGRAM Routine 03/21/2014 12:43 Abdominal pain Results f or this PM EDT procedure are i n the results section. DIFFERENTIAL, Routine 03/21/2014 12:43 Abdominal pain Results for this AUTOMATED PM EDT procedure are i n the results section. TISSUE Routine 03/21/2014 12:43 Abdominal pain Results f or this TRANSGLUTAMINASE, IGA PM EDT proced ure are in the results section. CBC (WITH DIFF) Routine 03/21/2014 12:43 Abdominal pain PM EDT TSH Routine 03/21/2014 12:43 Abdominal pain Results for this PM EDT Constipation procedure are i n the results section. IGA Routine 03/21/2014 12:43 Abdominal pain Results f or this PM EDT procedure are i n the results section. COMPREHENSIVE Routine 03/21/2014 12:43 Abdominal pain Results for this METABOLIC PANEL PM EDT procedure ar e in (NON-FASTING) the results section. documented in this encounter Results XR abdomen flat and upright (03/21/2014 2:48 PM EDT) Anatomical Region Laterality Modality Abdomen N/A Radiographic Imaging Specimen (Source) Anatomical Collection Method Collection Time Re ceived Time Location / / Volume Laterality 03/21/2014 2:48 PM EDT Narrative 03/21/2014 3:43 PM EDT Examination ABD FLAT AND UPRIGHT Clinical History Abdominal pain, gas, bloating, ?partial SBO or constipation Comparison None Technique 4 views of the abdomen and pelvis, supin e and upright. Findings Diffuse gaseous distention of multiple l oops of large and small bowel without abnormal small bowel dilatation or air-f luid levels to suggest obstruction. ?? Gaseous distention of the stomach. ??A m oderate amount of formed stool in the colon, with the largest deposit located in the cecum. ??Stool and air project in the rectum. Impression Nonspecific bowel gas pattern without ev idence of obstruction, as detailed above. Moderate colonic stool load. Procedure Note Donny Soriano MD - 03/21/2014For matting of this note might be different from the original. Examination ABD FLAT AND UPRIGHT Clinical History Abdominal pain, gas, bloating, ?partial SBO or constipation Comparison None Technique 4 views of the abdomen and pelvis, supin e and upright. Findings Diffuse gaseous distention of multiple l oops of large and small bowel without abnormal small bowel dilatation or air-f luid levels to suggest obstruction. Gaseous distention of the stomach. A mod erate amount of formed stool in the colon, with the largest deposit located in the cecum. Stool and air project in the rectum. Impression Nonspecific bowel gas pattern without ev idence of obstruction, as detailed above. Moderate colonic stool load. Stuart Morgan MD IMG DX ORDERABLES (ABNORMAL) Differential, Automated (03/21/2014 12:43 PM EDT) [facility] Method Time Signature Neutrophils % 62.0 34.0 - CERNER 71.0 % MILLENNIUM Neutr Abs (ANC) 4.95 1.50 - CERNER 6.30 MILLENNIUM x10(3)/mc L Lymphocytes % 20.3 19.0 - CERNER 53.0 % MILLENNIUM Lymphocytes Abs 1.6 1.0 - 3.6 CERNER x10(3)/mc MILLENNIUM L Monocytes % 16.0 (H) 4.0 - CERNER 13.0 % MILLENNIUM Monocyte Abs 1.3 (H) 0.2 - 1.0 CERNER x10(3)/mc MILLENNIUM L Eosinophils % 1.3 0.0 - 7.0 CERNER % MILLENNIUM Eosinophils Abs 0.1 0.0 - 0.5 CERNER x10(3)/mc MILLENNIUM L Basophils % 0.3 0.0 - 2.0 CERNER % MILLENNIUM Basophils Abs 0.0 0.0 - 0.2 CERNER x10(3)/mc MILLENNIUM L Immature Gran % 0.10 0.00 - CERNER 0.66 % MILLENNIUM Comment: [...] Location / / Volume Laterality Blood specimen 03/21/2014 12:43 4 (specimen) PM EDT 12:49 PM EDT Resulting Agency Comment Spec In Lab Stuart Morgan MD HEMATOLOGY ORDERABLES Performing Organization Address City/State/ZIP Code Phon e Number [place] [id number] CERNER MILLENNIUM (ABNORMAL) Hemogram (03/21/2014 12:43 PM EDT) P athologist Signature WBC 8.0 4.0 - 10.0 CERNER x10(3)/mcL MILLENNIUM RBC 4.51 (L) 4.63 - CERNER 6.08 MILLENNIUM x10(6)/mcL Hemoglobin 14.2 13.7 - CERNER 17.5 gm/dL MILLENNIUM Hematocrit 42.3 40.0 - CERNER 51.0 % MILLENNIUM MCV 93.8 (H) 79.0 - CERNER 92.0 fL MILLENNIUM MCH 31.5 25.6 - CERNER 32.2 pg MILLENNIUM MCHC 33.6 32.0 - CERNER 36.5 gm/dL MILLENNIUM Platelets 157 145 - 370 CERNER x10(3)/mcL MILLENNIUM RDWSD 42.8 35.0 - CERNER 46.0 fL [facility] RDWCV 12.6 10.9 - CERNER 14.4 % [facility] MPV 9.8 9.0 - 12.0 CERNER [facility] Specimen Anatomical Collection Method Collection Time Receive d Time (Source) Location / / Volume Laterality Blood specimen 03/21/2014 12:43 4 (specimen) PM EDT 12:49 PM EDT Resulting Agency Comment Spec In Lab Stuart Morgan MD HEMATOLOGY ORDERABLES Performing Organization Address City/State/[place] [address] [facility] IgA (03/21/2014 12:43 PM EDT) athologist Signature IgA 251 70 - 400 CERNER mg/dL [facility] Specimen Anatomical Collection Method Collection Time Receive d Time (Source) Location / / Volume Laterality Blood specimen 03/21/2014 12:43 4 (specimen) PM EDT 12:49 PM EDT Resulting Agency Comment Spec In Lab Stuart Morgan MD IMMUNOLOGY ORDERABLES Performing Organization Address City/[facility]/ZIP Code Phon e Number [address] [facility] (ABNORMAL) Tissue transglutaminase, IgA (03/21/2014 12:43 PM EDT) P athologist Signature TTG IgA Ab 52.2 (H) <=3.9 u/ml [facility] Comment: Result Interpretation: Negative: ?<4 U/mL Weak Positive: ??4-10 U/mL Positive: ?>10 U/mL Specimen Anatomical Collection Method Collection Time Receive d Time (Source) Location / / Volume Laterality Blood specimen 03/21/2014 12:43 4 8:21 (specimen) PM EDT AM EDT Resulting Agency Comment Spec In Lab Stuart Morgan MD IMMUNOLOGY ORDERABLES Performing Organization Address City/[facility]/[place] [address] CERNER MILLENNIUM TSH (03/21/2014 12:43 PM EDT) athologist Signature TSH 1.78 0.27 - 4.20 CERNER mcIU/mL MILLENNIUM Specimen Anatomical Collection Method Collection Time Receive d Time (Source) Location / / Volume Laterality Blood specimen 03/21/2014 12:43 4 (specimen) PM EDT 12:49 PM EDT Resulting Agency Comment Spec In Lab Stuart Morgan MD CHEMISTRY ORDERABLES Performing Organization Address City/State/[place] [address] CERNER MILLENNIUM (ABNORMAL) Comprehensive metabolic panel (non-fasting) (03/21/2014 12:43 PM EDT) athologist Signature Glucose Lvl 115 60 - 199 CERNER mg/dL MILLENNIUM Comment: Diabetes: >=200 mg/dL plus symp toms BUN 16 10 - 20 mg/dL CERNER MILLENNIU M Creatinine 0.77 (L) 0.80 - 1.50 mg/dL CERNER MILL ENNIUM Comment: Please note that the pediatric reference intervals supplied above were not validated at [facility]. Results from pediatri c patients should be interpreted in conjunction to the patient's age, height and muscle mass. Sodium 139 135 - 145 mmol/L CERNER LUMA NIUM Potassium 3.8 3.5 - 5.0 mmol/L CERNER LUMA NIUM Comment: Please note: ??Patients with WBC >100,00 0 may have falsely elevated Potassium levels. ??For accurate Potassium quantif ication in these patients send serum separator tube (gold top) for subsequent determinations. ??Contact the Clinical Chemistry Laboratory if there are any qu estions. Chloride 101 98 - 107 mmol/L CERNER MILLENN IUM CO2 29 22 - 31 mmol/L CERNER MILLENNI UM Anion Gap 9 5 - 15 mmol/L CERNER MILLENNIU M Calcium 9.2 8.5 - 10.5 mg/dL CERNER LUMA NIUM Total Protein 6.9 6.4 - 8.3 gm/dL CERNER MIL LENNIUM Albumin 4.0 3.2 - 5.2 gm/dL CERNER MILLENN IUM AST 30 0 - 39 unit/L CERNER MILLENNIU M ALT 33 0 - 55 unit/L CERNER MILLENNIU M Alk Phos 74 40 - 120 unit/L CERNER MILLENN IUM Total Bilirubin 0.7 0.2 - 1.3 mg/dL CERNER M ILLENNIUM Bili, Direct 0.2 0.0 - 0.3 mg/dL CERNER MILL ENNIUM Estimated GFR >60 >=60 CERNER MILLENNIU M Comment: This estimated GFR (eGFR) value was [...] the following links into your internet browser. [email or web address] [email or web address] Specimen Anatomical Collection Method Collection Time Receive d Time (Source) Location / / Volume Laterality Blood specimen 03/21/2014 12:43 4 (specimen) PM EDT 12:49 PM EDT Resulting Agency Comment Spec In Lab Stuart Morgan MD CHEMISTRY ORDERABLES Performing Organization Address City/State/ZIP Code Phon e Number [place] [id number] [facility] CUNNINGHAMIUM documented in this encounter Visit Diagnoses Diagnosis Abdominal pain - Primary Abdominal pain, unspecified site Constipation Unspecified constipation documented in this encounter Care Teams Valve And Regulator Repairer Relationship Specialty Start Date End Date Wilner Chamberlain MD PCP - General 08/17/10 01/10/[id number] [place] [address] documented as of this encounter
--- OUTSIDE RECORDS SUMMARY | 2022-03-18 09:50 | XMS_ITS | Encounter Summary ---
:1940 Author Organization [facility] Address [facility] [place] [address] Care Team Providers Name Role Phone Wilner Chamberlain MD Primary Care Provider [phone] Encounter Details Date Type Department Care Team Description 02/24/2015 Orders Only Gastroenterology at [facility] Kisha Perrin, [facility] [place] [address] [facility] [phone] [place], [place] [address] (Wo rk) Social History Tobacco [...] Name Priority Date/Time Associated Diagnosis Comme nts FILM LIBRARY Routine 02/24/2015 2:06 PM Results f or this STORAGE ONLY DX EDT procedure ar e in SPINE the results section. documented in this encounter Results Film Library- Storage only DX Spine (02/24/2015 2:06 PM EDT) Anatomical Region Laterality Modality Other Specimen (Source) Anatomical Collection Method Collection Time Re ceived Time Location / / Volume Laterality 02/24/2015 2:06 PM EDT Narrative 02/25/2015 2:11 PM EDT This is a Non-reportable exam Procedure Note SARAHY, UNSIGNED REPORT - 02/25/2015Formatt ing of this note might be different from the original. This is a Non-reportable exam Kisha Perrin APRN IMG FILM LIBRARY ORDERABLES documented in this encounter Visit Diagnoses Not on filedocumented in this encounter Care Teams Sample Case Porter Relationship Specialty Start Date End Date Wilner Chamberlain MD PCP - General 08/17/10 01/10/[address] [address] documented as of this encounter
--- OUTSIDE RECORDS SUMMARY | 2022-03-18 09:50 | XMS_ITS | Encounter Summary ---
:1940 Author Organization [facility] Address [facility] [place] [address] Care Team Providers Name Role Phone Wilner Chamberlain MD Primary Care Provider [phone] Encounter Details Date Type Department Care Team Description 04/08/2014 Follow-Up Gastroenterology at [facility] Kisha Perrin, Abdominal pain [facility] Abdoulaye hernandez APRN (Primary Dx) [place] [address] [facility] [phone] [place], [place] [address] Social History Tobacco Use Types Packs/Day Years Used Date Never Smoker Smokeless Tobacco: Never Used Alcohol Use Standard Drinks/Week Comments No 0 (1 standard drink = 0.6 oz pure alcoho l) Sex Assigned at Date Recorded Not on file documented as of this encounter Last Filed Vital Signs Vital Sign Reading Time Taken Comments Blood Pressure 94/53 04/08/2014 2:46 PM EDT Pulse 75 04/08/2014 2:46 PM EDT Temperature - - Respiratory Rate 20 04/08/2014 2:46 PM EDT Oxygen Saturation - - Inhaled Oxygen Concentration - - Weight 102.5 kg (226 lb) 04/08/2014 2:46 PM EDT Height 175.3 cm (5' 9) 04/08/2014 2:46 PM EDT Body Mass Index 33.37 04/08/2014 2:46 PM EDT documented in this encounter Patient Instructions Patient InstructionsKisha Perrin APRN - 04/08/2014 3:08 PM EDT 1. Abdominal pain: Bentyl (dicyclomine) 10 mg every 8 hours as needed 2. Gas-X or Phazyme as needed 3. Continue to adhere gluten free diet 4. Constipation: MiraLax 17 grams before bedtime 5. Constipation: Amitiza 8 mcg twice a day with food (breakfast and dinner). If bowel movements become too loose then stop MiraLax. 6. Lab work today and will call if abnormal 7. Appointment with component assembler on April 24, 2014 8. Call or email with an update in 4-6 weeks 9. Follow up in 3-4 months Kisha Perrin MEDICAL STAFF MANAGER [phone] documented in this encounter Progress Notes Kisha Perrin APRN - 04/08/2014 2:45 PM EDT Subjective: Patient ID: Jose Yadav is a 74 y.o. man who presents for follow up of his gastrointestinal symptoms. HPI Comments: Initial visit 03/21/2014: Mr Yadav is a pleasant 74 year [...] some improvement. Taking probiotic and it may [employer] qd for the past month. Appetite good. [...] descending polyp~serrated adenoma. Remainder of ROS unremarkable. Interval Hx: he reports that abdominal pain, gas and bloating persist and remains unchanged. Tends to be worse in the evening but can occur throughout the day. The pain occurs intermittently and is unpredictable. Unable to identify any specific triggers. No improvement after defecation or passing of flatus. Takes Bentyl 10 mg qd with some relief. Has not tried it more frequently. He reports having a bowel movement 2-3 times per day. Stools are formed. MiraLax 17 grams qhs. No straining. Admits to incomplete evacuation of stool. No blood in stool, rectal bleeding, rectal or analpain. Adhering to gluten free diet. Appetite good. Weight stable. Remainder of ROS unremarkable. Review of Systems Constitutional: Negative. HENT: Negative. Respiratory: Negative. Cardiovascular: Negative. Gastrointestinal: See HPI Musculoskeletal: Negative. Neurological: Negative. Psychiatric/Behavioral: Negative. Allergies Allergen Reactions ??? Metolazone CIS - kidney failure, CIS - kidney failure ??? Methotrexate Current Outpatient Prescriptions on File Prior to Visit Medication Sig Dispense Refill ??? polyethylene glycol (GOLYTELY) 236-22.74-6.74 gram suspension Take 240 mLs by mouth 2 times daily as needed. 4000 mL 0 ??? magnesium citrate Soln solution Take 150 mLs by mouth 2 times daily as needed. 1000 mL 0 ??? hydroxychloroquine (PLAQUENIL) 200 mg tablet Take 200 mg by mouth 2 times daily. ??? dicyclomine (BENTYL) 10 mg capsule Take 1 capsule by mouth 2 times daily as needed. 60 capsule 4 ??? polyethylene glycol (MIRALAX) 17 gram/dose powder Take 17 g by mouth daily for 30 days. 510 g 6 ??? Etanercept (ENBREL SURECLICK) 50 mg/mL (0.98 [...] ??? Celiac disease Past Surgical History Procedure Date ??? Coronary artery bypass graft ??? Prostatectomy ??? Total hip arthroplasty Right ??? Wrist fusion Right ??? Upper gi endoscopy, biopsy 04/02/2014 UPPER GASTROINTESTINAL ENDOSCOPY,WITH BIOPSY SINGLE OR MULTIPLE performed by Maldonado Dowling MD at [facility] ENDOSCOPY Recent tests: EGD 04/02/2014: normal esophagus; normal stomach and abnormal appearing duodenal mucosa with nonspecific pattern. Bx: Duodenal mucosa with partial villous blunting and increased intraepithelial lymphocytes Vital Signs: BP 94/53; P 75; Wt 226 lbs; Ht 5'9 Objective: Physical Exam Vitals reviewed. Constitutional: He is oriented to person, place, and time. He appears well- developed and well-nourished. No distress. Neurological: He is alert and oriented to person, place, and time. Skin: He is not diaphoretic. Psychiatric: He has a normal mood and affect. His behavior is normal. Judgment and thought content normal. Assessment and Plan: #Celiac disease: celiac serology~TTg IgA Ab 52.2. EGD revealed a normal esophagus and stomach. Abnormal duodenal mucosa and Bx: celiac disease. Discussed the etiology, pathophysiology and treatment of celiac disease. Recommend that he continue to adhere to gluten free diet. Referral to component assembler placed and scheduled for 04/24/2014. Continue to use Bentyl prn. Will recheck TTg IgA Ab at next f/u visit. #Abdominal pain: EGD revealed abnormal duodenal mucosa and bx: celiac disease. Abdominal pain persist. Question role of constipation, chronic mesenteric ischemia or spasms. Consider CTA to evaluate mesenteric and celiac arteries. Consider MRE or SBFT. Will re-evaluate when patient calls with an update. #Constipation: slight improvement with MiraLax. Discussed trying Amitiza 8 mcg BID with food and he is amenable to this. I did my best to answer all of her questions. The following plan was formulated. Plan: 1. Bentyl (dicyclomine) 10 mg TID prn 2. Gas-X or Phazyme prn 3. Continue to adhere gluten free diet 4. MiraLax 17 grams qhs 5. Amitiza 8 mcg BID with food (breakfast and dinner). 6. Lab work today: BMP, Mg and will call if abnormal 7. Appointment with component assembler on April 24, 2014 8. Call or email with an update in 4-6 weeks 9. Follow up in 3-4 months Patient understands and is agreeable to the above plan. Written instructions provided. Kisha Perrin APRN Section of Gastroenterology and Hepatology [facility], [place] [address] documented in this encounter Plan of Treatment Not on filedocumented as of this encounter Procedures Procedure Name Priority Date/Time Associated Diagnosis Comme nts MAGNESIUM Routine 04/08/2014 3:33 PM Abdominal pain Results for this EDT procedure are i n the results section. BASIC METABOLIC Routine 04/08/2014 3:33 PM Abdominal pain Resu lts for this PANEL (NON-FASTING) EDT procedur e are in the results section. documented in this encounter Results Magnesium (04/08/2014 3:33 PM EDT) athologist Signature Magnesium 0.84 0.69 - 1.07 CERNER mmol/L MILLENNIUM Specimen Anatomical Collection Method Collection Time Receive d Time (Source) Location / / Volume Laterality Blood specimen 04/08/2014 3:33 PM 014 3:38 (specimen) EDT PM EDT Resulting Agency Comment Spec In Lab Stuart Morgan MD CHEMISTRY ORDERABLES Performing Organization Address City/State/ZIP [place] [address] CERNER MILLENNIUM (ABNORMAL) Basic Metabolic Panel (non-fasting) (04/08/2014 3:33 PM EDT) athologist Signature Glucose Lvl 97 60 - 199 CERNER mg/dL MILLENNIUM Comment: Diabetes: >=200 mg/dL plus symp toms BUN 15 10 - 20 mg/dL CERNER MILLENNIU M Creatinine 0.73 (L) 0.80 - 1.50 mg/dL CERNER MILL ENNIUM Comment: Please note that the pediatric reference intervals supplied above were not validated at [facility]. Results from pediatri c patients should be interpreted in conjunction to the patient's age, height and muscle mass. Sodium 139 135 - 145 mmol/L CERNER LUMA NIUM Potassium 4.0 3.5 - 5.0 mmol/L CERNER LUMA NIUM Comment: Please note: ??Patients with WBC >100,00 0 may have falsely elevated Potassium levels. ??For accurate Potassium quantif ication in these patients send serum separator tube (gold top) for subsequent determinations. ??Contact the Clinical Chemistry Laboratory if there are any qu estions. Chloride 101 98 - 107 mmol/L CERNER MILLENN IUM CO2 30 22 - 31 mmol/L CERNER MILLENNI UM Anion Gap 8 5 - 15 mmol/L CERNER MILLENNIU M Calcium 9.3 8.5 - 10.5 mg/dL CERNER LUMA NIUM Estimated GFR >60 >=60 CERNER MILLENNIU M [...] the following links into your internet browser. [email or web address] Specimen Anatomical Collection Method Collection Time Receive d Time (Source) Location / / Volume Laterality Blood specimen 04/08/2014 3:33 PM 014 3:38 (specimen) EDT PM EDT Resulting Agency Comment Spec In Lab Stuart Morgan MD CHEMISTRY ORDERABLES Performing Organization Address City/State/[place] [address] CERNER MILLENNIUM documented in this encounter Visit Diagnoses Diagnosis Abdominal pain - Primary Abdominal pain, unspecified site documented in this encounter Care Teams Airframe And Power Plant Mechanic Relationship Specialty Start Date End Date Wilner Chamberlain MD PCP - General 08/17/10 01/10/[address] [address] documented as of this encounter
--- OUTSIDE RECORDS SUMMARY | 2022-03-18 09:50 | XMS_ITS | Encounter Summary ---
:1939 [place] [address] Care Team Providers Name Role Phone Wilner Chamberlain MD Primary Care Provider [phone] Encounter Details Date Type Department Care Team Description 03/21/2014 Telephone Gastroenterology at [facility] Kisha Perrin [place] [address] [place] [address] [place] [id number] [phone] (Wo rk) Social History Tobacco Use Types Packs/Day Years Used Date Never Smoker Smokeless Tobacco: Never Used Sex Assigned at Date Recorded Not on file documented as of this encounter Miscellaneous Notes Telephone Encounter - Kisha Perrin APRN - 03/21/2014 4:03 PM EDT Attempted to contact Mr Yadav at home and cell but no answer regarding KUB/lab work. Left a message re: lab wnl and KUB~no obstruction but gas/moderate stool. Recommend bowel regimen and will call later to discuss bowel regimen. documented in this encounter Plan of Treatment Not on filedocumented as of this encounter Visit Diagnoses Not on filedocumented in this encounter Care Teams Editing Computer Publisher Relationship Specialty Start Date End Date Wilner Chamberlain MD PCP - General 08/17/10 01/10/[address] [place] [address] documented as of this encounter
--- OUTSIDE RECORDS SUMMARY | 2022-03-18 09:50 | XMS_ITS | Encounter Summary ---
:1940 Author Organization [facility] [place] [address] Care Team Providers Name Role Phone Wilner Chamberlain MD Primary Care Provider [phone] Encounter Details Date Type Department Care Team Description 03/21/2014 Hospital Encounter XRay at [address] [place] [address] Social History Tobacco Use Types Packs/Day [...] doxazosin (CARDURA) 2 mg 0 06/02/2010 tablet polyethylene glycol Take 17 g by mouth 510 g 6 03/21/20 14 04/20/2014 (MIRALAX) 17 gram/dose daily for 30 days. powderIndications: Constipation hydroxychloroquine Take 200 mg by mouth 0 03/21/2016 (PLAQUENIL) 200 mg tablet 2 times daily. dicyclomine (BENTYL) 10 Take 1 capsule by 60 capsule 4 03/2104/08/2014 mg capsuleIndications: mouth 2 times daily Abdominal pain as needed. Etanercept (ENBREL Inject 1 Pen 4 Syringe 11 10/30/2013 02/0 02/2015 SURECLICK) 50 mg/mL (0.98 subcutaneously once mL) PnIjIndications: a week. Rheumatoid arthritis(714.0) aspirin 81 mg tablet Take 81 mg [...] daily tablet documented as of this encounter Plan of Treatment Not on filedocumented as of this encounter Visit Diagnoses Not on filedocumented in this encounter Care Teams Director Trading Relationship Specialty Start Date End Date Wilner Chamberlain MD PCP - General 08/17/10 01/10/[address] [place] [address] documented as of this encounter
--- OUTSIDE RECORDS SUMMARY | 2022-03-18 09:50 | XMS_ITS | Encounter Summary ---
:1939 Author Organization [facility] [address] Care Team Providers Name Role Phone Wilner Chamberlain MD Primary Care Provider Reason for Visit Reason Comments Follow-up Encounter Details Date Type Department Care Team Description 07/09/2014 Follow-Up [facility]ology at [facility] Kisha Perrin, Celiac disease (Primary Dx); [facility] Abdoulaye [place] [address] [address] [facility] [phone] [place], [place] [address] Social History Tobacco Use Types Packs/Day Years Used Date Never Smoker Smokeless Tobacco: Never Used Alcohol Use Standard Drinks/Week Comments No 0 (1 standard drink = 0.6 oz pure alcoho l) Sex Assigned at Date Recorded Not on file documented as of this encounter Last Filed Vital Signs Vital Sign Reading Time Taken Comments Blood Pressure 109/51 07/09/2014 12:48 PM EDT Pulse 59 07/09/2014 12:48 PM EDT Temperature - - Respiratory Rate - - Oxygen Saturation - - Inhaled Oxygen Concentration - - Weight 101.6 kg (224 lb) 07/09/2014 12:48 PM EDT Height 175.3 cm (5' 9) 07/09/2014 12:48 PM EDT Body Mass Index 33.08 07/09/2014 12:48 PM EDT documented in this encounter Progress Notes Kisha Perrin, HANNAH - 07/09/2014 1:05 PM EDT Subjective: Patient ID: Jose Yadav is a 74 y.o. man who presents for follow up of his gastrointestinal symptoms. HPI Comments: He reports doing great. He reports that abdominal pain, gas and bloating have resolved. Has not required Bentyl prn. He reports having a formed bowel movement every day. Taking MiraLax 34 grams qhs and Amitiza 24 mcg BID. Denies straining or incomplete evacuation of stool. No blood in stool, rectal bleeding, rectal or anal pain. Adhering to gluten free diet. Appetite good. He reports losing 30 lbs secondary to gluten free diet. Remainder of ROS unremarkable. Review of Systems Constitutional: Positive for unexpected weight change (See HPI). Negative for fever, chills, diaphoresis, activity change, appetite change and fatigue. HENT: Negative. Respiratory: Negative. Cardiovascular: Negative. Gastrointestinal: See HPI Musculoskeletal: Positive for arthralgias (H/o osteoarthritis, rheumatoid athritis. ). Neurological: Negative. Psychiatric/Behavioral: Negative. Allergies Allergen Reactions ??? Metolazone CIS - kidney failure, CIS - kidney failure ??? Methotrexate Current Outpatient Prescriptions on File Prior to Visit Medication Sig Dispense Refill ??? lubiprostone (AMITIZA) 24 mcg capsule Take 1 capsule by mouth 2 times daily (with meals). 60 capsule 12 ??? [DISCONTINUED] magnesium citrate Soln solution Take 300 mLs by mouth daily for 2 days. 600 mL 0 ??? dicyclomine (BENTYL) 10 mg capsule Take 1 capsule by mouth 2 times daily as needed. 90 capsule 6 ??? hydroxychloroquine (PLAQUENIL) 200 mg tablet Take 200 mg by mouth 2 times daily. ??? Etanercept (ENBREL SURECLICK) 50 mg/mL (0.98 [...] 20 mEq tablet 20meq, PO, Once daily Recent tests: EGD 04/02/2014: normal esophagus; normal stomach and abnormal appearing duodenal mucosa with nonspecific pattern. Bx: Duodenal mucosa with partial villous blunting and increased intraepithelial lymphocytes Mesenteric duplex 12/06/2013: limited d/t excessive bowel [...] transverse distal polyp~tubular adenoma; descending polyp~serrated adenoma. Vital Signs: BP 109/51; P 59; Wt 224 lbs; Ht 5'9 Objective: Physical Exam Vitals [...] No thyromegaly present. Cardiovascular: Normal rate, regular rhythm, normal heart sounds and intact distal pulses. Exam reveals no gallop and no friction rub. No murmur heard. Pulmonary/Chest: Effort normal and breath sounds [...] deficit. Skin: Skin is warm and dry. He is not diaphoretic. Psychiatric: He has a normal mood and affect. His behavior is normal. Judgment and thought content normal. Assessment and Plan: #Celiac disease: feels much better. Continue to adhere to gluten free diet. Will check TTg IgA Ab today. Consider dexa scan in 1 year. #Abdominal pain: resolved at this time. #Constipation: improved with current bowel regimen. Continue MiraLax 34 grams qhs and Amitiza 24 mcgBID with food. I did my best to answer all of his questions. The following plan was formulated. Plan: 1. Continue with gluten free diet 2. Amitiza 24 mcg BID 3. MiraLax 34 grams qhs 4. GIF 6 months Patient understands and is agreeable to the above plan. Written instructions provided. Kisha Perrin APRN Section of Gastroenterology and Hepatology [place] [phone] documented in this encounter Plan of Treatment Not on filedocumented as of this encounter Procedures Procedure Name Priority Date/Time Associated Diagnosis Comme nts TISSUE Routine 07/09/2014 1:29 PM Celiac disease Results for this TRANSGLUTAMINASE, EDT procedure are in IGA the results section. documented in this encounter Results (ABNORMAL) Tissue transglutaminase, IgA (07/09/2014 1:29 PM EDT) P athologist Signature TTG IgA Ab 6.0 (H) <=3.9 u/ml [facility] Comment: Result Interpretation: Negative: ?<4 U/mL Weak Positive: ??4-10 U/mL Positive: ?>10 U/mL Specimen Anatomical Collection Method Collection Time Receive d Time (Source) Location / / Volume Laterality Blood specimen 07/09/2014 1:29 PM 014 8:09 (specimen) EDT AM EDT Resulting Agency Comment Spec In Lab Stuart Morgan MD IMMUNOLOGY ORDERABLES Performing Organization Address City/State/[place] [address] [facility] documented in this encounter Visit Diagnoses Diagnosis Celiac disease - Primary Constipation Unspecified constipation documented in this encounter Care Teams Fishing Rod Mechanic Relationship Specialty Start Date End Date Wilner Chamberlain MD PCP - General 08/17/10 01/10/[address] [place] [address] documented as of this encounter
--- OUTSIDE RECORDS SUMMARY | 2022-03-18 09:50 | XMS_ITS | Encounter Summary ---
:1939 Author Organization [facility] [place] [address] Care Team Providers Name Role Phone Wilner Chamberlain MD Primary Care Provider Reason for Visit Reason Onset Date Comments Prior Authorization 11/06/2012 ENBREL Encounter Details Date Type Department Care Team Description 11/06/2012 Telephone Rheumatology at [facility] Lori Cannon, Prior Authorization [facility] ([place]) [place] [address] RHEUMATOLOGY [place], [place] [address] Social History Tobacco Use Types Packs/Day Years Used Date Never Smoker Sex Assigned at Date Recorded Not on file documented as of this encounter Miscellaneous Notes Telephone Encounter - Jono Grimaldo - 11/06/2012 9:27 AM EST Medication Prior Authorization Rheumatology Medication name/dose/directions: ENBREL 50 MG Rationale for request: RA Health plan: [employer] ID#[id number] Authorizing retail sales representative name: AMY Faxed to health plan on: CALLED ON 11/06/12 Health plan decision: Approved Quantity approved: 01/20 Authorization number: [id number] Start date: 11/06/12 End date: 11/06/13 Patient notified? yes Pharmacy notified? yes documented in this encounter Plan of Treatment Not on filedocumented as of this encounter Visit Diagnoses Not on filedocumented in this encounter Care Teams Music Mixer Relationship Specialty Start Date End Date Wilner Chamberlain MD PCP - General 08/17/10 01/10/[address] [place] [address] documented as of this encounter
--- OUTSIDE RECORDS SUMMARY | 2022-03-18 09:50 | XMS_ITS | Encounter Summary ---
:1940 [place] [address] Care Team Providers Name Role Phone Wilner Chamberlain MD Primary Care Provider [phone] Encounter Details Date Type Department Care Team Description 04/07/2014 Telephone Gastroenterology at [facility] Kisha Perrin [place] [facility] [place] [address] [place] [address] [place] [address] [phone] (Wo rk) Social History Tobacco Use Types Packs/Day Years Used Date Never Smoker Smokeless Tobacco: Never Used Alcohol Use Standard Drinks/Week Comments No 0 (1 standard drink = 0.6 oz pure alcoho l) Sex Assigned at Date Recorded Not on file documented as of this encounter Miscellaneous Notes Telephone Encounter - Kisha Perrin APRN - 04/07/2014 12:08 PM EDT Mrs Yadav and Mr Vicenta called regarding EGD/bx~positive for celiac disease. They have started eatinga gluten free diet. Was evaluated [facility] ER on 03/29 for worsening constipation and sxs improved after bowel cleanse. Currently using MiraLax 17 grams qhs. Experiencing intermittent abdominal pain. Discussed adding MOM and will re-evaluate tomorrow at f/u visit on 04/08/2014. documented in this encounter Plan of Treatment Not on filedocumented as of this encounter Visit Diagnoses Not on filedocumented in this encounter Care Teams Treating Plant Supervisor Relationship Specialty Start Date End Date Wilner Chamberlain MD PCP - General 08/17/10 01/10/[address] [place] [address] documented as of this encounter
--- OUTSIDE RECORDS SUMMARY | 2022-03-18 09:50 | XMS_ITS | Encounter Summary ---
:1940 Author Organization [facility] [place] [address] Care Team Providers Name Role Phone Wilner Chamberlain MD Primary Care Provider [phone] Encounter Details Date Type Department Care Team Description 02/28/2012 Follow[place]Up [place]ology [place] [facility] [place] Demar Brandon Rheumatoid arthritis [facility] Abdoulaye Rojas MD (Primary Dx) [place] [address] [facility] [phone] DR RHEUMATOLOGY [place], [place] [address] Social History Tobacco Use Types Packs/Day Years Used Date Never Smoker Sex Assigned at Date Recorded Not on file documented as of this encounter Last Filed Vital Signs Vital Sign Reading Time Taken Comments Blood Pressure 111/62 02/28/2012 2:09 PM EDT Pulse 67 02/28/2012 2:09 PM EDT Temperature - - Respiratory Rate - - Oxygen Saturation 93% 02/28/2012 2:09 PM EDT Inhaled Oxygen Concentration - - Weight 108.9 kg (240 lb) 02/28/2012 2:09 PM EDT Height 175.3 cm (5' 9) 02/28/2012 2:09 PM EDT Body Mass Index 35.44 02/28/2012 2:09 PM EDT documented in this encounter Progress Notes Demar Brandon MD - 02/28/2012 2:20 PM EDT Jose Yadav is a 72 year old man who returns to the rheumatology clinic for evaluation of RA andOA. The most recent visit to the clinic was 6 months ago. Interval history:He feels he is doing well and about the same as at his last visit. His worst part is th left wrist and that just hurts when he uses it, but is okay if he wears a brace. He complainsof ankle pain, which are his only swollen joints. He does not let the pain stop him from doing anything.His morning stiffness lasts about 30 minutes. His energy is good and his appetite is good. No problems sleeping. SOCIAL HISTORY/HABITS No tobacco or etoh. 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 FAMILY HISTORY Sister has RA. ROS: General-There is no fever, chills, or weight loss. HEENT-No headaches, sicca symptoms, or mucosal ulcers in nose or mouth. Neck-No nodes. Chest- No cough, wheezing or pleurisy. CV-No angina. No dyspnea. No orthopnea. GI-No dysphagia, heartburn, melena, constipation, or diarrhea. -No dysuria. Some incontinence. Extremities-Chronic pedal edema. NM- No paresthesias. Skin-No rash. Physical Examination: General-Well developed well nourished male who is alert and in no apparent distress at rest. HEENT-Normocephalic with no conjunctivitis, or mucosal ulcers. Neck-Supple. 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 Fusedright wrist. Crepitant knees. Bunions. No active synovitis. Spine-Reversal of lumbar lordosis with flexion. No pain with flexion or extension. NM- Patient is alert and oriented. Skin-No rash. Hyperkeratosis on right maxillary area abut the size of a quater. 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 Saw eye doctor 6 recently. Normal CBC and CMP 6 monthsago.. Impression:Rheumatoid arthritis with chronic deformity well controlled. S/P right hip replacement. Tolerating medication. Recommendations:Continue Enbrel and Plaquenil. Discussed fussion of left wrist like was done to the right, but he declines. Wrist brace instead. Check CBC and metabolic panel. RV in 6 months. documented in this encounter Plan of Treatment Not on filedocumented as of this encounter Visit Diagnoses Diagnosis Rheumatoid arthritis(714.0) - Primary Rheumatoid arthritis documented in this encounter Care Teams Scheduling Representative Relationship Specialty Start Date End Date Wilner Chamberlain MD PCP - General 08/17/10 01/10/[address] [place] [address] documented as of this encounter
--- OUTSIDE RECORDS SUMMARY | 2022-03-18 09:50 | XMS_ITS | Encounter Summary ---
:1940 Author Organization [facility] [place] [address] Care Team Providers Name Role Phone Wilner Chamberlain MD Primary Care Provider [phone] Reason for Visit Reason Comments Medication Refill Encounter Details Date Type Department Care Team Description 10/31/2014 Refill Rheumatology at [facility] [place] Lori Cannon MD [facility] [place] [address] RHEUMATOLOGY DEPT. [phone] [place], [place] [address] (Wo rk) Social History Tobacco [...] on filedocumented in this encounter Care Teams Acetaldehyde Converter Operator Relationship Specialty Start Date End Date Wilner Chamberlain MD PCP - General 08/17/10 01/10/18 4 [place], [place] [address] documented as of this encounter
--- OUTSIDE RECORDS SUMMARY | 2022-03-18 09:50 | XMS_ITS | Encounter Summary ---
:1940 Author Organization [facility] [place] [address] Care Team Providers Name Role Phone Wilner Chamberlain MD Primary Care Provider [phone] Reason for Visit Reason Onset Date Comments Other 03/27/2013 enbrel Encounter Details Date Type Department Care Team Description 03/27/2013 Telephone [place] [facility] [place]isa Johns, Other (enbrel) [facility] [place] [address] Social History Tobacco Use Types Packs/Day Years Used Date Never Smoker Sex Assigned at Date Recorded Not on file documented as of this encounter Miscellaneous Notes Telephone Encounter - Felisa Johns RN - 03/27/2013 11:54 AM EDT Called Eli and explained that pharmacy only has Enbrel in Sureclick pens. Explained how itworks. 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 Told her she can review administration with pharmacist or pcp, since [place] [facility] [place] or she can call with questionsor concerns. She verbalized understanding and said thank you for the notification. documented in this encounter Plan of Treatment Not on filedocumented as of this encounter Visit Diagnoses Not on filedocumented in this encounter Care Teams Licensing Services Clerk Relationship Specialty Start Date End Date Wilner Chamberlain MD PCP - General 08/17/10 01/10/[address] [place] [address] documented as of this encounter
--- OUTSIDE RECORDS SUMMARY | 2022-03-18 09:50 | XMS_ITS | Encounter Summary ---
:1940 Author Organization [facility] [place] [address] Care Team Providers Name Role Phone Wilner Chamberlain MD Primary Care Provider [phone] Encounter Details Date Type Department Care Team Description 08/17/2012 Orders Only Orthopaed[place] [facility] [place] Emmanuel, Status post hip [facility] MD replacement (Primary Drive [facility] Dx) [place] [address] ORTHOPA[facility] SURGERY [place] [address] Social History Tobacco Use Types Packs/Day Years Used Date Never Smoker Sex Assigned at Date Recorded Not on file documented as of this encounter Plan of Treatment Not on filedocumented as of this encounter Visit Diagnoses Diagnosis Status post hip replacement - Primary Hip joint replacement by other means documented in this encounter Care Teams Garment Looper Relationship Specialty Start Date End Date Wilner Chamberlain MD PCP - General 08/17/10 01/10/18 [address] [place] [address] documented as of this encounter
--- OUTSIDE RECORDS SUMMARY | 2022-03-18 09:50 | XMS_ITS | Encounter Summary ---
:1940 Author Organization [facility] [place] [address] Care Team Providers Name Role Phone Wilner Chamberlain MD Primary Care Provider [phone] Reason for Visit Reason Comments Medication Refill Encounter Details Date Type Department Care Team Description 03/23/2015 Refill [place]ology at [facility] [place] Lori Cannon MD [facility] [place] [address] RHEUMATOLOGY DEPT. [phone] [place], [place] [address] (Wo rk) Social History Tobacco [...] on filedocumented in this encounter Care Teams Advanced Manufacturing Vice President Relationship Specialty Start Date End Date Wilner Chamberlain MD PCP - General 08/17/10 01/10/[address] [place] [id number] documented as of this encounter
--- OUTSIDE RECORDS SUMMARY | 2022-03-18 09:50 | XMS_ITS | Encounter Summary ---
:1940 Author Organization [facility] Address [facility] [place] [address] Care Team Providers Name Role Phone Wilner Chamberlain MD Primary Care Provider [phone] Encounter Details Date Type Department Care Team Description 12/21/2010 Follow-Up Rheumatology at [facility] [place] Demar Brandon MD [facility] [place] [address] RHEUMATOLOGY DEPT. [phone] [place], [place] [address] (Wo rk) Social History Tobacco Use Types Packs/Day Years Used Date Never Assessed Sex Assigned at Date Recorded Not on file documented as of this encounter Plan of Treatment Not on filedocumented as of this encounter Visit Diagnoses Not on filedocumented in this encounter Care Teams Optics Engineer Relationship Specialty Start Date End Date Wilner Chamberlain MD PCP - General 08/17/10 01/10/18 [address] [place] [address] documented as of this encounter
--- OUTSIDE RECORDS SUMMARY | 2022-03-18 09:50 | XMS_ITS | Encounter Summary ---
:1940 Author Organization [facility] [place] [address] Care Team Providers Name Role Phone Wilner Chamberlain MD Primary Care Provider [phone] Reason for Visit Reason Comments Rheumatoid Arthritis Encounter Details Date Type Department Care Team Description 07/27/2011 Follow-Up Rheumatology at [facility] [place] Demar Brandon Rheumatoid arthritis (Primar y Dx); [facility] Abdoulaye Rojas MD Encounter for long-term (current) [place] [address] [facility] [phone] RHEUMATOLOGY [place], [place] [address] Social History Tobacco Use Types Packs/Day Years Used Date Never Smoker Sex Assigned at Date Recorded Not on file documented as of this encounter Last Filed Vital Signs Vital Sign Reading Time Taken Comments Blood Pressure 125/59 07/27/2011 10:43 AM EDT Pulse 67 07/27/2011 10:43 AM EDT Temperature 37 ??C (98.6 ??F) 07/27/2011 10:43 AM EDT Respiratory Rate - - Oxygen Saturation 91% 07/27/2011 10:43 AM EDT Inhaled Oxygen Concentration - - Weight 108.9 kg (240 lb) 07/27/2011 10:43 AM EDT Height 175.3 cm (5' 9) 07/27/2011 10:43 AM EDT Body Mass Index 35.44 07/27/2011 10:43 AM EDT documented in this encounter Progress Notes Demar Brandon MD - 07/27/2011 10:55 AM EDT Jose Yadav is a 6 years man who returns to the rheumatology clinic for evaluation of RA and OA.The most recent visit to the clinic was 8 months ago. Interval history:He feels he is doing well and about the same as at his last visit. His worst part is th left wrist and that just hurts when he uses it. If he wears a brace, he can do what he need to do. He has no swollen joints. His morning stiffness lasts about 30 minutes. His energy is good and hisappetite is good. No problems sleeping. SOCIAL HISTORY/HABITS No tobacco or etoh. 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 FAMILY HISTORY Sister [...] RA and DJD. Saw eye doctor 6 months ago. Impression:Rheumatoid arthritis with chronic deformity well controlled. [...] Procedure Name Priority Date/Time Associated Comments Diagnosis DIFFERENTIAL, MANUAL Routine 07/27/2011 11:09 Res ults for this AM EDT procedure are i n the results section. CBC (WITH DIFF) Routine 07/27/2011 11:09 Encounter for Results for this AM EDT long-term (current) procedur e are in use of other the results medications section. COMPREHENSIVE Routine 07/27/2011 11:09 Encounter for Results f or this METABOLIC PANEL AM EDT long-term (current) proce dure are in (NON-FASTING) use of other the results medications section. documented in this encounter Results (ABNORMAL) NCDIFF (07/27/2011 11:09 AM EDT) [facility] Method Time Signature Neutrophil % 63 34 - 71 % CERNER MILLENNIUM Band % 4 0 - 12 % CERNER MILLENNIUM Lymphocyte % 18 (L) 19 - 53 % CERNER MILLENNIUM Monocyte % 15 (H) 4 - 13 % CERNER MILLENNIUM Neutrophil Abs 6.3 1.5 - 6.3 CERNER x10(3)/mcL MILLENNIUM Band Abs 0.4 0.2 - 0.6 CERNER x10(3)/mcL MILLENNIUM Neutr Abs (ANC) 6.70 (H) 1.50 - CERNER 6.30 MILLENNIUM x10(3)/mcL Lymphocyte Abs 1.8 1.0 - 3.6 CERNER x10(3)/mcL MILLENNIUM Monocyte Abs 1.5 (H) 0.2 - 1.0 CERNER x10(3)/mcL MILLENNIUM Tot Diff Cell [address] MILLENNIUM Plat Estimate Normal CERNER MILLENNIUM RBC Morphology Normal CERNER MILLENNIUM Atypical Lymph Moderate CERNER MILLENNIUM Specimen Anatomical Collection Method Collection Time Receive d Time (Source) Location / / Volume Laterality Blood specimen 07/27/2011 11:09 1 (specimen) AM EDT 11:26 AM EDT Demar Brandon MD HEMATOLOGY ORDERABLES Performing Organization Address City/State/[place] [address] CERNER MILLENNIUM (ABNORMAL) Comprehensive metabolic panel (non-fasting) (07/27/2011 11:09 AM EDT) P athologist Signature Glucose Lvl 105 60 - 199 CERNER mg/dL MILLENNIUM Comment: Diabetes: >=200 mg/dL plus symp toms BUN 21 (H) 10 - 20 mg/dL CERNER MILLENNIU M Creatinine 0.78 (L) 0.80 - 1.50 mg/dL CERNER MILL ENNIUM Sodium 140 135 - 145 mmol/L CERNER LUMA NIUM Potassium 4.0 3.5 - 5.0 mmol/L CERNER LUMA NIUM Comment: Please note: ??Patients with WBC >100,00 0 may have falsely elevated Potassium levels. ??For accurate Potassium quantif ication in these patients send serum separator tube (gold top) for subsequent determinations. ??Contact the Clinical Chemistry Laboratory if there are any qu estions. Chloride 100 98 - 107 mmol/L CERNER MILLENN IUM CO2 31 22 - 31 mmol/L CERNER MILLENNI UM Anion Gap 9 5 - 15 mmol/L CERNER MILLENNIU M Calcium 9.5 8.5 - 10.5 mg/dL CERNER LUMA NIUM Total Protein 7.1 6.4 - 8.3 gm/dL CERNER MIL LENNIUM Albumin 4.3 3.2 - 5.2 gm/dL CERNER MILLENN IUM AST 39 0 - 39 unit/L CERNER MILLENNIU M ALT 45 0 - 55 unit/L CERNER MILLENNIU M Alk Phos 58 40 - 120 unit/L CERNER MILLENN IUM Total Bilirubin 0.8 0.2 - 1.3 mg/dL CERNER M ILLENNIUM Bili, Direct 0.2 0.0 - 0.3 mg/dL CERNER MILL ENNIUM Estimated GFR >60 >=60 CERNER MILLENNIU M Comment: The National Kidney Disease Education Pr ogram (NKDEP) has recommended all laboratories report estimated GFR (eGFR) along with plasma creatinine measurements to assist you with recognit ion of early kidney disease. Caveats: ??Plasma creatinine should be a t steady-state (unchanged within the past week). For patient s multiply eGFR by 1.2.MDRD equation has not been validated for pediatric pat ients and is only valid for patients with age >= 18 years. At present, NKDEP does NOT recommend usi [...] kidney disease. References: http://nkdep.nih.gov/resources/NKDEP_Sug gestn4Labs_0606_508.pdf http://www.kidney.org/professionals/kls/ pdf/faq_gfr.pdf Specimen Anatomical Collection Method Collection Time Receive d Time (Source) Location / / Volume Laterality Blood specimen 07/27/2011 11:09 1 (specimen) AM EDT 11:26 AM EDT Demar Brandon MD CHEMISTRY ORDERABLES Performing Organization Address City/State/[place] [address] CERNER MILLENNIUM (ABNORMAL) CBC (with Diff) (07/27/2011 11:09 AM EDT) P athologist Signature WBC 10.0 4.0 - 10.0 CERNER x10(3)/mcL MILLENNIUM RBC 4.66 4.63 - CERNER 6.08 MILLENNIUM x10(6)/mcL Hemoglobin 14.9 13.7 - CERNER 17.5 gm/dL MILLENNIUM Hematocrit 43.4 40.0 - CERNER 51.0 % MILLENNIUM MCV 93.1 (H) 79.0 - CERNER 92.0 fL MILLENNIUM MCH 32.0 25.6 - CERNER 32.2 pg MILLENNIUM MCHC 34.3 32.0 - CERNER 36.5 gm/dL MILLENNIUM Platelets 147 145 - 370 CERNER x10(3)/mcL [facility] RDWSD 42.2 35.0 - CERNER 46.0 fL [facility] RDWCV 12.6 10.9 - CERNER 14.4 % [facility] MPV 9.9 9.0 - 12.0 CERNER fL [facility] Specimen Anatomical Collection Method Collection Time Receive d Time (Source) Location / / Volume Laterality Blood specimen 07/27/2011 11:09 1 (specimen) AM EDT 11:26 AM EDT Demar Brandon MD HEMATOLOGY ORDERABLES Performing Organization Address City/State/[place] [address] [facility] documented in this encounter Visit Diagnoses Diagnosis Rheumatoid arthritis(714.0) - Primary Rheumatoid arthritis Encounter for long-term (current) use of other medications documented in this encounter Care Teams Outsole Caser Relationship Specialty Start Date End Date Wilner Chamberlain MD PCP - General 08/17/10 01/10/[address] [place] [address] documented as of this encounter
--- OUTSIDE RECORDS SUMMARY | 2022-03-18 09:50 | XMS_ITS | Encounter Summary ---
:1940 Author Organization [facility] [place] [address] Care Team Providers Name Role Phone Wilner Chamberlain MD Primary Care Provider Reason for Visit Reason Comments Abdominal Pain Encounter Details Date Type Department Care Team Description 03/29/2014 Emergency Emergency Department Alistair Bell MD [facility] [place] [address] [facility] Kashif Pan MD [facility] [place] [address] [facility] [place] [address] Social History Tobacco Use Types Packs/Day Years Used Date Never Smoker Smokeless Tobacco: Never Used Alcohol Use Standard Drinks/Week Comments No 0 (1 standard drink = 0.6 oz pure alcoho l) Sex Assigned at Date Recorded Not on file documented as of this encounter Last Filed Vital Signs Vital Sign Reading Time Taken Comments Blood Pressure 132/61 03/29/2014 1:15 PM EDT Pulse 77 03/29/2014 1:15 PM EDT Temperature 36.6 ??C (97.9 ??F) 03/29/2014 10:46 AM EDT Respiratory Rate 23 03/29/2014 1:15 PM EDT Oxygen Saturation 94% 03/29/2014 1:15 PM EDT Inhaled Oxygen Concentration - - Weight - - Height - - Body Mass Index - - documented in this encounter Discharge Instructions Discharge InstructionsAbebaPamela rose Jay - 03/29/2014 1:07 PM EDT Images from the original note were not included. [facility] Constipation: After Your Visit Your Care Instructions Constipation means that you have a hard time passing stools (bowel movements). People pass stools from 3 times a day to once every 3 days. What is normal for you may be different. Constipation may occur with pain in the rectum and cramping. The pain may get worse when you try to pass stools. Sometimesthere are small amounts of bright red blood on toilet paper or the surface of stools because of enlarged veins near the rectum (hemorrhoids). A few changes in your diet and lifestyle may help you avoid ongoing constipation. Your doctor may also prescribe medicine to help loosen your stool. Some medicines (such as pain medicines or antidepressants) can cause constipation. Tell your doctor about all the medicines you take. Your doctor may want to make a medicine change to ease your symptoms. Follow-up care is a moses part of your treatment and safety. Be sure to make and go to all appointments, and call your doctor if you are having problems. It???s also a good idea to know your test resultsand keep a list of the medicines you take. How can you care for yourself at home? ?? Drink plenty of fluids, enough so that your urine is light yellow or clear like water. If you have kidney, heart, or liver disease and have to limit fluids, talk with your doctor before you increasethe amount of fluids you drink. ?? Include high-fiber foods, such as fruits, vegetables, beans, and whole grains, in your diet each day. ?? Get at least 30 minutes of exercise on most days of the week. Walking is a good choice. You also may want to do other activities, such as running, swimming, cycling, or playing tennis or team sports. ?? Take a fiber supplement, such as Citrucel or Metamucil, every day. Start with a small dose and very slowly increase the dose over a month or more. ?? Schedule time each day for a bowel movement. A daily routine may help. Take your time having yourbowel movement. ?? Support your feet with a small step stool when you sit on the toilet. This helps flex your hips and places your pelvis in a squatting position. ?? Your doctor may recommend an [id number] laxative to relieve your constipation. Examples areMilk of Magnesia and MiraLax. Read and follow all instructions on the label, and do not use laxatives on a long-term basis. When should you call for help? Call your doctor now or seek immediate medical care if: ?? You have new or worsening belly pain. ?? You have new or worsening nausea or vomiting. ?? You have blood in your stools. Watch closely for changes in your health, and be sure to contact your doctor if: ?? Your constipation is getting worse. ?? You do not get better as expected. Where can you learn more? Visit our [employer] information library at [email or web address] You can also view health information on [employer], your personal patient account. Log in or sign up today. Enter P343 in the search box to learn more about Constipation: After Your Visit. ?? [phone] [employer]. Care instructions adapted under license by [facility]. This care instruction is for use with your licensed healthcare professional. If you have questionsabout a medical condition or this instruction, always ask your healthcare professional. [employer] disclaims any warranty or liability for your use of this information. Content Version: 9.9.488262; Last Revised: November 13, 2012 [facility] Constipation: After Your Visit Your Care Instructions Constipation means that you have a hard time passing stools (bowel movements). People pass stools from 3 times a day to once every 3 days. What is normal for you may be different. Constipation may occur with pain in the rectum and cramping. The pain may get worse when you try to pass stools. Sometimesthere are small amounts of bright red blood on toilet paper or the surface of stools because of enlarged veins near the rectum (hemorrhoids). A few changes in your diet and lifestyle may help you avoid ongoing constipation. Your doctor may also prescribe medicine to help loosen your stool. Some medicines (such as pain medicines or antidepressants) can cause constipation. Tell your doctor about all the medicines you take. Your doctor may want to make a medicine change to ease your symptoms. Follow-up care is a moses part of your treatment and safety. Be sure to make and go to all appointments, and call your doctor if you are having problems. It???s also a good idea to know your test resultsand keep a list of the medicines you take. How can you care for yourself at home? ?? Drink plenty of fluids, enough so that your urine is light yellow or clear like water. If you have kidney, heart, or liver disease and have to limit fluids, talk with your doctor before you increasethe amount of fluids you drink. ?? Include high-fiber foods, such as fruits, vegetables, beans, and whole grains, in your diet each day. ?? Get at least 30 minutes of exercise on most days of the week. Walking is a good choice. You also may want to do other activities, such as running, swimming, cycling, or playing tennis or team sports. ?? Take a fiber supplement, such as Citrucel or Metamucil, every day. Start with a small dose and very slowly increase the dose over a month or more. ?? Schedule time each day for a bowel movement. A daily routine may help. Take your time having yourbowel movement. ?? Support your feet with a small step stool when you sit on the toilet. This helps flex your hips and places your pelvis in a squatting position. ?? Your doctor may recommend an [id number] laxative to relieve your constipation. Examples areMilk of Magnesia and MiraLax. Read and follow all instructions on the label, and do not use laxatives on a long-term basis. When should you call for help? Call your doctor now or seek immediate medical care if: ?? You have new or worsening belly pain. ?? You have new or worsening nausea or vomiting. ?? You have blood in your stools. Watch closely for changes in your health, and be sure to contact your doctor if: ?? Your constipation is getting worse. ?? You do not get better as expected. Where can you learn more? Visit our health information library at [email or web address] You can also view health information on [employer], your personal patient account. Log in or sign up today. Enter P343 in the search box to learn more about Constipation: After Your Visit. ?? [phone] [employer]. Care instructions adapted under license by [facility]. This care instruction is for use with your licensed healthcare professional. If you have questionsabout a medical condition or this instruction, always ask your healthcare professional. [employer] disclaims any warranty or liability for your use of this information. Content Version: 9.9.050108; Last Revised: November 13, 2012 You have been seen in the emergency department for abdominal pain. You should stop taking Miralax and Milk of Magnesia. Instead, you should switch to MagCitrate and Golytely. Take as directed. You should follow up with your PCP if you have continued abdominal pain. You should return to the emergency department with worsening abdominal pain, vomiting, chest pain, or shortness of breath. AttachmentsThe following attachments cannot be sent through Care Everywhere. ABDOMINAL PAIN (BULGARIAN)documented in this encounter Medications at Time of [...] mg 0 06/02/2010 tablet polyethylene glycol Take 240 mLs by 4000 mL 0 03/29/2014 04/12/2014 (GOLYTELY) [id number] mouth 2 times daily gram suspension as needed. magnesium citrate Soln Take 150 mLs by 1000 mL 0 03/29/20 14 04/12/2014 solution mouth 2 times daily as needed. polyethylene glycol Take 17 g by mouth [...] daily tablet documented as of this encounter ED Notes Kashif Ya MD - 03/29/2014 11:32 AM EDT Jose Yadav is an 74 y.o. male who presents to the ED with: Chief Complaint Patient presents with ??? Abdominal Pain HPI Jose Yadav is a 74 y.o. male who presents to the Emergency Department with worsening abdominal pain. Patient has had chronic abdominal pain since August, and recently saw GI 03/21/2014. He reportsthat GI has instructed him to take Miralax and MOM for constipation, but since starting that he has had worsening abdominal pain, which prevented him from sleeping last night and brought him in this morning. He reports small bowel movement yesterday morning, without evidence of blood. He denies any n/v. He denies any dysuria or hematuria. He denies any CP, SOB. PMH: OA, RA, CAD s/p CABGx2, prostate Ca s/p prostatectomy. Allergies: Metolazone, MTX. Social: denies any tobacco, EtOH, illicits. Review of Systems: Review of Systems Constitutional: Positive for unexpected weight change. Negative for fever, chills, diaphoresis and fatigue. Reports 10# unintentional weight loss HENT: Negative for hearing loss, congestion, sore throat, rhinorrhea and neck pain. Eyes: Negative for visual disturbance. Respiratory: Negative for cough, shortness of breath and wheezing. Cardiovascular: Negative for chest pain. Gastrointestinal: Positive for abdominal pain and constipation. Negative for nausea, vomiting, diarrhea and blood in stool. Genitourinary: Negative for dysuria, hematuria and flank pain. Musculoskeletal: Positive for back pain, joint swelling and arthralgias. Chronic joint pain and swelling with RA/OA Skin: Negative for pallor and rash. Neurological: Negative for dizziness, speech difficulty and headaches. Hematological: Negative for adenopathy. Does not bruise/bleed easily. Psychiatric/Behavioral: Positive for sleep disturbance. Patient Vitals for the past 24 hrs: BP Temp Temp src Pulse Resp SpO2 03/29/14 1046 151/77 mmHg 36.6 ??C (97.9 ??F) Oral 67 14 97 % Physical Exam: Physical Exam Nursing note and vitals reviewed. Constitutional: He is oriented to person, place, and time. He appears well- developed and well-nourished. HENT: Head: Normocephalic. Mouth/Throat: Oropharynx is clear and moist. Eyes: EOM are normal. Pupils are equal, round, and reactive to light. Neck: Normal range of motion. Neck supple. Cardiovascular: Normal rate and regular rhythm. Murmur heard. Crescendo systolic murmur is present with a grade of 4/6 4/6 systolic murmur with radiation to the carotids Pulmonary/Chest: No respiratory distress. He has no wheezes. He exhibits no mass, no crepitus, no edema, no swelling and no retraction. Sternotomy Crackles at RLL Abdominal: Soft. Normal appearance and bowel sounds are normal. He exhibits no mass. There is tenderness. There is no rigidity, no rebound and no guarding. Exam was benign with subjective tenderness only but remained happy and talkative throughout deep palpation. Musculoskeletal: He exhibits edema. +1 pedal edema LLE, per chronic Neurological: He is alert and oriented to person, place, and time. Skin: Skin is warm and dry. No rash noted. No erythema. Psychiatric: He has a normal mood and affect. His speech is normal and behavior is normal. ED Course: - Patient was evaluated and discussed with Dr. Ya - Medications, allergies and past medical history reviewed - I reviewed the patient's labwork: Recent Results (from the past 24 hour(s)) ELECTROLYTES PANEL Component Value Range Sodium 138 135 - 145 mmol/L Potassium 3.9 3.5 - 5.0 mmol/L Chloride 102 98 - 107 mmol/L CO2 25 22 - 31 mmol/L Anion Gap 11 5 - 15 mmol/L BUN Component Value Range BUN 19 10 - 20 mg/dL CREATININE Component Value Range Creatinine 0.69 (*) 0.80 - 1.50 mg/dL Estimated GFR >60 >=60 GLUCOSE, RANDOM Component Value Range Glucose Lvl 99 60 - 199 mg/dL HEPATIC FUNCTION PANEL Component Value Range Total Protein 6.5 6.4 - 8.3 gm/dL Albumin 3.6 3.2 - 5.2 gm/dL AST 24 0 - 39 unit/L ALT 25 0 - 55 unit/L Alk Phos 71 40 - 120 unit/L Total Bilirubin 0.7 0.2 - 1.3 mg/dL Bili, Direct 0.2 0.0 - 0.3 mg/dL LIPASE Component Value Range Lipase 29 0 - 60 unit/L HEMOGRAM Component Value Range WBC 9.5 4.0 - 10.0 x10(3)/mcL RBC 4.34 (*) 4.63 - 6.08 x10(6)/mcL Hemoglobin 13.7 13.7 - 17.5 gm/dL Hematocrit 40.2 40.0 - 51.0 % MCV 92.6 (*) 79.0 - 92.0 fL MCH 31.6 25.6 - 32.2 pg MCHC 34.1 32.0 - 36.5 gm/dL Platelets 149 145 - 370 x10(3)/mcL RDWSD 42.3 35.0 - 46.0 fL RDWCV 12.4 10.9 - 14.4 % MPV 10.3 9.0 - 12.0 fL DIFFERENTIAL, AUTOMATED Component Value Range Neutrophils % 78.1 (*) 34.0 - 71.0 % Neutr Abs (ANC) 7.44 (*) 1.50 - 6.30 x10(3)/mcL Lymphocytes % 10.4 (*) 19.0 - 53.0 % Lymphocytes Abs 1.0 1.0 - 3.6 x10(3)/mcL Monocytes % 11.0 4.0 - 13.0 % Monocyte Abs 1.0 0.2 - 1.0 x10(3)/mcL Eosinophils % 0.2 0.0 - 7.0 % Eosinophils Abs 0.0 0.0 - 0.5 x10(3)/mcL Basophils % 0.1 0.0 - 2.0 % Basophils Abs 0.0 0.0 - 0.2 x10(3)/mcL Immature Gran % 0.20 0.00 - 0.66 % Soco Gran Abs 0.02 0.00 - 0.05 x10(3)/mcL Assessment and Plan: Assessment: 74 y.o. male with chronic abdominal pain, now worsened after starting miralax and milk of magnesia. Differential diagnosis included AAA, unlikely given lack of aneurysm on CT 09/2013. Ddx also includes hepatitis, cholecystitis, and pancreatitis, less likely given labs not consistent with acu te infection and without elevation in LFTs, lipase, or Alk Phos. Abdominal pain most likely due to constipation and medication. EGD scheduled for 04/03. Return precautions were verbally discussed with the patient and written in discharge instructions, including fevers, shortness of breath, abdominal pain, nausea/vomiting, hematemesis, or other concerns. The patient expressed understanding that he could come back to the ED at any time and agreed to the follow-up plan. Plan: - Stop Miralax and Milk of Magnesia. - Start Magnesium Citrate and Golytely for EGD prep/ improvement in abdominal pain. - Follow up with GI, PCP - Return precautions Pamela Flowers DO Resident 03/29/14 7821 ED ATTENDING ADDENDUM: The patient was seen in conjunction with Dr. Flowers, the resident physician. I have independentlyperformed the moses portions of the history and physical exam. I have reviewed all diagnostic studies personally including labs, imaging studies and EKG's. I have reviewed the patient's chart where indicated. I have also reviewed/obtained the allergies, medication, past medical history, and social history as documented in other parts of the chart. I have discussed the details of the case with the resident and agree with the all moses portions of the H&P and plan as described in the resident note above. MDM Number of Diagnoses or Management Options Constipation: new, needed workup Amount and/or Complexity of Data Reviewed Clinical lab tests: ordered and reviewed Review and summarize past medical records: yes Discuss the patient with other providers: yes Risk of Complications, Morbidity, and/or Mortality Presenting problems: moderate Diagnostic procedures: minimal Management options: low Patient Progress Patient progress: stable Kashif Ya MD 04/06/14 0912 Alistair Ortez RN - 03/29/2014 11:20 AM EDT Resident at bedside. Alistair Ortez RN - 03/29/2014 10:48 AM EDT Pt ambulatory to room, c/o ABD pain x6 months, increasing pain over last week, didn't sleep last night due to pain level. 05/04 currently, tender ABD. Alistair Ortez RN - 03/29/2014 10:35 AM EDT Family/friend at bedside. documented in this encounter Miscellaneous Notes Discharge Summary - Provider, Scanning - 03/31/2014 9:13 AM EDT Miscellaneous - Provider, Scanning - 03/29/2014 2:58 PM EDT documented in this encounter Plan of Treatment Not on filedocumented as of this encounter Procedures Procedure Name Priority Date/Time Associated Comments Diagnosis URINALYSIS WITH STAT 03/29/2014 11:59 Results for this REFLEX CULTURE AM EDT procedure are in the results section. HEMOGRAM STAT 03/29/2014 11:35 Results for this AM EDT procedure are i n the results section. DIFFERENTIAL, STAT 03/29/2014 11:35 Results fo r this AUTOMATED AM EDT procedure are i n the results section. CREATININE STAT 03/29/2014 11:35 Results for this AM EDT procedure are i n the results section. CBC (WITH DIFF) STAT 03/29/2014 11:35 AM EDT BUN STAT 03/29/2014 11:35 Results for this AM EDT procedure are i n the results section. LIPASE STAT 03/29/2014 11:35 Results for this AM EDT procedure are i n the results section. GLUCOSE, RANDOM STAT 03/29/2014 11:35 Results for this AM EDT procedure are i n the results section. HEPATIC FUNCTION STAT 03/29/2014 11:35 Results for this PANEL AM EDT procedure are i n the results section. ELECTROLYTES PANEL STAT 03/29/2014 11:35 Resul ts for this AM EDT procedure are i n the results section. documented in this encounter Results (ABNORMAL) Urinalysis with microscopic (03/29/2014 11:59 AM EDT) [facility] Method Time Signature Glucose UA Negative Negative CERNER mg/dL MILLENNIUM Protein UA Trace (A) Negative CERNER mg/dL MILLENNIUM Bilirubin UA Negative Negative CERNER mg/dL MILLENNIUM Comment: Clinical correlation required for positi ve Urine Bilirubin results as false positive may occur with some drugs and d rug related products. If a false positive is suspected a serum total bili frank should be considered if clinically indicated. Urobilinogen UA Normal Normal mg/dL CERNER MILL ENNIUM pH UA 5.5 5.0 - 8.0 CERNER MILLENNIUM Blood UA Negative Negative mg/dL CERNER MILLENNI UM Ketones UA 40 (A) Negative mg/dL CERNER MILLENN IUM Nitrite UA Negative Negative CERNER MILLENNIUM Leukocytes UA Negative Negative mcL CERNER LUMA NIUM Appearance UA Hazy (A) Clear CERNER MILLENNIU M Spec [place] UA 1.017 1.002 - 1.030 CERNER MIL LENNIUM Color UA Yellow Yellow CERNER MILLENNIUM RBC UA Not Present 0 - 3 CERNER MILLENNIUM WBC UA 1 0 - 3 /HPF CERNER MILLENNIUM Bacteria UA Rare (A) None /HPF CERNER MILLENNIUM Squam Epith UA 1 <=4 /HPF CERNER MILLENNI UM Trans Epith UA <1 <=1 /HPF CERNER MILLENNI UM Hyaline Cast UA 4 (H) 0 - 2 /LPF CERNER LUMA NIUM Amorph Kathy UA Occasional /HPF CERNER MILLENN IUM Specimen Anatomical Collection Method Collection Time Receive d Time (Source) Location / / Volume Laterality Urine specimen 03/29/2014 11:59 4 (specimen) AM EDT 12:27 PM EDT Resulting Agency Comment Spec In Lab Kashif Ya MD URINE ORDERABLES Performing Organization Address City/State/[place] [address] CERNER MILLENNIUM (ABNORMAL) Differential, Automated (03/29/2014 11:35 AM EDT) [facility] gist Method Time Signature Neutrophils % 78.1 (H) 34.0 - CERNER 71.0 % MILLENNIUM Neutr Abs (ANC) 7.44 (H) 1.50 - CERNER 6.30 MILLENNIUM x10(3)/mc L Lymphocytes % 10.4 (L) 19.0 - CERNER 53.0 % MILLENNIUM Lymphocytes Abs 1.0 1.0 - 3.6 CERNER x10(3)/mc MILLENNIUM L Monocytes % 11.0 4.0 - CERNER 13.0 % MILLENNIUM Monocyte Abs 1.0 0.2 - 1.0 CERNER x10(3)/mc MILLENNIUM L Eosinophils % 0.2 0.0 - 7.0 CERNER % MILLENNIUM Eosinophils Abs 0.0 0.0 - 0.5 CERNER x10(3)/mc MILLENNIUM L Basophils % 0.1 0.0 - 2.0 CERNER % MILLENNIUM Basophils Abs 0.0 0.0 - 0.2 CERNER x10(3)/mc MILLENNIUM L Immature Gran % 0.20 0.00 - CERNER 0.66 % MILLENNIUM Comment: [...] Location / / Volume Laterality Blood specimen 03/29/2014 11:35 4 (specimen) AM EDT 11:58 AM EDT Resulting Agency Comment Spec In Lab Kashif Ya MD HEMATOLOGY ORDERABLES Performing Organization Address City/State/ZIP Code Phon e Number [place] [phone] CERNER MILLENNIUM (ABNORMAL) Hemogram (03/29/2014 11:35 AM EDT) P athologist Signature WBC 9.5 4.0 - 10.0 CERNER x10(3)/mcL MILLENNIUM RBC 4.34 (L) 4.63 - CERNER 6.08 MILLENNIUM x10(6)/mcL Hemoglobin 13.7 13.7 - CERNER 17.5 gm/dL MILLENNIUM Hematocrit 40.2 40.0 - CERNER 51.0 % MILLENNIUM MCV 92.6 (H) 79.0 - CERNER 92.0 fL MILLENNIUM MCH 31.6 25.6 - CERNER 32.2 pg MILLENNIUM MCHC 34.1 32.0 - CERNER 36.5 gm/dL MILLENNIUM Platelets 149 145 - 370 CERNER x10(3)/mcL MILLENNIUM RDWSD 42.3 35.0 - CERNER 46.0 fL MILLENNIUM RDWCV 12.4 10.9 - CERNER 14.4 % MILLENNIUM MPV 10.3 9.0 - 12.0 CERNER fL MILLENNIUM Specimen Anatomical Collection Method Collection Time Receive d Time (Source) Location / / Volume Laterality Blood specimen 03/29/2014 11:35 4 (specimen) AM EDT 11:58 AM EDT Resulting Agency Comment Spec In Lab Kashif Ya MD HEMATOLOGY ORDERABLES Performing Organization Address City/State/[place] [address] CERNER MILLENNIUM Lipase (03/29/2014 11:35 AM EDT) athologist Signature Lipase 29 0 - 60 CERNER unit/L MILLENNIUM Specimen Anatomical Collection Method Collection Time Receive d Time (Source) Location / / Volume Laterality Blood specimen 03/29/2014 11:35 4 (specimen) AM EDT 11:58 AM EDT Resulting Agency Comment Spec In Lab Kashif Ya MD CHEMISTRY ORDERABLES Performing Organization Address City/State/[place] [address] CERNER MILLENNIUM Hepatic Function Panel (03/29/2014 11:35 AM EDT) athologist Signature Total Protein 6.5 6.4 - 8.3 CERNER gm/dL MILLENNIUM Albumin 3.6 3.2 - 5.2 CERNER gm/dL MILLENNIUM AST 24 0 - 39 CERNER unit/L MILLENNIUM ALT 25 0 - 55 CERNER unit/L MILLENNIUM Alk Phos 71 40 - 120 CERNER unit/L MILLENNIUM Total 0.7 0.2 - 1.3 CERNER Bilirubin mg/dL MILLENNIUM Bili, Direct 0.2 0.0 - 0.3 CERNER mg/dL MILLENNIUM Specimen Anatomical Collection Method Collection Time Receive d Time (Source) Location / / Volume Laterality Blood specimen 03/29/2014 11:35 4 (specimen) AM EDT 11:58 AM EDT Resulting Agency Comment Spec In Lab Kashif Ya MD CHEMISTRY ORDERABLES Performing Organization Address City/[facility]/[place] [address] CERNER MILLENNIUM Glucose, random (03/29/2014 11:35 AM EDT) athologist Signature Glucose Lvl 99 60 - 199 CERNER mg/dL MILLENNIUM Comment: Diabetes: >=200 mg/dL plus symp toms Specimen Anatomical Collection Method Collection Time Receive d Time (Source) Location / / Volume Laterality Blood specimen 03/29/2014 11:35 4 (specimen) AM EDT 11:58 AM EDT Resulting Agency Comment Spec In Lab Kashif Ya MD CHEMISTRY ORDERABLES Performing Organization Address City/[facility]/[place] [address] CERNER MILLENNIUM (ABNORMAL) Creatinine (03/29/2014 11:35 AM EDT) athologist Signature Creatinine 0.69 (L) 0.80 - CERNER 1.50 mg/dL MILLENNIUM Comment: Please note that the pediatric reference intervals supplied above were not validated at [facility]. Results from pediatri c patients should be interpreted in conjunction to the patient's age, height and muscle mass. Estimated GFR >60 >=60 CERNER ANNRUTHIU M Comment: This estimated GFR (eGFR) value [...] the following links into your internet browser. [email or web address]/DHnkdep [email or web address] Specimen Anatomical Collection Method Collection Time Receive d Time (Source) Location / / Volume Laterality Blood specimen 03/29/2014 11:35 4 (specimen) AM EDT 11:58 AM EDT Resulting Agency Comment Spec In Lab Kashif Ya MD CHEMISTRY ORDERABLES Performing Organization Address City/[facility]/[place] [address] CERNER MILLENNIUM BUN (03/29/2014 11:35 AM EDT) athologist Signature BUN 19 10 - 20 CERNER mg/dL MILLENNIUM Specimen Anatomical Collection Method Collection Time Receive d Time (Source) Location / / Volume Laterality Blood specimen 03/29/2014 11:35 4 (specimen) AM EDT 11:58 AM EDT Resulting Agency Comment Spec In Lab Kashif Ya MD CHEMISTRY ORDERABLES Performing Organization Address City/[facility]/ZIP Code Phon e Number [address] CERNER MILLENNIUM Electrolytes panel (03/29/2014 11:35 AM EDT) P athologist Signature Sodium 138 135 - 145 CERNER mmol/L MILLENNIUM Potassium 3.9 3.5 - 5.0 CERNER mmol/L MILLENNIUM Comment: Please note: ??Patients with WBC >100,00 0 may have falsely elevated Potassium levels. ??For accurate Potassium quantif ication in these patients send serum separator tube (gold top) for subsequent determinations. ??Contact the Clinical Chemistry Laboratory if there are any qu estions. Chloride 102 98 - 107 mmol/L CERNER MILLENN IUM CO2 25 22 - 31 mmol/L CERNER MILLENNI UM Anion Gap 11 5 - 15 mmol/L CERNER MILLENNIU M Specimen Anatomical Collection Method Collection Time Receive d Time (Source) Location / / Volume Laterality Blood specimen 03/29/2014 11:35 4 (specimen) AM EDT 11:58 AM EDT Resulting Agency Comment Spec In Lab Kashif Ya MD CHEMISTRY ORDERABLES Performing Organization Address City/[facility]/ZIP Code Phon e Number [address] CERNER MILLENNIUM documented in this encounter Visit Diagnoses Diagnosis Constipation Unspecified constipation documented in this encounter Care Teams Paper Bag Press Operator Relationship Specialty Start Date End Date Wilner Chamberlain MD PCP - General 08/17/10 01/10/18 [address] [place] [address] documented as of this encounter
--- OUTSIDE RECORDS SUMMARY | 2022-03-18 09:50 | XMS_ITS | Encounter Summary ---
:1940 Author Organization [facility] [place] [address] Care Team Providers Name Role Phone Wilner Chamberlain MD Primary Care Provider [phone] Encounter Details Date Type Department Care Team Description 04/16/2013 Follow-Up Rheumatology at [facility] Lori Cannon, Rheumatoid arthritis [facility] Abdoulaye hernandez MD ([place]) [place] [address] [facility] [phone] DR RHEUMATOLOGY [place], [place] [address] Social History Tobacco Use Types Packs/Day Years Used Date Never Smoker Sex Assigned at Date Recorded Not on file documented as of this encounter Last Filed Vital Signs Vital Sign Reading Time Taken Comments Blood Pressure 119/78 04/16/2013 9:41 AM EDT Pulse 78 04/16/2013 9:41 AM EDT Temperature 36.6 ??C (97.8 ??F) 04/16/2013 9:41 AM EDT Respiratory Rate - - Oxygen Saturation 91% 04/16/2013 9:41 AM EDT Inhaled Oxygen Concentration - - Weight 108.6 kg (239 lb 8 oz) 04/16/2013 9:41 AM EDT Height 175.3 cm (5' 9) 04/16/2013 9:41 AM EDT Body Mass Index 35.37 04/16/2013 9:41 AM EDT documented in this encounter Patient Instructions Patient InstructionsAnjali Rowland LPN - 04/16/2013 9:41 AM EDT Welcome to [email or web address], your secure online access to your electronic medical record at [facility]. Using [email or web address] you will be able to send messages to your providers, view your test results, renew prescriptions, schedule appointments, and much more. Follow these instructions to enter your personal [email or web address] account for the first time: 1. Start your internet browser and type [email or web address] into the address bar. 2. In the New User box on the right-hand side of the Welcome page click the link that states, ???I have an activation code.?? 3. On the Identification page, follow these steps: a) Enter your [email or web address] activation code: [email or web address] b) Expires: 05/31/2013 9:41 AM IMPORTANT: This Activation Code will on the above mentioned date. If you do not sign up for [email or web address] by this date, you will need to request another activation code. c) Enter your date of , using the calendar tool provided. d) Enter your Zip code. e) Select ???submit?? to go to the next page. 4. On the Create Account page, follow these steps: a) Create a [email or web address] username. This can???t be changed, so choose one you won???t forget. b) Create a password that???s at least six characters long, and that contains at least two numbers. Your password can be changed at any time. Confirm your password by entering it once more. c) Enter your email address. This will be used to alert you to new information. Confirm your email address by entering it once more. d) Enter your security question. This will be used if you forget your password. e) Enter your security answer. Confirm your security answer by entering it once more. f) Select ???submit?? to view your electronic medical record. If you have any questions about [email or web address] or your Access Code, please call for [place], for [place] or for [place]. If you need technical support, please e-mail [email or web address]. Remember, myD-H is NOT for urgent needs! Always dial 911 for medical emergencies. documented in this encounter Progress Notes Lori Cannon MD - 04/16/2013 8:50 AM EDT Jose Yadav is a 73 year old man who returns to the rheumatology clinic for evaluation of RA andOA. The most recent visit to the clinic was 6 months ago. He is seen with his today. Cc: joints doing well HPI: No new problems. Some pain and stiffness [...] SOCIAL HISTORY/HABITS No tobacco or etoh. 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 Lives in [facility], with his Misty of 48 years Daughter and Son also live locally 7 grand children FAMILY HISTORY Sister has RA- worse disease course PMH: HI and CABG x 2 THR Prostate cancer [...] fatigue Mood is stable Physical Examination: BP 119/78 Pulse 78 Temp(Src) 36.6 ??C (97.8 ??F) (Oral) Ht 175.3 cm (5' 9) Wt 108.636 kg (239 lb 8 oz) BMI 35.37 kg/m2 SpO2 91% General-Well developed well nourished male who is alert and in no apparent distress at rest. HEENT-No conjunctivitis, or mucosal ulcers. Neck-Supple. 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 Fusedright wrist. Hips with decreased ROM Crepitant knees. Bunions. No active synovitis. MTP squeeze due to bunions NM- Patient is alert and oriented. Skin-No rash. Eye appointment annually. CDAI Pt global 2.5 Phys global 0.5 T/s 0 = 3 = low activity Impression: Rheumatoid arthritis with chronic deformity well controlled. S/P right hip replacement. Tolerating medication. Recommendations: #Continue Enbrel and Plaquenil # new cock up wrist splint from [facility] # annual eye exam (current pending) # labs as per Dr. Chamberlain, asked to include annual CBC and crp (given slip) # f/u in one year documented in this encounter Plan of Treatment Not on filedocumented as of this encounter Visit Diagnoses Diagnosis Rheumatoid arthritis(714.0) - Primary Rheumatoid arthritis documented in this encounter Care Teams Mining Captain Relationship Specialty Start Date End Date Wilner Chamberlain MD PCP - General 08/17/10 01/10/[address] [place] [address] documented as of this encounter
--- OUTSIDE RECORDS SUMMARY | 2022-03-18 09:50 | XMS_ITS | Encounter Summary ---
:1940 Author Organization [facility] [place] [address] Care Team Providers Name Role Phone Wilner Chamberlain MD Primary Care Provider [phone] Encounter Details Date Type Department Care Team Description 04/02/2014 Surgery [place] [facility] [place]roy Dowling UPPER GASTROINTESTINAL [facility] Abdoulaye Celis MD ENDOSCOPY,[place] [address] ONE MEDICAL SINGLE OR MULTIPLE ([facility] [phone] Turk) GASTRO[place]OLOGY [place] [address] Social History Tobacco Use Types Packs/Day Years Used Date Never Smoker Smokeless Tobacco: Never Used Sex Assigned at Date Recorded Not on file documented as of this encounter Last Filed Vital Signs Vital Sign Reading Time Taken Comments Blood Pressure 120/68 04/02/2014 8:48 AM EDT Pulse 67 04/02/2014 8:48 AM EDT Temperature 36.6 ??C (97.9 ??F) 04/02/2014 7:39 AM EDT Respiratory Rate 16 04/02/2014 8:48 AM EDT Oxygen Saturation 94% 04/02/2014 8:48 AM EDT Inhaled Oxygen Concentration - - Weight 100.7 kg (222 lb) 04/02/2014 7:39 AM EDT Height 175.3 cm (5' 9) 04/02/2014 7:39 AM EDT Body Mass Index 32.78 04/02/2014 7:39 AM EDT documented in this encounter Discharge Instructions Discharge InstructionsSanabria, Jamila M, RN - 04/02/2014 8:46 AM EDT UPPER GI ENDOSCOPY WHAT TO [...] not get better as expected. Monday-Monday Clinic [phone] 8a-5p Same Day Endo [phone] 7a-8p Otherwise contact [phone] and ask to speak to the new accounts clerk office administration instructor Follow-up care is a moses part of your treatment and safety. Be sure to make and go to all appointments, and call your doctor if you are having problems. Instructions have been reviewed and patient expresses understanding Patient InstructionsElroy Dowling MD - 04/02/2014 8:55 AM EDT Please see Recommendations in the [...] encounter H&P Notes Elroy Dowling MD - 04/02/2014 8:21 AM EDT Gastroenterology and Hepatology Pre-Procedure History and Physical Exam Procedure: EGD: Indication: abdominal pain, elevated TTG Patient Active Problem List Diagnosis Code ??? 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 CIS - rheumatoid arthritis T999.0 ??? Rheumatoid arthritis 714.0 ??? Osteoarthritis 715.90 ??? Abdominal pain 789.00 EXAM: HEENT: Airway examined, oropharynx clear LUNGS: Clear to auscultation HEART: Regular rate and rhythm, normal S1, S2 ABDOMEN: Normal bowel sounds, soft, non tender, non distended, A/P Proceed with the planned endoscopic procedure. Risks and benefits of the procedure explained to the patient. Consent signed. documented in this encounter Miscellaneous Notes Noel - Samm Rosario - 04/02/2014 9:33 PM EDT Angel Luisaneous - Provider, Scanning - 04/02/2014 2:56 PM EDT documented in this encounter Plan of Treatment Not on filedocumented as of this encounter Procedures Procedure Name Priority Date/Time Associated Comments Diagnosis SPECIMEN TO PATHOLOGY Routine 04/02/2014 8:52 Res ults for this AM EDT procedure are i n the results section. SURGICAL PATHOLOGY Routine 04/02/2014 8:51 Result s for this REPORT AM EDT procedure are i n the results section. UPPER GASTROINTESTINAL 04/02/2014 8:23 Celiac disease ENDOSCOPY,WITH BIOPSY AM EDT SINGLE OR MULTIPLE (WRVU 2.49) UPPER GI ENDOSCOPY Routine 04/02/2014 7:31 Result s for this AM EDT procedure are i n the results section. documented in this encounter Results Specimen to Pathology (surgical or derm) (04/02/2014 8:52 AM EDT) Specimen Anatomical Collection Method Collection Time Receive d Time (Source) Location / / Volume Laterality AP Specimen 04/02/2014 8:52 AM 4 8:52 EDT AM EDT Narrative [facility] - 04/02/2014 8:52 AM E DT Specimen requisition ordered. ??Separate Pathology report to follow Elroy Dowling MD PATHOLOGY/CYTOLOGY ORDERABLE S Performing Organization Address City/State/[place] [address] [facility] Surgical Pathology Report (04/02/2014 8:51 AM EDT) Component Value Ref Test Analysis Performed At [facility] gist Range Method Time Signature Surgical [facility] Pathology ? [facility] Report ? Provider: ?? ELROY DOWLING ?? Pt. Name: ?? VANNESSA YADAV ? Acc #: ?[id number] ?Pt. MRN: ?[id number] ? Col Date: ?? 04/02/2014 ?/Sex: ?1940,(74 years),Male ? Rec Date: ?? 04/02/2014 ?LOC: ?4T ? SURGICAL PATHOLOGY ? ---Pathologic Diagnosis--- ? Duodenum, biopsy: ? Duodenal mucosa with partial villous blunting and increased ? intraepithelial lymphocytes ??(see Note). ? NOTE: ??The morpholog ical findings are etiologically nonspecific and have ? been described in valdo iac disease, tropical sprue, autoimmune enteropathy, ? immunodeficiency (IgA deficiency and CVID ), bacterial overgrowth, food ? allergy and infectiou s enteritis. Clinical and serological correlation is ? recommended. Trichrome stain was evaluated for final diagnosis. ? CR-0 ? 04/04/14 ? [facility] ? 04/04/14 Verified by: ? Darien MCDONOUGH, Haroldo ? Pathologist ? (Electronic Si gnature) ? The attending pathologist whose signature appears o n this report has ? reviewed all diagnostic slides and has edited the cyn ss and/or ? microscopic portion of the report in rendering the fi nal pathologic ? diagnosis. ? ---Gross Description--- ? A - Labeled/Fixative: Duodenal biopsies, formalin. ? Quantity/Size: Five, ranging from 0.2-0.5 cm. ? Tissue Description: Polypoid hill soft tissues. ? Sections/Processing: (T1) ??shb ? ---Clinical Information--- ? Specimen Submitted: ? A - Duodenal biopsies ? Clinical History: ? Abnormal appearing duodenal mucosa ? Clinical Diagnosis: ? Same Specimen (Source) Anatomical Collection Method Collection Time Re ceived Time Location / / Volume Laterality 04/02/2014 8:51 AM EDT Elryo Dowling MD PATHOLOGY/CYTOLOGY ORDERABLE S Performing Organization Address [facility]/[place] [address] [facility] UPPER GI ENDOSCOPY (04/02/2014 7:31 AM EDT) [facility] Method Time Signature UPPER GI [facility] ENDOSCOPY Endoscopy Patient Name: Vannessa Yadav ? Procedure Date: 04/02/2014 7:31 AM ? [facility]: [id number] ? Date of : 1940 ? Age: 74 ? Order #: [id number] ? Procedure: ? Upper GI endoscopy Indications: ? Periumbilical abdominal pain, ? elevated TTG Providers: ? Elroy Dowling MD, Shabnam ? Charity, RN, Katja Valenzuela RN , Rocio ? Travon, Legal Associate Referring : ?Wilner Chamberlain MD, Kisha Rawls ? Marychuy, PRINT FINISHER Medicines: ? Midazolam 4 mg IV, Fentanyl 150 ? micrograms IV, Benzocaine spr ay Complications: ? No immediate complications. Procedure: ? Pre-Anesthesia Assessment: ? - ASA Grade Assessment: I - A normal, ? healthy patient. ? - Mental Status Examination: alert ? and oriented. ? - Airway Examination: normal ? oropharyngeal airway and neck ? mobility. ? - Respiratory Examination: cl ear to ? auscultation. ? - CV Examination: normal. ? The procedure, indications, b enefits, ? [...] The patie nt ? tolerated the procedure fairl y well. ? Findings: ? The esophagus was normal. ? The stomach was normal. ? The duodenal bulb was somewhat erythematous, without ? ulceration. ? In the second portion of the duodenum the mucosa was ? edematous thickened folds, erythematous with some ? scattered superficial erosions. Multiple biopsies ? were obtained. ? Impression: ?- Normal esophagus. ? - Normal stomach. ? Abnormal appearing duodenal m ucosa ? with nonspecific pattern. Recommendation: ?- Await pathology results. ? Elroy Dowling MD 04/02/2014 8:55 AM This report has been signed electronically. Number of Addenda: 0 Note Initiated On: 04/02/2014 7:31 AM Specimen (Source) Anatomical Collection Method Collection Time Re ceived Time Location / / Volume Laterality 04/02/2014 7:31 AM EDT Wilner Chamberlain MD GENERAL SURGICAL ORDERABLES Performing Organization Address City/State/ZIP Code Phon e Number [employer] documented in this encounter Visit Diagnoses Diagnosis Celiac disease documented in this encounter Administered Medications Inactive Administered Medications - up to 3 most recent administrations Medication Order MAR Action Action Date Dose Rate Site fentaNYL 50mcg/mL injection Given 04/02/2014 8:35 AM EDT 50 mcg Right Arm ONCE PRN, Starting on Mon04/02/14 at 0825, Until Mon04/02/14 at 0929, Pain, Intra-Operative (Intra-Procedure), Routine Given 04/02/2014 8:30 AM EDT 50 mcg Right Arm Given 04/02/2014 8:25 AM EDT 50 mcg Right Arm midazolam (PF) (VERSED) 1 mg/mL Given 04/02/2014 8:36 AM EDT 1 m g Right Arm injection ONCE PRN, Starting on Mon04/02/14 at 0825, Until Mon04/02/14 at 0929, Sleep, Intra-Operative (Intra-Procedure), Routine Given 04/02/2014 8:32 AM EDT 1 mg Right Arm Given 04/02/2014 8:28 AM EDT 1 mg Right Arm documented in this encounter Active and Recently Administered Medications Times are shown in EDT. PRN Medication Order 03/31/2014 04/01/2014 04/02/2014 fentaNYL 50mcg/mL injection (CANCELED) 0825 (Given - Provider: Shabnam Nash RN)0830 (Given - Provider: Shabnam Nash RN)0835 (Given - Provider: Shabnam Nash RN) ONCE PRN, Starting Mon04/02/14 at 0825, U ntil Mon04/02/14 at 0929, Pain, Intra- Operative (Intra-Procedure), Routine midazolam (PF) (VERSED) 1 mg/mL injection (CANCELED) 0825 (Given - Provider: Shabnam Nash RN)0828 (Given - Provider: Shabnam Nash, RN)0832 (Given - Provider: Shabnam Nash, RN)0836 (Given - Provider: Shabnam Nash, RN) ONCE PRN, Starting Mon04/02/14 at 0825, U ntil Mon04/02/14 at 0929, Sleep, Intra- Operative (Intra-Procedure), Routine documented in this encounter Care Teams Private Banker Relationship Specialty Start Date End Date Wilner Chamberlain MD PCP - General 08/17/10 01/10/[address] [place] [address] documented as of this encounter
--- OUTSIDE RECORDS SUMMARY | 2022-03-18 09:50 | XMS_ITS | Encounter Summary ---
:1940 Author Organization [facility] [place] [address] Care Team Providers Name Role Phone Wilner Chamberlain MD Primary Care Provider [phone] Encounter Details Date Type Department Care Team Description 04/02/2014 Hospital Encounter G[place]ology [place] [facility] Stuart Morgan MD [facility] [place] [address] [facility] Elroy Brock MD [facility] [place] [address] [place] [address] Social History Tobacco Use Types Packs/Day [...] documented in this encounter Discharge Instructions Discharge InstructionsJamila Kenny RN - 04/02/2014 8:46 AM EDT UPPER [...] not get better as expected. Monday-Monday Clinic [phone] 8a-5p Same Day Endo [phone] 7a-8p Otherwise contact [phone] and ask to speak to the sweet dough mixer converting supervisor Follow-up care is a moses part of [...] (ENBREL Inject 1 Pen 4 Syringe 11 10/30/20130 02/2015 SURECLICK) 50 mg/mL (0.98 subcutaneously once [...] signed. documented in this encounter Miscellaneous Notes Miscellaneous - ProviderSamm - 04/02/2014 9:33 PM EDT Miscellaneous - Provider, Scanning - 04/02/2014 2:56 PM [...] AM 4 8:52 EDT AM EDT Narrative [facility] - 04/02/2014 8:52 AM E DT Specimen requisition ordered. ??Separate Pathology report to follow Elroy Dowling MD PATHOLOGY/CYTOLOGY ORDERABLE S Performing Organization Address City/State/[place] [address] [facility] Surgical Pathology Report (04/02/2014 8:51 AM EDT) Component Value Ref Test Analysis Performed At [facility] gist Range Method Time Signature Surgical CERNER Pathology ? [facility] Report ? Provider: ?? ELROY DOWLING ?? Pt. Name: ?? VANNESSA YADAV ? Acc #: ?[id number] ?Pt. MRN: ?[id number] ? Col Date: ?? 04/02/2014 ?/Sex: ?1940,(74 [...] ? [facility] ? 04/04/14 Verified by: ? Haroldo Ledezma MD ? Pathologist ? (Electronic Si gnature) [...] / Volume Laterality 04/02/2014 8:51 AM EDT Elroy Dowling MD PATHOLOGY/CYTOLOGY ORDERABLE S Performing Organization Address City/State/ZIP Code Phon e Number [place] [id number] [facility] (04/02/2014 7:31 AM EDT) [facility] Method Time Signature UPPER GI [facility] ENDOSCOPY Endoscopy Patient Name: Vannessa Yadav ? Procedure Date: 04/02/2014 7:31 AM ? N: [id number] ? Date of : 1940 ? Age: 74 ? Order #: [id number] ? Procedure: ? Upper GI endoscopy Indications: ? Periumbilical abdominal pain, ? elevated TTG Providers: ? Elroy Dowling MD, Shabnam ? Charity, RN, Katja Valenzuela, CROW , Rocio ? Travon, Wringer And Setter Referring : ?Wilner Chamberlain MD, Kisha Hernandez. ? Marychuy, AD OPERATIONS INTERN Medicines: ? Midazolam 4 mg IV, Fentanyl [...] reactions. The ? Endoscope was introduced thro h the ? mouth, and advanced to the [...] Shabnam Nash RN)0835 (Given - Provider: Shabnam Nsah RN) ONCE PRN, Starting Mon04/02/14 at 0825, U ntil Mon04/02/14 at 0929, Pain, Intra- Operative (Intra-Procedure), Routine midazolam (PF) (VERSED) 1 mg/mL injection (CANCELED) 0825 (Given - Provider: Shabnam Nash RN)0828 (Given - Provider: Shabnam Nash RN)0832 (Given - Provider: Shabnam Nash RN)0836 (Given - Provider: Shabnam Nash RN) ONCE PRN, Starting Mon04/02/14 at 0825, U ntil Mon04/02/14 at 0929, Sleep, Intra- Operative (Intra-Procedure), Routine documented in this encounter Care Teams Board Certified Behavioral Analyst Relationship Specialty Start Date End Date Wilner Chamberlain MD PCP - General 08/17/10 01/10/18 [address] [place] [address] documented as of this encounter
--- OUTSIDE RECORDS SUMMARY | 2022-03-18 09:50 | XMS_ITS | Encounter Summary ---
:1940 Author Organization [facility] [place] [address] Care Team Providers Name Role Phone Wilner Chamberlain MD Primary Care Provider [phone] Reason for Visit Reason Onset Date Comments Medication Refill 11/16/2011 Encounter Details Date Type Department Care Team Description 11/16/2011 Refill Rheumatology at [facility] Demar Brandon MD [facility] [place] [address] RHEUMATOLOGY DEPT. [phone] [place], [place] [address] (Wo rk) Social History Tobacco Use Types Packs/Day Years Used Date Never Smoker Sex Assigned at Date Recorded Not on file documented as of this encounter Plan of Treatment Not on filedocumented as of this encounter Visit Diagnoses Not on filedocumented in this encounter Care Teams Polishing Wheel Setter Relationship Specialty Start Date End Date Wilner Chamberlain MD PCP - General 08/17/10 01/10/18 [address] [place] [address] documented as of this encounter
--- OUTSIDE RECORDS SUMMARY | 2022-03-18 09:52 | XMS_ITS ---
:1940 Author Care Team Providers Name Role Phone AZIZA JACKSON NP Primary Care Provider [phone] [facility] MEDICAL RECORDS Primary Care Provider [phone] REFUGIO SANCHEZ MD [employer] [phone] [facility] OTHER [phone] Allergies Code Code System Name Reaction Severity Status Onset 1489 RxNorm Methotrexate ? ? Active ? 1375 RxNorm Metolazone ? ? Active ? 9548 RxNorm Propoxyphene ? ? Active ? Notes: No seafood allergy. No contrast allergy. Medications Name Status Start Date Stop Date ? ? acetaminophen 500 mg tablet Active ? Not available Take 1 tablet twice a day by oral route. Anoro Ellipta 62.5 mcg-25 mcg/actuation powder for inhalation Ac tive ? Not available 1 puff once a day ascorbic acid (vitamin C) 1,000 mg tablet Active ? Not available Take 1 tablet every day by oral route. atorvastatin 40 mg tablet Active ? Not av ailable cholecalciferol (vitamin D3) Active ? Not available take 1000 unit capsule once daily by oral route doxazosin 2 mg tablet Active ? Not availa ble Eliquis 5 mg tablet Active ? Not availabl e ferrous sulfate 325 mg (65 mg iron) tablet,delayed release Activ e ? Not available Take 1 tablet every day by oral route. Fish Oil 1,000 mg (120 mg-180 mg) capsule Active ? Not available Take 1 capsule every day by oral route. Humira 40 mg/0.8 mL subcutaneous syringe kit Active ? Not available Inject 0.8 mL every 2 weeks by subcutaneous route. iron 65 mg tablet Completed ? 09/23/2019 Take 1 tablet every day by oral route. lisinopril 20 mg tablet Active ? Not avai lable metoprolol succinate ER 100 mg tablet,extended release Active ? Not available 24 hr nitroglycerin 0.4 mg sublingual tablet Active ? Not available potassium Completed ? 09/23/2019 10MEQ, 1 tab BID potassium chloride ER 10 mEq capsule,extended release Active ? Not available prednisone 5 mg tablet Active ? Not avail able torsemide 20 mg tablet Active ? Not avail able Take 1 tablet twice a day by oral route. vitamin B complex Active ? Not available 1 tab daily Vitamin C Completed ? 09/23/2019 500mg daily Vitamin D Completed ? 09/23/2019 1000units daily Xopenex HFA 45 mcg/actuation aerosol inhaler Active ? Not available Inhale 2 puffs every 6 hours by inhalation route as needed. Notes: Reinbeck hex and hugo acid from 05/13/19 cardiology notes Problems Name Status Onset Date Source ? Chronic Obstructive Lung Disease Active 09/30/2019 ? Carcinoma of Prostate Unknown ? ? Adenoma of Large Intestine Active ? ? Hyperlipidemia Active ? History Metabolic Syndrome X Active ? ? Obesity Unknown ? History Obstructive Sleep Apnea Syndrome Active ? History Idiopathic Sleep Related Non-obstructive Alveolar Unknown ? History Hypoventilation Hypertensive Disorder Active ? ? Chronic Ischemic Heart Disease Active ? ? Pulmonary Hypertension Active ? History Aortic Stenosis, Non-rheumatic Active ? H istory Atrial Fibrillation Active ? ? Diastolic Dysfunction Active ? ? Pulmonary Emphysema Unknown ? ? Chronic Obstructive Lung Disease Unknown ? History Celiac Disease Active ? History Rheumatoid Arthritis Active ? History Osteoarthritis of Multiple Joints Active ? ? Osteopenia Active ? ? Edema of Lower Extremity Active ? ? Dyspnea Unknown ? History Hypoxemia Active ? History History of Malignant Neoplasm of Prostate Active ? History Procedure by Method Unknown ? History Atherosclerosis of Coronary Artery without Angina Active ? History Pectoris Clinical Finding Unknown ? History Adhesive Capsulitis of Right Shoulder Active ? ? Heart Valve Finding Active ? ? History of Thrombocytopenia Active ? ? Procedures Date Name Performed by ? 05/01/2019 Echocardiography Information not avai lable Notes: 08/07/17; 05/02/17; 09/14/16; 07/27/1502/20/2018 Measurement of Respiratory Function Info rmation not available Notes: 04/04/17; 06/18/08 09/04/2017 Cardiac Catheterization Information not available Notes: 11/18/99; 07/20/99; 1989; 198802/24/2017 Holter Extended Electrocardiographic Inf ormation not available Recording 08/25/2016 Colonoscopy Information not avai lable 06/19/2015 Excision of Head of Metatarsal Informati on not available Notes: 4th metatarsal head 04/02/2014 Upper Gi Endoscopy Performed Information not available Notes: with biopsy 06/27/2008 Total Replacement of Hip Information not available Notes: Right 06/18/2008 Stress Echocardiography Using Dobutamine Information not available 10/14/2004 Cabg Information not avai lable 09/25/1998 Cabg Information not avai lable Notes: Redo CABG X 2: Radial artery-OM . SVG to PDA 06/24/1997 Prostatectomy Information not avai lable 09/24/1992 Hernia Repair Information not avai lable 09/25/1989 Cabg Information not avai lable Notes: X 3: GOVEA-LAD. SVG to diagonal branch, SVG to PDA 09/25/1988 Cardiovascular Stress Test Information n ot available Notes: using Thallium 05/25/1969 Wrist Surgery Information not avai lable Notes: right wrist fusion 04/06/2020 US, Echocardiogram Xray [facility] [address] [place], [place] [address] (Work [address]) 05/22/2020 CT, Chest, W/o Contrast Xray [facility] [address] [place], [place] [address] (Work Place) Results Lab Results Date Name Specimen Result Interpretation Description Value Range Status Address ? 07/02/2020 CBC W/ Auto ? No observation ? ? ? [facility] Diff recorded. [facility]: [address] [facility] 07/02/2020 BMP, Serum or ? No observation ? ? ? [facility] Plasma recorded. [facility]: [address] Festus barney 04/06/2020 EKG Done by Lab ? No observation ? ? ? [place] recorded. [facility] Lab (Internal) : [address] Past Encounters 05/24/2021 Obstructive Sleep Apnea Syndrome; Pulmon rajesh Hypertension; Chronic Obstructive Lung Disease Zeenat Polanco MD, Board Certified Sleep Ph ysician: [address] [place] [address] [address], [place] [address], Ph. 12/11/2020 Chronic Obstructive Lung Disease; Obstru ctive Sleep Apnea Syndrome Holly Jackson MD: [address] [place] [address] [address], [place] [address], Ph. 10/28/2020 Refugio Sanchez MD: [address] [place] [address], Ph. Social History Tobacco Smoking Status Former Smoker (1/4 pack per Notes: smoked at age 14 to day) 16; stopped in 1955. Vaccine List Vaccine Type pneumococcal conjugate PCV 13 06/23/2015 pneumococcal polysaccharide PPV23 03/01/2011 Td (adult) preservative free 03/01/2011 zoster live 06/23/2015 Plan of Care Patient Instructions 1. new DME for [facility]- ou t of [employer] but they will ship you supplies and have a respiratory therapist who can talk to you: You use nasal pillows. I dont know what model and size because you diddnt bring it. But you should have this available (the nasal pillows mask in front of you) when the DME company [facility] calls. Gave you extra oxygen adaptor so you can use BIPAP tonight with your oxygen. 2. Dr. Justine Bustamante, [place] a t [facility] Office Pulmonology [address] [place] [address] 1 year follow up for sleep/bipap Reminders Provider Appointments None recorded. ? ? Lab None recorded. ? ? Referral None recorded. ? ? Procedures None recorded. ? ? Surgeries None recorded. ? ? Imaging None recorded. ? ? Vitals 05/24/2021 10:00AM Office 30 Height Weight BMI Blood Pressure 175.26 cm 102.06 kg 33.2 kg/m2 122/62 mm[Hg] 12/11/2020 11:00AM Office 30 Height Weight BMI Blood Pressure 175.26 cm 107.4 kg 35 kg/m2 134/77 mm[Hg] 07/02/2020 10:45AM Office 30 Height Weight BMI Blood Pressure 175.26 cm 112 kg 36.5 kg/m2 132/74 mm[Hg] 05/22/2020 09:30AM Office 30 Height Weight BMI Blood Pressure 175.26 cm 111 kg 36.1 kg/m2 122/70 mm[Hg] 05/06/2020 09:00AM Office 30 Height Weight BMI Blood Pressure 175.26 cm 106.14 kg 34.6 kg/m2 128/98 mm[Hg] 04/06/2020 02:00PM Follow Up 30 Weight Blood Pressure 111 kg 130/96 mm[Hg] 12/24/2018 10:45AM Office 30 Height Weight BMI Blood Pressure 175.26 cm 111.31 kg 36.2 kg/m2 118/72 mm[Hg] 07/18/2017 Height Weight Blood Pressure 175.26 cm 102.97 kg 122/66 mm[Hg] 05/11/2017 Height Weight Blood Pressure 175.26 cm 106.14 kg 120/70 mm[Hg] 04/11/2017 Height Weight Blood Pressure 175.26 cm 107.95 kg 110/58 mm[Hg] 04/07/2017 Height Weight Blood Pressure 175.26 cm 106.59 kg 128/70 mm[Hg] 03/14/2017 Height Weight Blood Pressure 175.26 cm 110.93 kg 98/52 mm[Hg] 01/31/2017 Height Weight Blood Pressure 175.26 cm 109.37 kg 128/84 mm[Hg] 11/24/2016 Height Weight Blood Pressure 175.26 cm (1) 109.46 kg 122/84 mm[Hg] (2) 109.4 kg
--- NOTE | 2022-03-18 10:03 | ED.GENADUL_ITS ---
Discharge Plan Disposition Patient Disposition: HOME Condition: Stable Discharge Details Clinical Impression: Rheumatoid arthritis Primary Care Provider: Khushi Payne ED Provider: Danial Rodarte Home Meds and New Rx's Prescriptions: New diclofenac sodium 3 % gel 1 applic topical BID PRN (Reason: pain) Qty: 100 1RF No Action cholecalciferol (vitamin D3) 1,000 unit capsule 1,000 unit PO DAILY Eliquis 2.5 mg tablet 2.5 mg PO BID Qty: 180 3RF acetaminophen [Tylenol Extra Strength] 500 MG tablet 500 mg PO BID Humira Pen 40 mg/0.8 mL pen injector kit 40 mg subcut every 2 weeks Qty: 2 1RF (DME) Oxygen Tank See Rx Instructions .ROUTE .MEDSUPPLY Qty: 1 Rx Instructions: As directed,4L of oxygen bled in BiPAP at HS. atorvastatin 40 mg tablet 40 mg PO DAILY 90 Days Qty: 90 3RF Rx Instructions: TO LOWER LDL CHOLESTEROL LESS THAN 70 doxazosin [Cardura] 2 mg tablet 2 mg PO DAILY Qty: 90 3RF lisinopril 20 mg tablet 20 mg PO BID Qty: 180 3RF Rx Instructions: levalbuterol tartrate [Xopenex HFA] 45 mcg/actuation HFA aerosol inhaler 2 inh IH Q6H PRN (Reason: shortness of breath) Qty: 15 12RF Rx Instructions: no proair or albuterol products, dispense as written Note dated 05/22/20 metoprolol succinate 100 mg tablet extended release 24 hr 100 mg PO BID Qty: 180 3RF nitroglycerin [Nitrostat] 0.4 mg tablet, sublingual 0.4 mg Sublingual ONCE PRN (Reason: chest pain) Qty: 25 6RF Rx Instructions: IF NEEDED FOR ANGINA, MAY REPEAT X2 IF NECESSARY; never uses pantoprazole 40 mg tablet,delayed release (DR/EC) 40 mg PO DAILY Qty: 90 2RF prednisone 5 mg tablet 5 mg PO DAILY PRN (Reason: RA) Qty: 60 3RF torsemide 20 mg tablet 40 mg PO BID Qty: 180 3RF Anoro Ellipta 62.5-25 mcg/actuation blister with device 1 ea Inhalation DAILY Qty: 60 3RF ascorbic acid (vitamin C) 1,000 MG tablet 1,000 mg PO DAILY vitamin B complex [B Complete] 1 EACH tablet 1 tab PO DAILY Fish Oil 1 EACH capsule 1 ea PO QAM potassium chloride 10 mEq capsule, extended release 40 meq PO as directed Rx Instructions: potassium replacement: 2 in AM and 1 in PM Discharge Instructions Instructions: Arthritis (ED) Additional Instructions: At this time I feel that your symptoms are due to your rheumatoid arthritis. As discussed you may use [id number] acetaminophen no more than 3000 mg in a 24-hour period. You may also continue to use the provided Mathew wrap if this helps with discomfort. Please follow-up with your primary care provider for reassessment next week for further discussion on steroids or steroid injection for your discomfort. Referrals: Khushi Payne NP [Primary Care Provider] - 1 week Discharge Data Discharge Date/Time-TO BE ENTERED AT DEPARTURE: 03/18/22 11:37 Medical Decision Making Patient presenting to the emergency department for chief complaint of left knee pain and swelling. He states he started approximately 3 days ago. Patient denies any known injury or trauma but does state occasional falls. Patient does have significant history of rheumatoid arthritis, COPD, CABG with bypass graft using left lower extremity vasculature system. Patient is on Eliquis. Physical exam does show significant swelling and tenderness to the left calf and posterior knee with swelling and erythema to the left lower extremity. Patient is tender to the medial aspect of the thigh. Patient does have appearance of chronic venous stasis to lower legs. Patient denies all other symptoms and exam is otherwise unremarkable. Chief working differential diagnosis is DVT versus Lucero's cyst versus rheumatoid arthritis. Patient denies any need for pain medication at this time but will perform ultrasound imaging along with a plain film imaging for further evaluation. Both ultrasound and x-ray were negative for any acute findings. I feel high probability that this is patient's rheumatoid arthritis. Discussed steroid burst versus conservative management using Voltaren gel and acetaminophen. After discussion of risk versus benefit patient and family stated they preferred conservative management and will follow up with primary care provider next week for further discussion of steroids or steroid injection. After discussion of diagnosis and plan of care, family and patient has no further needs, questions, or concerns and states clear understanding to return to the emergency department for any worsening symptoms. This documentation was generated using [employer] system, please disregard any oddities of phrase or misspellings. Imaging Data Radiologic Study: Imaging: X-Ray Radiologist's impression: FINDINGS: BONES: No acute fracture is present. No bony destructive lesion is seen. JOINTS: The knee is normally aligned. No joint effusion is seen. SOFT TISSUE: Surgical clips are seen in the soft tissues of the leg. IMPRESSION: No acute abnormality Radiologic Study #2: Imaging: Ultrasound Radiologist's impression: FINDINGS: The left common femoral, femoral and popliteal veins demonstrate normal compressibility, augmentation, and color Doppler. The posterior tibial veins are patent. The contralateral common femoral vein is patent. IMPRESSION: 1. No DVT. 2. Results of this exam have been verbally communicated with provider. HPI General Mode of arrival: ambulatory . Date/Time Provider Initiated Documentation: 03/18/22 09:53 . Limitations to Documentation: no limitations . Information obtained by: patient and RN notes reviewed . History of Present Illness 82 year old M presents to the emergency department with the chief complaint of left knee pain and swelling, described as moderate, with intensity rated at 7. Quality is described as aching, and is localized to t he left and lower extremity. Patient reports no radiation. Patient started experiencing this day(s) (3) and it has been constant. No relieving factors improve symptom(s), No exacerbating factors reported . Patient notes no other symptoms.. Patient did receive the following treatments prior to arrival, none Related Data Home Medications Medication Instructions Recorded Confirmed ascorbic acid (vitamin C) 1,000 mg 1,000 mg PO DAILY 09/21/13 01/28/22 tablet vitamin B complex (B Complete 1 tab PO DAILY 09/21/13 03/18/22 tablet) docosahexaenoic acid (dha)-epa 120 1 ea PO QAM 04/11/14 03/18/22 mg-180 mg capsule (Fish Oil) acetaminophen 500 mg tablet 500 mg PO BID 06/09/17 03/18/22 (Tylenol Extra Strength) cholecalciferol (vitamin D3) 25 1,000 unit PO DAILY 01/07/19 01/28/22 mcg (1,000 unit) capsule adalimumab 40 mg/0.8 mL 40 mg (0.8 mL) subcut every 2 03/16/20 03/18/22 subcutaneous pen kit (Humira Pen) weeks #2 device Oxygen #1 ea 04/29/21 01/28/22 atorvastatin 40 mg tablet 40 mg PO DAILY 90 days #90 tabs 11/24/21 03/18/22 doxazosin 2 mg tablet (Cardura) 2 mg PO DAILY #90 tabs 11/24/21 03/18/22 levalbuterol tartrate 45 2 inh inhalation Q6H PRN shortness 11/24/21 03/18/22 mcg/actuation aerosol inhaler of breath #15 grams (Xopenex HFA) lisinopril 20 mg tablet 20 mg PO BID #180 tabs 11/24/21 03/18/22 metoprolol succinate 100 mg 100 mg PO BID #180 tabs 11/24/21 03/18/22 tablet,extended release 24 hr nitroglycerin 0.4 mg sublingual 0.4 mg sublingual ONCE PRN chest 11/24/21 03/18/22 tablet (Nitrostat) pain #25 tabs pantoprazole 40 mg tablet,delayed 40 mg PO DAILY #90 tabs 11/24/21 03/18/22 release prednisone 5 mg tablet 5 mg PO DAILY PRN RA #60 tabs 11/24/21 03/18/22 torsemide 20 mg tablet 40 mg PO BID #180 tabs 11/24/21 03/18/22 apixaban 2.5 mg tablet (Eliquis) 2.5 mg PO BID #180 tabs 12/15/21 03/18/22 umeclidinium 62.5 mcg-vilanterol 1 ea inhalation DAILY #60 ea 12/27/21 01/28/22 25 mcg/actuation powdr for inhalation (Anoro Ellipta) diclofenac sodium 3 % topical gel 1 applic topical BID PRN pain #100 03/18/22 grams potassium chloride 10 mEq 40 meq PO as directed 03/18/22 03/18/22 capsule,extended release Previous Rx's Medication Instructions Recorded adalimumab 40 mg/0.8 mL 40 mg (0.8 mL) subcut every 2 03/16/20 subcutaneous pen kit (Humira Pen) weeks #2 device atorvastatin 40 mg tablet 40 mg PO DAILY 90 days #90 tabs 11/24/21 doxazosin 2 mg tablet (Cardura) 2 mg PO DAILY #90 tabs 11/24/21 levalbuterol tartrate 45 2 inh inhalation Q6H PRN shortness 11/24/21 mcg/actuation aerosol inhaler of breath #15 grams (Xopenex HFA) lisinopril 20 mg tablet 20 mg PO BID #180 tabs 11/24/21 metoprolol succinate 100 mg 100 mg PO BID #180 tabs 11/24/21 tablet,extended release 24 hr nitroglycerin 0.4 mg sublingual 0.4 mg sublingual ONCE PRN chest 11/24/21 tablet (Nitrostat) pain #25 tabs pantoprazole 40 mg tablet,delayed 40 mg PO DAILY #90 tabs 11/24/21 release prednisone 5 mg tablet 5 mg PO DAILY PRN RA #60 tabs 11/24/21 torsemide 20 mg tablet 40 mg PO BID #180 tabs 11/24/21 apixaban 2.5 mg tablet (Eliquis) 2.5 mg PO BID #180 tabs 12/15/21 umeclidinium 62.5 mcg-vilanterol 1 ea inhalation DAILY #60 ea 12/27/21 25 mcg/actuation powdr for inhalation (Anoro Ellipta) diclofenac sodium 3 % topical gel 1 applic topical BID PRN pain #100 03/18/22 grams Allergies Allergy/AdvReac Type Severity Reaction Status Date / Time methotrexate [Methotrexate] Allergy Intermediate Verified 03/18/22 09:50 metolazone Allergy Mild Verified 03/18/22 09:50 propoxyphene Allergy Mild Verified 03/18/22 09:50 General Stated Complaint: Orthopedic MARISSA: 4 Review of Systems Constitutional Constitutional: Denies chills, Denies fever(s), Denies headache(s) and Denies weakness ENT Ears, Nose, Mouth, and Throat: Denies headache(s) Cardiovascular Cardiovascular: Denies chest pain, Denies irregular heart rhythm, Reports claudication, Reports leg edema, Denies lightheadedness and Denies dyspnea Respiratory Respiratory: Denies dyspnea Gastrointestinal Gastrointestinal: Denies abdominal pain Musculoskeletal Musculoskeletal: Reports as per HPI, Reports arthralgias, Reports joint swelling, Denies numbness and Denies tingling Integumentary/Breasts Skin/Breast: Reports erythema and Denies rash Neurologic Neurologic: Denies headache(s), Denies numbness, Denies sensory deficit, Denies tingling and Denies weakness PFSH All Active Problems (Updated 03/18/22 @ 11:28 by Danial Rodarte NP) Respiratory failure with hypoxia and hypercapnia (Acute) Restrictive lung disease (Acute) Chronic kidney disease, stage 3b (Chronic) Neoplasm of prostate (Acute) Abdominal pain (Acute) Stasis edema with ulcer of left lower extremity (Acute) Aortic stenosis, moderate (Chronic 2014) Dr. Ed hightower, Mod. Hypercapnia (Acute) Hematuria (Acute) x2 02/2020 .. Asymptomatic, no repeat .. Monitoring for now, ik. Encounter for Medicare annual wellness exam (Acute) Abdominal pain (Acute 09/24/13) Occult blood in stools (Acute 09/23/13) Venous stasis (Acute 10/04/11) Severe obstructive sleep apnea (Chronic 04/11/17) with very significant hypoxemia. Uncler whether it is a pulmonary or cardiac etiology.(sleep study f/u note 04/11/17). Bipap w/ 3 L 02 Rheumatoid arthritis (Chronic 09/25/1968) S/P R WRIST FUSION 69; enbrel 02/27, Humira 2017 Barbie Fowler MD Pulmonary hypertension (Chronic) incr PA pressure on ECHO 08/2016; SEVERE by cath 09/04/17: 77/24. 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 goal 215 Hypoxemia (Chronic 02/10/17) with new dyspnea! Hypertension (Chronic) Hyperlipidemia (Chronic 10/04/11) low HDL, LDL goal 70 Heart valve insufficiency (Chronic 07/28/15) Moderate AI, mild MR on ECHO 07/27/15; murmurs; [facility] 08/2015, check yrly; Mod ; Mod AI & MR 08/2016; NO EVIDENCE OF SIGNIFICANT ON CATH 08/2017 Edema leg (Chronic 02/24/17) Dysmetabolic syndrome X (Chronic 10/04/11) Chronic ischemic heart disease, unspecified (Chronic 12/24/89) S/P CABG 4/90; 99; angina; Stress ECHO neg ischemia 2007 but insufficient rat e; small inf hypokinesis, [place] 65% [facility] [place] EF still 65% 08/2016 Chronic anticoagulation (Chronic 10/14/16) Apixaban begun 08/2016 for new A Fib Celiac disease (Chronic 04/11/14) Pos bx on EGD, pos [place]TG [place] [place] Rx gluten free diet Atrial fibrillation, new onset (Chronic 08/30/16) Noted at colonoscopy 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) 10/31/17 Dr Fowler ([facility]) Medical History Acute rheumatoid arthritis COPD (chronic obstructive pulmonary disease) Obstructive sleep apnea syndrome in adult Repeated falls Thrombocytopathia Surgical History excision, metatarsal (06/19/15) Dr Reynolds, 4th metatarsal head S/P CABG (coronary artery bypass graft) (10/14/04) S/P CABG x 2 (~1998) S/P CABG x 3 (~1989) S/P hernia surgery (09/24/92) S/P prostatectomy (06/24/97) S/P total hip arthroplasty (06/27/08) Iron def anemia following surg 07/16/08 Status post fusion of wrist (05/25/1969) right Family History Father , heart issues at age 75. Heart disease Brother FHx: lung cancer Alcohol abuse 2 brothers at age 55 and 65 d/t alcohol abuse. Emphysema, unspecified Sister Diabetes Social History Smoking/Tobacco Use Status: Former Tobacco Use tobacco type: cigarettes Quit Date: 09/25/55 Smoking risk assessment performed?: Yes Alcohol Intake: never Drug use: Never Substance use type: does not use Household members: spouse Housing: house Communication Needs: None current occupation: Retired Pets and animals: Yes (1 dog) Pets and animals: dog(s) Current gender identity: male What type of physical activity do you participate in: walking Duration: < 15 minutes/day Frequency: daily Seatbelt use: always Drive intox or ride w/intox helper/driver: No Working smoke detector in home: Yes Fire extinguisher in home: Yes Carbon monox detector in home: Yes Do you feel safe at home: Yes Do you feel safe in your relationship?: Yes Exam Const General: cooperative, healthy appearing, comfortable and no acute distress Orientation: alert, awake and oriented x3 Resp Effort & Inspection: normal respiratory effort and able to speak in complete sentences Auscultation: clear to auscultation bilaterally Cardio Rate: regular rate Rhythm: regular rhythm Heart Sounds: S1 normal and S2 normal Pulses: normal peripheral pulses Neuro General: patient alert, patient awake, patient oriented x3, moves all extremities and no focal motor deficits Extrem General: capillary refill normal, normal exam except as noted, calf tenderness on the left and edema (1+) Laterality: bilateral Right lower extremity: lower leg Details: other (Chronic venous stasis) Left lower extremity: knee Details: tenderness Location: of the popliteal fossa, swelling and abnormal ROM; no abrasions and no lacerations and lower leg Details: tenderness Location: of the posterior calf and other (Chronic venous stasis) Course Vital Signs Vital signs: Vital Signs Temperature 36.7 C 03/18/22 09:45 Pulse 85 03/18/22 09:45 Respiratory Rate 18 03/18/22 09:45 Blood Pressure 122/77 03/18/22 09:45 Pulse Oximetry 97 03/18/22 09:45 Temperature 36.7 C 03/18/22 09:45 Temperature Source Temporal Artery Scan 03/18/22 09:45 Pulse 85 03/18/22 09:45 Respiratory Rate 18 03/18/22 09:45 Respiratory Effort Non-Labored 03/18/22 09:50 Blood Pressure 122/77 03/18/22 09:45 Blood Pressure Position Supine 03/18/22 09:45 Pulse Oximetry 97 03/18/22 09:45 Oxygen Delivery Method Nasal Cannula 03/18/22 09:45 Oxygen Flow Rate 4 03/18/22 09:45 Pain Level 7 03/18/22 09:50
[2022-03-18] MEDS: Acetaminophen 325 MG TAB 650 MG PO (11:13)
[2022-03-18 11:36] VITALS: PULSE 86; RESP 18; O2SAT 97
--- NOTE | 2022-03-18 11:50 | NUR.NOTE ---
Per the provider Danial Rodarte, referral made to PCP for a recheck of left knee within one week. Referral put in the acute care physical therapist's box for follow up assistance on the appt. Nursing Note:
== END 2022-03-18 11:37 | disposition home or self-care (01) ==
PROVIDERS: Emergency Provider Nurse Practitioner Family; PCP Nurse Practitioner
DX: M06.9 Rheumatoid arthritis, unspecified (principal); J44.9 Chronic obstructive pulmonary disease, unspecified; Z95.1 Presence of aortocoronary bypass graft; Z79.52 Long term (current) use of systemic steroids; Z79.01 Long term (current) use of anticoagulants; Z87.891 Personal history of nicotine dependence; I25.810 Atherosclerosis of coronary artery bypass graft(s) without angina pectoris; M79.605 Pain in left leg
CPT/HCPCS: 73562; 99283; 93971; 99284

== ENCOUNTER 2022-04-16 13:48 | Emergency (ER) | payer OTHER, SELFPAY ==
--- NOTE | 2022-04-16 14:13 | ED.GENADUL_ITS ---
Discharge Plan Disposition Patient Disposition: Discharge Details Clinical Impression: Cardiac arrest Primary Care Provider: Khushi Payne ED Provider: Claus Gonzalez Home Meds and New Rx's Prescriptions: No Action cholecalciferol (vitamin D3) 1,000 unit capsule 1,000 unit PO DAILY Eliquis 2.5 mg tablet 2.5 mg PO BID Qty: 180 3RF acetaminophen [Tylenol Extra Strength] 500 MG tablet 500 mg PO BID Humira Pen 40 mg/0.8 mL pen injector kit 40 mg subcut every 2 weeks Qty: 2 1RF (DME) Oxygen Tank See Rx Instructions .ROUTE .MEDSUPPLY Qty: 1 Rx Instructions: As directed,4L of oxygen bled in BiPAP at HS. atorvastatin 40 mg tablet 40 mg PO DAILY 90 Days Qty: 90 3RF Rx Instructions: TO LOWER LDL CHOLESTEROL LESS THAN 70 doxazosin [Cardura] 2 mg tablet 2 mg PO DAILY Qty: 90 3RF lisinopril 20 mg tablet 20 mg PO BID Qty: 180 3RF Rx Instructions: levalbuterol tartrate [Xopenex HFA] 45 mcg/actuation HFA aerosol inhaler 2 inh IH Q6H PRN (Reason: shortness of breath) Qty: 15 12RF Rx Instructions: no proair or albuterol products, dispense as written Note dated 05/22/20 metoprolol succinate 100 mg tablet extended release 24 hr 100 mg PO BID Qty: 180 3RF nitroglycerin [Nitrostat] 0.4 mg tablet, sublingual 0.4 mg Sublingual ONCE PRN (Reason: chest pain) Qty: 25 6RF Rx Instructions: IF NEEDED FOR ANGINA, MAY REPEAT X2 IF NECESSARY; never uses pantoprazole 40 mg tablet,delayed release (DR/EC) 40 mg PO DAILY Qty: 90 2RF prednisone 5 mg tablet 5 mg PO DAILY PRN (Reason: RA) Qty: 60 3RF torsemide 20 mg tablet 40 mg PO BID Qty: 180 3RF Anoro Ellipta 62.5-25 mcg/actuation blister with device 1 ea Inhalation DAILY Qty: 60 3RF ascorbic acid (vitamin C) 1,000 MG tablet 1,000 mg PO DAILY vitamin B complex [B Complete] 1 EACH tablet 1 tab PO DAILY Fish Oil 1 EACH capsule 1 ea PO QAM potassium chloride 10 mEq capsule, extended release 40 meq PO as directed Rx Instructions: potassium replacement: 2 in AM and 1 in PM diclofenac sodium 3 % gel 1 applic topical BID PRN (Reason: pain) Qty: 100 1RF Medical Decision Making 82-year-old male history of diabetes A. fib pulmonary hypertension rheumatoid arthritis, possible history of DVT in the past, brought in by EMS in cardiac arrest, was last seen normal approximately 15 minutes before family found him unconscious not breathing, patient has been endorsing leg pain prior to this event, upon EMS arrival patient was in PEA rhythm, epinephrine and chest compressions were started, I-gel was placed in the field, capnography as high as 40 in the field, radial from the field to discuss termination of resuscitation v ersus transportation to emergency department, given short downtime of approximately 20 to 25 minutes as well as high end-tidal CO2 and the possibility the patient had experienced a massive PE decision was made to have patient transported for further medical care. Patient arrives in persistent PEA, transition to pads and Adi device, initial intubation attempt with direct laryngoscopy unsuccessful, reattempt with bougie successful. Patient transition to vent. Persistent PEA despite multiple rounds of CPR. Discussed current clinical condition and goals of care with family. Family amenable to termination of resuscitation given age comorbidities length of resuscitation poor likelihood of meaningful neurologic recovery and persistent cardiac arrest; persistent PEA on the monitor, bedside ultrasound showing no cardiac contractility. Time of was called at 14:09 HPI General Date/Time Provider Initiated Documentation: 04/16/22 14:13 . HPI Narrative: 82-year-old male history of diabetes, pulmonary hypertension A. fib, possible history of DVT, brought in by EMS in cardiac arrest, was last seen normal by family approximately 15 minutes before they found him to be unconscious not breathing on the ground, had been complaining of leg pain before this event, EMS arrived patient was in PEA rhythm chest compressions were started, I-Gel was placed, end-tidal CO2 in the field ranging between 20s and 40s. Initial call for transport versus termination of CPR in the field. Given encouraging end- tidal readings in the field as well as short downtime approximately 20 to 25 minutes, the decision was made to transport patient for further care Related Data Home Medications Medication Instructions Recorded Confirmed ascorbic acid (vitamin C) 1,000 mg 1,000 mg PO DAILY 09/21/13 01/28/22 tablet vitamin B complex (B Complete 1 tab PO DAILY 09/21/13 03/18/22 tablet) docosahexaenoic acid (dha)-epa 120 1 ea PO QAM 04/11/14 03/18/22 mg-180 mg capsule (Fish Oil) acetaminophen 500 mg tablet 500 mg PO BID 06/09/17 03/18/22 (Tylenol Extra Strength) cholecalciferol (vitamin D3) 25 1,000 unit PO DAILY 01/07/19 01/28/22 mcg (1,000 unit) capsule adalimumab 40 mg/0.8 mL 40 mg (0.8 mL) subcut every 2 03/16/20 03/18/22 subcutaneous pen kit (Humira Pen) weeks #2 device Oxygen #1 ea 04/29/21 01/28/22 atorvastatin 40 mg tablet 40 mg PO DAILY 90 days #90 tabs 11/24/21 03/18/22 doxazosin 2 mg tablet (Cardura) 2 mg PO DAILY #90 tabs 11/24/21 03/18/22 levalbuterol tartrate 45 2 inh inhalation Q6H PRN shortness 11/24/21 03/18/22 mcg/actuation aerosol inhaler of breath #15 grams (Xopenex HFA) lisinopril 20 mg tablet 20 mg PO BID #180 tabs 11/24/21 03/18/22 metoprolol succinate 100 mg 100 mg PO BID #180 tabs 11/24/21 03/18/22 tablet,extended release 24 hr nitroglycerin 0.4 mg sublingual 0.4 mg sublingual ONCE PRN chest 11/24/21 03/18/22 tablet (Nitrostat) pain #25 tabs pantoprazole 40 mg tablet,delayed 40 mg PO DAILY #90 tabs 11/24/21 03/18/22 release prednisone 5 mg tablet 5 mg PO DAILY PRN RA #60 tabs 11/24/21 03/18/22 torsemide 20 mg tablet 40 mg PO BID #180 tabs 11/24/21 03/18/22 apixaban 2.5 mg tablet (Eliquis) 2.5 mg PO BID #180 tabs 12/15/21 03/18/22 umeclidinium 62.5 mcg-vilanterol 1 ea inhalation DAILY #60 ea 12/27/21 01/28/22 25 mcg/actuation powdr for inhalation (Anoro Ellipta) diclofenac sodium 3 % topical gel 1 applic topical BID PRN pain #100 03/18/22 grams potassium chloride 10 mEq 40 meq PO as directed 03/18/22 03/18/22 capsule,extended release Previous Rx's Medication Instructions Recorded adalimumab 40 mg/0.8 mL 40 mg (0.8 mL) subcut every 2 03/16/20 subcutaneous pen kit (Humira Pen) weeks #2 device atorvastatin 40 mg tablet 40 mg PO DAILY 90 days #90 tabs 11/24/21 doxazosin 2 mg tablet (Cardura) 2 mg PO DAILY #90 tabs 11/24/21 levalbuterol tartrate 45 2 inh inhalation Q6H PRN shortness 11/24/21 mcg/actuation aerosol inhaler of breath #15 grams (Xopenex HFA) lisinopril 20 mg tablet 20 mg PO BID #180 tabs 11/24/21 metoprolol succinate 100 mg 100 mg PO BID #180 tabs 11/24/21 tablet,extended release 24 hr nitroglycerin 0.4 mg sublingual 0.4 mg sublingual ONCE PRN chest 11/24/21 tablet (Nitrostat) pain #25 tabs pantoprazole 40 mg tablet,delayed 40 mg PO DAILY #90 tabs 11/24/21 release prednisone 5 mg tablet 5 mg PO DAILY PRN RA #60 tabs 11/24/21 torsemide 20 mg tablet 40 mg PO BID #180 tabs 11/24/21 apixaban 2.5 mg tablet (Eliquis) 2.5 mg PO BID #180 tabs 12/15/21 umeclidinium 62.5 mcg-vilanterol 1 ea inhalation DAILY #60 ea 12/27/21 25 mcg/actuation powdr for inhalation (Anoro Ellipta) diclofenac sodium 3 % topical gel 1 applic topical BID PRN pain #100 03/18/22 grams Allergies Allergy/AdvReac Type Severity Reaction Status Date / Time methotrexate [Methotrexate] Allergy Intermediate Verified 03/31/22 14:59 metolazone Allergy Mild Verified 03/31/22 14:59 propoxyphene Allergy Mild Verified 03/31/22 14:59 General MARISSA: 4 Review of Systems Narrative: Cardiac arrest, shortness of breath, leg pain PFSH All Active Problems (Updated 04/16/22 @ 14:27 by Claus Gnozalez MD) Cardiac arrest (Acute) Diabetes type 2, controlled (Acute) Impaired fasting blood sugar (Acute) Respiratory failure with hypoxia and hypercapnia (Acute) Restrictive lung disease (Acute) Chronic kidney disease, stage 3b (Chronic) Neoplasm of prostate (Acute) Abdominal pain (Acute) Stasis edema with ulcer of left lower extremity (Acute) Aortic stenosis, moderate (Chronic 2014) Dr. Ward probably trlleaflet, Mod. Hypercapnia (Acute) Hematuria (Acute) x2 02/2020 .. Asymptomatic, no repeat .. Monitoring for now, ik. Encounter for Medicare annual wellness exam (Acute) Abdominal pain (Acute 09/24/13) Occult blood in stools (Acute 09/23/13) Venous stasis (Acute 10/04/11) Severe obstructive sleep apnea (Chronic 04/11/17) with very significant hypoxemia. Uncler whether it is a pulmonary or cardiac etiology.(sleep study f/u note 04/11/17). Bipap w/ 3 L 02 Rheumatoid arthritis (Chronic 09/25/1968) S/P R WRIST FUSION 69; enbrel 02/27, Humira 2017 Barbie Fowler MD Pulmonary hypertension (Chronic) incr PA pressure on ECHO 08/2016; SEVERE by cath 09/04/17: 77/24. 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 goal 215 Hypoxemia (Chronic 02/10/17) with new dyspnea! Hypertension (Chronic) Hyperlipidemia (Chronic 10/04/11) low HDL, LDL goal 70 Heart valve insufficiency (Chronic 07/28/15) Moderate AI, mild MR on ECHO 07/27/15; murmurs; [facility] 08/2015, check yrly; Mod ; Mod AI & MR 08/2016; NO EVIDENCE OF SIGNIFICANT ON CATH 08/2017 Edema leg (Chronic 02/24/17) Dysmetabolic syndrome X (Chronic 10/04/11) Chronic ischemic heart disease, unspecified (Chronic 12/24/89) S/P CABG ; 99; angina; Stress ECHO neg ischemia 2007 but insufficient rate; small inf hypokinesis, EF 65% [facility] [place]; EF still 65% 08/2016 Chronic anticoagulation (Chronic 10/14/16) Apixaban begun 08/2016 for new A Fib Celiac disease (Chronic 04/11/14) Pos bx on EGD, pos TTG IgA Ab ([facility] [place]); Rx gluten free diet Atrial fibrillation, new onset (Chronic 08/30/16) Noted at colonoscopy 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) 10/31/17 Dr Fowler ([facility]) Medical History Acute rheumatoid arthritis COPD (chronic obstructive pulmonary disease) Obstructive sleep apnea syndrome in adult Repeated falls Thrombocytopathia Surgical History excision, metatarsal (06/19/15) Dr Reynolds, 4th metatarsal head S/P CABG (coronary artery bypass graft) (10/14/04) S/P CABG x 2 (~1998) S/P CABG x 3 (~1989) S/P hernia surgery (09/24/92) S/P prostatectomy (06/24/97) S/P total hip arthroplasty (06/27/08) Iron def anemia following surg 07/16/08 Status post fusion of wrist (05/25/1969) right Family History Father , heart issues at age 75. Heart disease Brother FHx: lung cancer Alcohol abuse 2 brothers at age 55 and 65 d/t alcohol abuse. Emphysema, unspecified Sister Diabetes Social History Smoking/Tobacco Use Status: Former Tobacco Use tobacco type: cigarettes Quit Date: 09/25/55 Smoking risk assessment performed?: Yes Alcohol Intake: never Drug use: Never Substance use type: does not use Household members: spouse Housing: house Communication Needs: None current occupation: Retired Pets and animals: Yes (1 dog) Pets and animals: dog(s) Current gender identity: male What type of physical activity do you participate in: walking Duration: < 15 minutes/day Frequency: daily Seatbelt use: always Drive intox or ride w/intox stage driver: No Working smoke detector in home: Yes Fire extinguisher in home: Yes Carbon monox detector in home: Yes Do you feel safe at home: Yes Do you feel safe in your relationship?: Yes Exam Narrative Exam Narrative: Physical Examination General: Comatose and cardiac arrest HEENT: I-gel in place; vegetable material in mouth Neck: supple, trachea midline; full ROM Chest: normal to inspection Respiratory:I-Gel in placed, being bagged Cardiac: Pulseless GI: Slight abdominal distention Skin: Pale/cyanotic Neuro: No spontaneous movement Extremities: Bilateral peripheral edema Procedures Intubation Time out performed: No sedative: none Laryngoscope: Maureen Assist Device Used: Bougie ET Tube Size: 7.5 ET Tube Uncuffed: No Tube Placement Confirmation: equal breath sounds bilaterally and no breath sounds over epigastrum Additional Comments: First attempt unsuccessful with direct laryngoscopy, second attempt successful with direct laryngoscopy and bougie
== END 2022-04-16 17:13 | disposition expired ==
PROVIDERS: Emergency Provider Emergency Medicine; PCP Nurse Practitioner
DX: I46.9 Cardiac arrest, cause unspecified (principal); J44.9 Chronic obstructive pulmonary disease, unspecified; Z87.891 Personal history of nicotine dependence; E11.9 Type 2 diabetes mellitus without complications; Z79.52 Long term (current) use of systemic steroids
CPT/HCPCS: 31500; 92950; 99285; 99284